=== PATIENT | female | born 1990 | race Caucasian/White ===

== ENCOUNTER 2016-11-21 04:17 | Inpatient (IN) | payer MEDICAID ==
[2016-11-21] MEDS ORDERED: LIDOCAINE 1% INJ-PF (10 MG/ML) 30 ML SDV ONE (04:31)
[2016-11-21] MEDS ORDERED: OXYTOCIN 10 UNIT/ML VIAL ONE (04:31)
[2016-11-21] MEDS ORDERED: OXYTOCIN/NORMAL SALINE 20 UNIT/1,000 ML RTUINJ ONE (04:31)
[2016-11-21] MEDS ORDERED: RINGERS SOLUTION,LACTATED 1,000 ML IV ONE (04:32)
[2016-11-21] MEDS ORDERED: RINGERS SOLUTION,LACTATED 1,000 ML IV PRN (04:32)
[2016-11-21] MEDS ORDERED: MEASLES,MUMPS&RUBELLA VACC/PF 0.5 ML VIAL SUBCUT PRN (04:43)
[2016-11-21] MEDS ORDERED: GLYCERIN/WITCH HAZEL LEAF 1 EACH MED..PAD TP PRN (04:43)
[2016-11-21] MEDS ORDERED: MAGNESIUM HYDROXIDE SUSP 30 ML UDCUP PO PRN (04:43)
[2016-11-21] MEDS ORDERED: NA PHOS,M-B/NA PHOS,DI-BA (ADULT) 133 ML ENEMA PR PRN (04:43)
[2016-11-21] MEDS ORDERED: ACETAMINOPHEN WITH CODEINE #3 TABLET PO PRN (04:43)
[2016-11-21] MEDS ORDERED: PROMETHAZINE HCL INJ 25 MG/1 ML VIAL IV PRN (04:43)
[2016-11-21] MEDS ORDERED: DIPH/PERTUSS(ACELL)/TETANUS VAC/PF 0.5 ML SYR (>=10YO) IM PRN (04:43)
[2016-11-21] MEDS ORDERED: ACETAMINOPHEN 650 MG SUPP.RECT PR PRN (04:43)
[2016-11-21] MEDS ORDERED: ZOLPIDEM TARTRATE 5 MG TABLET PO PRN (04:43)
[2016-11-21] MEDS ORDERED: DIPHENHYDRAMINE HCL 25 MG CAPSULE PO PRN (04:43)
[2016-11-21] MEDS ORDERED: DIBUCAINE 1% OINTMENT 28 GM TP PRN (04:43)
[2016-11-21] MEDS ORDERED: PSEUDOEPHEDRINE HCL 30 MG TABLET PO PRN (04:43)
[2016-11-21] MEDS ORDERED: OXYTOCIN/NORMAL SALINE 20 UNIT/1,000 ML RTUINJ IV PRN (04:43)
[2016-11-21] MEDS ORDERED: BENZOCAINE/MENTHOL AEROSOL SPRAY 56 ML TOP PRN (04:43)
[2016-11-21] MEDS ORDERED: PROMETHAZINE HCL 25 MG SUPP.RECT PR PRN (04:43)
[2016-11-21] MEDS ORDERED: PROMETHAZINE HCL 25 MG TABLET PO PRN (04:43)
[2016-11-21 04:56] LABS: APPEARANCE,URINE CLEAR; BILIRUBIN,URINE NEGATIVE (NEGATIVE); GLUCOSE, URINE 50 mg/dL (NEGATIVE); KETONES,URINE NEGATIVE (NEGATIVE); LEUKOCYTE ESTERASE,URINE NEGATIVE (NEGATIVE); NITRITE,URINE NEGATIVE (NEGATIVE); PROTEIN,URINE NEGATIVE (NEGATIVE); URINE SPECIFIC GRAVITY 1.009; UROBILINOGEN,URINE NEGATIVE mg/dL (<2.0)
[2016-11-21 05:10] LABS: URINE METHADONE SCREEN NEGATIVE; URINE OPIATES LOW NEGATIVE; URINE PHENCYCLIDINE SCREEN NEGATIVE
[2016-11-21] MEDS ORDERED: IBUPROFEN 800 MG TABLET ONE (05:16)
[2016-11-21 05:21] LABS: URINE BARBITURATES SCREEN UNCONFIRMED POSITIVE
[2016-11-21 05:59] LABS: ABSOLUTE BASOPHILS # (AUTO) 0.1 10^3/uL (0.0-0.2); ABSOLUTE EOSINOPHILS # (AUTO) 0.1 10^3/uL (0.0-0.6); ABSOLUTE LYMPHOCYTES (AUTO) 1.5 10^3/uL (0.5-4.7); ABSOLUTE MONOCYTES (AUTO) 0.9 10^3/uL (0.1-1.4); ABSOLUTE NEUT (AUTO) 8.1 10^3/uL (1.7-8.2); BASOPHILS % (AUTO) 0.7 % (0-2); EOSINOPHILS % (AUTO) 0.7 % (0-6); HEMATOCRIT 32.8 % (36.0-47.0); HEMOGLOBIN 10.9 g/dL (12.0-15.5); HGB HCT DIFFERENCE -0.1; LYMPHOCYTES % (AUTO) 14.2 % (13-45); MEAN CORPUSCULAR HEMOGLOBIN 24.8 pg (27.0-33.4); MEAN CORPUSCULAR HGB CONC 33.3 g/dL (32.0-36.0); MEAN CORPUSCULAR VOLUME 74 fl (80-97); MONOCYTES % (AUTO) 8.1 % (3-13); RED BLOOD COUNT 4.41 10^6/uL (3.72-5.28); RED CELL DISTRIBUTION WIDTH 14.9 % (11.5-14.0); SEGMENTED NEUTROPHILS % (AUTO) 76.3 % (42-78); WHITE BLOOD COUNT 10.6 10^3/uL (4.0-10.5)
--- NOTE | 2016-11-21 06:02 | Delivery Summary ---
Del Sum A-C Datetime Report Generated by CPN: 11/21/2016 06:02 DELIVERY PERSONNEL DELIVERY PERSONNEL: ,[phone] Delivery Doctor:: Divina Ferguson MD Labor and Delivery Nurse:: Rosy Valdovinos RN Nursery Nurse:: Danielle Campa RN Rod Bending Machine Operator/CREMATOR: Helen Rogela, CREMATOR MATERNAL INFORMATION Delivery Anesthesia: None Medications After Delivery: Pitocin Bolus-Please Comment Meds After Delivery Comment: Pitocin 20 units/1000 ml NS following placenta Estimated Blood Loss (ml): 250 Maternal Complications: Precipitous Labor (<3hrs) Provider Comments: Placenta delivered intact with 3vc LABOR SUMMARY EDC: 11/20/2016 00:00 Attempted: No Labor Anesthesia: None LABOR INFORMATION Reason for Induction: Not Applicable Onset of Labor: 11/21/2016 03:00 Complete Dilatation: 11/21/2016 04:42 Oxytocin: N/A Group B Beta Strep: negative Antibiotics # of Doses: 0 Antibiotics Time of Last Dose: n/a Steroids Given: None Reason Steroids Not Administered: Not Applicable MEMBRANES Membranes Rupture Method: Artificial Rupture of Membranes: 11/21/2016 04:45 Length of Rupture (hr): 0.18 Amniotic Fluid Color: Clear Amniotic Fluid Amount: Moderate Amniotic Fluid Odor: Normal STAGES OF LABOR Stage 1 hr: 1 Stage 1 min: 42 Stage 2 hr: 0 Stage 2 min: 14 Stage 3 hr: 0 Stage 3 min: 4 Total Time in Labor hr: 2 Total Time in Labor min: 0 VAGINAL DELIVERY Episiotomy: None Laceration Extension: First Degree Laceration Type: Perineal Laceration Repair: Yes Laceration Repair Note: one 3-0 chromic suture placed Sponge Count Correct: N/A Sharps Count Correct: N/A CSECTION DELIVERY Primary Indication: N/A Secondary Indication: N/A CSection Incidence: N/A Labor: N/A Elective: N/A CSection Incision: N/A BABY A INFORMATION Infant Delivery Date/Time: 11/21/2016 04:56 Method of Delivery: Vaginal Born in Route : No : N/A Forceps: N/A Vacuum Extraction: N/A Shoulder Dystocia : No PRESENTATION/POSITION BABY A Presentation: Cephalic Cephalic Presentation: Vertex Vertex Position: Left Occipital Anterior Breech Presentation: N/A PLACENTA INFORMATION BABY A Placenta Delivery Time : 11/21/2016 05:00 Placenta Method of Delivery: Spontaneous Placenta Status: Delivered SCORES BABY A Heart Rate 1 min: >100 bpm Resp Effort 1 min: Slow, Irregular Reflex Irritability 1 min: Cough or Sneeze or Pulls Away Muscle Tone 1 min: Active Motion Color 1 min: Body [place], Extremities Blue SCORE 1 MIN: 8 Heart Rate 5 min: >100 bpm Resp Effort 5 min: Good Cry Reflex Irritability 5 min: Cough or Sneeze or Pulls Away Muscle Tone 5 min: Active Motion Color 5 min: Body [place], Extremities Blue SCORE 5 MIN: 9 INFORMATION BABY A Gestational Age at Delivery: 40.1 Gestational Status: Full Term- 39- 40.6 Weeks Infant Outcome : Liveborn Condition : Stable Sex: Female IDENTIFICATION BABY A Verification Date/Time: 11/21/2016 05:49 ID Band Number: [id number] Mother's Name Verified: Yes Infant RN Verifying : A Valdovinos Rn Additional Verifying Personnel: Swapsee Rn WEIGHT/LENGTH BABY A Infant Birthweight (gm): 3490 Weight (lb): 7 Infant Weight (oz): 11 Infant Length (in): 20.00 Infant Length (cm): 50.80 CORD INFORMATION BABY A No. Cord Vessels: 3 Nuchal Cord : N/A Cord Blood Taken: Yes-For Eval (Mom's Blood Type - or O+) Infant Suction: Mouth; Nose ASSESSMENT BABY A Complications: None Physical Findings at Delivery: Within Normal Limits Infant Respirations: Appears Normal Skin to Skin: Yes Skin to Skin Time (min): 40 [place] Operator/ALS Called : No Care By: Ena Campa RN Transferred To: Remains with Mother SIGNATURES Signature: with User ID: [email or web address]
--- NOTE | 2016-11-21 07:38 | Admission Physical ---
Datetime Report Generated by CPN: 11/21/2016 07:37 CURRENT ADMISSION Chief Complaint: Uterine Contractions Indication for Induction: Not Applicable Admit Plan: Admit to Unit; Initiate Labor Protocol ALLERGIES Medication Allergies: No Medication Allergies: No Known Allergies (02/16/2013) Latex: No Latex Allergies Food Allergies: none Environmental Allergies: none OBSTETRICAL HISTORY EDC: 11/20/2016 00:00 : 5 Para: 2 Term: 2 SAB: 2 Livin Cesareans: 0 Gestational Diabetes: No Rh Sensitization: No Incompetent Cervix: No GAVIOTA: No Infertility: No ART Treatment: No Uterine Anomaly: No IUGR: No Hx Previous C/S: No Macrosomia: No Hx Loss/Stillborn: No PIH: No Hx : No Placenta Previa/Abruption: No Depression/PP Depression: No PTL/PROM: No Post Hemorrhage: No Current Procedures: Ultrasound; NST SEE RECORDS Alcohol: No Marijuana : No Cocaine: No Other Illicit Drugs: No Cigarettes: Never Smoker. [id number] MEDICAL HISTORY Diabetes: No Blood Transfusion: No Pulmonary Disease (Asthma, TB): No Breast Disease: No Hypertension: No Machine Cleaner Surgery: No Heart Disease: No Hosp/Surgery: No Autoimmune Disorder: No Anesthetic Complications: No Kidney Disease: No Abnormal Pap Smear: No Neuro/Epilepsy: No Psychiatric Disorders: No Other Medical Diseases: No Hepatitis/Liver Disease: No Significant Family History: No Varicosities/Phlebitis: No Trauma/Violence : No Thyroid Dysfunction: No Medical History Comments: benign lump left breast-2009 depresasion-no suicidal thoughts INFECTIOUS HISTORY Gonorrhea: No Genital Herpes: No Chlamydia: No Tuberculosis: No Syphilis: No Hepatitis: No HIV/AIDS Exposure: No Rash or Viral Illness: No HPV: No PHYSICAL EXAM General: Normal HEENT: Normal Neurologic: Normal Thyroid: Normal Heart: Normal Lungs: Normal Breast: Deferred Back: Normal Abdomen: Normal Genitourinary Exam: Normal Extremities: Normal DTRs: Normal Pelvic Type: Adequate Vital Signs: Reviewed VAGINAL EXAM Dilatation: 9 Effacement: 100 Station: 0 MEMBRANES Pooling: Negative Membranes: Intact FETUS A EGA: 40.1 Monitoring: External US FHR- Baseline: 140 Variability: Moderate 6-25bpm Accelerations: 15X15 Decelerations: None FHR Category: Category I Presentation: Vertex PLANS FOR LABOR AND DELIVERY Labor and Delivery: None Pain Management: Epidural Feeding Preference: Breast Benefit of Breast Feed Discussed: Yes Circumcision: N/A INFORMED CONSENT Signature: with User ID: DamSmith
--- NOTE | 2016-11-21 08:00 | L&D Flow Sheet ---
LD Flowsheet Datetime Report Generated by CPN: 11/21/2016 08:00 Datetime: 11/21/2016 06:02 NBP Sys/Yoon/Mean (mmHg): 122 (QS system process) : 83 (QS system process) : 98 (QS system process) Pulse: 61 (QS system process) Datetime: 11/21/2016 05:32 NBP Sys/Yoon/Mean (mmHg): 133 (QS system process) : 72 (QS system process) : 96 (QS system process) Pulse: 74 (QS system process) Datetime: 11/21/2016 05:14 NBP Sys/Yoon/Mean (mmHg): 129 (QS system process) : 58 (QS system process) : 84 (QS system process) Pulse: 82 (QS system process) Datetime: 11/21/2016 05:10 Pain Pain Scale: 2 (Rosy Valdovinso) Pain Presence: Constant (Rosy Valdovinos) Pain Type: Burning (Rosy Valdovinos) Pain Location: Perineum (Rosy Valdovinos) Pain Goal: 0 (Rosy Valdovinos) Pain Relief Measures: Pain Medication Given (Rosy Valdovinos) Datetime: 11/21/2016 05:00 Vital Signs Stage of : Recovery (Rosy Valdovinos) Datetime: 11/21/2016 04:56 Assessment A Comments: vaginal delivery of baby girl (Rosy Valdovinos) Datetime: 11/21/2016 04:51 Stage 2 Pushing: Coached on Pushing; Urge to Push (Rosy Valdovinos) Pushing Position: Pushing with Contractions (Rosy Valdovinos) Pushing Progress: Descent with Pushing (Rosy Valdovinos) Datetime: 11/21/2016 04:48 Stage 2 Pushing: Coached on Pushing; Urge to Push (Rosy Valdovinos) Pushing Position: Pushing with Contractions (Rosy Valdovinos) Pushing Progress: Descent with Pushing (Rosy Valdovinos) Stage 2 Comments: rn kendrick at the bedside for delivery (Rosy Valdovinos) Datetime: 11/21/2016 04:45 Membrane Status: Ruptured (Rosy Valdovinos) Membranes Rupture Method: Artificial (Rosy Valdovinos) Amniotic Fluid Color: Clear (Rosy Valdovinos) Amniotic Fluid Amount: Moderate (Rosy Valdovinos) Amniotic Fluid Odor: Normal (Rosy Valdovinos) Patient Position/Activity: patient legs in stirrups (Rosy Valdovinos) Patient Care Comments: Dr Ferguson at the bedside for delivery (Rosy Valdovinos) Datetime: 11/21/2016 04:42 Vaginal Exam Dilatation (cm): 10.0 (Rosy Valdovinos) Effacement (%): 100 (Rosy Valdovinos) Station: 2 (Rosy Valdovinos) Exam by: A Valdovinos Rn (Rosy Valdovinos) Datetime: 11/21/2016 04:41 Pain Pain Scale: 4 (Rosy Valdovinos) Pain Presence: Intermittent (Rosy Valdovinos) Pain Type: Cramping (Rosy Valdovinos) Pain Location: Abdomen (Rosy Valdovinos) Pain Goal: 0 (Rosy Valdovinos) Pain Coping: Talking Through Contractions; Breathing Through Contractions (Rosy Valdovinos) Vaginal Bleeding: None (Rosy Valdovinos) Maternal Assessment Level of Consciousness: Fully Conscious (Rosy Valdovinos) DTR's/Clonus: DTRs 2+; No Clonus (Rosy Valdovinos) Headache: Denies (Rosy Valdovinos) Breath Sounds, Left: Clear and Equal (Rosy Valdovinos) Breath Sounds, Right: Clear and Equal (Rosy Valdovinos) Nausea/Vomiting: Denies (Orsy Valdovinos) RUQ Epigastric Pain: Denies (Rosy Valdovinos) Patient Position/Activity: Right Tilt (Rosy Valdovinos) Teaching Instructional Method: Verbal (Rosy Valdovinos) Plan of Care: Plan of Care Discussed (Rosy Valdovinos) Unit Routine: [place] to Room; Call Martínez; Bed; Visiting Policy; Waiting Areas; Infant Security; Phone/Cell Phone Use; Photography; Unit Personnel; Consents Signed; Handwashing; Flu/Illness Precautions; Monitoring; IV Pumps; Safety/Fall Risk Prevention; Diet/Nutrition Services; Bathroom Privileges; Routine Time Outs; Medications (Rosy Valdovinos) LaborFlag: Antepartum (QS system process) Datetime: 11/21/2016 04:40 Procedures: Consents Signed (Cristina Azma, RN) Datetime: 11/21/2016 04:35 Patient Care IV/Blood Work: IV Started; IV Bolus Started (Annotations: 18g left forearm) (Rosy Valdovinos) Datetime: 11/21/2016 04:32 NBP Sys/Yoon/Mean (mmHg): 139 (QS system process) : 82 (QS system process) : 104 (QS system process) LaborFlag: Antepartum (QS system process) Datetime: 11/21/2016 04:30 Communication Communication Comments: Dr. Ferguson made aware of SVE and states he will be to the unit shortly (Cristina Azam, RN) Datetime: 11/21/2016 04:29 Vital Signs Stage of : Antepartum (Rosy Valdovinos) Datetime: 11/21/2016 04:28 Vaginal Exam Dilatation (cm): 9.5 (Cristina Nascimento RN) Effacement (%): 90 (Rosyabhilash Valdovinos) Station: 1 (Rosy Valdovinos) Exam by: Chilango Valdovinos RN (Cristina Nascimento RN) Vaginal Exam Comments: bbow (Cristina Nascimento RN) Datetime: 11/21/2016 04:23 Patient Care Comments: patient to the unit for labor check (Rosy Valdovinos) Datetime: 11/21/2016 04:15 Membranes Ruptured Date/Time: 11/21/2016 04:45 (Rosyabhilash Valdovinos) Membranes Rupture Method: Artificial (Viry Dickey RN) Amniotic Fluid Color: Clear (Viry Dickey RN) Amniotic Fluid Amount: Moderate (Viry Dickey RN)
[2016-11-21] MEDS: IBUPROFEN 800 MG TABLET PO SCH ×3 (08:18→21:09)
--- NOTE | 2016-11-21 09:37 | L&D Discharge Summary ---
OB Discharge Summary Datetime Report Generated by CPN: 11/21/2016 09:37 DISCHARGE DIAGNOSIS Gestation: 40.1 Parity: 2
[2016-11-21] MEDS: FAMOTIDINE 20 MG TABLET PO SCH ×2 (09:59→21:09)
[2016-11-21] MEDS: DOCUSATE SODIUM 100 MG CAPSULE PO SCH ×2 (09:59→17:25)
[2016-11-21] MEDS: PRENATAL VITAMIN W-O CA NO5/FE FUMARATE/FA CAPSULE PO SCH (09:59)
[2016-11-21] MEDS: SENNOSIDES/DOCUSATE 8.6-50 MG 1 EACH TABLET PO SCH (10:00)
[2016-11-21] MEDS: FERROUS SULFATE 325 MG TABLET PO SCH ×2 (10:00→17:25)
--- NOTE | 2016-11-21 11:00 | PDOC PROGRESS REPORT ---
Subjective-OB Subjective: Post Delivery Day: 26 year old. Denies any needs at this time. Pt doing well, no concerns. She reports light bleeding, regular diet and voiding well. Physical Exam (OB) Vital Signs: Temp Pulse Resp BP Pulse Ox 98.4 F 77 18 116/68 98 11/21/16 07:14 11/21/16 07:14 11/21/16 07:14 11/21/16 07:14 11/21/16 07:14 Intake & Output 11/20/16 11/21/16 11/22/16 06:59 06:59 06:59 Intake Total 1000 Balance 1000 Weight 97.85 kg - Lochia Lochia Amount: Small 10-25 ml Lochia Color: Rubra/Red - Abdomen Description: Tender, Soft, Round Hernia Present: No Fundal Description: Firm, Midline Fundal Height: u/u - u/2 Objective-Diagnostic Laboratory: 11/21/16 05:50 11/21/16 11/21/16 11/21/16 04:26 05:50 05:50 WBC 10.6 H RBC 4.41 Hgb 10.9 L Hct 32.8 L MCV 74 L MCH 24.8 L MCHC 33.3 RDW 14.9 H Plt Count 271 Seg Neutrophils % 76.3 Lymphocytes % 14.2 Monocytes % 8.1 Eosinophils % 0.7 Basophils % 0.7 Absolute Neutrophils 8.1 Absolute Lymphocytes 1.5 Absolute Monocytes 0.9 Absolute Eosinophils 0.1 Absolute Basophils 0.1 Urine Color YELLOW Urine Appearance CLEAR Urine pH 7.0 Ur Specific Paul 1.009 Urine Protein NEGATIVE Urine Glucose (UA) 50 H Urine Ketones NEGATIVE Urine Blood NEGATIVE Urine Nitrite NEGATIVE Ur Leukocyte Esterase NEGATIVE Blood Type O POSITIVE Antibody Screen NEGATIVE Assessment and Plan(PN) - Assessment and Plan (1) Vaginal delivery Is this a current diagnosis for this admission?: Yes - Time Spent with Patient Time with patient: Less than 15 minutes Medications reviewed and adjusted accordingly: Yes - Disposition Anticipated Discharge: Home Within: within 24 hours
[2016-11-21] MEDS: ACETAMINOPHEN WITH CODEINE #3 TABLET PO PRN ×2 (14:15→19:12)
--- NOTE | 2016-11-21 18:01 | L&D General Admission ---
General Admit Datetime Report Generated by CPN: 11/21/2016 18:00 INFORMATION Patient Age: 26 (10/08/2016 10:16:QS system process) EDC: 11/20/2016 00:00 (11/21/2016 04:15:Cristina Nascimento RN) EDC per Ultrasound: 11/20/2016 00:00 (11/21/2016 04:15:Cristina Nascimento RN) : 5 (11/21/2016 04:15:Cristina Nascimento RN) Para: 2 (11/21/2016 04:15:Cristina Nascimento RN) Term: 2 (11/21/2016 04:15:Cristina Nascimento RN) Spontaneous Abortions: 2 (11/21/2016 04:15:Cristina Nascimento RN) Livin (11/21/2016 04:15:Cristina Nascimento RN) Cesareans: 0 (11/21/2016 04:15:Cristina Nascimento RN) CARE Primary Film Booker: [facility] (11/21/2016 04:15:Rosy Valdovinos) Adequate Care: Yes (11/21/2016 04:15:Cristinaharvey Nascimento, RN) Height (in): 67 (11/21/2016 07:37:QS system process) ALLERGIES Medication Allergy: No (11/21/2016 04:15:Rosy Valdovinos) Medication Allergies: No Known Allergies (02/16/2013) (10/08/2016 10:16:QS system process) Latex Allergy: No Latex Allergies (11/21/2016 04:15:Rosy Valdovinos) Food Allergies: none (11/21/2016 04:15:Rosy Valdovinos) Environmental Allergies: none (11/21/2016 04:15:Rosy Valdovinos) COMMUNICATION Primary Language: Kittitian (11/21/2016 04:15:Rosy Valdovinos) Medical Tx Preferred Language: Kittitian (11/21/2016 04:15:Rosyabhilash Valdovinos) DEMOGRAPHICS Address: [address] [place] [id number] (10/08/2016 10:16:QS system process) Zipcode: [phone] (10/08/2016 10:16:QS system process) Home (10/08/2016 10:16:QS system process) SSN: [id number] (10/08/2016 10:16:QS system process) Next of Kin Name: JANETH MCMILLAN (10/08/2016 10:16:QS system process) Next of Kin (10/08/2016 10:16:QS system process) Next of Kin Relationship: SPO (10/08/2016 10:16:QS system process) Date of : 1990 (10/08/2016 10:16:QS system process) Marital Status: (10/08/2016 10:16:QS system process) Sex: Female (10/08/2016 10:16:QS system process) Race: (10/08/2016 10:16:QS system process) Ethnicity: Non- or (10/08/2016 10:16:QS system process) Hinduism: Oriental Orthodox (10/08/2016 10:16:QS system process) DRUG AND ALCOHOL USE Alcohol: No (11/21/2016 04:15:Rosy Valdovinos) Cigarettes: Never Smoker. [id number] (11/21/2016 04:15:Rosy Valdovinos) Marijuana: No (11/21/2016 04:15:Rosy Valdovinos) Cocaine: No (11/21/2016 04:15:Rosy Valdovinos) Other Illicit Drugs: No (11/21/2016 04:15:Rosy Valdovinos) VACCINE HISTORY Influenza Vaccine: Yes (11/21/2016 04:15:Rosy Valdovinos) Influenza Date: 2016 (11/21/2016 04:15:Rosy Valdovinos) Tdap Vaccine: Yes (11/21/2016 04:15:Rosy Valdovinos) Tdap Date: 2016 (11/21/2016 04:15:Rosy Valdovinos) Driving School Instructor: [facility] (11/21/2016 04:15:Rosy Valdovinos) Feeding Preference: Breast (11/21/2016 04:15:Rosy Valdovinos) Benefit of Breast Feed Discussed: Yes (11/21/2016 04:15:Viry Dickey RN) Circumcision: N/A (11/21/2016 04:15:Rosy Valdovinos) Classes Attended: No (11/21/2016 04:15:Rosy Valdovinos) Tubal Ligation: No (11/21/2016 04:15:Rosy Valdovinos) Tubal Authorization Signed: N/A (11/21/2016 04:15:Rosy Valdovinos) Consent: N/A (11/21/2016 04:15:Rosy Valdovinos) Consent Signed: N/A (11/21/2016 04:15:Rosy Valdovinos) Pain Management Plans: Epidural (11/21/2016 04:15:Rosy Valdovinos) Plans for Labor and Delivery: None (11/21/2016 04:15:Rosy Valdovinos) Support Person: Janeth (11/21/2016 04:15:Rosy Valdovinos) Support Person Relationship: (11/21/2016 04:15:Rosy Valdovinos) Cultural/Spritual Practice: N/A (11/21/2016 04:15:Rosy Valdovinos) Spir/Cult Dietary Needs: N/A (11/21/2016 04:15:Rosy Valdovinos) LIVING SITUATION/DISCHARGE PLAN Living Arrangements: House (11/21/2016 04:15:Rosy Valdovinos) Adequate Access to:: Electric; Heat; Refrigeration; Plumbing/Running water; Phone; Transportation (11/21/2016 04:15:Rosy Valdovinos) WIC Program: Yes (11/21/2016 04:15:Rosy Valdovinos) 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: janeth- (11/21/2016 04:15:Rosy Valdovinos) Person to Help after Discharge: janeth- (11/21/2016 04:15:Rosy Valdovinos) Currently Using Commun Resources: Yes (11/21/2016 04:15:Rosy Valdovinos) Specify Current Resource Used: medicaid (11/21/2016 04:15:Rosy Valdovinos) Outside Agency/Brewery Technician: No (11/21/2016 04:15:Rosy Valdovinos) Car Seat for Discharge: Yes (11/21/2016 04:15:Rosy Valdovinos) Adoption Requested: No (11/21/2016 04:15:Rosy Valdovinos) Pt Contact w/ Post : N/A (11/21/2016 04:15:Rosy Valdovinos) LABS Blood Type: O Positive (11/21/2016 04:15:Cristina Nascimento RN) Hemoglobin: 10.9 L (11/21/2016 05:50:QS system process) Hematocrit: 32.8 L (11/21/2016 05:50:QS system process) MCV: 74 L (11/21/2016 05:50:QS system process) Group Beta Strep: negative (11/21/2016 04:15:Viry Dickey RN) RPR/VDRL: Nonreactive (11/21/2016 04:15:Cristina Nascimento RN) HIV Exposure Test: Negative (11/21/2016 04:15:Cristina Nascimento RN) Hepatitis B: Negative (11/21/2016 04:15:Cristina Nascimento RN) Rubella: POSITIVE NEGATIVE IF LESS THAN OR EQUAL TO 9.99 IU/mL POSITIVE IF GREATER THAN OR EQUAL TO 10.0 IU/mL (11/21/2016 05:50:QS system process) Rubella Titer: 41.30 (11/21/2016 05:50:QS system process) Varicella: Non Susceptible (11/21/2016 04:15:Cristina Nascimento RN) OB/PREVIOUS HISTORY Previous Procedures: Ultrasound; NST (11/21/2016 04:15:Rosy Valdovinos) Current Procedures: Ultrasound; NST (11/21/2016 04:15:Rosy Valdovinos) History of Previous : No (11/21/2016 04:15:Rosy Valdovinos) History of Gestational Diabetes: No (11/21/2016 04:15:Rosy Valdovinos) History of PIH: No (11/21/2016 04:15:Rosy Valdovinos) History of Incompetent Cervix: No (11/21/2016 04:15:Rosy Valdovinos) History of Placenta Previa/Abrup: No (11/21/2016 04:15:Rosy Valdovinos) History of Macrosomia: No (11/21/2016 04:15:Rosy Valdovinos) History of IUGR: No (11/21/2016 04:15:Rosy Valdovinos) History of Hemorrhage: No (11/21/2016 04:15:Rosy Valdovinos) History of Loss/Stillborn: No (11/21/2016 04:15:Rosy Valdovinos) History of : No (11/21/2016 04:15:Rosy Valdovinos) History of D (Rh) Sensitization: No (11/21/2016 04:15:Rosy Valdovinos) History Recurrent Loss/Stillborn: No (11/21/2016 04:15:Rosy Valdovinos) History Depression/PP Depression: No (11/21/2016 04:15:Rosy Valdovinos) History of Uterine Anomaly/GAVIOTA: No (11/21/2016 04:15:Rosy Valdovinos) History of Infertility: No (11/21/2016 04:15:Rosy Valdovinos) History of ART Treatment: No (11/21/2016 04:15:Rosy Valdovinos) History of GAVIOTA: No (11/21/2016 04:15:Rosy Valdovinos) MEDICAL HISTORY Med Hx Diabetes: No (11/21/2016 04:15:Rosy Valdovinos) Med Hx Hypertension: No (11/21/2016 04:15:Rosy Valdovinos) Med Hx Heart Disease: No (11/21/2016 04:15:Rosy Valdovinos) Med Hx Autoimmune Disorder: No (11/21/2016 04:15:Rosy Valdovinos) Med Hx Kidney Disease/UTI: No (11/21/2016 04:15:Rosy Valdovinos) Med Hx Neurologic/Epilepsy: No (11/21/2016 04:15:Rosy Valdovinos) Med Hx Psychiatric Disorders: No (11/21/2016 04:15:Rosy Valdovinos) Med Hx Hepatitis/Liver Disease: No (11/21/2016 04:15:Rosy Valdovinos) Med Hx Varicosities/Phlebitis: No (11/21/2016 04:15:Rosy Valdovinos) Med Hx Thyroid Dysfunction: No (11/21/2016 04:15:Rosy Valdovinos) Med Hx Trauma/Violence: No (11/21/2016 04:15:Rosy Valdovinos) Med Hx Blood Transfusion: No (11/21/2016 04:15:Rosy Valdovinos) Med Hx Pulmonary (Asthma,TB): No (11/21/2016 04:15:Rosy Valdovinos) Med Hx Breast: No (11/21/2016 04:15:Rosy Valdovinos) Med Hx LABORATORY SAMPLE 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 Surgery: No (11/21/2016 04:15:Rosy Valdovinos) Med Hx Hospitalization/Surgery: No (11/21/2016 04:15:Rosy Valdovinos) Med Hx Anesthetic Complications: No (11/21/2016 04:15:Rosy Valdovinos) Med Hx Abnormal Pap Smear: No (11/21/2016 04:15:Rosy Valdovinos) Other Medical Diseases: No (11/21/2016 04:15:Rosy Valdovinos) Med Hx Significant Family Hx: No (11/21/2016 04:15:Rosy Valdovinos) Details of Med/Surg Hx: benign lump left breast-2009 depresasion-no suicidal thoughts (11/21/2016 04:15:Cristina Nascimento RN) INFECTIOUS HISTORY Inf Hx Gonorrhea: No (11/21/2016 04:15:Rosy Valdovinos) Inf Hx Chlamydia: No (11/21/2016 04:15:Rosy Valdovinos) Inf Hx Syphilis: No (11/21/2016 04:15:Rosy Valdovinos) Inf Hx HIV/AIDS: No (11/21/2016 04:15:Rosy Valdovinos) Inf Hx Human Papilloma Virus: No (11/21/2016 04:15:Rosy Valdovinos) Inf Hx Pt/Partner Genital Herpes: No (11/21/2016 04:15:Rosy Valdovinos) Inf Hx Tuberculosis/Exposure: No (11/21/2016 04:15:Rosy Valdovinos) Inf Hx Hepatitis B,C: No (11/21/2016 04:15:Rosy Valdovinos) Inf Hx Rash or Viral Illness: No (11/21/2016 04:15:Rosy Valdovinos) GENETIC HISTORY Gen Hx Age >=35 at TYRELL: No (11/21/2016 04:15:Rosy Valdovinos) Gen Hx Thalassemia: No (11/21/2016 04:15:Rosy Valdovinos) Gen Hx Congenital Heart Defect: No (11/21/2016 04:15:Rosy Valdovinos) Gen Hx Neural Tube Defect: No (11/21/2016 04:15:Rosy Valdovinos) Gen Hx Down's Syndrome: No (11/21/2016 04:15:Rosy Valdovinos) Gen Hx Jt-Sachs: No (11/21/2016 04:15:Rosy Valdovinos) Gen Hx Otto: No (11/21/2016 04:15:Rosy Valdovinos) Gen Hx Familial Dysautonomia: No (11/21/2016 04:15:Rosy Valdovinos) Gen Hx Sickle Cell Disease/Trait: No (11/21/2016 04:15:Rosy Valdovinos) Gen Hx Hemophilia/Blood Disorder: No (11/21/2016 04:15:Rosy Valdovinos) Gen Hx Muscular Dystrophy: No (11/21/2016 04:15:Rosy Valdovinos) Gen Hx Cystic Fibrosis: No (11/21/2016 04:15:Rosy Valdovinos) Gen Hx [place] Chorea: No (11/21/2016 04:15:Rosy Valdovinos) Gen Hx Mental Retardation/Autism: No (11/21/2016 04:15:Rosy Valdovinos) Gen Hx Tested for Fragile X: No (11/21/2016 04:15:Rosy Valdovinos) Gen Hx Other Inher/Chromosomal: No (11/21/2016 04:15:Rosy Valdovinos) Gen Hx Maternal Metabolic DO: No (11/21/2016 04:15:Rosy Valdovinos) Gen Hx Pt Father or FOB Defect: No (11/21/2016 04:15:Rosy Valdovinos) Gen Hx Other Genetic History: No (11/21/2016 04:15:Rosy Valdovinos) Gen Hx Drugs/Meds since LMP: No (11/21/2016 04:15:Rosy Valdovinos)
--- NOTE | 2016-11-21 20:20 | L&D Current Admission ---
Current Admit Datetime Report Generated by CPN: 11/21/2016 20:20 ADMISSION INFORMATION Current Admit Date/Time: 11/21/2016 04:41 (11/21/2016 04:41:Rosy Valdovinos) Reason for Admission: Onset of Labor (11/21/2016 04:41:Rosy Valdovinos) Chief Complaint: Contractions (11/21/2016 04:41:Rosy Valdovinos) Medications During : Vitamin; Rantidine (Zantac) (11/21/2016 04:41:Cristina Nascimento RN) Meds During -Oth: fiorcet (11/21/2016 04:41:Cristina Nascimento RN) EGA per Dates: 40.1 (11/21/2016 04:41:QS system process) EGA per US: 40.1 (11/21/2016 04:41:QS system process) Method of Arrival: Wheelchair (11/21/2016 04:41:Rosy Valdovinos) Admitted From: Home (11/21/2016 04:41:Cristina Nascimento RN) Reason for Induction: Not Applicable (11/21/2016 04:41:Cristina Nascimento RN) Records Available: Yes (11/21/2016 04:41:Cristina Nascimento RN) General Admission Information: Reviewed (11/21/2016 04:41:Rosy Valdovinos) General Admission Reviewed By: Edmar Valdovinos RN (11/21/2016 04:41:Rosy Valdovinos) BELONGINGS/ADVANCED DIRECTIVES Other Belongings: see consent sheet (11/21/2016 04:41:Rosy Valdovinos) Disposition of Belongings: Kept with Patient (11/21/2016 04:41:Cristina Nascimento RN) Advance Direct for Healthcare: No, and Wants No Information (11/21/2016 04:41:Rosy Valdovinos) Durable Power of Bridal Stylist Sales Consultant: No (11/21/2016 04:41:Rosy Valdovinos) Living Will: No (11/21/2016 04:41:Rosy Valdovinos) Organ Donor: No (11/21/2016 04:41:Rosy Valdovinos) Pt Rights Information Given: Yes (11/21/2016 04:41:Rosy Valdovinos) Pt Understands Pt Rights: Yes (11/21/2016 04:41:Rosy Valdovinos) Patient Rights Comments: patient access (11/21/2016 04:41:Rosy Valdovinos) LEARNING ASSESSMENT Knowledge Level: Understands L_D Process (11/21/2016 04:41:Rosy Valdovinos) Barriers to Learning: None (11/21/2016 04:41:Rosy Valdovinos) Learning Readiness: Motivated (11/21/2016 04:41:Rosy Valdovinos) Learns Best By: 1 to 1 Instruction (11/21/2016 04:41:Rosy Valdovinos) Learning Needs: Labor and Delivery Process; Pain Management; Symptoms to Report; Treatment Plan; Medication (11/21/2016 04:41:Rosy Valdovinos) DOMESTIC VIOLANCE SCREENING Dom Viol Threatened/Hurt: No (11/21/2016 04:41:Rosy Valdovinos) Hx of Abuse/Neglect past 2yrs: No (11/21/2016 04:41:Rosy Valdovinos) Feel Unsafe Going Home: No (11/21/2016 04:41:Rosy Valdovinos) Addt'l Observ Indicating Abuse: No (11/21/2016 04:41:Rosy Valdovinos) Reason Unable to Complete Screen: N/A, Screen Completed (11/21/2016 04:41:Rosy Valdovinos) Considered Personal Harm/Suicide: No (11/21/2016 04:41:Rosy Valdovinos) NUTRITIONAL/FUNCTIONAL SCREENING Problem with Appetite >5 Days: No (11/21/2016 04:41:Rosy Valdovinos) Chew/Swallow Difficulties: No (11/21/2016 04:41:Rosy Valdovinos) Inappropriate Wt Gain/Loss: No (11/21/2016 04:41:Rosy aVldovinos) Presence Skin Breakdown/Ulcer: No (11/21/2016 04:41:Rosy Valdovinos) Special Diet: No (11/21/2016 04:41:Rosy Valdovinos) Pt Requests Wood Router Visit: No (11/21/2016 04:41:Rosy Valdovinos) Hx of Any of the Following?: N/A (11/21/2016 04:41:Rosy Valdovinos) New Diagnosis of: N/A (11/21/2016 04:41:Rosy Valdovinos) Requires Assist w/Ambulation: No (11/21/2016 04:41:Rosy Valdovinos) Uses Assist Device to Ambulate: No (11/21/2016 04:41:Rosy Valdovinos) Pt Requires Help w/ADL's: No (11/21/2016 04:41:Rosy Valdovinos)
--- NOTE | 2016-11-21 20:20 | L&D General Admission ---
General Admit Datetime Report Generated by CPN: 11/21/2016 20:20 INFORMATION Patient Age: 26 (10/08/2016 10:16:QS system process) EDC: 11/20/2016 00:00 (11/21/2016 04:15:Cristina Nascimento RN) EDC per Ultrasound: 11/20/2016 00:00 (11/21/2016 04:15:Cristina Nascimento RN) : 5 (11/21/2016 04:15:Cristina Nascimento RN) Para: 2 (11/21/2016 04:15:Cristina Nascimento RN) Term: 2 (11/21/2016 04:15:Cristina Nascimento RN) Spontaneous Abortions: 2 (11/21/2016 04:15:Cristina Nascimento RN) Livin (11/21/2016 04:15:Cristina Nascimento RN) Cesareans: 0 (11/21/2016 04:15:Cristina Nascimento RN) CARE Primary Workforce Development Assistant: [facility] (11/21/2016 04:15:Rosy Valdovinos) Adequate Care: Yes (11/21/2016 04:15:Cristinaharvey Nascimento, RN) Height (in): 67 (11/21/2016 07:37:QS system process) ALLERGIES Medication Allergy: No (11/21/2016 04:15:Rosy Valdovinos) Medication Allergies: No Known Allergies (02/16/2013) (10/08/2016 10:16:QS system process) Latex Allergy: No Latex Allergies (11/21/2016 04:15:Rosy Valdovinos) Food Allergies: none (11/21/2016 04:15:Rosy Valdovinos) Environmental Allergies: none (11/21/2016 04:15:Rosy Valdovinos) COMMUNICATION Primary Language: [place]ese (11/21/2016 04:15:Rosy Valdovinos) Medical Tx Preferred Language: [place]ese (11/21/2016 04:15:Rosyabhilash Valdovinos) DEMOGRAPHICS Address: [address] [place] [id number] (10/08/2016 10:16:QS system process) Zipcode: [phone] (10/08/2016 10:16:QS system process) Home (10/08/2016 10:16:QS system process) SSN: [id number] (10/08/2016 10:16:QS system process) Next of Kin Name: JANETH MCMILLAN (10/08/2016 10:16:QS system process) Next of Kin (10/08/2016 10:16:QS system process) Next of Kin Relationship: SPO (10/08/2016 10:16:QS system process) Date of : 1990 (10/08/2016 10:16:QS system process) Marital Status: (10/08/2016 10:16:QS system process) Sex: Female (10/08/2016 10:16:QS system process) Race: (10/08/2016 10:16:QS system process) Ethnicity: Non- or (10/08/2016 10:16:QS system process) Restorationist: Taoist (10/08/2016 10:16:QS system process) DRUG AND ALCOHOL USE Alcohol: No (11/21/2016 04:15:Rosy Valdovinos) Cigarettes: Never Smoker. [id number] (11/21/2016 04:15:Rosy Valdovinos) Marijuana: No (11/21/2016 04:15:Rosy Valdovinos) Cocaine: No (11/21/2016 04:15:Rosy Valdovinos) Other Illicit Drugs: No (11/21/2016 04:15:Rosy Valdovinos) VACCINE HISTORY Influenza Vaccine: Yes (11/21/2016 04:15:Rosy Valdovinos) Influenza Date: 2016 (11/21/2016 04:15:Rosy Valdovinos) Tdap Vaccine: Yes (11/21/2016 04:15:Rosy Valdovinos) Tdap Date: 2016 (11/21/2016 04:15:Rosy Valdovinos) Candy Depositing Machine Operator: [facility] (11/21/2016 04:15:Rosy Valdovinos) Feeding Preference: Breast (11/21/2016 04:15:Rosy Valdovinos) Benefit of Breast Feed Discussed: Yes (11/21/2016 04:15:Viry Dickey RN) Circumcision: N/A (11/21/2016 04:15:Rosy Valdovinos) Classes Attended: No (11/21/2016 04:15:Rosy Valdovinos) Tubal Ligation: No (11/21/2016 04:15:Rosy Valdovinos) Tubal Authorization Signed: N/A (11/21/2016 04:15:Rosy Valdovinos) Consent: N/A (11/21/2016 04:15:Rosy Valdovinos) Consent Signed: N/A (11/21/2016 04:15:Rosy Valdovinos) Pain Management Plans: Epidural (11/21/2016 04:15:Rosy Valdovinos) Plans for Labor and Delivery: None (11/21/2016 04:15:Rosy Valdovinos) Support Person: Janeth (11/21/2016 04:15:Rosy Valdovinos) Support Person Relationship: (11/21/2016 04:15:Rosy Valdovinos) Cultural/Spritual Practice: N/A (11/21/2016 04:15:Rosy Valdovinos) Spir/Cult Dietary Needs: N/A (11/21/2016 04:15:Rosy Valdovinos) LIVING SITUATION/DISCHARGE PLAN Living Arrangements: House (11/21/2016 04:15:Rosy Valdovinos) Adequate Access to:: Electric; Heat; Refrigeration; Plumbing/Running water; Phone; Transportation (11/21/2016 04:15:Rosy Valdovinos) WIC Program: Yes (11/21/2016 04:15:Rosy Valdovinos) Discharge Vehicle Controls Engineer Person: janeth- (11/21/2016 04:15:Rosy Valdovinos) Person to Help after Discharge: janeth- (11/21/2016 04:15:Rosy Valdovinos) Currently Using Commun Resources: Yes (11/21/2016 04:15:Rosy Valdovinos) Specify Current Resource Used: medicaid (11/21/2016 04:15:Rosy Valdovinos) Outside Agency/Compensation Director: No (11/21/2016 04:15:Rosy Valdovinos) Car Seat for Discharge: Yes (11/21/2016 04:15:Rosy Valdovinos) Adoption Requested: No (11/21/2016 04:15:Rosy Valdovinos) Pt Contact w/ Post : N/A (11/21/2016 04:15:Rosy Valdovinos) LABS Blood Type: O Positive (11/21/2016 04:15:Cristina Nascimento RN) Hemoglobin: 10.9 L (11/21/2016 05:50:QS system process) Hematocrit: 32.8 L (11/21/2016 05:50:QS system process) MCV: 74 L (11/21/2016 05:50:QS system process) Group Beta Strep: negative (11/21/2016 04:15:Viry Dickey RN) RPR/VDRL: Nonreactive (11/21/2016 04:15:Cristina Nascimento RN) HIV Exposure Test: Negative (11/21/2016 04:15:Cristina Nascimento RN) Hepatitis B: Negative (11/21/2016 04:15:Cristina Nascimento RN) Rubella: POSITIVE NEGATIVE IF LESS THAN OR EQUAL TO 9.99 IU/mL POSITIVE IF GREATER THAN OR EQUAL TO 10.0 IU/mL (11/21/2016 05:50:QS system process) Rubella Titer: 41.30 (11/21/2016 05:50:QS system process) Varicella: Non Susceptible (11/21/2016 04:15:Cristina Nascimento RN) OB/PREVIOUS HISTORY Previous Procedures: Ultrasound; NST (11/21/2016 04:15:Rosy Valdovinos) Current Procedures: Ultrasound; NST (11/21/2016 04:15:Rosy Valdovinos) History of Previous : No (11/21/2016 04:15:Rosy Valdovinos) History of Gestational Diabetes: No (11/21/2016 04:15:Rosy Valdovinos) History of PIH: No (11/21/2016 04:15:Rosy Valdovinos) History of Incompetent Cervix: No (11/21/2016 04:15:Rosy Vadlovinos) History of Placenta Previa/Abrup: No (11/21/2016 04:15:Rosy Valdovinos) History of Macrosomia: No (11/21/2016 04:15:Rosy Valdovinos) History of IUGR: No (11/21/2016 04:15:Rosy Valdovinos) History of Hemorrhage: No (11/21/2016 04:15:Rosy Valdovinos) History of Loss/Stillborn: No (11/21/2016 04:15:Rosy Valdovinos) History of : No (11/21/2016 04:15:Rosy Valdovinos) History of D (Rh) Sensitization: No (11/21/2016 04:15:Rosy Valdovinos) History Recurrent Loss/Stillborn: No (11/21/2016 04:15:Rosy Valdovinos) History Depression/PP Depression: No (11/21/2016 04:15:Rosy Valdovinos) History of Uterine Anomaly/GAVIOTA: No (11/21/2016 04:15:Rosy Valdovinos) History of Infertility: No (11/21/2016 04:15:Rosy Valdovinos) History of ART Treatment: No (11/21/2016 04:15:Rosy Valdovinos) History of GAVIOTA: No (11/21/2016 04:15:Rosy Valdovinos) MEDICAL HISTORY Med Hx Diabetes: No (11/21/2016 04:15:Rosy Valdovinos) Med Hx Hypertension: No (11/21/2016 04:15:Rosy Valdovinos) Med Hx Heart Disease: No (11/21/2016 04:15:Rosy Valdovinos) Med Hx Autoimmune Disorder: No (11/21/2016 04:15:Rosy Valdovinos) Med Hx Kidney Disease/UTI: No (11/21/2016 04:15:Rosy Valdovinos) Med Hx Neurologic/Epilepsy: No (11/21/2016 04:15:Rosy Valdovinos) Med Hx Psychiatric Disorders: No (11/21/2016 04:15:Rosy Valdovinos) Med Hx Hepatitis/Liver Disease: No (11/21/2016 04:15:Rosy Valdovinos) Med Hx Varicosities/Phlebitis: No (11/21/2016 04:15:Rosy Valdovinos) Med Hx Thyroid Dysfunction: No (11/21/2016 04:15:Rosy Valdovinos) Med Hx Trauma/Violence: No (11/21/2016 04:15:Rosy Valdovinos) Med Hx Blood Transfusion: No (11/21/2016 04:15:Rosy Valdovinos) Med Hx Pulmonary (Asthma,TB): No (11/21/2016 04:15:Rosy Valdovinos) Med Hx Breast: No (11/21/2016 04:15:Rosy Valdovinos) Med Hx WIRELESS FIELD TECHNICIAN Surgery: No (11/21/2016 04:15:Rosy Valdovinos) Med Hx Hospitalization/Surgery: No (11/21/2016 04:15:Rosy Valdovinos) Med Hx Anesthetic Complications: No (11/21/2016 04:15:Rosy Valdovinos) Med Hx Abnormal Pap Smear: No (11/21/2016 04:15:Rosy Valdovinos) Other Medical Diseases: No (11/21/2016 04:15:Rosy Valdovinos) Med Hx Significant Family Hx: No (11/21/2016 04:15:Rosy Valdovinos) Details of Med/Surg Hx: benign lump left breast-2009 depresasion-no suicidal thoughts (11/21/2016 04:15:Cristina Nascimento RN) INFECTIOUS HISTORY Inf Hx Gonorrhea: No (11/21/2016 04:15:Rosy Valdovinos) Inf Hx Chlamydia: No (11/21/2016 04:15:Rosy Valdoivnos) Inf Hx Syphilis: No (11/21/2016 04:15:Rosy Valdovinos) Inf Hx HIV/AIDS: No (11/21/2016 04:15:Rosy Valdovinos) Inf Hx Human Papilloma Virus: No (11/21/2016 04:15:Rosy Valdovinos) Inf Hx Pt/Partner Genital Herpes: No (11/21/2016 04:15:Rosy Valdovinos) Inf Hx Tuberculosis/Exposure: No (11/21/2016 04:15:Rosy Valdovinos) Inf Hx Hepatitis B,C: No (11/21/2016 04:15:Rosy Valdovinos) Inf Hx Rash or Viral Illness: No (11/21/2016 04:15:Rosy Valdovinos) GENETIC HISTORY Gen Hx Age >=35 at TYRELL: No (11/21/2016 04:15:Rosy Valdovinos) Gen Hx Thalassemia: No (11/21/2016 04:15:Rosy Valdovinos) Gen Hx Congenital Heart Defect: No (11/21/2016 04:15:Rosy Valdovinos) Gen Hx Neural Tube Defect: No (11/21/2016 04:15:Rosy Valdovinos) Gen Hx Down's Syndrome: No (11/21/2016 04:15:Rosy Valdovinos) Gen Hx Jt-Sachs: No (11/21/2016 04:15:Rosy Valdovinos) Gen Hx Otto: No (11/21/2016 04:15:Rosy Valdovinos) Gen Hx Familial Dysautonomia: No (11/21/2016 04:15:Rosy Valdovinos) Gen Hx Sickle Cell Disease/Trait: No (11/21/2016 04:15:Rosy Valdovinos) Gen Hx Hemophilia/Blood Disorder: No (11/21/2016 04:15:Rosy Valdovinos) Gen Hx Muscular Dystrophy: No (11/21/2016 04:15:Rosy Valdovinos) Gen Hx Cystic Fibrosis: No (11/21/2016 04:15:Rosy Valdovinos) Gen Hx [place] Chorea: No (11/21/2016 04:15:Rosy Valdovinos) Gen Hx Mental Retardation/Autism: No (11/21/2016 04:15:Rosy Valdovinos) Gen Hx Tested for Fragile X: No (11/21/2016 04:15:Rosy Valdovinos) Gen Hx Other Inher/Chromosomal: No (11/21/2016 04:15:Rosy Valdovinos) Gen Hx Maternal Metabolic DO: No (11/21/2016 04:15:Rosy Valdovinos) Gen Hx Pt Father or FOB Defect: No (11/21/2016 04:15:Rosy Valdovinos) Gen Hx Other Genetic History: No (11/21/2016 04:15:Rosy Valdovinos) Gen Hx Drugs/Meds since LMP: No (11/21/2016 04:15:Rosy Valdovinos)
--- NOTE | 2016-11-21 20:21 | Delivery Summary ---
Del Sum A-C Datetime Report Generated by CPN: 11/21/2016 20:20 DELIVERY PERSONNEL DELIVERY PERSONNEL: [id number] Delivery Doctor:: Divina Ferguson MD Labor and Delivery Nurse:: Rosy Valdovinos RN Nursery Nurse:: TYLOR Mcadams Tech/TRAILER RENTAL CLERK: Helen Pope TRAILER RENTAL CLERK MATERNAL INFORMATION Delivery Anesthesia: None Medications After Delivery: Pitocin Bolus-Please Comment Meds After Delivery Comment: Pitocin 20 units/1000 ml NS following placenta Estimated Blood Loss (ml): 250 Maternal Complications: Precipitous Labor (<3hrs) Provider Comments: Placenta delivered intact with 3vc LABOR SUMMARY EDC: 11/20/2016 00:00 Attempted: No Labor Anesthesia: None LABOR INFORMATION Reason for Induction: Not Applicable Onset of Labor: 11/21/2016 03:00 Complete Dilatation: 11/21/2016 04:42 Oxytocin: N/A Group B Beta Strep: negative Antibiotics # of Doses: 0 Antibiotics Time of Last Dose: n/a Steroids Given: None Reason Steroids Not Administered: Not Applicable MEMBRANES Membranes Rupture Method: Artificial Rupture of Membranes: 11/21/2016 04:45 Length of Rupture (hr): 0.18 Amniotic Fluid Color: Clear Amniotic Fluid Amount: Moderate Amniotic Fluid Odor: Normal STAGES OF LABOR Stage 1 hr: 1 Stage 1 min: 42 Stage 2 hr: 0 Stage 2 min: 14 Stage 3 hr: 0 Stage 3 min: 4 Total Time in Labor hr: 2 Total Time in Labor min: 0 VAGINAL DELIVERY Episiotomy: None Laceration Extension: First Degree Laceration Type: Perineal Laceration Repair: Yes Laceration Repair Note: one 3-0 chromic suture placed Sponge Count Correct: N/A Sharps Count Correct: N/A CSECTION DELIVERY Primary Indication: N/A Secondary Indication: N/A CSection Incidence: N/A Labor: N/A Elective: N/A CSection Incision: N/A BABY A INFORMATION Delivery Date/Time: 11/21/2016 04:56 Method of Delivery: Vaginal Born in Route : No : N/A Forceps: N/A Vacuum Extraction: N/A Shoulder Dystocia : No PRESENTATION/POSITION BABY A Presentation: Cephalic Cephalic Presentation: Vertex Vertex Position: Left Occipital Anterior Breech Presentation: N/A PLACENTA INFORMATION BABY A Placenta Delivery Time : 11/21/2016 05:00 Placenta Method of Delivery: Spontaneous Placenta Status: Delivered SCORES BABY A Heart Rate 1 min: >100 bpm Resp Effort 1 min: Slow, Irregular Reflex Irritability 1 min: Cough or Sneeze or Pulls Away Muscle Tone 1 min: Active Motion Color 1 min: Body [place], Extremities Blue SCORE 1 MIN: 8 Heart Rate 5 min: >100 bpm Resp Effort 5 min: Good Cry Reflex Irritability 5 min: Cough or Sneeze or Pulls Away Muscle Tone 5 min: Active Motion Color 5 min: Body [place], Extremities Blue SCORE 5 MIN: 9 INFANT INFORMATION BABY A Gestational Age at Delivery: 40.1 Gestational Status: Full Term- 39- 40.6 Weeks Outcome : Liveborn Condition : Stable Infant Sex: Female IDENTIFICATION BABY A Verification Date/Time: 11/21/2016 05:49 ID Band Number: [id number] Mother's Name Verified: Yes Infant RN Verifying : A Valdovinos Rn Additional Verifying Personnel: Nacuii Rn WEIGHT/LENGTH BABY A Birthweight (gm): 3490 Weight (lb): 7 Weight (oz): 11 Infant Length (in): 20.00 Infant Length (cm): 50.80 CORD INFORMATION BABY A No. Cord Vessels: 3 Nuchal Cord : N/A Cord Blood Taken: Yes-For Eval (Mom's Blood Type - or O+) Suction: Mouth; Nose ASSESSMENT BABY A Complications: None Physical Findings at Delivery: Within Normal Limits Infant Respirations: Appears Normal Skin to Skin: Yes Skin to Skin Time (min): 40 Fleet Salesperson/ALS Called : No Care By: Ena Campa RN Transferred To: Remains with Mother SIGNATURES Signature: with User ID: [email or web address]
--- NOTE | 2016-11-21 20:23 | L&D General Admission ---
General Admit Datetime Report Generated by CPN: 11/21/2016 20:20 INFORMATION Patient Age: 26 (10/08/2016 10:16:QS system process) EDC: 11/20/2016 00:00 (11/21/2016 04:15:Cristina Nascimento RN) EDC per Ultrasound: 11/20/2016 00:00 (11/21/2016 04:15:Cristina Nascimento RN) : 5 (11/21/2016 04:15:Cristina Nascimento RN) Para: 2 (11/21/2016 04:15:Cristina Nascimento RN) Term: 2 (11/21/2016 04:15:Cristina Nascimento RN) Spontaneous Abortions: 2 (11/21/2016 04:15:Cristina Nascimento RN) Livin (11/21/2016 04:15:Cristina Nascimento RN) Cesareans: 0 (11/21/2016 04:15:Cristina Nascimento RN) CARE Primary Hospital Technician: [facility] (11/21/2016 04:15:Rosy Valdovinos) Adequate Care: Yes (11/21/2016 04:15:Cristinaharvey Nascimento, RN) Height (in): 67 (11/21/2016 07:37:QS system process) ALLERGIES Medication Allergy: No (11/21/2016 04:15:Rosy Valdovinos) Medication Allergies: No Known Allergies (02/16/2013) (10/08/2016 10:16:QS system process) Latex Allergy: No Latex Allergies (11/21/2016 04:15:Rosy Valdovinos) Food Allergies: none (11/21/2016 04:15:Rosy Valdovinos) Environmental Allergies: none (11/21/2016 04:15:Rosy Valdovinos) COMMUNICATION Primary Language: Somali (11/21/2016 04:15:Rosy Valdovinos) Medical Tx Preferred Language: Somali (11/21/2016 04:15:Rosyabhilash Valdovinos) DEMOGRAPHICS Address: [address] [place] [id number] (10/08/2016 10:16:QS system process) Zipcode: [phone] (10/08/2016 10:16:QS system process) Home (10/08/2016 10:16:QS system process) SSN: [id number] (10/08/2016 10:16:QS system process) Next of Kin Name: JANETH MCMILLAN (10/08/2016 10:16:QS system process) Next of Kin (10/08/2016 10:16:QS system process) Next of Kin Relationship: SPO (10/08/2016 10:16:QS system process) Date of : 1990 (10/08/2016 10:16:QS system process) Marital Status: (10/08/2016 10:16:QS system process) Sex: Female (10/08/2016 10:16:QS system process) Race: (10/08/2016 10:16:QS system process) Ethnicity: Non- or (10/08/2016 10:16:QS system process) Congregation: Rastafarian (10/08/2016 10:16:QS system process) DRUG AND ALCOHOL USE Alcohol: No (11/21/2016 04:15:Rosy Valdovinos) Cigarettes: Never Smoker. [id number] (11/21/2016 04:15:Rosy Valdovinos) Marijuana: No (11/21/2016 04:15:Rosy Valdovinos) Cocaine: No (11/21/2016 04:15:Rosy Valdovinos) Other Illicit Drugs: No (11/21/2016 04:15:Rosy Valdovinos) VACCINE HISTORY Influenza Vaccine: Yes (11/21/2016 04:15:Rosy Valdovinos) Influenza Date: 2016 (11/21/2016 04:15:Rosy Valdovinos) Tdap Vaccine: Yes (11/21/2016 04:15:Rosy Valdovinos) Tdap Date: 2016 (11/21/2016 04:15:Rosy Valdovinos) Buttonhole Facer: [facility] (11/21/2016 04:15:Rosy Valdovinos) Feeding Preference: Breast (11/21/2016 04:15:Rosy Valdovinos) Benefit of Breast Feed Discussed: Yes (11/21/2016 04:15:Viry Dickey RN) Circumcision: N/A (11/21/2016 04:15:Rosy Valdovinos) Classes Attended: No (11/21/2016 04:15:Rosy Valdovinos) Tubal Ligation: No (11/21/2016 04:15:Rosy Valdovinos) Tubal Authorization Signed: N/A (11/21/2016 04:15:Rosy Valdovinos) Consent: N/A (11/21/2016 04:15:Rosy Valdovinos) Consent Signed: N/A (11/21/2016 04:15:Rosy Valdovinos) Pain Management Plans: Epidural (11/21/2016 04:15:Rosy Valdovinos) Plans for Labor and Delivery: None (11/21/2016 04:15:Rosy Valdovinos) Support Person: Janeth (11/21/2016 04:15:Rosy Valdoivnos) Support Person Relationship: (11/21/2016 04:15:Rosy Valdovinos) Cultural/Spritual Practice: N/A (11/21/2016 04:15:Rosy Valdovinos) Spir/Cult Dietary Needs: N/A (11/21/2016 04:15:Rosy Valdovinos) LIVING SITUATION/DISCHARGE PLAN Living Arrangements: House (11/21/2016 04:15:Rosy Valdovinos) Adequate Access to:: Electric; Heat; Refrigeration; Plumbing/Running water; Phone; Transportation (11/21/2016 04:15:Rosy Valdovinos) WIC Program: Yes (11/21/2016 04:15:Rosy Valdovinos) Discharge Administrative Operations Coordinator Person: janeth- (11/21/2016 04:15:Rosy Valdovinos) Person to Help after Discharge: janeth- (11/21/2016 04:15:Rosy Valdovinos) Currently Using Commun Resources: Yes (11/21/2016 04:15:Rosy Valdovinos) Specify Current Resource Used: medicaid (11/21/2016 04:15:Rosy Valdovinos) Outside Agency/Pathology Laboratory Aide: No (11/21/2016 04:15:Rosy Valdovinos) Car Seat for Discharge: Yes (11/21/2016 04:15:Rosy Valdovinos) Adoption Requested: No (11/21/2016 04:15:Rosy Valdovinos) Pt Contact w/ Post : N/A (11/21/2016 04:15:Rosy Valdovinos) LABS Blood Type: O Positive (11/21/2016 04:15:Cristina Nascimento RN) Hemoglobin: 10.9 L (11/21/2016 05:50:QS system process) Hematocrit: 32.8 L (11/21/2016 05:50:QS system process) MCV: 74 L (11/21/2016 05:50:QS system process) Group Beta Strep: negative (11/21/2016 04:15:Viry Dickey RN) RPR/VDRL: Nonreactive (11/21/2016 04:15:Cristina Nascimento RN) HIV Exposure Test: Negative (11/21/2016 04:15:Cristina Nascimento RN) Hepatitis B: Negative (11/21/2016 04:15:Cristina Nascimento RN) Rubella: POSITIVE NEGATIVE IF LESS THAN OR EQUAL TO 9.99 IU/mL POSITIVE IF GREATER THAN OR EQUAL TO 10.0 IU/mL (11/21/2016 05:50:QS system process) Rubella Titer: 41.30 (11/21/2016 05:50:QS system process) Varicella: Non Susceptible (11/21/2016 04:15:Cristina Nascimento RN) OB/PREVIOUS HISTORY Previous Procedures: Ultrasound; NST (11/21/2016 04:15:Rosy Valdovinos) Current Procedures: Ultrasound; NST (11/21/2016 04:15:Rosy Valdovinos) History of Previous : No (11/21/2016 04:15:Rosy Valdovinos) History of Gestational Diabetes: No (11/21/2016 04:15:Rosy Valdovinos) History of PIH: No (11/21/2016 04:15:Rosy Valdovinos) History of Incompetent Cervix: No (11/21/2016 04:15:Rosy Valdovinos) History of Placenta Previa/Abrup: No (11/21/2016 04:15:Rosy Valdovinos) History of Macrosomia: No (11/21/2016 04:15:Rosy Valdovinos) History of IUGR: No (11/21/2016 04:15:Rosy Valdovinos) History of Hemorrhage: No (11/21/2016 04:15:Rosy Valdovinos) History of Loss/Stillborn: No (11/21/2016 04:15:Rosy Valdovinos) History of : No (11/21/2016 04:15:Rosy Valdovinos) History of D (Rh) Sensitization: No (11/21/2016 04:15:Rosy Valdovinos) History Recurrent Loss/Stillborn: No (11/21/2016 04:15:Rosy Valdovinos) History Depression/PP Depression: No (11/21/2016 04:15:Rosy Valdovinos) History of Uterine Anomaly/GAVIOTA: No (11/21/2016 04:15:Rosy Valdovinos) History of Infertility: No (11/21/2016 04:15:Rosy Valdovinos) History of ART Treatment: No (11/21/2016 04:15:Rosy Valdovinos) History of GAVIOTA: No (11/21/2016 04:15:Rosy Valdovinos) MEDICAL HISTORY Med Hx Diabetes: No (11/21/2016 04:15:Rosy Valdovinos) Med Hx Hypertension: No (11/21/2016 04:15:Rosy Valdovinos) Med Hx Heart Disease: No (11/21/2016 04:15:Rosy Valdovinos) Med Hx Autoimmune Disorder: No (11/21/2016 04:15:Rosy Valdovinos) Med Hx Kidney Disease/UTI: No (11/21/2016 04:15:Rosy Valdovinos) Med Hx Neurologic/Epilepsy: No (11/21/2016 04:15:Rosy Valdovinos) Med Hx Psychiatric Disorders: No (11/21/2016 04:15:Rosy Valdovinos) Med Hx Hepatitis/Liver Disease: No (11/21/2016 04:15:Rosy Valdovinos) Med Hx Varicosities/Phlebitis: No (11/21/2016 04:15:Rosy Valdovinos) Med Hx Thyroid Dysfunction: No (11/21/2016 04:15:Rosy Valdovinos) Med Hx Trauma/Violence: No (11/21/2016 04:15:Rosy Valdovinos) Med Hx Blood Transfusion: No (11/21/2016 04:15:Rosy Valdovinos) Med Hx Pulmonary (Asthma,TB): No (11/21/2016 04:15:Rosy Valdovinos) Med Hx Breast: No (11/21/2016 04:15:Rosy Valdovinos) Med Hx FUND MANAGER Surgery: No (11/21/2016 04:15:Rosy Valdovinos) Med Hx Hospitalization/Surgery: No (11/21/2016 04:15:Rosy Valdovinos) Med Hx Anesthetic Complications: No (11/21/2016 04:15:Rosy Valdovinos) Med Hx Abnormal Pap Smear: No (11/21/2016 04:15:Rosy Valdovinos) Other Medical Diseases: No (11/21/2016 04:15:Rosy Valdovinos) Med Hx Significant Family Hx: No (11/21/2016 04:15:Rosy Valdovinos) Details of Med/Surg Hx: benign lump left breast-2009 depresasion-no suicidal thoughts (11/21/2016 04:15:Cristina Nascimento RN) INFECTIOUS HISTORY Inf Hx Gonorrhea: No (11/21/2016 04:15:Rosy Valdovinos) Inf Hx Chlamydia: No (11/21/2016 04:15:Rosy Valdovinos) Inf Hx Syphilis: No (11/21/2016 04:15:Rosy Valdovinos) Inf Hx HIV/AIDS: No (11/21/2016 04:15:Rosy Valdovinos) Inf Hx Human Papilloma Virus: No (11/21/2016 04:15:Rosy Valdovinos) Inf Hx Pt/Partner Genital Herpes: No (11/21/2016 04:15:Rosy Valdovinos) Inf Hx Tuberculosis/Exposure: No (11/21/2016 04:15:Rosy Valdovinos) Inf Hx Hepatitis B,C: No (11/21/2016 04:15:Rosy Valdovinos) Inf Hx Rash or Viral Illness: No (11/21/2016 04:15:Rosy Valdovinos) GENETIC HISTORY Gen Hx Age >=35 at TYRELL: No (11/21/2016 04:15:Rosy Valdovinos) Gen Hx Thalassemia: No (11/21/2016 04:15:Rosy Valdovinos) Gen Hx Congenital Heart Defect: No (11/21/2016 04:15:Rosy Valdovinos) Gen Hx Neural Tube Defect: No (11/21/2016 04:15:Rosy Valdovinos) Gen Hx Down's Syndrome: No (11/21/2016 04:15:Rosy Valdovinos) Gen Hx Jt-Sachs: No (11/21/2016 04:15:Rosy Valdovinos) Gen Hx Otto: No (11/21/2016 04:15:Rosy Valdovinos) Gen Hx Familial Dysautonomia: No (11/21/2016 04:15:Rosy Valdovinos) Gen Hx Sickle Cell Disease/Trait: No (11/21/2016 04:15:Rosy Valdovinos) Gen Hx Hemophilia/Blood Disorder: No (11/21/2016 04:15:Rosy Valdovinos) Gen Hx Muscular Dystrophy: No (11/21/2016 04:15:Rosy Valdovinos) Gen Hx Cystic Fibrosis: No (11/21/2016 04:15:Rosy Valdovinos) Gen Hx [place] Chorea: No (11/21/2016 04:15:Rosy Valdovinos) Gen Hx Mental Retardation/Autism: No (11/21/2016 04:15:Rosy Valdovinos) Gen Hx Tested for Fragile X: No (11/21/2016 04:15:Rosy Valdovinos) Gen Hx Other Inher/Chromosomal: No (11/21/2016 04:15:Rosy Valdovinos) Gen Hx Maternal Metabolic DO: No (11/21/2016 04:15:Rosy Valdovinos) Gen Hx Pt Father or FOB Defect: No (11/21/2016 04:15:Rosy Valdovinos) Gen Hx Other Genetic History: No (11/21/2016 04:15:Rosy Valdovinos) Gen Hx Drugs/Meds since LMP: No (11/21/2016 04:15:Rosy Valdovinos)
--- NOTE | 2016-11-21 20:23 | L&D Current Admission ---
Current Admit Datetime Report Generated by CPN: 11/21/2016 20:20 ADMISSION INFORMATION Current Admit Date/Time: 11/21/2016 04:41 (11/21/2016 04:41:Rosy Valdovinos) Reason for Admission: Onset of Labor (11/21/2016 04:41:Rosy Valdovinos) Chief Complaint: Contractions (11/21/2016 04:41:Rosy Valdovinos) Medications During : Vitamin; Rantidine (Zantac) (11/21/2016 04:41:Cristina Nascimento RN) Meds During -Oth: fiorcet (11/21/2016 04:41:Cristina Nascimento RN) EGA per Dates: 40.1 (11/21/2016 04:41:QS system process) EGA per US: 40.1 (11/21/2016 04:41:QS system process) Method of Arrival: Wheelchair (11/21/2016 04:41:Rosy Valdovinos) Admitted From: Home (11/21/2016 04:41:Cristina Nascimento RN) Reason for Induction: Not Applicable (11/21/2016 04:41:Cristian Nascimento RN) Records Available: Yes (11/21/2016 04:41:Cristina Nascimento RN) General Admission Information: Reviewed (11/21/2016 04:41:Rosy Valdovinos) General Admission Reviewed By: Edmar Valdovinos RN (11/21/2016 04:41:Rosy Valdovinos) BELONGINGS/ADVANCED DIRECTIVES Other Belongings: see consent sheet (11/21/2016 04:41:Rosy Valdovinos) Disposition of Belongings: Kept with Patient (11/21/2016 04:41:Cristina Nascimento RN) Advance Direct for Healthcare: No, and Wants No Information (11/21/2016 04:41:Rosy Valdovinos) Durable Power of Telecommunications Analyst: No (11/21/2016 04:41:Rosy Valdovinos) Living Will: No (11/21/2016 04:41:Rosy Valdovinos) Organ Donor: No (11/21/2016 04:41:Rosy Valdovinos) Pt Rights Information Given: Yes (11/21/2016 04:41:Rosy Valdovinos) Pt Understands Pt Rights: Yes (11/21/2016 04:41:Rosy Valdovinos) Patient Rights Comments: patient access (11/21/2016 04:41:Rosy Valdovinos) LEARNING ASSESSMENT Knowledge Level: Understands L_D Process (11/21/2016 04:41:Rosy Valdovinos) Barriers to Learning: None (11/21/2016 04:41:Rosy Valdovinos) Learning Readiness: Motivated (11/21/2016 04:41:Rosy Valodvinos) Learns Best By: 1 to 1 Instruction (11/21/2016 04:41:Rosy Valdovinos) Learning Needs: Labor and Delivery Process; Pain Management; Symptoms to Report; Treatment Plan; Medication (11/21/2016 04:41:Rosy Valdovinos) DOMESTIC VIOLANCE SCREENING Dom Viol Threatened/Hurt: No (11/21/2016 04:41:Rosy Valdovinos) Hx of Abuse/Neglect past 2yrs: No (11/21/2016 04:41:Rosy Valdovinos) Feel Unsafe Going Home: No (11/21/2016 04:41:Rosy Valdovinos) Addt'l Observ Indicating Abuse: No (11/21/2016 04:41:Rosy Valdovinos) Reason Unable to Complete Screen: N/A, Screen Completed (11/21/2016 04:41:Rosy Valdovinos) Considered Personal Harm/Suicide: No (11/21/2016 04:41:Rosy Valdovinos) NUTRITIONAL/FUNCTIONAL SCREENING Problem with Appetite >5 Days: No (11/21/2016 04:41:Rosy Valdovinos) Chew/Swallow Difficulties: No (11/21/2016 04:41:Rosy Valdovinos) Inappropriate Wt Gain/Loss: No (11/21/2016 04:41:Rosy Valdovinos) Presence Skin Breakdown/Ulcer: No (11/21/2016 04:41:Rosy Valdovinos) Special Diet: No (11/21/2016 04:41:Rosy Valdovinos) Pt Requests Sheetmetal Worker Visit: No (11/21/2016 04:41:Rosy Valdovinos) Hx of Any of the Following?: N/A (11/21/2016 04:41:Rosy Valdovinos) New Diagnosis of: N/A (11/21/2016 04:41:Rosy Valdovinos) Requires Assist w/Ambulation: No (11/21/2016 04:41:Rosy Valdovinos) Uses Assist Device to Ambulate: No (11/21/2016 04:41:Rosy Valdovinos) Pt Requires Help w/ADL's: No (11/21/2016 04:41:Rosy Valdovinos)
--- NOTE | 2016-11-21 20:23 | Delivery Summary ---
Del Sum A-C Datetime Report Generated by CPN: 11/21/2016 20:20 DELIVERY PERSONNEL DELIVERY PERSONNEL: [id number];[id number] Delivery Doctor:: Divina Ferguson MD Labor and Delivery Nurse:: Rosy Valdovinos RN Nursery Nurse:: TYLOR Mcadams Tech/COOKER CLEANER: Helen Pope COOKER CLEANER MATERNAL INFORMATION Delivery Anesthesia: None Medications After Delivery: Pitocin Bolus-Please Comment Meds After Delivery Comment: Pitocin 20 units/1000 ml NS following placenta Estimated Blood Loss (ml): 250 Maternal Complications: Precipitous Labor (<3hrs) Provider Comments: Placenta delivered intact with 3vc LABOR SUMMARY EDC: 11/20/2016 00:00 Attempted: No Labor Anesthesia: None LABOR INFORMATION Reason for Induction: Not Applicable Onset of Labor: 11/21/2016 03:00 Complete Dilatation: 11/21/2016 04:42 Oxytocin: N/A Group B Beta Strep: negative Antibiotics # of Doses: 0 Antibiotics Time of Last Dose: n/a Steroids Given: None Reason Steroids Not Administered: Not Applicable MEMBRANES Membranes Rupture Method: Artificial Rupture of Membranes: 11/21/2016 04:45 Length of Rupture (hr): 0.18 Amniotic Fluid Color: Clear Amniotic Fluid Amount: Moderate Amniotic Fluid Odor: Normal STAGES OF LABOR Stage 1 hr: 1 Stage 1 min: 42 Stage 2 hr: 0 Stage 2 min: 14 Stage 3 hr: 0 Stage 3 min: 4 Total Time in Labor hr: 2 Total Time in Labor min: 0 VAGINAL DELIVERY Episiotomy: None Laceration Extension: First Degree Laceration Type: Perineal Laceration Repair: Yes Laceration Repair Note: one 3-0 chromic suture placed Sponge Count Correct: N/A Sharps Count Correct: N/A CSECTION DELIVERY Primary Indication: N/A Secondary Indication: N/A CSection Incidence: N/A Labor: N/A Elective: N/A CSection Incision: N/A BABY A INFORMATION Delivery Date/Time: 11/21/2016 04:56 Method of Delivery: Vaginal Born in Route : No : N/A Forceps: N/A Vacuum Extraction: N/A Shoulder Dystocia : No PRESENTATION/POSITION BABY A Presentation: Cephalic Cephalic Presentation: Vertex Vertex Position: Left Occipital Anterior Breech Presentation: N/A PLACENTA INFORMATION BABY A Placenta Delivery Time : 11/21/2016 05:00 Placenta Method of Delivery: Spontaneous Placenta Status: Delivered SCORES BABY A Heart Rate 1 min: >100 bpm Resp Effort 1 min: Slow, Irregular Reflex Irritability 1 min: Cough or Sneeze or Pulls Away Muscle Tone 1 min: Active Motion Color 1 min: Body [place], Extremities Blue SCORE 1 MIN: 8 Heart Rate 5 min: >100 bpm Resp Effort 5 min: Good Cry Reflex Irritability 5 min: Cough or Sneeze or Pulls Away Muscle Tone 5 min: Active Motion Color 5 min: Body [place], Extremities Blue SCORE 5 MIN: 9 INFANT INFORMATION BABY A Gestational Age at Delivery: 40.1 Gestational Status: Full Term- 39- 40.6 Weeks Outcome : Liveborn Condition : Stable Infant Sex: Female IDENTIFICATION BABY A Verification Date/Time: 11/21/2016 05:49 ID Band Number: [id number] Mother's Name Verified: Yes Infant RN Verifying : A Valdovinos Rn Additional Verifying Personnel: [id number] Rn WEIGHT/LENGTH BABY A Birthweight (gm): 3490 Weight (lb): 7 Weight (oz): 11 Infant Length (in): 20.00 Infant Length (cm): 50.80 CORD INFORMATION BABY A No. Cord Vessels: 3 Nuchal Cord : N/A Cord Blood Taken: Yes-For Eval (Mom's Blood Type - or O+) Suction: Mouth; Nose ASSESSMENT BABY A Complications: None Physical Findings at Delivery: Within Normal Limits Infant Respirations: Appears Normal Skin to Skin: Yes Skin to Skin Time (min): 40 Cylinder Die Machine Helper/ALS Called : No Care By: Ena Campa RN Transferred To: Remains with Mother SIGNATURES Signature: with User ID: [email or web address]
--- NOTE | 2016-11-21 20:23 | L&D Admission Assessment ---
LD ADM ASMT Datetime Report Generated by CPN: 11/21/2016 20:20 PATIENT ASSESSMENT Assessment Type: Admission Assessment (11/21/2016 04:41:Rosy Valdovinos) WEIGHT Weight (lb): 216 (11/21/2016 07:37:QS system process) Weight (lb): 216 (11/21/2016 05:22:QS system process) Weight (lb): 216 (11/21/2016 04:34:QS system process) Weight (lb): 216 (11/21/2016 04:27:QS system process) Weight (kg): 98.2 (11/21/2016 07:37:QS system process) Weight (kg): 98.2 (11/21/2016 05:22:QS system process) Weight (kg): 98.2 (11/21/2016 04:34:QS system process) Weight (kg): 98.2 (11/21/2016 04:27:QS system process) BMI: 33.8 (11/21/2016 07:37:QS system process) BMI: 33.8 (11/21/2016 05:22:QS system process) BMI: 33.8 (11/21/2016 04:34:QS system process) ONSET OF LABOR Onset of Labor: 11/21/2016 03:00 (11/21/2016 04:15:Rosyabhilash Valdovinos) PAIN Pain Scale: 2 (11/21/2016 05:10:Rosy Valdovinos) Pain Scale: 4 (11/21/2016 04:41:Rosy Valdovinos) Pain Presence: Constant (11/21/2016 05:10:Rosy Valdovinos) Pain Presence: Intermittent (11/21/2016 04:41:Rosy Valdovinos) Pain Type: Burning (11/21/2016 05:10:Rosy Valdovinos) Pain Type: Cramping (11/21/2016 04:41:Rosy Valdovinos) Pain Location: Perineum (11/21/2016 05:10:Rosy Valdovinos) Pain Location: Abdomen (11/21/2016 04:41:Rosy Valdovinos) Pain Goal: 0 (11/21/2016 05:10:Rosy Valdovinos) Pain Goal: 0 (11/21/2016 04:41:Rosy Valdovinos) Pain Related to Contraction: Yes (11/21/2016 04:41:Rosy Valdovinos) VAGINAL EXAM Dilatation (cm): 10.0 (11/21/2016 04:42:Rosy Valdovinos) Dilatation (cm): 9.5 (11/21/2016 04:28:Cristina Nascimento RN) Effacement (%): 100 (11/21/2016 04:42:Rosy Valdovinos) Effacement (%): 90 (11/21/2016 04:28:Rosy Valdovinos) Station: 2 (11/21/2016 04:42:Rosy Valdovinos) Station: 1 (11/21/2016 04:28:Rosy Valdovinos) Membranes Status: Ruptured (11/21/2016 04:45:Rosy Valdovinos) Membranes Rupture D/ (11/21/2016 04:15:Rosy Valdovinos) ROM Method: Artificial (11/21/2016 04:45:Rosy Valdovinos) ROM Method: Artificial (11/21/2016 04:15:Viry Dickey RN) Amniotic Fluid Color: Clear (11/21/2016 04:45:Rosy Valdovinos) Amniotic Fluid Color: Clear (11/21/2016 04:15:Viry Dickey, RN) Amniotic Fluid Amount: Moderate (11/21/2016 04:45:Rosy Valdovinos) Amniotic Fluid Amount: Moderate (11/21/2016 04:15:Viry Dickey, RN) Amniotic Fluid Odor: Normal (11/21/2016 04:45:Rosy Valdovinos) NEURO Level of Consciousness: Fully Conscious (11/21/2016 04:41:Rosy Valdovinos) DTR's/Clonus: DTRs 2+; No Clonus (11/21/2016 04:41:Rosy Valdovinos) Headache: Denies (11/21/2016 04:41:Rosy Valdovinos) Dizziness: No (11/21/2016 04:41:Rosy Valdovinos) Blurred Vision: No (11/21/2016 04:41:Rosy Valdovinos) Extremity Numbness/Tingling : None (11/21/2016 04:41:Rosy Valdovinos) Extremity Movement: Full Range of Motion (11/21/2016 04:41:Rosy Valdovinos) CARDIOVASCULAR Heart Rhythm: Regular (11/21/2016 04:41:Rosyabhilash Valdovinos) Nailbeds: [place] (11/21/2016 04:41:Rosyabhilash Valdovinos) Capillary Refill: Less than 3 Seconds (11/21/2016 04:41:Rosy Bonifacio) Lower Extremities Edema: Bilateral Lower Extremities (11/21/2016 04:41:Rosyabhilash Valdovinos) Lower Extremities Edema Degree: 1+ (11/21/2016 04:41:Rosyabhilash Valdovinos) Upper Extremities Edema: Bilateral Upper Extremities (11/21/2016 04:41:Rosy Bonifacio) Upper Extremities Edema Degree: 1+ (11/21/2016 04:41:Rosy Bonifacio) Facial Edema: None (11/21/2016 04:41:Rosyabhilash Valdovinos) DVT RISK ASSESSMENT DVT Risk Age: Age less than 41 years (11/21/2016 04:41:Rosy Valdovinos) DVT Risk BMI: BMI<31 (11/21/2016 04:41:Rosyabhilash Valdovinos) DVT Risk Surgery: None Applicable (11/21/2016 04:41:Rosy Valdovinos) DVT Risk Other: Women Only- or (<1 month) (11/21/2016 04:41:Rosyabhilash Valdovinos) DVT Risk Total: 1 (11/21/2016 04:41:QS system process) DVT Risk Text: Low Risk (<10%) No specific measures, early ambulation (11/21/2016 04:41:QS system process) RESPIRATORY Respiratory Effort: Unlabored (11/21/2016 04:41:Rosy Valdovinos) Breath Sounds, Left: Clear and Equal (11/21/2016 04:41:Rosy Valdovinos) Breath Sounds, Right: Clear and Equal (11/21/2016 04:41:Rosy Valdovinos) Cough Productivity: None (11/21/2016 04:41:Rosy Valdovinos) GASTROINTESTINAL Nausea/Vomiting: Denies (11/21/2016 04:41:Rosy Valdovinos) Bowel Sounds: Normoactive (11/21/2016 04:41:Rosy Valdovinos) RUQ Epigastric Pain: Denies (11/21/2016 04:41:Rosy Valdovinos) Bowel Patterns: Soft, Formed Stool (11/21/2016 04:41:Rosy Valdovinos) Hemorrhoids: None (11/21/2016 04:41:Rosy Valdovinos) Diet Type: Regular diet (11/21/2016 04:41:Rosy Valdovinos) Last Meal: 11/21/2016 02:30 (11/21/2016 04:41:Rosy Valdovinos) GENITOURINARY Bladder: Nondistended (11/21/2016 04:41:Rosy Valdovinos) Frequency of Urination: No (11/21/2016 04:41:Rosy Valdovinos) Urination Burning: No (11/21/2016 04:41:Rosy Valdovinos) CVA Tenderness: No (11/21/2016 04:41:Rosy Valdovinos) Vaginal Bleeding: None (11/21/2016 04:41:Rosy Valdovinos) Vaginal Discharge Amount: None (11/21/2016 04:41:Rosy Valdovinos) INTEGUMENTARY Skin Color: Normal for Race (11/21/2016 04:41:Rosy Valdovinos) Skin Temperature: Warm (11/21/2016 04:41:Rosy Valdovinos) Skin Moisture: Dry (11/21/2016 04:41:Rosy Valdovinos) CALLY SKIN ASSESSMENT Cally Scale Sensory Perception: No Impairment- Responds to verbal commands. Has no sensory deficit which would limit ability to feel or voice pain or discomfort (11/21/2016 04:41:Rosy Valdovinos) Cally Scale Moisture: Rarely Moist- Skin is usually dry. Linen only requires changing at routine intervals (11/21/2016 04:41:Rosy Valdovinos) Cally Scale Activity: Walks Frequently- Walks outside the room at least twice a day and inside room at least every 2 hours during the day. (11/21/2016 04:41:Rosy Valdovinos) Cally Scale Mobility: No Limitations- Makes major and frequent changes in position without assistance (11/21/2016 04:41:Rosy Valdovinos) Cally Scale Nutrition: Excellent- Eats most of every meal. Never refuses a meal. Usually eats a total of 4 or more servings of meat and dairy products. Occasionally eats between meals. Does not require supplementation (11/21/2016 04:41:Rosy Valdovinos) Cally Scale Friction and Shear: No Apparent Problem- Moves in bed and in chair independently and has sufficient muscle strength to lift up completely during move. Maintains good position in bed or chair at all times (11/21/2016 04:41:Rosy Valdovinos) Cally Scale Total: 23 (11/21/2016 04:41:QS system process) Cally Scale Risk: No Risk of Pressure Ulcer Noted at this Time (11/21/2016 04:41:QS system process) SUPPORT Family Support: Significant Other supportive, at bedside frequently (11/21/2016 04:41:Rosy Valdovinos) Emotional State: Calm/Relaxed (11/21/2016 04:41:Rosy Valdovinos) SAFETY Call [place] Within Reach: Yes (11/21/2016 04:41:Rosy Bonifacio) Side Rails Up: Yes (11/21/2016 04:41:Rosy Bonifacio) Bed Wheels Locked: Yes (11/21/2016 04:41:Rosy Bonifacio) Arm Bands Present: Yes (11/21/2016 04:41:Rosy Bonifacio) Isolation: [place] (11/21/2016 04:41:Rosy Valdovinos) FALL SCREEN Fall Risk History of Falling: (0) No (11/21/2016 04:41:Rosy Bonifacio) Fall Risk Secondary Diagnosis: (0) No (11/21/2016 04:41:Rosy Bonifacio) Fall Risk Ambulatory Aid: (0) None/Bedrest/Wheelchair/Nurse Assist (11/21/2016 04:41:Rosyabhilash Valdovinos) Fall Risk IV Therapy: (20) Yes (11/21/2016 04:41:Rosyabhilash Valdovinos) Fall Risk Gait: (0) Normal/Bedrest/Immobile (11/21/2016 04:41:Rosyabhilash Valdovinos) Fall Risk Mental Status: (0) Oriented to Own Ability (11/21/2016 04:41:Rosy Valdovinos) Fall Risk Score: 20 (11/21/2016 04:41:QS system process) Fall Risk Score Definition: No Risk: No action required (11/21/2016 04:41:QS system process) RECENT TRAVEL/INFECTIOUS DISEASE Recent Exp Communicable Disease: No (11/21/2016 04:41:Rosy Valdovinos) Cough or Fever: No (11/21/2016 04:41:Rosy Valdovinos) Foreign Travel Past 10 Days: No (11/21/2016 04:41:Rosy Valdovinos) Open Wounds or Sores: No (11/21/2016 04:41:Rosy Valdovinos) Prior Antibiotic Resistance Tx: No (11/21/2016 04:41:Rosy Valdovinos) ADDITIONAL COMMENTS Assessment Flag: Admission Assessment (11/21/2016 04:41:QS system process)
[2016-11-22] MEDS: ACETAMINOPHEN WITH CODEINE #3 TABLET PO PRN ×2 (00:53→08:19)
[2016-11-22] MEDS: IBUPROFEN 800 MG TABLET PO SCH ×2 (05:47→13:32)
--- NOTE | 2016-11-22 06:00 | L&D General Admission ---
General Admit Datetime Report Generated by CPN: 11/22/2016 06:00 INFORMATION Patient Age: 26 (10/08/2016 10:16:QS system process) EDC: 11/20/2016 00:00 (11/21/2016 04:15:Cristina Nascimento RN) EDC per Ultrasound: 11/20/2016 00:00 (11/21/2016 04:15:Cristina Nascimento RN) : 5 (11/21/2016 04:15:Cristina Nascimento RN) Para: 2 (11/21/2016 04:15:Cristina Nascimento RN) Term: 2 (11/21/2016 04:15:Cristina Nascimento RN) Spontaneous Abortions: 2 (11/21/2016 04:15:Cristina Nascimento RN) Livin (11/21/2016 04:15:Cristina Nascimento RN) Cesareans: 0 (11/21/2016 04:15:Cristina Nascimento RN) CARE Primary Rotor Coil Taper: [facility] (11/21/2016 04:15:Rosy Valdovinos) Adequate Care: Yes (11/21/2016 04:15:Cristinaharvey Nascimento, RN) Height (in): 67 (11/21/2016 07:37:QS system process) ALLERGIES Medication Allergy: No (11/21/2016 04:15:Rosy Valdovinos) Medication Allergies: No Known Allergies (02/16/2013) (10/08/2016 10:16:QS system process) Latex Allergy: No Latex Allergies (11/21/2016 04:15:Rosy Valdovinos) Food Allergies: none (11/21/2016 04:15:Rosy Valdovinos) Environmental Allergies: none (11/21/2016 04:15:Rosy Valdovinos) COMMUNICATION Primary Language: Mongolian (11/21/2016 04:15:Rosy Valdovinos) Medical Tx Preferred Language: Mongolian (11/21/2016 04:15:Rosyabhilash Valdovinos) DEMOGRAPHICS Address: [address] [place] [id number] (10/08/2016 10:16:QS system process) Zipcode: [phone] (10/08/2016 10:16:QS system process) Home (10/08/2016 10:16:QS system process) SSN: [id number] (10/08/2016 10:16:QS system process) Next of Kin Name: JANETH MCMILLAN (10/08/2016 10:16:QS system process) Next of Kin (10/08/2016 10:16:QS system process) Next of Kin Relationship: SPO (10/08/2016 10:16:QS system process) Date of : 1990 (10/08/2016 10:16:QS system process) Marital Status: (10/08/2016 10:16:QS system process) Sex: Female (10/08/2016 10:16:QS system process) Race: (10/08/2016 10:16:QS system process) Ethnicity: Non- or (10/08/2016 10:16:QS system process) Methodist: Zoroastrian (10/08/2016 10:16:QS system process) DRUG AND ALCOHOL USE Alcohol: No (11/21/2016 04:15:Rosy Valdovinos) Cigarettes: Never Smoker. [id number] (11/21/2016 04:15:Rosy Valdovinos) Marijuana: No (11/21/2016 04:15:Rosy Valdovinos) Cocaine: No (11/21/2016 04:15:Rosy Valdovinos) Other Illicit Drugs: No (11/21/2016 04:15:Rosy Valdovinos) VACCINE HISTORY Influenza Vaccine: Yes (11/21/2016 04:15:Rosy Valdovinos) Influenza Date: 2016 (11/21/2016 04:15:Rosy Valdovinos) Tdap Vaccine: Yes (11/21/2016 04:15:Rosy Valdovinos) Tdap Date: 2016 (11/21/2016 04:15:Rosy Valdovinos) Traffic Line Painter: [facility] (11/21/2016 04:15:Rosy Valdovinos) Feeding Preference: Breast (11/21/2016 04:15:Rosy Valdovinos) Benefit of Breast Feed Discussed: Yes (11/21/2016 04:15:Viry Dickey RN) Circumcision: N/A (11/21/2016 04:15:Rosy Valdovinos) Classes Attended: No (11/21/2016 04:15:Rosy Valdovinos) Tubal Ligation: No (11/21/2016 04:15:Rosy Valdovinos) Tubal Authorization Signed: N/A (11/21/2016 04:15:Rosy Valdovinos) Consent: N/A (11/21/2016 04:15:Rosy Valdovinos) Consent Signed: N/A (11/21/2016 04:15:Rosy Valdovinos) Pain Management Plans: Epidural (11/21/2016 04:15:Rosy Valdovinos) Plans for Labor and Delivery: None (11/21/2016 04:15:Rosy Valdovinos) Support Person: Janeth (11/21/2016 04:15:Rosy Valdovinos) Support Person Relationship: (11/21/2016 04:15:Rosy Valdovinos) Cultural/Spritual Practice: N/A (11/21/2016 04:15:Rosy Valdovinos) Spir/Cult Dietary Needs: N/A (11/21/2016 04:15:Rosy Valdovinos) LIVING SITUATION/DISCHARGE PLAN Living Arrangements: House (11/21/2016 04:15:Rosy Valdovinos) Adequate Access to:: Electric; Heat; Refrigeration; Plumbing/Running water; Phone; Transportation (11/21/2016 04:15:Rosy Valdovinos) WIC Program: Yes (11/21/2016 04:15:Rosy Valdovinos) Discharge Leather Sponger Person: janeth- (11/21/2016 04:15:Rosy Valdovinos) Person to Help after Discharge: janeth- (11/21/2016 04:15:Rosy Valdovinos) Currently Using Commun Resources: Yes (11/21/2016 04:15:Rosy Valdovinos) Specify Current Resource Used: medicaid (11/21/2016 04:15:Rosy Valdovinos) Outside Agency/Lead Sales Consultant: No (11/21/2016 04:15:Rosy Valdovinos) Car Seat for Discharge: Yes (11/21/2016 04:15:Rosy Vladovinos) Adoption Requested: No (11/21/2016 04:15:Rosy Valdovinos) Pt Contact w/ Post : N/A (11/21/2016 04:15:Rosy Valdovinos) LABS Blood Type: O Positive (11/21/2016 04:15:Cristina Nascimento RN) Hemoglobin: 10.9 L (11/21/2016 05:50:QS system process) Hematocrit: 32.8 L (11/21/2016 05:50:QS system process) MCV: 74 L (11/21/2016 05:50:QS system process) Group Beta Strep: negative (11/21/2016 04:15:Viry Dickey RN) RPR/VDRL: Nonreactive (11/21/2016 04:15:Cristina Nascimento RN) HIV Exposure Test: Negative (11/21/2016 04:15:Cristina Nascimento RN) Hepatitis B: Negative (11/21/2016 04:15:Cristina Nascimento RN) Rubella: POSITIVE NEGATIVE IF LESS THAN OR EQUAL TO 9.99 IU/mL POSITIVE IF GREATER THAN OR EQUAL TO 10.0 IU/mL (11/21/2016 05:50:QS system process) Rubella Titer: 41.30 (11/21/2016 05:50:QS system process) Varicella: Non Susceptible (11/21/2016 04:15:Cristina Nascimento RN) OB/PREVIOUS HISTORY Previous Procedures: Ultrasound; NST (11/21/2016 04:15:Rosy Valdovinos) Current Procedures: Ultrasound; NST (11/21/2016 04:15:Rosy Valdovinos) History of Previous : No (11/21/2016 04:15:Rosy Valdovinos) History of Gestational Diabetes: No (11/21/2016 04:15:Rosy Valdovinos) History of PIH: No (11/21/2016 04:15:Rosy Valdovinos) History of Incompetent Cervix: No (11/21/2016 04:15:Rosy Valdovinos) History of Placenta Previa/Abrup: No (11/21/2016 04:15:Rosy Valdovinos) History of Macrosomia: No (11/21/2016 04:15:Rosy Valdovinos) History of IUGR: No (11/21/2016 04:15:Rosy Valdovinos) History of Hemorrhage: No (11/21/2016 04:15:Rosy Valdovinos) History of Loss/Stillborn: No (11/21/2016 04:15:Rosy Valdovinos) History of : No (11/21/2016 04:15:Rosy Valdovinos) History of D (Rh) Sensitization: No (11/21/2016 04:15:Rosy Valdovinos) History Recurrent Loss/Stillborn: No (11/21/2016 04:15:Rosy Valdovinos) History Depression/PP Depression: No (11/21/2016 04:15:Rosy Valdovinos) History of Uterine Anomaly/GAVIOTA: No (11/21/2016 04:15:Rosy Valdovinos) History of Infertility: No (11/21/2016 04:15:Rosy Valdovinos) History of ART Treatment: No (11/21/2016 04:15:Rosy Valdovinos) History of GAVIOTA: No (11/21/2016 04:15:Rosy Valdovinos) MEDICAL HISTORY Med Hx Diabetes: No (11/21/2016 04:15:Rosy Valdovinos) Med Hx Hypertension: No (11/21/2016 04:15:Rosy Valdovinos) Med Hx Heart Disease: No (11/21/2016 04:15:Rosy Valdovinos) Med Hx Autoimmune Disorder: No (11/21/2016 04:15:Rosy Valdovinos) Med Hx Kidney Disease/UTI: No (11/21/2016 04:15:Rosy Valdovinos) Med Hx Neurologic/Epilepsy: No (11/21/2016 04:15:Rosy Valdovinos) Med Hx Psychiatric Disorders: No (11/21/2016 04:15:Rosy Valdovinos) Med Hx Hepatitis/Liver Disease: No (11/21/2016 04:15:Rosy Valdovinos) Med Hx Varicosities/Phlebitis: No (11/21/2016 04:15:Rosy Valdovinos) Med Hx Thyroid Dysfunction: No (11/21/2016 04:15:Rosy Valdovinos) Med Hx Trauma/Violence: No (11/21/2016 04:15:Rosy Valdovinos) Med Hx Blood Transfusion: No (11/21/2016 04:15:Rosy Valdovinos) Med Hx Pulmonary (Asthma,TB): No (11/21/2016 04:15:Rosy Valdovinos) Med Hx Breast: No (11/21/2016 04:15:Rsoy Valdovinos) Med Hx FRAME STYLIST Surgery: No (11/21/2016 04:15:Rosy Valdovinos) Med Hx Hospitalization/Surgery: No (11/21/2016 04:15:Rosy Valdovinos) Med Hx Anesthetic Complications: No (11/21/2016 04:15:Rosy Valdovinos) Med Hx Abnormal Pap Smear: No (11/21/2016 04:15:Rosy Valdovinos) Other Medical Diseases: No (11/21/2016 04:15:Rosy Valdovinos) Med Hx Significant Family Hx: No (11/21/2016 04:15:Rosy Valdovinos) Details of Med/Surg Hx: benign lump left breast-2009 depresasion-no suicidal thoughts (11/21/2016 04:15:Cristina Nascimento RN) INFECTIOUS HISTORY Inf Hx Gonorrhea: No (11/21/2016 04:15:Rosy Valdovinos) Inf Hx Chlamydia: No (11/21/2016 04:15:Rosy Valdovinos) Inf Hx Syphilis: No (11/21/2016 04:15:Rosy Valdovinos) Inf Hx HIV/AIDS: No (11/21/2016 04:15:Rosy Valdovinos) Inf Hx Human Papilloma Virus: No (11/21/2016 04:15:Rosy Valdovinos) Inf Hx Pt/Partner Genital Herpes: No (11/21/2016 04:15:Rosy Valdovinos) Inf Hx Tuberculosis/Exposure: No (11/21/2016 04:15:Rosy Valdovinos) Inf Hx Hepatitis B,C: No (11/21/2016 04:15:Rosy Valdovinos) Inf Hx Rash or Viral Illness: No (11/21/2016 04:15:Rosy Valdovinos) GENETIC HISTORY Gen Hx Age >=35 at TYRELL: No (11/21/2016 04:15:Rosy Valdovinos) Gen Hx Thalassemia: No (11/21/2016 04:15:Rosy Valdovinos) Gen Hx Congenital Heart Defect: No (11/21/2016 04:15:Rosy Valdovinos) Gen Hx Neural Tube Defect: No (11/21/2016 04:15:Rosy Valdovinos) Gen Hx Down's Syndrome: No (11/21/2016 04:15:Rosy Valdovinos) Gen Hx Jt-Sachs: No (11/21/2016 04:15:Rosy Valdovinos) Gen Hx Otto: No (11/21/2016 04:15:Rosy Valdovinos) Gen Hx Familial Dysautonomia: No (11/21/2016 04:15:Rosy Valdovinos) Gen Hx Sickle Cell Disease/Trait: No (11/21/2016 04:15:Rosy Valdovinos) Gen Hx Hemophilia/Blood Disorder: No (11/21/2016 04:15:Rosy Valdovinos) Gen Hx Muscular Dystrophy: No (11/21/2016 04:15:Rosy Valdovinos) Gen Hx Cystic Fibrosis: No (11/21/2016 04:15:Rosy Valdovinos) Gen Hx [place] Chorea: No (11/21/2016 04:15:Rosy Valdovinos) Gen Hx Mental Retardation/Autism: No (11/21/2016 04:15:Rosy Valdovinos) Gen Hx Tested for Fragile X: No (11/21/2016 04:15:Rosy Valdovinos) Gen Hx Other Inher/Chromosomal: No (11/21/2016 04:15:Rosy Valdovinos) Gen Hx Maternal Metabolic DO: No (11/21/2016 04:15:Rosy Valdovinos) Gen Hx Pt Father or FOB Defect: No (11/21/2016 04:15:Rosy Valdovinos) Gen Hx Other Genetic History: No (11/21/2016 04:15:Rosy Valdovinos) Gen Hx Drugs/Meds since LMP: No (11/21/2016 04:15:Rosy Valdovinos)
--- NOTE | 2016-11-22 06:00 | L&D Current Admission ---
Current Admit Datetime Report Generated by CPN: 11/22/2016 06:00 ADMISSION INFORMATION Current Admit Date/Time: 11/21/2016 04:41 (11/21/2016 04:41:Rosy Valdovinos) Reason for Admission: Onset of Labor (11/21/2016 04:41:Rosy Valdovinos) Chief Complaint: Contractions (11/21/2016 04:41:Rosy Valdovinos) Medications During : Vitamin; Rantidine (Zantac) (11/21/2016 04:41:Cristina Nascimento RN) Meds During -Oth: fiorcet (11/21/2016 04:41:Cristina Nascimento RN) EGA per Dates: 40.1 (11/21/2016 04:41:QS system process) EGA per US: 40.1 (11/21/2016 04:41:QS system process) Method of Arrival: Wheelchair (11/21/2016 04:41:Rosy Valdovinos) Admitted From: Home (11/21/2016 04:41:Cristina Nascimento RN) Reason for Induction: Not Applicable (11/21/2016 04:41:Cristina Nascimento RN) Records Available: Yes (11/21/2016 04:41:Cristina Nascimento RN) General Admission Information: Reviewed (11/21/2016 04:41:Rosy Valdovinos) General Admission Reviewed By: Edmar Valdovinos RN (11/21/2016 04:41:Rosy Valdovinos) BELONGINGS/ADVANCED DIRECTIVES Other Belongings: see consent sheet (11/21/2016 04:41:Rosy Valdovinos) Disposition of Belongings: Kept with Patient (11/21/2016 04:41:Cristina Nascimento RN) Advance Direct for Healthcare: No, and Wants No Information (11/21/2016 04:41:Rosy Valdovinos) Durable Power of Carpenters Helper: No (11/21/2016 04:41:Rosy Valdovinos) Living Will: No (11/21/2016 04:41:Rosy Valdovinos) Organ Donor: No (11/21/2016 04:41:Rosy Valdovinos) Pt Rights Information Given: Yes (11/21/2016 04:41:Rosy Valdovinos) Pt Understands Pt Rights: Yes (11/21/2016 04:41:Rosy Valdovinos) Patient Rights Comments: patient access (11/21/2016 04:41:Rosy Valdovinos) LEARNING ASSESSMENT Knowledge Level: Understands L_D Process (11/21/2016 04:41:Rosy Valdovinos) Barriers to Learning: None (11/21/2016 04:41:Rosy Valdovinos) Learning Readiness: Motivated (11/21/2016 04:41:Rosy Valdovinos) Learns Best By: 1 to 1 Instruction (11/21/2016 04:41:Rosy Valdovinos) Learning Needs: Labor and Delivery Process; Pain Management; Symptoms to Report; Treatment Plan; Medication (11/21/2016 04:41:Rosy Valdovinos) DOMESTIC VIOLANCE SCREENING Dom Viol Threatened/Hurt: No (11/21/2016 04:41:Rosy Valdovinos) Hx of Abuse/Neglect past 2yrs: No (11/21/2016 04:41:Rsoy Valdovinos) Feel Unsafe Going Home: No (11/21/2016 04:41:Rosy Valdovinos) Addt'l Observ Indicating Abuse: No (11/21/2016 04:41:Rosy Valdovinos) Reason Unable to Complete Screen: N/A, Screen Completed (11/21/2016 04:41:Rosy Valdovinos) Considered Personal Harm/Suicide: No (11/21/2016 04:41:Rosy Valdovinos) NUTRITIONAL/FUNCTIONAL SCREENING Problem with Appetite >5 Days: No (11/21/2016 04:41:Rosy Valdovinos) Chew/Swallow Difficulties: No (11/21/2016 04:41:Rosy Valdovinos) Inappropriate Wt Gain/Loss: No (11/21/2016 04:41:Rosy Valdovinos) Presence Skin Breakdown/Ulcer: No (11/21/2016 04:41:Rosy Valdovinos) Special Diet: No (11/21/2016 04:41:Rosy Valdovinos) Pt Requests Well Logging Mud Analysis Captain Visit: No (11/21/2016 04:41:Rosy Valdovinos) Hx of Any of the Following?: N/A (11/21/2016 04:41:Rosy Valdovinos) New Diagnosis of: N/A (11/21/2016 04:41:Rosy Valdovinos) Requires Assist w/Ambulation: No (11/21/2016 04:41:Rosy Valdovinos) Uses Assist Device to Ambulate: No (11/21/2016 04:41:Rosy Valdovinos) Pt Requires Help w/ADL's: No (11/21/2016 04:41:Rosy Valdovinos)
[2016-11-22 07:30] LABS: HEMOGLOBIN 11.1 g/dL (12.0-15.5); HGB HCT DIFFERENCE 0.3; MEAN CORPUSCULAR HEMOGLOBIN 25.4 pg (27.0-33.4); MEAN CORPUSCULAR HGB CONC 33.5 g/dL (32.0-36.0); MEAN CORPUSCULAR VOLUME 76 fl (80-97); RED BLOOD COUNT 4.36 10^6/uL (3.72-5.28); RED CELL DISTRIBUTION WIDTH 14.8 % (11.5-14.0); WHITE BLOOD COUNT 9.8 10^3/uL (4.0-10.5)
--- NOTE | 2016-11-22 08:42 | PDOC PROGRESS REPORT ---
Subjective-OB Subjective: Post Delivery Day: 2 26 year old. Denies any needs at this time, pt desires discharge home if baby is d/c. States lochia is stable, pain is well controlled, lochia is stable, has a headache, but is the same she has had during , takes fioracet. Physical Exam (OB) Vital Signs: Temp Pulse Resp BP Pulse Ox 98.0 F 89 18 123/72 98 11/21/16 20:29 11/21/16 20:29 11/21/16 20:29 11/21/16 20:29 11/21/16 20:29 Intake & Output 11/21/16 11/22/16 11/23/16 06:59 06:59 06:59 Intake Total 1999 Balance 1999 Weight 97.85 kg - Lochia Lochia Amount: Small 10-25 ml Lochia Color: Rubra/Red - Abdomen Description: Soft, Round Hernia Present: No Fundal Description: Firm, Midline Fundal Height: u/u - u/2 Objective-Diagnostic Laboratory: 11/22/16 07:14 11/22/16 07:14 WBC 9.8 RBC 4.36 Hgb 11.1 L Hct 33.0 L MCV 76 L MCH 25.4 L MCHC 33.5 RDW 14.8 H Plt Count 242 Assessment and Plan(PN) - Assessment and Plan (1) Vaginal delivery Is this a current diagnosis for this admission?: YesPlan: routine pp care d/c home today if baby is d/c - Time Spent with Patient Time with patient: Less than 15 minutes Critical Time spent with patient: Less than 15 minutes Medications reviewed and adjusted accordingly: Yes - Disposition Anticipated Discharge: Home Within: within 24 hours
--- NOTE | 2016-11-22 08:44 | PDOC DISCHARGE SUMMARY ---
Final Diagnosis Discharge Date: 11/22/16 - Final Diagnosis (1) Vaginal delivery Is this a current diagnosis for this admission?: Yes Discharge Data - Discharge Medication Home Medications: Pnv with Ca,No.72/Iron/FA [ Plus Tablet] 1 tab PO DAILY 12/24/13 Butalb/Acetaminophen/Caffeine [Fioricet (50-325-40 mg) Tablet] 1 tab PO DAILY Cetirizine HCl [Zyrtec 10 mg Tablet] 1 tab PO DAILY 11/21/16 Docusate Sodium [Colace 100 mg Capsule] 100 mg PO BID #60 capsule 11/22/16 Ibuprofen [Motrin 800 mg Tablet] 800 mg PO Q8 #60 tablet 11/22/16 Gestational Age: 40.1 Reason(s) for Admission: Onset of Labor Procedures: NST Intrapartum Procedure(s): Spontaneous Vaginal Delivery Complication(s): Laceration-Perineal Laceration-Degree: 1st - [place] Data Baby 1 Female at 1 minute: 8 at 5 minutes: 9 Weight: 3490 kg Home with Mother: Yes Complications: No - Diagnosis Test Laboratory: Temp Pulse Resp BP Pulse Ox 98.0 F 89 18 123/72 98 11/21/16 20:29 11/21/16 20:29 11/21/16 20:29 11/21/16 20:29 11/21/16 20:29 11/21/16 11/21/16 11/22/16 04:26 05:50 07:14 RBC 4.41 4.36 Hgb 10.9 L 11.1 L Hct 32.8 L 33.0 L Urine Opiates Screen NEGATIVE - Discharge information/Instructions Discharge Activity: Activity As Tolerated, Pelvic Rest Discharge Diet: Regular Disposition: HOME, SELF-CARE Follow up with: [facility] in: 4, Weeks
[2016-11-22 09:52] VITALS: BP 121/65
[2016-11-22] MEDS: FAMOTIDINE 20 MG TABLET PO SCH (10:21)
[2016-11-22] MEDS: DOCUSATE SODIUM 100 MG CAPSULE PO SCH (10:21)
[2016-11-22] MEDS: SENNOSIDES/DOCUSATE 8.6-50 MG 1 EACH TABLET PO SCH (10:21)
[2016-11-22] MEDS: FERROUS SULFATE 325 MG TABLET PO SCH (10:21)
[2016-11-22] MEDS: PRENATAL VITAMIN W-O CA NO5/FE FUMARATE/FA CAPSULE PO SCH (10:22)
--- NOTE | 2016-11-22 18:00 | L&D Current Admission ---
Current Admit Datetime Report Generated by CPN: 11/22/2016 18:00 ADMISSION INFORMATION Current Admit Date/Time: 11/21/2016 04:41 (11/21/2016 04:41:Rosy Valdovinos) Reason for Admission: Onset of Labor (11/21/2016 04:41:Rosy Valdovinos) Chief Complaint: Contractions (11/21/2016 04:41:Rosy Valdovinos) Medications During : Vitamin; Rantidine (Zantac) (11/21/2016 04:41:Cristina Nascimento RN) Meds During -Oth: fiorcet (11/21/2016 04:41:Cristina Nascimento RN) EGA per Dates: 40.1 (11/21/2016 04:41:QS system process) EGA per US: 40.1 (11/21/2016 04:41:QS system process) Method of Arrival: Wheelchair (11/21/2016 04:41:Rosy Valdovinos) Admitted From: Home (11/21/2016 04:41:Cristina Nascimento RN) Reason for Induction: Not Applicable (11/21/2016 04:41:Cristina Nascimento RN) Records Available: Yes (11/21/2016 04:41:Cristina Nascimento RN) General Admission Information: Reviewed (11/21/2016 04:41:Rosy Valdovinos) General Admission Reviewed By: Edmar Valdovinos RN (11/21/2016 04:41:Rosy Valdovinos) BELONGINGS/ADVANCED DIRECTIVES Other Belongings: see consent sheet (11/21/2016 04:41:Rosy Valdovinos) Disposition of Belongings: Kept with Patient (11/21/2016 04:41:Cristina Nascimento RN) Advance Direct for Healthcare: No, and Wants No Information (11/21/2016 04:41:Rosy Valdovinos) Durable Power of Box Spring Frame Builder: No (11/21/2016 04:41:Rosy Valdovinos) Living Will: No (11/21/2016 04:41:Rosy Valdovinos) Organ Donor: No (11/21/2016 04:41:Rosy Valdovinos) Pt Rights Information Given: Yes (11/21/2016 04:41:Rosy Valdovinos) Pt Understands Pt Rights: Yes (11/21/2016 04:41:Rosy Valdovinos) Patient Rights Comments: patient access (11/21/2016 04:41:Rosy Valdovinos) LEARNING ASSESSMENT Knowledge Level: Understands L_D Process (11/21/2016 04:41:Rosy Valdovinos) Barriers to Learning: None (11/21/2016 04:41:Rosy Valdovinos) Learning Readiness: Motivated (11/21/2016 04:41:Rosy Valdovinos) Learns Best By: 1 to 1 Instruction (11/21/2016 04:41:Rosy Valdovinos) Learning Needs: Labor and Delivery Process; Pain Management; Symptoms to Report; Treatment Plan; Medication (11/21/2016 04:41:Rosy Valdovinos) DOMESTIC VIOLANCE SCREENING Dom Viol Threatened/Hurt: No (11/21/2016 04:41:Rosy Valdovinos) Hx of Abuse/Neglect past 2yrs: No (11/21/2016 04:41:Rosy Valdovinos) Feel Unsafe Going Home: No (11/21/2016 04:41:Rosy Valdovinos) Addt'l Observ Indicating Abuse: No (11/21/2016 04:41:Rosy Valdovinos) Reason Unable to Complete Screen: N/A, Screen Completed (11/21/2016 04:41:Rosy Valdovinos) Considered Personal Harm/Suicide: No (11/21/2016 04:41:Rosy Valdovinos) NUTRITIONAL/FUNCTIONAL SCREENING Problem with Appetite >5 Days: No (11/21/2016 04:41:Roys Valdovinos) Chew/Swallow Difficulties: No (11/21/2016 04:41:Rosy Valdovinos) Inappropriate Wt Gain/Loss: No (11/21/2016 04:41:Rosy Valdovinos) Presence Skin Breakdown/Ulcer: No (11/21/2016 04:41:Rosy Valdovinos) Special Diet: No (11/21/2016 04:41:Rosy Valdovinos) Pt Requests Visual C Developer Visit: No (11/21/2016 04:41:Rosy Valdovinos) Hx of Any of the Following?: N/A (11/21/2016 04:41:Rosy Valdovinos) New Diagnosis of: N/A (11/21/2016 04:41:Rosy Valdovinos) Requires Assist w/Ambulation: No (11/21/2016 04:41:Rosy Valdovinos) Uses Assist Device to Ambulate: No (11/21/2016 04:41:Rosy Valdovinos) Pt Requires Help w/ADL's: No (11/21/2016 04:41:Rosy Valdovinos)
--- NOTE | 2016-11-22 18:00 | L&D General Admission ---
General Admit Datetime Report Generated by CPN: 11/22/2016 18:00 INFORMATION Patient Age: 26 (10/08/2016 10:16:QS system process) EDC: 11/20/2016 00:00 (11/21/2016 04:15:Cristina Nascimento RN) EDC per Ultrasound: 11/20/2016 00:00 (11/21/2016 04:15:Cristina Nascimento RN) : 5 (11/21/2016 04:15:Cristina Nascimento RN) Para: 2 (11/21/2016 04:15:Cristina Nascimento RN) Term: 2 (11/21/2016 04:15:Cristina Nascimento RN) Spontaneous Abortions: 2 (11/21/2016 04:15:Cristina Nascimento RN) Livin (11/21/2016 04:15:Cristina Nascimento RN) Cesareans: 0 (11/21/2016 04:15:Cristina Nascimento RN) CARE Primary Lapper: [facility] (11/21/2016 04:15:Rosy Valdovinos) Adequate Care: Yes (11/21/2016 04:15:Cristina Azam, RN) Height (in): 67 (11/22/2016 15:30:QS system process) ALLERGIES Medication Allergy: No (11/21/2016 04:15:Roys Valdovinos) Medication Allergies: No Known Allergies (02/16/2013) (10/08/2016 10:16:QS system process) Latex Allergy: No Latex Allergies (11/21/2016 04:15:Rosy Valdovinos) Food Allergies: none (11/21/2016 04:15:Rosy Valdovinos) Environmental Allergies: none (11/21/2016 04:15:Rosy Valdovinos) COMMUNICATION Primary Language: Danish (11/21/2016 04:15:Rosy Valdoivnos) Medical Tx Preferred Language: Danish (11/21/2016 04:15:Rosyabhilash Valdovinos) DEMOGRAPHICS Address: [address] [place] [id number] (10/08/2016 10:16:QS system process) Zipcode: [phone] (10/08/2016 10:16:QS system process) Home (10/08/2016 10:16:QS system process) SSN: [id number] (10/08/2016 10:16:QS system process) Next of Kin Name: JANETH MCMILLAN (10/08/2016 10:16:QS system process) Next of Kin (10/08/2016 10:16:QS system process) Next of Kin Relationship: SPO (10/08/2016 10:16:QS system process) Date of : 1990 (10/08/2016 10:16:QS system process) Marital Status: (10/08/2016 10:16:QS system process) Sex: Female (10/08/2016 10:16:QS system process) Race: (10/08/2016 10:16:QS system process) Ethnicity: Non- or (10/08/2016 10:16:QS system process) Church: Christianity (10/08/2016 10:16:QS system process) DRUG AND ALCOHOL USE Alcohol: No (11/21/2016 04:15:Orsy Valdovinos) Cigarettes: Never Smoker. [id number] (11/21/2016 04:15:Rosy Valdovinos) Marijuana: No (11/21/2016 04:15:Rosy Valdovinos) Cocaine: No (11/21/2016 04:15:Rosy Valdovinos) Other Illicit Drugs: No (11/21/2016 04:15:Rosy Valdovinos) VACCINE HISTORY Influenza Vaccine: Yes (11/21/2016 04:15:Rosy Valdovinos) Influenza Date: 2016 (11/21/2016 04:15:Rosy Valdovinos) Tdap Vaccine: Yes (11/21/2016 04:15:Rosy Valdovinos) Tdap Date: 2016 (11/21/2016 04:15:Rosy Valdovinos) Environmental Conservation Officer: [facility] (11/21/2016 04:15:Rosy Valdovinos) Feeding Preference: Breast (11/21/2016 04:15:Rosy Valdovinos) Benefit of Breast Feed Discussed: Yes (11/21/2016 04:15:Viry Dickey RN) Circumcision: N/A (11/21/2016 04:15:Rosy Valdovinos) Classes Attended: No (11/21/2016 04:15:Rosy Valdovinos) Tubal Ligation: No (11/21/2016 04:15:Rosy Valdovinos) Tubal Authorization Signed: N/A (11/21/2016 04:15:Rosy Valdovinos) Consent: N/A (11/21/2016 04:15:Rosy Valdovinos) Consent Signed: N/A (11/21/2016 04:15:Rosy Valdovinos) Pain Management Plans: Epidural (11/21/2016 04:15:Rosy Valdovinos) Plans for Labor and Delivery: None (11/21/2016 04:15:Rosy Valdovinos) Support Person: Janeth (11/21/2016 04:15:Rosy Valdovinos) Support Person Relationship: (11/21/2016 04:15:Rosy Valdovinos) Cultural/Spritual Practice: N/A (11/21/2016 04:15:Rosy Valdovinos) Spir/Cult Dietary Needs: N/A (11/21/2016 04:15:Rosy Valdovinos) LIVING SITUATION/DISCHARGE PLAN Living Arrangements: House (11/21/2016 04:15:Rosy Valdovinos) Adequate Access to:: Electric; Heat; Refrigeration; Plumbing/Running water; Phone; Transportation (11/21/2016 04:15:Rosy Valdovinos) WIC Program: Yes (11/21/2016 04:15:Rosy Valdovinos) Discharge Data Integrity Analyst Person: janeth- (11/21/2016 04:15:Rosy Valdovinos) Person to Help after Discharge: janeth- (11/21/2016 04:15:Rosy Valdovinos) Currently Using Commun Resources: Yes (11/21/2016 04:15:Rosy Valdovinos) Specify Current Resource Used: medicaid (11/21/2016 04:15:Rosy Valdovinos) Outside Agency/Plasticator: No (11/21/2016 04:15:Rosy Valdovinos) Car Seat for Discharge: Yes (11/21/2016 04:15:Rosy Valdovinos) Adoption Requested: No (11/21/2016 04:15:Rosy Valdovinos) Pt Contact w/ Post : N/A (11/21/2016 04:15:Rosy Valdovinos) LABS Blood Type: O Positive (11/21/2016 04:15:Cristina Nascimento RN) Hemoglobin: 11.1 L (11/22/2016 07:14:QS system process) Hematocrit: 33.0 L (11/22/2016 07:14:QS system process) MCV: 76 L (11/22/2016 07:14:QS system process) Group Beta Strep: negative (11/21/2016 04:15:Viry Dickey RN) RPR/VDRL: Nonreactive (11/21/2016 04:15:Cristina Nascimento RN) HIV Exposure Test: Negative (11/21/2016 04:15:Cristina Nascimento RN) Hepatitis B: Negative (11/21/2016 04:15:Cristina Nascimento RN) Rubella: POSITIVE NEGATIVE IF LESS THAN OR EQUAL TO 9.99 IU/mL POSITIVE IF GREATER THAN OR EQUAL TO 10.0 IU/mL (11/21/2016 05:50:QS system process) Rubella Titer: 41.30 (11/21/2016 05:50:QS system process) Varicella: Non Susceptible (11/21/2016 04:15:Cristina Nascimento RN) OB/PREVIOUS HISTORY Previous Procedures: Ultrasound; NST (11/21/2016 04:15:Rosy Valdovinos) Current Procedures: Ultrasound; NST (11/21/2016 04:15:Rosy Valdovinos) History of Previous : No (11/21/2016 04:15:Rosy Valdovinos) History of Gestational Diabetes: No (11/21/2016 04:15:Rosy Valdovinos) History of PIH: No (11/21/2016 04:15:Rosy Valdovinos) History of Incompetent Cervix: No (11/21/2016 04:15:Rosy Valdovinos) History of Placenta Previa/Abrup: No (11/21/2016 04:15:Rosy Valdovinos) History of Macrosomia: No (11/21/2016 04:15:Rosy Valdovinos) History of IUGR: No (11/21/2016 04:15:Rosy Valdovinos) History of Hemorrhage: No (11/21/2016 04:15:Rosy aVldovinos) History of Loss/Stillborn: No (11/21/2016 04:15:Rosy Valdovinos) History of : No (11/21/2016 04:15:Rosy Valdovinos) History of D (Rh) Sensitization: No (11/21/2016 04:15:Rosy Valdovinos) History Recurrent Loss/Stillborn: No (11/21/2016 04:15:Rosy Valdovinos) History Depression/PP Depression: No (11/21/2016 04:15:Rosy Valdovinos) History of Uterine Anomaly/GAVIOTA: No (11/21/2016 04:15:Rosy Valdovinos) History of Infertility: No (11/21/2016 04:15:Rosy Valdovinos) History of ART Treatment: No (11/21/2016 04:15:Rosy Valdovinos) History of GAVIOTA: No (11/21/2016 04:15:Rosy Valdovinos) MEDICAL HISTORY Med Hx Diabetes: No (11/21/2016 04:15:Rosy Valdovinos) Med Hx Hypertension: No (11/21/2016 04:15:Rosy Valdovinos) Med Hx Heart Disease: No (11/21/2016 04:15:Rosy Valdovinos) Med Hx Autoimmune Disorder: No (11/21/2016 04:15:Rosy Valdovinos) Med Hx Kidney Disease/UTI: No (11/21/2016 04:15:Rosy Valdovinos) Med Hx Neurologic/Epilepsy: No (11/21/2016 04:15:Rosy Valdovinos) Med Hx Psychiatric Disorders: No (11/21/2016 04:15:Rosy Valdovinos) Med Hx Hepatitis/Liver Disease: No (11/21/2016 04:15:Rosy Valdovinos) Med Hx Varicosities/Phlebitis: No (11/21/2016 04:15:Rosy Valdovinos) Med Hx Thyroid Dysfunction: No (11/21/2016 04:15:Rosy Valdovinos) Med Hx Trauma/Violence: No (11/21/2016 04:15:Rosy Valdovinos) Med Hx Blood Transfusion: No (11/21/2016 04:15:Rosy Valdovinos) Med Hx Pulmonary (Asthma,TB): No (11/21/2016 04:15:Rosy Valdovinos) Med Hx Breast: No (11/21/2016 04:15:Rosy Valdovinos) Med Hx SOCIAL MEDIA STRATEGIST Surgery: No (11/21/2016 04:15:Rosy Valdovinos) Med Hx Hospitalization/Surgery: No (11/21/2016 04:15:Rosy Valdovinos) Med Hx Anesthetic Complications: No (11/21/2016 04:15:Rosy Valdovinos) Med Hx Abnormal Pap Smear: No (11/21/2016 04:15:Rosy Valdovinos) Other Medical Diseases: No (11/21/2016 04:15:Rosy Valdovinos) Med Hx Significant Family Hx: No (11/21/2016 04:15:Rosy Valdovinos) Details of Med/Surg Hx: benign lump left breast-2009 depresasion-no suicidal thoughts (11/21/2016 04:15:Cristina Nascimento RN) INFECTIOUS HISTORY Inf Hx Gonorrhea: No (11/21/2016 04:15:Rosy Valdovinos) Inf Hx Chlamydia: No (11/21/2016 04:15:Rosy Valdovinos) Inf Hx Syphilis: No (11/21/2016 04:15:Rosy Valdovinos) Inf Hx HIV/AIDS: No (11/21/2016 04:15:Rosy Valdovinos) Inf Hx Human Papilloma Virus: No (11/21/2016 04:15:Rosy Valdovinos) Inf Hx Pt/Partner Genital Herpes: No (11/21/2016 04:15:Rosy Valdovinos) Inf Hx Tuberculosis/Exposure: No (11/21/2016 04:15:Rosy Valdovinos) Inf Hx Hepatitis B,C: No (11/21/2016 04:15:Rosy Valdovinos) Inf Hx Rash or Viral Illness: No (11/21/2016 04:15:Rosy Valdovinos) GENETIC HISTORY Gen Hx Age >=35 at TYRELL: No (11/21/2016 04:15:Rosy Valdovinos) Gen Hx Thalassemia: No (11/21/2016 04:15:Rosy Valdovinos) Gen Hx Congenital Heart Defect: No (11/21/2016 04:15:Rosy Valdovinos) Gen Hx Neural Tube Defect: No (11/21/2016 04:15:Rosy Valdovinos) Gen Hx Down's Syndrome: No (11/21/2016 04:15:Rosy Valdovinos) Gen Hx Jt-Sachs: No (11/21/2016 04:15:Rosy Valdovinos) Gen Hx Otto: No (11/21/2016 04:15:Rosy Valdovinos) Gen Hx Familial Dysautonomia: No (11/21/2016 04:15:Rosy Valdovinos) Gen Hx Sickle Cell Disease/Trait: No (11/21/2016 04:15:Rosy Valdovinos) Gen Hx Hemophilia/Blood Disorder: No (11/21/2016 04:15:Rosy Valdovinos) Gen Hx Muscular Dystrophy: No (11/21/2016 04:15:Rosy Valdovinos) Gen Hx Cystic Fibrosis: No (11/21/2016 04:15:Rosy Valdovinos) Gen Hx [place] Chorea: No (11/21/2016 04:15:Rosy Valdovinos) Gen Hx Mental Retardation/Autism: No (11/21/2016 04:15:Rosy Valdovinos) Gen Hx Tested for Fragile X: No (11/21/2016 04:15:Rosy Valdovinos) Gen Hx Other Inher/Chromosomal: No (11/21/2016 04:15:Rosy Valdovinos) Gen Hx Maternal Metabolic DO: No (11/21/2016 04:15:Rosy Valdovinos) Gen Hx Pt Father or FOB Defect: No (11/21/2016 04:15:Rosy Valdovinos) Gen Hx Other Genetic History: No (11/21/2016 04:15:Rosy Valdovinos) Gen Hx Drugs/Meds since LMP: No (11/21/2016 04:15:Rosy Valdovinos)
--- NOTE | 2016-11-22 18:01 | L&D General Admission ---
General Admit Datetime Report Generated by CPN: 11/22/2016 18:00 INFORMATION Patient Age: 26 (10/08/2016 10:16:QS system process) EDC: 11/20/2016 00:00 (11/21/2016 04:15:Cristina Nascimento RN) EDC per Ultrasound: 11/20/2016 00:00 (11/21/2016 04:15:Cristina Nascimento RN) : 5 (11/21/2016 04:15:Cristina Nascimento RN) Para: 2 (11/21/2016 04:15:Cristina Nascimento RN) Term: 2 (11/21/2016 04:15:Cristina Nascimento RN) Spontaneous Abortions: 2 (11/21/2016 04:15:Cristina Nascimento RN) Livin (11/21/2016 04:15:Cristina Nascimento RN) Cesareans: 0 (11/21/2016 04:15:Cristina Nascimento RN) CARE Primary Business Analyst Intern: [facility] (11/21/2016 04:15:Rosy Valdovinos) Adequate Care: Yes (11/21/2016 04:15:Cristina Azam, RN) Height (in): 67 (11/22/2016 15:30:QS system process) ALLERGIES Medication Allergy: No (11/21/2016 04:15:Rosy Valdovinos) Medication Allergies: No Known Allergies (02/16/2013) (10/08/2016 10:16:QS system process) Latex Allergy: No Latex Allergies (11/21/2016 04:15:Rosy Valdovinos) Food Allergies: none (11/21/2016 04:15:Rosy Valdovinos) Environmental Allergies: none (11/21/2016 04:15:Rosy Valdovinos) COMMUNICATION Primary Language: [place] Islander (11/21/2016 04:15:Rosy Valdovinos) Medical Tx Preferred Language: [place] (11/21/2016 04:15:Rosyabhilash Valdovinos) DEMOGRAPHICS Address: [address] [place] [id number] (10/08/2016 10:16:QS system process) Zipcode: [phone] (10/08/2016 10:16:QS system process) Home (10/08/2016 10:16:QS system process) SSN: [id number] (10/08/2016 10:16:QS system process) Next of Kin Name: JANETH MCMILLAN (10/08/2016 10:16:QS system process) Next of Kin (10/08/2016 10:16:QS system process) Next of Kin Relationship: SPO (10/08/2016 10:16:QS system process) Date of : 1990 (10/08/2016 10:16:QS system process) Marital Status: (10/08/2016 10:16:QS system process) Sex: Female (10/08/2016 10:16:QS system process) Race: (10/08/2016 10:16:QS system process) Ethnicity: Non- or (10/08/2016 10:16:QS system process) Congregation: Jainism (10/08/2016 10:16:QS system process) DRUG AND ALCOHOL USE Alcohol: No (11/21/2016 04:15:Rosy Valdovinos) Cigarettes: Never Smoker. [id number] (11/21/2016 04:15:Rosy Valdovinos) Marijuana: No (11/21/2016 04:15:Rosy Valdovinos) Cocaine: No (11/21/2016 04:15:Rosy Valdovinos) Other Illicit Drugs: No (11/21/2016 04:15:Rosy Valdovinos) VACCINE HISTORY Influenza Vaccine: Yes (11/21/2016 04:15:Rosy Valdovinos) Influenza Date: 2016 (11/21/2016 04:15:Rosy Valdovinos) Tdap Vaccine: Yes (11/21/2016 04:15:Rosy Valdovinos) Tdap Date: 2016 (11/21/2016 04:15:Rosy Valdovinos) Generator Technician: [facility] (11/21/2016 04:15:Rosy Valdovinos) Feeding Preference: Breast (11/21/2016 04:15:Rosy Valdovinos) Benefit of Breast Feed Discussed: Yes (11/21/2016 04:15:Viry Dickey RN) Circumcision: N/A (11/21/2016 04:15:Rosy Valdovinos) Classes Attended: No (11/21/2016 04:15:Rosy Valdovinos) Tubal Ligation: No (11/21/2016 04:15:Rosy Valdovinos) Tubal Authorization Signed: N/A (11/21/2016 04:15:Rosy Valdovinos) Consent: N/A (11/21/2016 04:15:Rosy Valdovinos) Consent Signed: N/A (11/21/2016 04:15:Rosy Valdovinos) Pain Management Plans: Epidural (11/21/2016 04:15:Rosy Valdovinos) Plans for Labor and Delivery: None (11/21/2016 04:15:Rosy Valdovinos) Support Person: Janeth (11/21/2016 04:15:Rosy Valdovinos) Support Person Relationship: (11/21/2016 04:15:Rosy Valdovinos) Cultural/Spritual Practice: N/A (11/21/2016 04:15:Rosy Valdovinos) Spir/Cult Dietary Needs: N/A (11/21/2016 04:15:Rosy Valdovinos) LIVING SITUATION/DISCHARGE PLAN Living Arrangements: House (11/21/2016 04:15:Rosy Valdovinos) Adequate Access to:: Electric; Heat; Refrigeration; Plumbing/Running water; Phone; Transportation (11/21/2016 04:15:Rosy Valdovinos) WIC Program: Yes (11/21/2016 04:15:Rosy Valdovinos) Discharge Parking Garage Manager Person: janeth- (11/21/2016 04:15:Rosy Valdovinos) Person to Help after Discharge: janeth- (11/21/2016 04:15:Rosy Valdovinos) Currently Using Commun Resources: Yes (11/21/2016 04:15:Rosy Valdovinos) Specify Current Resource Used: medicaid (11/21/2016 04:15:Rosy Valdovinos) Outside Agency/Driver Medic: No (11/21/2016 04:15:Rosy Valdovinos) Car Seat for Discharge: Yes (11/21/2016 04:15:Rosy Valdovinos) Adoption Requested: No (11/21/2016 04:15:Rosy Valdovinos) Pt Contact w/ Post : N/A (11/21/2016 04:15:Rosy Valdovinos) LABS Blood Type: O Positive (11/21/2016 04:15:Cristina Nascimento RN) Hemoglobin: 11.1 L (11/22/2016 07:14:QS system process) Hematocrit: 33.0 L (11/22/2016 07:14:QS system process) MCV: 76 L (11/22/2016 07:14:QS system process) Group Beta Strep: negative (11/21/2016 04:15:Viry Dickey RN) RPR/VDRL: Nonreactive (11/21/2016 04:15:Cristina Nascimento RN) HIV Exposure Test: Negative (11/21/2016 04:15:Cristina Nascimento RN) Hepatitis B: Negative (11/21/2016 04:15:Cristina Nascimento RN) Rubella: POSITIVE NEGATIVE IF LESS THAN OR EQUAL TO 9.99 IU/mL POSITIVE IF GREATER THAN OR EQUAL TO 10.0 IU/mL (11/21/2016 05:50:QS system process) Rubella Titer: 41.30 (11/21/2016 05:50:QS system process) Varicella: Non Susceptible (11/21/2016 04:15:Cristina Nascimento RN) OB/PREVIOUS HISTORY Previous Procedures: Ultrasound; NST (11/21/2016 04:15:Rosy Valdovinos) Current Procedures: Ultrasound; NST (11/21/2016 04:15:Rosy Valdovinos) History of Previous : No (11/21/2016 04:15:Rosy Valdovinos) History of Gestational Diabetes: No (11/21/2016 04:15:Rosy Valdovinos) History of PIH: No (11/21/2016 04:15:Rosy Valdovinos) History of Incompetent Cervix: No (11/21/2016 04:15:Rosy Valdovinos) History of Placenta Previa/Abrup: No (11/21/2016 04:15:Rosy Valdovinos) History of Macrosomia: No (11/21/2016 04:15:Rosy Valdovinos) History of IUGR: No (11/21/2016 04:15:Rosy Valdovinos) History of Hemorrhage: No (11/21/2016 04:15:Rosy Valdovinos) History of Loss/Stillborn: No (11/21/2016 04:15:Rosy Valdovinos) History of : No (11/21/2016 04:15:Rosy Valdovinos) History of D (Rh) Sensitization: No (11/21/2016 04:15:Rosy Valdovinos) History Recurrent Loss/Stillborn: No (11/21/2016 04:15:Rosy Valdovinos) History Depression/PP Depression: No (11/21/2016 04:15:Rosy Valdovinos) History of Uterine Anomaly/GAVIOTA: No (11/21/2016 04:15:Rosy Valdovinos) History of Infertility: No (11/21/2016 04:15:Rosy Valdovinos) History of ART Treatment: No (11/21/2016 04:15:Rosy Valdovinos) History of GAVIOTA: No (11/21/2016 04:15:Rosy Valdovinos) MEDICAL HISTORY Med Hx Diabetes: No (11/21/2016 04:15:Rosy Valdovinos) Med Hx Hypertension: No (11/21/2016 04:15:Rosy Valdovinos) Med Hx Heart Disease: No (11/21/2016 04:15:Rosy Valdovinos) Med Hx Autoimmune Disorder: No (11/21/2016 04:15:Rosy Valdovinos) Med Hx Kidney Disease/UTI: No (11/21/2016 04:15:Rosy Valdovinos) Med Hx Neurologic/Epilepsy: No (11/21/2016 04:15:Rosy Valdovinos) Med Hx Psychiatric Disorders: No (11/21/2016 04:15:Rosy Valdovinos) Med Hx Hepatitis/Liver Disease: No (11/21/2016 04:15:Rosy Valdovinos) Med Hx Varicosities/Phlebitis: No (11/21/2016 04:15:Rosy Valdovinos) Med Hx Thyroid Dysfunction: No (11/21/2016 04:15:Rosy Valdovinos) Med Hx Trauma/Violence: No (11/21/2016 04:15:Rosy Valdovinos) Med Hx Blood Transfusion: No (11/21/2016 04:15:Rosy Valdovinos) Med Hx Pulmonary (Asthma,TB): No (11/21/2016 04:15:Rosy Valdovinos) Med Hx Breast: No (11/21/2016 04:15:Rosy Valdovinos) Med Hx SPECIAL EFFECTS SPECIALIST Surgery: No (11/21/2016 04:15:Rosy Valdovinos) Med Hx Hospitalization/Surgery: No (11/21/2016 04:15:Rosy Valdovinos) Med Hx Anesthetic Complications: No (11/21/2016 04:15:Rosy Valdovinos) Med Hx Abnormal Pap Smear: No (11/21/2016 04:15:Rosy Valdovinos) Other Medical Diseases: No (11/21/2016 04:15:Rosy Valdovinos) Med Hx Significant Family Hx: No (11/21/2016 04:15:Rosy Valdovinos) Details of Med/Surg Hx: benign lump left breast-2009 depresasion-no suicidal thoughts (11/21/2016 04:15:Cristina Nascimento RN) INFECTIOUS HISTORY Inf Hx Gonorrhea: No (11/21/2016 04:15:Rosy Valdovinos) Inf Hx Chlamydia: No (11/21/2016 04:15:Rosy Valdovinos) Inf Hx Syphilis: No (11/21/2016 04:15:Rosy Valdovinos) Inf Hx HIV/AIDS: No (11/21/2016 04:15:Rosy Valdovinos) Inf Hx Human Papilloma Virus: No (11/21/2016 04:15:Rosy Valdovinos) Inf Hx Pt/Partner Genital Herpes: No (11/21/2016 04:15:Rosy Valdovinos) Inf Hx Tuberculosis/Exposure: No (11/21/2016 04:15:Rosy Valdovinos) Inf Hx Hepatitis B,C: No (11/21/2016 04:15:Rosy Valdovinos) Inf Hx Rash or Viral Illness: No (11/21/2016 04:15:Rosy Valdovinos) GENETIC HISTORY Gen Hx Age >=35 at TYRELL: No (11/21/2016 04:15:Rosy Valdovinos) Gen Hx Thalassemia: No (11/21/2016 04:15:Rosy Valdovinos) Gen Hx Congenital Heart Defect: No (11/21/2016 04:15:Rosy Valdovinos) Gen Hx Neural Tube Defect: No (11/21/2016 04:15:Rosy Valdovinos) Gen Hx Down's Syndrome: No (11/21/2016 04:15:Rosy Valdovinos) Gen Hx Jt-Sachs: No (11/21/2016 04:15:Rosy Valdovinos) Gen Hx Otto: No (11/21/2016 04:15:Rosy Valdovinos) Gen Hx Familial Dysautonomia: No (11/21/2016 04:15:Rosy Valdovinos) Gen Hx Sickle Cell Disease/Trait: No (11/21/2016 04:15:Rosy Valdovinos) Gen Hx Hemophilia/Blood Disorder: No (11/21/2016 04:15:Rosy Valdovinos) Gen Hx Muscular Dystrophy: No (11/21/2016 04:15:Rosy Valdovinos) Gen Hx Cystic Fibrosis: No (11/21/2016 04:15:Rosy Valdovinos) Gen Hx [place] Chorea: No (11/21/2016 04:15:Rosy Valdovinos) Gen Hx Mental Retardation/Autism: No (11/21/2016 04:15:Rosy Valdovinos) Gen Hx Tested for Fragile X: No (11/21/2016 04:15:Rosy Valdovinos) Gen Hx Other Inher/Chromosomal: No (11/21/2016 04:15:Rosy Valdovinos) Gen Hx Maternal Metabolic DO: No (11/21/2016 04:15:Rosy Valdovinos) Gen Hx Pt Father or FOB Defect: No (11/21/2016 04:15:Rosy Valdovinos) Gen Hx Other Genetic History: No (11/21/2016 04:15:Rosy Valdovinos) Gen Hx Drugs/Meds since LMP: No (11/21/2016 04:15:Rosy Valdovinos)
--- NOTE | 2016-11-22 18:15 | L&D Care Plan ---
LD CARE PLANS Datetime Report Generated by CPN: 11/22/2016 18:15 Datetime: 11/21/2016 04:56 Pain State: Actual (Viry Dickey RN) Related To: Labor and Delivery Process; Complication(s) of ; Post (Viry Dickey RN) Goal(s): Patients Pain will be Assessed and Managed; Patient will Verbalize Adequate Relief of Pain or the Ability to [place] with Current Pain (Viry Dickey RN) Interventions: Assess Pain Severity on Scale of 0 (None) to 5 (Severe); Assess Type, Location and Intensity of Pain Each Time Client Reports Discomfort and Notify Provider if Unusal Pain Develops; Encourage Proper Breathing and Relaxation Techniques; Offer Alternatives Such as Repositioning, Calm Environment, Massages, Diversional Activities, Ice Pack, Splinting, and Ambulation; Administer Analgesics as Ordered; Assist with Epidural Placement as Appropriate; Evaluate Therapeutic Effectiveness of Medication and Treatments (Viry Dickey RN) Outcome: Patient will Report Absence or Relief of Pain Consistent with Established Pain Goal (Viry Dickey RN) Outcome: Patient will have a Decrease in Signs and Symptoms of Discomfort (Viry Dickey RN) Outcome: Pain will be Controlled During Procedures (Viry Dickey RN) Anxiety State: Risk For (Viry Dickey RN) Related To: Labor and Delivery Process; Fear of Unknown; Situational Crisis; Medical Interventions; Significant Life Event (Viry Dickey RN) Goal(s): Patient will have Decreased Anxiety and be able to Function at Acceptable Levels (Viry Dickey RN) Interventions: Assess Verbal and Nonverbal Behavioral Indicators of Anxiety; Assist Patient to Identify and Verbalize Symptoms of Anxiety; Identify and Demonstrate Techniques to Control Anxiety; Assist Patient with Coping Mechanisms to Manage Anxiety; Provide Theraputic Touch for the Patient; Explain to Patient, Using a Calm Reassuring Approach and Nonmedical Terms, All Activities, Procedures, and Concerns; Instruct Patient and Family about Post Discharge Care, Limitations, Symptoms to Report and Resources Available (Viry Dickey RN) Outcome: Patient will Identify, Verbalize and Demonstrate Techniques to Control Anxiety (Viry Dickey RN) Outcome: Patient's Posture, Facial Expressions, Gestures and Activity Level will Reflect Decreased Anxiety (Viry Dickey RN) Outcome: Patient will Verbalize a Sense of Control and/or Acceptance of the Situation (Viry Dickey RN) Outcome: Patient will Identify and Utilize Support Person (Viry Dickey RN) Knowledge Deficit State: Risk For (Viry Dickey RN) Related To: Treatment and Procedures; Impending Alterations in Family Dynamics; Feeding and Infant Care; Community Resources and Available Support Mechanisms (Viry Dickey RN) Goal(s): Patient will Accurately Verbalize Understanding of Plan of Care and Treatment; Patient and Family will Accurately Verbalize Understanding of the Disease Process (Viry Dickey RN) Interventions: Assess Motivation and Willingness of Patient/Family to Learn; Assess Preferred Learning Mode: One to One Instruction, Reading, Videos, Group Discussion or Demonstration; Assess Barriers to Learning: Pain, Emotional State, Language Barrier, Cognitive Impairment, Visual or Hearing Deficits; Assess Patient and Family Knowledge of Disease Process, Medications and Treatment; Discuss Therapy and/or Treatment Options, Describe Rationale Behind Management, Therapy and Treatment Recommendations; Instruct Patient and Family on Signs and Symptoms to Report; Instruct Patient and Family on Medication Effects and Side Effects; Provide Appropriate and Timely Education Using Multiple Techniques; Provide Patient and Family with Support Group Information and Resources; Give Clear and Thorough Explanations and Demonstrations (Viry Dickey RN) Outcome: Patient and Family will Verbalize Understanding of Condition, Treatment and Signs and Symptoms to Report (Viry Dickey RN) Outcome: Patient will Identify Perceived Learning Needs and Express Motivation to Learn (Viry Dickey RN) Outcome: Patient will Verbalize Understanding of Desired Content, and/or Performs Desired Skill Prior to Discharge (Viry Dickey RN) Infection State: Risk For (Viry Dickey RN) Related To: Invasive Procedures; Altered Tissue Integrity (Viry Dickey RN) Goal(s): The Patient will be Free of Infection, Vital Signs Stable and Lab Work within Normal Parameters (Viry Dickey RN) Interventions: Instruct and Reinforce Proper Handwashing, Hygiene, and Care Techniques to Patient and Family; Monitor Vital Signs; Monitor Patient for the Following Signs of Infection: Fever, Abdominal Tenderness, Unusual Discharge; Monitor Aminiotic Fluid, Urine and Lochia for Color and Odor; Observe Wounds, Incisions and Invasive Line Sites for Redness, Drainage and Edema; Assess IV Sites per Hospital Policy; Monitor Lab and Test Results and Notify Provider of Abnormal Findings; Assess Nutritional Status and Promote Good Nutrition (Viry Dickey RN) Outcome: Patient will Remain Free of Infection (Viry Dickey RN) Outcome: Infection will be Recognized Early to Allow for Prompt Treatment (Viry Dickey RN) Outcome: Patient will have Vital Signs Within Expected Range (Viry Dickey RN) Impaired Skin Integrity State: Risk For (Viry Dickey RN) Related To: Vaginal Delivery; Altered Tissue Integrity; Invasive Procedures (Viyr Dickey RN) Goal(s): Patient will Maintain Optimal Skin Integrity, Free of Breakdown, Injury or Infection (Viry Dickey RN) Interventions: Complete Screening for Pressure Ulcer Risk and Initiate Protocol per Hospital Policy; Monitor Site of Skin Impairment for Color Changes, Redness, Swelling, Warmth, Pain or Other Signs of Infection; Encourage and Assist with Position Changes; Monitor Patient's Mobility Status; Provide Adequate Nutrition and Fluids; Teach Patient Appropriate Hygienic Care; Teach Patient/Family Skin Care Management (Viry Dickey RN) Outcome: Patient will not have Evidence of Injury Such as Skin Breakdown, Scrapes, Cuts, or Bruising (Viry Dickey RN) Outcome: Patient will Report Any Altered Sensation or Pain at Site of Skin Impairment (Viry Dickey RN) Outcome: Patients Incisions and Wounds will be without Signs or Symptoms of Infection (Viry Dickey RN) Outcome: Patient will Demonstrate Understanding of Plan to Heal Skin and Prevent Reinjury and Verbalize Risk Factors (Viry Dickey RN)
--- NOTE | 2016-11-22 20:20 | L&D General Admission ---
General Admit Datetime Report Generated by CPN: 11/22/2016 20:20 INFORMATION Patient Age: 26 (10/08/2016 10:16:QS system process) EDC: 11/20/2016 00:00 (11/21/2016 04:15:Cristina Nascimento RN) EDC per Ultrasound: 11/20/2016 00:00 (11/21/2016 04:15:Cristina Nascimento RN) : 5 (11/21/2016 04:15:Cristina Nascimento RN) Para: 2 (11/21/2016 04:15:Cristina Nascimento RN) Term: 2 (11/21/2016 04:15:Cristina Nascimento RN) Spontaneous Abortions: 2 (11/21/2016 04:15:Cristina Nascimento RN) Livin (11/21/2016 04:15:Cristina Nascimento RN) Cesareans: 0 (11/21/2016 04:15:Cristina Nascimento RN) CARE Primary Salvage Repairer: [facility] (11/21/2016 04:15:Rosy Valdovinos) Adequate Care: Yes (11/21/2016 04:15:Cristina Azam, RN) Height (in): 67 (11/22/2016 15:30:QS system process) ALLERGIES Medication Allergy: No (11/21/2016 04:15:Rosy Valdovinos) Medication Allergies: No Known Allergies (02/16/2013) (10/08/2016 10:16:QS system process) Latex Allergy: No Latex Allergies (11/21/2016 04:15:Rosy Valdovinos) Food Allergies: none (11/21/2016 04:15:Rosy Valdovinos) Environmental Allergies: none (11/21/2016 04:15:Rosy Valdovinos) COMMUNICATION Primary Language: Cameroonian (11/21/2016 04:15:Rosy Valdovinos) Medical Tx Preferred Language: Cameroonian (11/21/2016 04:15:Rosyabhilash Valdovinos) DEMOGRAPHICS Address: [address] [place] [id number] (10/08/2016 10:16:QS system process) Zipcode: [phone] (10/08/2016 10:16:QS system process) Home (10/08/2016 10:16:QS system process) SSN: [id number] (10/08/2016 10:16:QS system process) Next of Kin Name: JANETH MCMILLAN (10/08/2016 10:16:QS system process) Next of Kin (10/08/2016 10:16:QS system process) Next of Kin Relationship: SPO (10/08/2016 10:16:QS system process) Date of : 1990 (10/08/2016 10:16:QS system process) Marital Status: (10/08/2016 10:16:QS system process) Sex: Female (10/08/2016 10:16:QS system process) Race: (10/08/2016 10:16:QS system process) Ethnicity: Non- or (10/08/2016 10:16:QS system process) Adventist: Sabianism (10/08/2016 10:16:QS system process) DRUG AND ALCOHOL USE Alcohol: No (11/21/2016 04:15:Rosy Valdovinos) Cigarettes: Never Smoker. [id number] (11/21/2016 04:15:Rosy Valdovinos) Marijuana: No (11/21/2016 04:15:Rosy Valdovinos) Cocaine: No (11/21/2016 04:15:Rosy Valdovinos) Other Illicit Drugs: No (11/21/2016 04:15:Rosy Valdovinos) VACCINE HISTORY Influenza Vaccine: Yes (11/21/2016 04:15:Rosy Valdovinos) Influenza Date: 2016 (11/21/2016 04:15:Rosy Valdovinos) Tdap Vaccine: Yes (11/21/2016 04:15:Rosy Valdovinos) Tdap Date: 2016 (11/21/2016 04:15:Rosy Valdovinos) Temperature Regulator: [facility] (11/21/2016 04:15:Rosy Valdovinos) Feeding Preference: Breast (11/21/2016 04:15:Rosy Valdovinos) Benefit of Breast Feed Discussed: Yes (11/21/2016 04:15:Viry Dickey RN) Circumcision: N/A (11/21/2016 04:15:Rosy Valdovinos) Classes Attended: No (11/21/2016 04:15:Rosy Valdovinos) Tubal Ligation: No (11/21/2016 04:15:Rosy Valdovinos) Tubal Authorization Signed: N/A (11/21/2016 04:15:Rosy Valdovinos) Consent: N/A (11/21/2016 04:15:Rosy Valdovinos) Consent Signed: N/A (11/21/2016 04:15:Rosy Valdovinos) Pain Management Plans: Epidural (11/21/2016 04:15:Rosy Valdovinos) Plans for Labor and Delivery: None (11/21/2016 04:15:Rosy Valdovinos) Support Person: Janeth (11/21/2016 04:15:Rosy Valdovinos) Support Person Relationship: (11/21/2016 04:15:Rosy Valdovinos) Cultural/Spritual Practice: N/A (11/21/2016 04:15:Rosy Valdovinos) Spir/Cult Dietary Needs: N/A (11/21/2016 04:15:Rosy Valdovinos) LIVING SITUATION/DISCHARGE PLAN Living Arrangements: House (11/21/2016 04:15:Rosy Valdovinos) Adequate Access to:: Electric; Heat; Refrigeration; Plumbing/Running water; Phone; Transportation (11/21/2016 04:15:Rosy Valdovinos) WIC Program: Yes (11/21/2016 04:15:Rosy Valdovinos) Discharge I&C Tech Person: janeth- (11/21/2016 04:15:Rosy Valdovinos) Person to Help after Discharge: janeth- (11/21/2016 04:15:Rosy Valdovinos) Currently Using Commun Resources: Yes (11/21/2016 04:15:Rosy Valdovinos) Specify Current Resource Used: medicaid (11/21/2016 04:15:Rosy Valdovinos) Outside Agency/Coil Maker: No (11/21/2016 04:15:Rosy Valdovinos) Car Seat for Discharge: Yes (11/21/2016 04:15:Rosy Valdovinos) Adoption Requested: No (11/21/2016 04:15:Rosy Valdovinos) Pt Contact w/ Post : N/A (11/21/2016 04:15:Rosy Valdovinos) LABS Blood Type: O Positive (11/21/2016 04:15:Cristina Nascimento RN) Hemoglobin: 11.1 L (11/22/2016 07:14:QS system process) Hematocrit: 33.0 L (11/22/2016 07:14:QS system process) MCV: 76 L (11/22/2016 07:14:QS system process) Group Beta Strep: negative (11/21/2016 04:15:Viry Dickey RN) RPR/VDRL: Nonreactive (11/21/2016 04:15:Cristina Nascimento RN) HIV Exposure Test: Negative (11/21/2016 04:15:Cristina Nascimento RN) Hepatitis B: Negative (11/21/2016 04:15:Cristina Nascimento RN) Rubella: POSITIVE NEGATIVE IF LESS THAN OR EQUAL TO 9.99 IU/mL POSITIVE IF GREATER THAN OR EQUAL TO 10.0 IU/mL (11/21/2016 05:50:QS system process) Rubella Titer: 41.30 (11/21/2016 05:50:QS system process) Varicella: Non Susceptible (11/21/2016 04:15:Cristina Nascimento RN) OB/PREVIOUS HISTORY Previous Procedures: Ultrasound; NST (11/21/2016 04:15:Rosy Valdovinos) Current Procedures: Ultrasound; NST (11/21/2016 04:15:Rosy Valdovinos) History of Previous : No (11/21/2016 04:15:Rosy Valdovinos) History of Gestational Diabetes: No (11/21/2016 04:15:Rosy Valdovinos) History of PIH: No (11/21/2016 04:15:Rosy Valdovinos) History of Incompetent Cervix: No (11/21/2016 04:15:Rosy Valdovinos) History of Placenta Previa/Abrup: No (11/21/2016 04:15:Rosy Valdovinos) History of Macrosomia: No (11/21/2016 04:15:Rosy Valdovinos) History of IUGR: No (11/21/2016 04:15:Rosy Valdovinos) History of Hemorrhage: No (11/21/2016 04:15:Rosy Valdovinos) History of Loss/Stillborn: No (11/21/2016 04:15:Rosy Valdovinos) History of : No (11/21/2016 04:15:Rosy Valdovinos) History of D (Rh) Sensitization: No (11/21/2016 04:15:Rosy Valdovinos) History Recurrent Loss/Stillborn: No (11/21/2016 04:15:Rosy Valdovinos) History Depression/PP Depression: No (11/21/2016 04:15:Rosy Valdovinos) History of Uterine Anomaly/GAVIOTA: No (11/21/2016 04:15:Rosy Valdovinos) History of Infertility: No (11/21/2016 04:15:Rosy Valdovinos) History of ART Treatment: No (11/21/2016 04:15:Rosy Valdovinos) History of GAVIOTA: No (11/21/2016 04:15:Rosy Valdovinos) MEDICAL HISTORY Med Hx Diabetes: No (11/21/2016 04:15:Rosy Valdovinos) Med Hx Hypertension: No (11/21/2016 04:15:Rosy Valdovinos) Med Hx Heart Disease: No (11/21/2016 04:15:Rosy Valdovinos) Med Hx Autoimmune Disorder: No (11/21/2016 04:15:Rsoy Valdovinos) Med Hx Kidney Disease/UTI: No (11/21/2016 04:15:Rosy Valdovinos) Med Hx Neurologic/Epilepsy: No (11/21/2016 04:15:Rosy Valdovinos) Med Hx Psychiatric Disorders: No (11/21/2016 04:15:Rosy Valdovinos) Med Hx Hepatitis/Liver Disease: No (11/21/2016 04:15:Rosy Valdovinos) Med Hx Varicosities/Phlebitis: No (11/21/2016 04:15:Rosy Valdovinos) Med Hx Thyroid Dysfunction: No (11/21/2016 04:15:Rosy Valdovinos) Med Hx Trauma/Violence: No (11/21/2016 04:15:Rosy Valdovinos) Med Hx Blood Transfusion: No (11/21/2016 04:15:Rosy Valdovinos) Med Hx Pulmonary (Asthma,TB): No (11/21/2016 04:15:Rosy Valdovinos) Med Hx Breast: No (11/21/2016 04:15:Rosy Valdovinos) Med Hx RANCH HAND SUPERVISOR Surgery: No (11/21/2016 04:15:Rosy Valdovinos) Med Hx Hospitalization/Surgery: No (11/21/2016 04:15:Rosy Valdovinos) Med Hx Anesthetic Complications: No (11/21/2016 04:15:Rosy Valdovinos) Med Hx Abnormal Pap Smear: No (11/21/2016 04:15:Rosy Valdovinos) Other Medical Diseases: No (11/21/2016 04:15:Rosy Valdovinos) Med Hx Significant Family Hx: No (11/21/2016 04:15:Rosy Valdovinos) Details of Med/Surg Hx: benign lump left breast-2009 depresasion-no suicidal thoughts (11/21/2016 04:15:Cristina Nascimento RN) INFECTIOUS HISTORY Inf Hx Gonorrhea: No (11/21/2016 04:15:Rosy Valdovinos) Inf Hx Chlamydia: No (11/21/2016 04:15:Rosy Valdovinos) Inf Hx Syphilis: No (11/21/2016 04:15:Rosy Valdovinos) Inf Hx HIV/AIDS: No (11/21/2016 04:15:Rosy Valdovinos) Inf Hx Human Papilloma Virus: No (11/21/2016 04:15:Rosy Valdovinos) Inf Hx Pt/Partner Genital Herpes: No (11/21/2016 04:15:Rosy Valdovinos) Inf Hx Tuberculosis/Exposure: No (11/21/2016 04:15:Rosy Valdovinos) Inf Hx Hepatitis B,C: No (11/21/2016 04:15:Rosy Valdovinos) Inf Hx Rash or Viral Illness: No (11/21/2016 04:15:Rosy Valdovinos) GENETIC HISTORY Gen Hx Age >=35 at TYRELL: No (11/21/2016 04:15:Rosy Valdovinos) Gen Hx Thalassemia: No (11/21/2016 04:15:Rosy Valdovinos) Gen Hx Congenital Heart Defect: No (11/21/2016 04:15:Rosy Valdovinos) Gen Hx Neural Tube Defect: No (11/21/2016 04:15:Rosy Valdovinos) Gen Hx Down's Syndrome: No (11/21/2016 04:15:Rosy Valdovinos) Gen Hx Jt-Sachs: No (11/21/2016 04:15:Rosy Valdovinos) Gen Hx Otto: No (11/21/2016 04:15:Rosy Valdovinos) Gen Hx Familial Dysautonomia: No (11/21/2016 04:15:Rosy Valdovinos) Gen Hx Sickle Cell Disease/Trait: No (11/21/2016 04:15:Rosy Valdovinos) Gen Hx Hemophilia/Blood Disorder: No (11/21/2016 04:15:Rosy Valdovinos) Gen Hx Muscular Dystrophy: No (11/21/2016 04:15:Rosy Valdovinos) Gen Hx Cystic Fibrosis: No (11/21/2016 04:15:Rosy Valdovinos) Gen Hx [place] Chorea: No (11/21/2016 04:15:Rosy Valdovinos) Gen Hx Mental Retardation/Autism: No (11/21/2016 04:15:Rosy Valdovinos) Gen Hx Tested for Fragile X: No (11/21/2016 04:15:Rosy Valdovinos) Gen Hx Other Inher/Chromosomal: No (11/21/2016 04:15:Rosy Valdovinos) Gen Hx Maternal Metabolic DO: No (11/21/2016 04:15:Rosy Valdovinos) Gen Hx Pt Father or FOB Defect: No (11/21/2016 04:15:Rosy Valdovinos) Gen Hx Other Genetic History: No (11/21/2016 04:15:Rosy Valdovinos) Gen Hx Drugs/Meds since LMP: No (11/21/2016 04:15:Rosy Valdovinos)
--- NOTE | 2016-11-22 20:21 | L&D Admission Assessment ---
LD ADM ASMT Datetime Report Generated by N: 11/22/2016 20:20 Weight (lb): 7678 (11/22/2016 08:44:QS system process) Weight (kg): 3490.0 (11/22/2016 08:44:QS system process) BMI: 1202.4 (11/22/2016 08:44:QS system process)
--- NOTE | 2016-11-22 20:21 | Delivery Summary ---
Del Sum A-C Datetime Report Generated by CPN: 11/22/2016 20:20 DELIVERY PERSONNEL DELIVERY PERSONNEL: [id number] Delivery Doctor:: Divina Ferguson MD Labor and Delivery Nurse:: Rosy Valdovinos RN Nursery Nurse:: TYLOR Mcadams Tech/SENIOR STORAGE ENGINEER: Helen Pope SENIOR STORAGE ENGINEER MATERNAL INFORMATION Delivery Anesthesia: None Medications After Delivery: Pitocin Bolus-Please Comment Meds After Delivery Comment: Pitocin 20 units/1000 ml NS following placenta Estimated Blood Loss (ml): 250 Maternal Complications: Precipitous Labor (<3hrs) Provider Comments: Placenta delivered intact with 3vc LABOR SUMMARY EDC: 11/20/2016 00:00 Attempted: No Labor Anesthesia: None LABOR INFORMATION Reason for Induction: Not Applicable Onset of Labor: 11/21/2016 03:00 Complete Dilatation: 11/21/2016 04:42 Oxytocin: N/A Group B Beta Strep: negative Antibiotics # of Doses: 0 Antibiotics Time of Last Dose: n/a Steroids Given: None Reason Steroids Not Administered: Not Applicable MEMBRANES Membranes Rupture Method: Artificial Rupture of Membranes: 11/21/2016 04:45 Length of Rupture (hr): 0.18 Amniotic Fluid Color: Clear Amniotic Fluid Amount: Moderate Amniotic Fluid Odor: Normal STAGES OF LABOR Stage 1 hr: 1 Stage 1 min: 42 Stage 2 hr: 0 Stage 2 min: 14 Stage 3 hr: 0 Stage 3 min: 4 Total Time in Labor hr: 2 Total Time in Labor min: 0 VAGINAL DELIVERY Episiotomy: None Laceration Extension: First Degree Laceration Type: Perineal Laceration Repair: Yes Laceration Repair Note: one 3-0 chromic suture placed Sponge Count Correct: N/A Sharps Count Correct: N/A CSECTION DELIVERY Primary Indication: N/A Secondary Indication: N/A CSection Incidence: N/A Labor: N/A Elective: N/A CSection Incision: N/A BABY A INFORMATION Delivery Date/Time: 11/21/2016 04:56 Method of Delivery: Vaginal Born in Route : No : N/A Forceps: N/A Vacuum Extraction: N/A Shoulder Dystocia : No PRESENTATION/POSITION BABY A Presentation: Cephalic Cephalic Presentation: Vertex Vertex Position: Left Occipital Anterior Breech Presentation: N/A PLACENTA INFORMATION BABY A Placenta Delivery Time : 11/21/2016 05:00 Placenta Method of Delivery: Spontaneous Placenta Status: Delivered SCORES BABY A Heart Rate 1 min: >100 bpm Resp Effort 1 min: Slow, Irregular Reflex Irritability 1 min: Cough or Sneeze or Pulls Away Muscle Tone 1 min: Active Motion Color 1 min: Body [place], Extremities Blue SCORE 1 MIN: 8 Heart Rate 5 min: >100 bpm Resp Effort 5 min: Good Cry Reflex Irritability 5 min: Cough or Sneeze or Pulls Away Muscle Tone 5 min: Active Motion Color 5 min: Body [place], Extremities Blue SCORE 5 MIN: 9 INFANT INFORMATION BABY A Gestational Age at Delivery: 40.1 Gestational Status: Full Term- 39- 40.6 Weeks Outcome : Liveborn Condition : Stable Infant Sex: Female IDENTIFICATION BABY A Verification Date/Time: 11/21/2016 05:49 ID Band Number: [id number] Mother's Name Verified: Yes Infant RN Verifying : A Valdovinos Rn Additional Verifying Personnel: Entefy Rn WEIGHT/LENGTH BABY A Birthweight (gm): 3490 Weight (lb): 7 Weight (oz): 11 Infant Length (in): 20.00 Infant Length (cm): 50.80 CORD INFORMATION BABY A No. Cord Vessels: 3 Nuchal Cord : N/A Cord Blood Taken: Yes-For Eval (Mom's Blood Type - or O+) Suction: Mouth; Nose ASSESSMENT BABY A Complications: None Physical Findings at Delivery: Within Normal Limits Infant Respirations: Appears Normal Skin to Skin: Yes Skin to Skin Time (min): 40 Medical Research Scientist/ALS Called : No Care By: Ena Campa RN Transferred To: Remains with Mother SIGNATURES Signature: with User ID: [email or web address]
--- NOTE | 2016-11-22 20:24 | Delivery Summary ---
Del Sum A-C Datetime Report Generated by CPN: 11/22/2016 20:20 DELIVERY PERSONNEL DELIVERY PERSONNEL: [phone];[id number] Delivery Doctor:: Divina Ferguson MD Labor and Delivery Nurse:: Rosy Valdovinos RN Nursery Nurse:: TYLOR Mcadams Tech/PULVERIZER OPERATOR: Helen Pope PULVERIZER OPERATOR MATERNAL INFORMATION Delivery Anesthesia: None Medications After Delivery: Pitocin Bolus-Please Comment Meds After Delivery Comment: Pitocin 20 units/1000 ml NS following placenta Estimated Blood Loss (ml): 250 Maternal Complications: Precipitous Labor (<3hrs) Provider Comments: Placenta delivered intact with 3vc LABOR SUMMARY EDC: 11/20/2016 00:00 Attempted: No Labor Anesthesia: None LABOR INFORMATION Reason for Induction: Not Applicable Onset of Labor: 11/21/2016 03:00 Complete Dilatation: 11/21/2016 04:42 Oxytocin: N/A Group B Beta Strep: negative Antibiotics # of Doses: 0 Antibiotics Time of Last Dose: n/a Steroids Given: None Reason Steroids Not Administered: Not Applicable MEMBRANES Membranes Rupture Method: Artificial Rupture of Membranes: 11/21/2016 04:45 Length of Rupture (hr): 0.18 Amniotic Fluid Color: Clear Amniotic Fluid Amount: Moderate Amniotic Fluid Odor: Normal STAGES OF LABOR Stage 1 hr: 1 Stage 1 min: 42 Stage 2 hr: 0 Stage 2 min: 14 Stage 3 hr: 0 Stage 3 min: 4 Total Time in Labor hr: 2 Total Time in Labor min: 0 VAGINAL DELIVERY Episiotomy: None Laceration Extension: First Degree Laceration Type: Perineal Laceration Repair: Yes Laceration Repair Note: one 3-0 chromic suture placed Sponge Count Correct: N/A Sharps Count Correct: N/A CSECTION DELIVERY Primary Indication: N/A Secondary Indication: N/A CSection Incidence: N/A Labor: N/A Elective: N/A CSection Incision: N/A BABY A INFORMATION Delivery Date/Time: 11/21/2016 04:56 Method of Delivery: Vaginal Born in Route : No : N/A Forceps: N/A Vacuum Extraction: N/A Shoulder Dystocia : No PRESENTATION/POSITION BABY A Presentation: Cephalic Cephalic Presentation: Vertex Vertex Position: Left Occipital Anterior Breech Presentation: N/A PLACENTA INFORMATION BABY A Placenta Delivery Time : 11/21/2016 05:00 Placenta Method of Delivery: Spontaneous Placenta Status: Delivered SCORES BABY A Heart Rate 1 min: >100 bpm Resp Effort 1 min: Slow, Irregular Reflex Irritability 1 min: Cough or Sneeze or Pulls Away Muscle Tone 1 min: Active Motion Color 1 min: Body [place], Extremities Blue SCORE 1 MIN: 8 Heart Rate 5 min: >100 bpm Resp Effort 5 min: Good Cry Reflex Irritability 5 min: Cough or Sneeze or Pulls Away Muscle Tone 5 min: Active Motion Color 5 min: Body [place], Extremities Blue SCORE 5 MIN: 9 INFANT INFORMATION BABY A Gestational Age at Delivery: 40.1 Gestational Status: Full Term- 39- 40.6 Weeks Outcome : Liveborn Condition : Stable Infant Sex: Female IDENTIFICATION BABY A Verification Date/Time: 11/21/2016 05:49 ID Band Number: [id number] Mother's Name Verified: Yes Infant RN Verifying : A Valdovinos Rn Additional Verifying Personnel: Bringg Rn WEIGHT/LENGTH BABY A Birthweight (gm): 3490 Weight (lb): 7 Weight (oz): 11 Infant Length (in): 20.00 Infant Length (cm): 50.80 CORD INFORMATION BABY A No. Cord Vessels: 3 Nuchal Cord : N/A Cord Blood Taken: Yes-For Eval (Mom's Blood Type - or O+) Suction: Mouth; Nose ASSESSMENT BABY A Complications: None Physical Findings at Delivery: Within Normal Limits Infant Respirations: Appears Normal Skin to Skin: Yes Skin to Skin Time (min): 40 Supervisor Tank Cleaning/ALS Called : No Care By: Ena Campa RN Transferred To: Remains with Mother SIGNATURES Signature: with User ID: [email or web address]
--- NOTE | 2016-11-22 20:24 | L&D General Admission ---
General Admit Datetime Report Generated by CPN: 11/22/2016 20:20 INFORMATION Patient Age: 26 (10/08/2016 10:16:QS system process) EDC: 11/20/2016 00:00 (11/21/2016 04:15:Cristina Nascimento RN) EDC per Ultrasound: 11/20/2016 00:00 (11/21/2016 04:15:Cristina Nascimento RN) : 5 (11/21/2016 04:15:Cristina Nascimento RN) Para: 2 (11/21/2016 04:15:Cristina Nascimento RN) Term: 2 (11/21/2016 04:15:Cristina Nascimento RN) Spontaneous Abortions: 2 (11/21/2016 04:15:Cristina Nascimento RN) Livin (11/21/2016 04:15:Cristina Nascimento RN) Cesareans: 0 (11/21/2016 04:15:Cristina Nascimento RN) CARE Primary Taper And Floater: [email or web address] (11/21/2016 04:15:Rosy Valdovinos) Adequate Care: Yes (11/21/2016 04:15:Cristina Azam, RN) Height (in): 67 (11/22/2016 15:30:QS system process) ALLERGIES Medication Allergy: No (11/21/2016 04:15:Rosy Valdovinos) Medication Allergies: No Known Allergies (02/16/2013) (10/08/2016 10:16:QS system process) Latex Allergy: No Latex Allergies (11/21/2016 04:15:Rosy Valdovinos) Food Allergies: none (11/21/2016 04:15:Rosy Valdovinos) Environmental Allergies: none (11/21/2016 04:15:Rosy Valdovinos) COMMUNICATION Primary Language: Puerto Rican (11/21/2016 04:15:Rosy Valdovinos) Medical Tx Preferred Language: [place] Rican (11/21/2016 04:15:Rosyabhilash Valdovinos) DEMOGRAPHICS Address: [address] [place] [phone] (10/08/2016 10:16:QS system process) Zipcode: [phone] (10/08/2016 10:16:QS system process) Home (10/08/2016 10:16:QS system process) SSN: [id number] (10/08/2016 10:16:QS system process) Next of Kin Name: JANETH MCMILLAN (10/08/2016 10:16:QS system process) Next of Kin (10/08/2016 10:16:QS system process) Next of Kin Relationship: SPO (10/08/2016 10:16:QS system process) Date of : 1990 (10/08/2016 10:16:QS system process) Marital Status: (10/08/2016 10:16:QS system process) Sex: Female (10/08/2016 10:16:QS system process) Race: (10/08/2016 10:16:QS system process) Ethnicity: Non- or (10/08/2016 10:16:QS system process) Anabaptist: Moravian (10/08/2016 10:16:QS system process) DRUG AND ALCOHOL USE Alcohol: No (11/21/2016 04:15:Rosy Valdovinos) Cigarettes: Never Smoker. [id number] (11/21/2016 04:15:Rosy Valdoivnos) Marijuana: No (11/21/2016 04:15:Rosy Valdovinos) Cocaine: No (11/21/2016 04:15:Rosy Valdovinos) Other Illicit Drugs: No (11/21/2016 04:15:Rosy Valdovinos) VACCINE HISTORY Influenza Vaccine: Yes (11/21/2016 04:15:Rosy Valdovinos) Influenza Date: 2016 (11/21/2016 04:15:Rosy Valdovinos) Tdap Vaccine: Yes (11/21/2016 04:15:Rosy Valdovinos) Tdap Date: 2016 (11/21/2016 04:15:Rosy Valdovinos) Network Strategist: [facility] (11/21/2016 04:15:Rosy Valdovinos) Feeding Preference: Breast (11/21/2016 04:15:Rosy Valdovinos) Benefit of Breast Feed Discussed: Yes (11/21/2016 04:15:Viry Dickey RN) Circumcision: N/A (11/21/2016 04:15:Rosy Valdovinos) Classes Attended: No (11/21/2016 04:15:Rosy Valdovinos) Tubal Ligation: No (11/21/2016 04:15:Rosy Valdovinos) Tubal Authorization Signed: N/A (11/21/2016 04:15:Rosy Valdovinos) Consent: N/A (11/21/2016 04:15:Rosy Valdovinos) Consent Signed: N/A (11/21/2016 04:15:Rosy Valdovinos) Pain Management Plans: Epidural (11/21/2016 04:15:Rosy Valdovinos) Plans for Labor and Delivery: None (11/21/2016 04:15:Rosy Valdovinos) Support Person: Janeth (11/21/2016 04:15:Rosy Valdovinos) Support Person Relationship: (11/21/2016 04:15:Rosy Valdovinos) Cultural/Spritual Practice: N/A (11/21/2016 04:15:Rosy Valdovinos) Spir/Cult Dietary Needs: N/A (11/21/2016 04:15:Rosy Valdovinos) LIVING SITUATION/DISCHARGE PLAN Living Arrangements: House (11/21/2016 04:15:Rosy Valdovinos) Adequate Access to:: Electric; Heat; Refrigeration; Plumbing/Running water; Phone; Transportation (11/21/2016 04:15:Rosy Valdovinos) WIC Program: Yes (11/21/2016 04:15:Rosy Valdovinos) Discharge Marketing Operations Specialist Person: janeth- (11/21/2016 04:15:Rosy Valdovinos) Person to Help after Discharge: janeth- (11/21/2016 04:15:Rosy Valdovinos) Currently Using Commun Resources: Yes (11/21/2016 04:15:Rosy Valdovinos) Specify Current Resource Used: medicaid (11/21/2016 04:15:Rosy Valdovinos) Outside Agency/Mailing Machine Operator: No (11/21/2016 04:15:Rosy Valdovinos) Car Seat for Discharge: Yes (11/21/2016 04:15:Rosy Valdovinos) Adoption Requested: No (11/21/2016 04:15:Rosy Valdovinos) Pt Contact w/ Post : N/A (11/21/2016 04:15:Rosy Valdovinos) LABS Blood Type: O Positive (11/21/2016 04:15:Cristina Nascimento RN) Hemoglobin: 11.1 L (11/22/2016 07:14:QS system process) Hematocrit: 33.0 L (11/22/2016 07:14:QS system process) MCV: 76 L (11/22/2016 07:14:QS system process) Group Beta Strep: negative (11/21/2016 04:15:Viry Dickey RN) RPR/VDRL: Nonreactive (11/21/2016 04:15:Cristina Nascimento RN) HIV Exposure Test: Negative (11/21/2016 04:15:Cristina Nascimento RN) Hepatitis B: Negative (11/21/2016 04:15:Cristina Nascimento RN) Rubella: POSITIVE NEGATIVE IF LESS THAN OR EQUAL TO 9.99 IU/mL POSITIVE IF GREATER THAN OR EQUAL TO 10.0 IU/mL (11/21/2016 05:50:QS system process) Rubella Titer: 41.30 (11/21/2016 05:50:QS system process) Varicella: Non Susceptible (11/21/2016 04:15:Cristina Nascimento RN) OB/PREVIOUS HISTORY Previous Procedures: Ultrasound; NST (11/21/2016 04:15:Rosy Valdovinos) Current Procedures: Ultrasound; NST (11/21/2016 04:15:Rosy Valdovinos) History of Previous : No (11/21/2016 04:15:Rosy Valdovinos) History of Gestational Diabetes: No (11/21/2016 04:15:Rosy Valdovinos) History of PIH: No (11/21/2016 04:15:Rosy Valdovinos) History of Incompetent Cervix: No (11/21/2016 04:15:Rosy Valdovinos) History of Placenta Previa/Abrup: No (11/21/2016 04:15:Rosy Valdovinos) History of Macrosomia: No (11/21/2016 04:15:Rosy Valdovinos) History of IUGR: No (11/21/2016 04:15:Rosy Valdovinos) History of Hemorrhage: No (11/21/2016 04:15:Rosy Valdovinos) History of Loss/Stillborn: No (11/21/2016 04:15:Rosy Valdovinos) History of : No (11/21/2016 04:15:Rosy Valdovinos) History of D (Rh) Sensitization: No (11/21/2016 04:15:Rosy Valdovinos) History Recurrent Loss/Stillborn: No (11/21/2016 04:15:Rosy Valdovinos) History Depression/PP Depression: No (11/21/2016 04:15:Rosy Valdovinos) History of Uterine Anomaly/GAVIOTA: No (11/21/2016 04:15:Rosy Valdovinos) History of Infertility: No (11/21/2016 04:15:Rosy Valdovinos) History of ART Treatment: No (11/21/2016 04:15:Rosy Valdovinos) History of GAVIOTA: No (11/21/2016 04:15:Rosy Valdovinos) MEDICAL HISTORY Med Hx Diabetes: No (11/21/2016 04:15:Rosy Valdovinos) Med Hx Hypertension: No (11/21/2016 04:15:Rosy Valdovinos) Med Hx Heart Disease: No (11/21/2016 04:15:Rosy Valdovinos) Med Hx Autoimmune Disorder: No (11/21/2016 04:15:Rosy Valdovinos) Med Hx Kidney Disease/UTI: No (11/21/2016 04:15:Rosy Valdovinos) Med Hx Neurologic/Epilepsy: No (11/21/2016 04:15:Rosy Valdovinos) Med Hx Psychiatric Disorders: No (11/21/2016 04:15:Rosy Valdovinos) Med Hx Hepatitis/Liver Disease: No (11/21/2016 04:15:Rosy Valdovinos) Med Hx Varicosities/Phlebitis: No (11/21/2016 04:15:Rosy Valdovinos) Med Hx Thyroid Dysfunction: No (11/21/2016 04:15:Rosy Valdovinos) Med Hx Trauma/Violence: No (11/21/2016 04:15:Rosy Valdovinos) Med Hx Blood Transfusion: No (11/21/2016 04:15:Rosy Valdovinos) Med Hx Pulmonary (Asthma,TB): No (11/21/2016 04:15:Rosy Valdovinos) Med Hx Breast: No (11/21/2016 04:15:Rosy Valdovinos) Med Hx SQL DATA ANALYST Surgery: No (11/21/2016 04:15:Rosy Valdovinos) Med Hx Hospitalization/Surgery: No (11/21/2016 04:15:Rosy Valdovinos) Med Hx Anesthetic Complications: No (11/21/2016 04:15:Rosy Valdovinos) Med Hx Abnormal Pap Smear: No (11/21/2016 04:15:Rosy Valdovinos) Other Medical Diseases: No (11/21/2016 04:15:Rosy Valdovinos) Med Hx Significant Family Hx: No (11/21/2016 04:15:Rosy Valdovinos) Details of Med/Surg Hx: benign lump left breast-2009 depresasion-no suicidal thoughts (11/21/2016 04:15:Cristina Nascimento RN) INFECTIOUS HISTORY Inf Hx Gonorrhea: No (11/21/2016 04:15:Rosy Valdovinos) Inf Hx Chlamydia: No (11/21/2016 04:15:Rosy Valdovinos) Inf Hx Syphilis: No (11/21/2016 04:15:Rosy Valdovinos) Inf Hx HIV/AIDS: No (11/21/2016 04:15:Rosy Valdovinos) Inf Hx Human Papilloma Virus: No (11/21/2016 04:15:Rosy Valdovinos) Inf Hx Pt/Partner Genital Herpes: No (11/21/2016 04:15:Rosy Valdovinos) Inf Hx Tuberculosis/Exposure: No (11/21/2016 04:15:Rosy Valdovinos) Inf Hx Hepatitis B,C: No (11/21/2016 04:15:Rosy Valdovinos) Inf Hx Rash or Viral Illness: No (11/21/2016 04:15:Rosy Valdovinos) GENETIC HISTORY Gen Hx Age >=35 at TYRELL: No (11/21/2016 04:15:Rosy Valdovinos) Gen Hx Thalassemia: No (11/21/2016 04:15:Rosy Valdovinos) Gen Hx Congenital Heart Defect: No (11/21/2016 04:15:Rosy Valdovinos) Gen Hx Neural Tube Defect: No (11/21/2016 04:15:Rosy Valdovinos) Gen Hx Down's Syndrome: No (11/21/2016 04:15:Rosy Valdovinos) Gen Hx Jt-Sachs: No (11/21/2016 04:15:Rosy Valdovinos) Gen Hx Otto: No (11/21/2016 04:15:Rosy Valdovinos) Gen Hx Familial Dysautonomia: No (11/21/2016 04:15:Rosy Valdovinos) Gen Hx Sickle Cell Disease/Trait: No (11/21/2016 04:15:Rosy Valdovinos) Gen Hx Hemophilia/Blood Disorder: No (11/21/2016 04:15:Rosy Valdovinos) Gen Hx Muscular Dystrophy: No (11/21/2016 04:15:Rosy Valdovinos) Gen Hx Cystic Fibrosis: No (11/21/2016 04:15:Rosy Valdovinos) Gen Hx [place] Chorea: No (11/21/2016 04:15:Rosy Valdovinos) Gen Hx Mental Retardation/Autism: No (11/21/2016 04:15:Rosy Valdovinos) Gen Hx Tested for Fragile X: No (11/21/2016 04:15:Rosy Valdovinos) Gen Hx Other Inher/Chromosomal: No (11/21/2016 04:15:Rosy Valdovinos) Gen Hx Maternal Metabolic DO: No (11/21/2016 04:15:Rosy Valdovinos) Gen Hx Pt Father or FOB Defect: No (11/21/2016 04:15:Rosy Valdovinos) Gen Hx Other Genetic History: No (11/21/2016 04:15:Rosy Valdovinos) Gen Hx Drugs/Meds since LMP: No (11/21/2016 04:15:Rosy Valdovinos)
--- NOTE | 2016-11-22 20:24 | L&D Current Admission ---
Current Admit Datetime Report Generated by CPN: 11/22/2016 20:20 ADMISSION INFORMATION Current Admit Date/Time: 11/21/2016 04:41 (11/21/2016 04:41:Rosy Valdovinos) Reason for Admission: Onset of Labor (11/21/2016 04:41:Rosy Valdovinos) Chief Complaint: Contractions (11/21/2016 04:41:Rosy Valdovinos) Medications During : Vitamin; Rantidine (Zantac) (11/21/2016 04:41:Cristina Nascimento RN) Meds During -Oth: fiorcet (11/21/2016 04:41:Cristina Nascimento RN) EGA per Dates: 40.1 (11/21/2016 04:41:QS system process) EGA per US: 40.1 (11/21/2016 04:41:QS system process) Method of Arrival: Wheelchair (11/21/2016 04:41:Rosy Valdovinos) Admitted From: Home (11/21/2016 04:41:Cristina Nascimento RN) Reason for Induction: Not Applicable (11/21/2016 04:41:Cristina Nascimento RN) Records Available: Yes (11/21/2016 04:41:Cristina Nascimento RN) General Admission Information: Reviewed (11/21/2016 04:41:Rosy Valdovinos) General Admission Reviewed By: Edmar Valdovinos RN (11/21/2016 04:41:Rosy Valdovinos) BELONGINGS/ADVANCED DIRECTIVES Other Belongings: see consent sheet (11/21/2016 04:41:Rosy Valdovinos) Disposition of Belongings: Kept with Patient (11/21/2016 04:41:Cristina Nascimento RN) Advance Direct for Healthcare: No, and Wants No Information (11/21/2016 04:41:Rosy Valdovinos) Durable Power of Decorating Machine Tender: No (11/21/2016 04:41:Rosy Valdovinos) Living Will: No (11/21/2016 04:41:Rosy Valdovinos) Organ Donor: No (11/21/2016 04:41:Rosy Valdovinos) Pt Rights Information Given: Yes (11/21/2016 04:41:Rosy Valdovinos) Pt Understands Pt Rights: Yes (11/21/2016 04:41:Rosy Valdovinos) Patient Rights Comments: patient access (11/21/2016 04:41:Rosy Valdovinos) LEARNING ASSESSMENT Knowledge Level: Understands L_D Process (11/21/2016 04:41:Rosy Valdovinos) Barriers to Learning: None (11/21/2016 04:41:Rosy Valdovinos) Learning Readiness: Motivated (11/21/2016 04:41:Rosy Valdovinos) Learns Best By: 1 to 1 Instruction (11/21/2016 04:41:Rosy Valdovinos) Learning Needs: Labor and Delivery Process; Pain Management; Symptoms to Report; Treatment Plan; Medication (11/21/2016 04:41:Rosy Valdovinos) DOMESTIC VIOLANCE SCREENING Dom Viol Threatened/Hurt: No (11/21/2016 04:41:Rosy Valdovinos) Hx of Abuse/Neglect past 2yrs: No (11/21/2016 04:41:Rosy Valdovinos) Feel Unsafe Going Home: No (11/21/2016 04:41:Rosy Valdovions) Addt'l Observ Indicating Abuse: No (11/21/2016 04:41:Rosy Valdovinos) Reason Unable to Complete Screen: N/A, Screen Completed (11/21/2016 04:41:Rosy Valdovinos) Considered Personal Harm/Suicide: No (11/21/2016 04:41:Rosy Valdovinos) NUTRITIONAL/FUNCTIONAL SCREENING Problem with Appetite >5 Days: No (11/21/2016 04:41:Rosy Valdovinos) Chew/Swallow Difficulties: No (11/21/2016 04:41:Rosy Valdovinos) Inappropriate Wt Gain/Loss: No (11/21/2016 04:41:Rosy Valdovinos) Presence Skin Breakdown/Ulcer: No (11/21/2016 04:41:Rosy Valdovinos) Special Diet: No (11/21/2016 04:41:Rosy Valdovinos) Pt Requests Heavy Equipment Rental Associate Visit: No (11/21/2016 04:41:Rosy Valdovinos) Hx of Any of the Following?: N/A (11/21/2016 04:41:Rosy Valdovinos) New Diagnosis of: N/A (11/21/2016 04:41:Rosy Valdovinos) Requires Assist w/Ambulation: No (11/21/2016 04:41:Rosy Valdovinos) Uses Assist Device to Ambulate: No (11/21/2016 04:41:Rosy Valdovinos) Pt Requires Help w/ADL's: No (11/21/2016 04:41:Rosy Valdovinos)
--- NOTE | 2016-11-23 06:01 | L&D General Admission ---
General Admit Datetime Report Generated by CPN: 11/23/2016 06:00 INFORMATION Patient Age: 26 (10/08/2016 10:16:QS system process) EDC: 11/20/2016 00:00 (11/21/2016 04:15:Cristina Nascimento RN) EDC per Ultrasound: 11/20/2016 00:00 (11/21/2016 04:15:Cristina Nascimento RN) : 5 (11/21/2016 04:15:Cristina Nascimento RN) Para: 2 (11/21/2016 04:15:Cristina Nascimento RN) Term: 2 (11/21/2016 04:15:Cristina Nascimento RN) Spontaneous Abortions: 2 (11/21/2016 04:15:Cristina Nascimento RN) Livin (11/21/2016 04:15:Cristina Nascimento RN) Cesareans: 0 (11/21/2016 04:15:Cristina Nascimento RN) CARE Primary Gemologist: [facility] (11/21/2016 04:15:Rosy Valdovinos) Adequate Care: Yes (11/21/2016 04:15:Cristina Azam, RN) Height (in): 67 (11/22/2016 15:30:QS system process) ALLERGIES Medication Allergy: No (11/21/2016 04:15:Rosy Valdovinos) Medication Allergies: No Known Allergies (02/16/2013) (10/08/2016 10:16:QS system process) Latex Allergy: No Latex Allergies (11/21/2016 04:15:Rosy Valdovinos) Food Allergies: none (11/21/2016 04:15:Rosy Valdovinos) Environmental Allergies: none (11/21/2016 04:15:Rosy Valdovinos) COMMUNICATION Primary Language: Barbadian (11/21/2016 04:15:Rosy Valdovinos) Medical Tx Preferred Language: Barbadian (11/21/2016 04:15:Rosyabhilash Valdovinos) DEMOGRAPHICS Address: [address] [place] [phone] (10/08/2016 10:16:QS system process) Zipcode: [phone] (10/08/2016 10:16:QS system process) Home (10/08/2016 10:16:QS system process) SSN: [id number] (10/08/2016 10:16:QS system process) Next of Kin Name: JANETH MCMILLAN (10/08/2016 10:16:QS system process) Next of Kin (10/08/2016 10:16:QS system process) Next of Kin Relationship: SPO (10/08/2016 10:16:QS system process) Date of : 1990 (10/08/2016 10:16:QS system process) Marital Status: (10/08/2016 10:16:QS system process) Sex: Female (10/08/2016 10:16:QS system process) Race: (10/08/2016 10:16:QS system process) Ethnicity: Non- or (10/08/2016 10:16:QS system process) Christianity: Pentecostal (10/08/2016 10:16:QS system process) DRUG AND ALCOHOL USE Alcohol: No (11/21/2016 04:15:Rosy Valdovinos) Cigarettes: Never Smoker. [id number] (11/21/2016 04:15:Rosy Valdovinos) Marijuana: No (11/21/2016 04:15:Rosy Valdovinos) Cocaine: No (11/21/2016 04:15:Rosy Valdovinos) Other Illicit Drugs: No (11/21/2016 04:15:Rosy Valdovinos) VACCINE HISTORY Influenza Vaccine: Yes (11/21/2016 04:15:Rosy Valdovinos) Influenza Date: 2016 (11/21/2016 04:15:Rosy Valdovinos) Tdap Vaccine: Yes (11/21/2016 04:15:Rosy Valdovinos) Tdap Date: 2016 (11/21/2016 04:15:Rosy Valdovinos) Sales Property Manager: [facility] (11/21/2016 04:15:Rosy Valdovinos) Feeding Preference: Breast (11/21/2016 04:15:Rosy Valdovinos) Benefit of Breast Feed Discussed: Yes (11/21/2016 04:15:Viry Dickey RN) Circumcision: N/A (11/21/2016 04:15:Rosy Valdovinos) Classes Attended: No (11/21/2016 04:15:Rosy Valdovinos) Tubal Ligation: No (11/21/2016 04:15:Rosy Valdovinos) Tubal Authorization Signed: N/A (11/21/2016 04:15:Rosy Valdovinos) Consent: N/A (11/21/2016 04:15:Rosy Valdovinos) Consent Signed: N/A (11/21/2016 04:15:Rosy Valdovinos) Pain Management Plans: Epidural (11/21/2016 04:15:Rosy Valdovinos) Plans for Labor and Delivery: None (11/21/2016 04:15:Rosy Valdovinos) Support Person: Janeth (11/21/2016 04:15:Rosy Valdovinos) Support Person Relationship: (11/21/2016 04:15:Rosy Valdovinos) Cultural/Spritual Practice: N/A (11/21/2016 04:15:Rsoy Valdovinos) Spir/Cult Dietary Needs: N/A (11/21/2016 04:15:Rosy Valdovinos) LIVING SITUATION/DISCHARGE PLAN Living Arrangements: House (11/21/2016 04:15:Rosy Valdovinos) Adequate Access to:: Electric; Heat; Refrigeration; Plumbing/Running water; Phone; Transportation (11/21/2016 04:15:Rosy Valdovinos) WIC Program: Yes (11/21/2016 04:15:Rosy Valdovinos) Discharge Chef Concierge Person: janeth- (11/21/2016 04:15:Rosy Valdovinos) Person to Help after Discharge: janeth- (11/21/2016 04:15:Rosy Valdovinos) Currently Using Commun Resources: Yes (11/21/2016 04:15:Rosy Valdovinos) Specify Current Resource Used: medicaid (11/21/2016 04:15:Rosy Valdovinos) Outside Agency/Yard Rigger: No (11/21/2016 04:15:Rosy Valdovinos) Car Seat for Discharge: Yes (11/21/2016 04:15:Rosy Valdovinos) Adoption Requested: No (11/21/2016 04:15:Rosy Valdovinos) Pt Contact w/ Post : N/A (11/21/2016 04:15:Rosy Valdovinos) LABS Blood Type: O Positive (11/21/2016 04:15:Cristina Nascimento RN) Hemoglobin: 11.1 L (11/22/2016 07:14:QS system process) Hematocrit: 33.0 L (11/22/2016 07:14:QS system process) MCV: 76 L (11/22/2016 07:14:QS system process) Group Beta Strep: negative (11/21/2016 04:15:Viry Dickey RN) RPR/VDRL: Nonreactive (11/21/2016 04:15:Cristina Nascimento RN) HIV Exposure Test: Negative (11/21/2016 04:15:Cristina Nascimento RN) Hepatitis B: Negative (11/21/2016 04:15:Cristina Nascimento RN) Rubella: POSITIVE NEGATIVE IF LESS THAN OR EQUAL TO 9.99 IU/mL POSITIVE IF GREATER THAN OR EQUAL TO 10.0 IU/mL (11/21/2016 05:50:QS system process) Rubella Titer: 41.30 (11/21/2016 05:50:QS system process) Varicella: Non Susceptible (11/21/2016 04:15:Cristina Nascimento RN) OB/PREVIOUS HISTORY Previous Procedures: Ultrasound; NST (11/21/2016 04:15:Rosy Valdovinos) Current Procedures: Ultrasound; NST (11/21/2016 04:15:Rosy Valdovinos) History of Previous : No (11/21/2016 04:15:Rosy Valdovinos) History of Gestational Diabetes: No (11/21/2016 04:15:Rosy Valdovinos) History of PIH: No (11/21/2016 04:15:Rosy Valdovinos) History of Incompetent Cervix: No (11/21/2016 04:15:Rosy Valdovinos) History of Placenta Previa/Abrup: No (11/21/2016 04:15:Rosy Valdovinos) History of Macrosomia: No (11/21/2016 04:15:Rosy Valdovinos) History of IUGR: No (11/21/2016 04:15:Rosy Valdovinos) History of Hemorrhage: No (11/21/2016 04:15:Rosy Valdovinos) History of Loss/Stillborn: No (11/21/2016 04:15:Rosy Valdovinos) History of : No (11/21/2016 04:15:Rosy Valdovinos) History of D (Rh) Sensitization: No (11/21/2016 04:15:Rosy Valdovinos) History Recurrent Loss/Stillborn: No (11/21/2016 04:15:Rosy Valdovinos) History Depression/PP Depression: No (11/21/2016 04:15:Rosy Valdovinos) History of Uterine Anomaly/GAVIOTA: No (11/21/2016 04:15:Rosy Valdovinos) History of Infertility: No (11/21/2016 04:15:Rosy Valdovinos) History of ART Treatment: No (11/21/2016 04:15:Rosy Valdovinos) History of GAVIOTA: No (11/21/2016 04:15:Rosy Valdovinos) MEDICAL HISTORY Med Hx Diabetes: No (11/21/2016 04:15:Rosy Valdovinos) Med Hx Hypertension: No (11/21/2016 04:15:Rosy Valdovinos) Med Hx Heart Disease: No (11/21/2016 04:15:Rosy Valdovinos) Med Hx Autoimmune Disorder: No (11/21/2016 04:15:Rosy Valdovinos) Med Hx Kidney Disease/UTI: No (11/21/2016 04:15:Rosy Valdovinos) Med Hx Neurologic/Epilepsy: No (11/21/2016 04:15:Rosy Valdovinos) Med Hx Psychiatric Disorders: No (11/21/2016 04:15:Rosy Valdovinos) Med Hx Hepatitis/Liver Disease: No (11/21/2016 04:15:Rosy Valdovinos) Med Hx Varicosities/Phlebitis: No (11/21/2016 04:15:Rosy Valdovinos) Med Hx Thyroid Dysfunction: No (11/21/2016 04:15:Rosy Valdovinos) Med Hx Trauma/Violence: No (11/21/2016 04:15:Rosy Valdovinos) Med Hx Blood Transfusion: No (11/21/2016 04:15:Rosy Valdovinos) Med Hx Pulmonary (Asthma,TB): No (11/21/2016 04:15:Rosy Valdovinos) Med Hx Breast: No (11/21/2016 04:15:Rosy Valdovinos) Med Hx CAR SHAGGER Surgery: No (11/21/2016 04:15:Rosy Valdovinos) Med Hx Hospitalization/Surgery: No (11/21/2016 04:15:Rosy Valdovinos) Med Hx Anesthetic Complications: No (11/21/2016 04:15:Rosy Valdovinos) Med Hx Abnormal Pap Smear: No (11/21/2016 04:15:Rosy Valdovinos) Other Medical Diseases: No (11/21/2016 04:15:Rosy Valdovinos) Med Hx Significant Family Hx: No (11/21/2016 04:15:Rosy Valdovinos) Details of Med/Surg Hx: benign lump left breast-2009 depresasion-no suicidal thoughts (11/21/2016 04:15:Cristina Nascimento RN) INFECTIOUS HISTORY Inf Hx Gonorrhea: No (11/21/2016 04:15:Rosy Valdovinos) Inf Hx Chlamydia: No (11/21/2016 04:15:Rosy Valdovinos) Inf Hx Syphilis: No (11/21/2016 04:15:Rosy Valdovinos) Inf Hx HIV/AIDS: No (11/21/2016 04:15:Rosy Valdovinos) Inf Hx Human Papilloma Virus: No (11/21/2016 04:15:Rosy Valdovinos) Inf Hx Pt/Partner Genital Herpes: No (11/21/2016 04:15:Rosy Valdovinos) Inf Hx Tuberculosis/Exposure: No (11/21/2016 04:15:Rosy Valdovinos) Inf Hx Hepatitis B,C: No (11/21/2016 04:15:Rosy Valdovinos) Inf Hx Rash or Viral Illness: No (11/21/2016 04:15:Rosy Valdovinos) GENETIC HISTORY Gen Hx Age >=35 at TYRELL: No (11/21/2016 04:15:Rosy Valdovinos) Gen Hx Thalassemia: No (11/21/2016 04:15:Rosy Valdovinos) Gen Hx Congenital Heart Defect: No (11/21/2016 04:15:Rosy Valdovinos) Gen Hx Neural Tube Defect: No (11/21/2016 04:15:Rosy Valdovinos) Gen Hx Down's Syndrome: No (11/21/2016 04:15:Rosy Valdovinos) Gen Hx Jt-Sachs: No (11/21/2016 04:15:Rosy Valdovinos) Gen Hx Otto: No (11/21/2016 04:15:Rosy Valdovinos) Gen Hx Familial Dysautonomia: No (11/21/2016 04:15:Rosy Valdovinos) Gen Hx Sickle Cell Disease/Trait: No (11/21/2016 04:15:Rosy Valdovinos) Gen Hx Hemophilia/Blood Disorder: No (11/21/2016 04:15:Rosy Valdovinos) Gen Hx Muscular Dystrophy: No (11/21/2016 04:15:Rosy Valdovinos) Gen Hx Cystic Fibrosis: No (11/21/2016 04:15:Rosy Valdovinos) Gen Hx [place] Chorea: No (11/21/2016 04:15:Rosy Valdovinos) Gen Hx Mental Retardation/Autism: No (11/21/2016 04:15:Rosy Valdovions) Gen Hx Tested for Fragile X: No (11/21/2016 04:15:Rosy Valdovinos) Gen Hx Other Inher/Chromosomal: No (11/21/2016 04:15:Rosy Valdovinos) Gen Hx Maternal Metabolic DO: No (11/21/2016 04:15:Rosy Valdovinos) Gen Hx Pt Father or FOB Defect: No (11/21/2016 04:15:Rosy Valdovinos) Gen Hx Other Genetic History: No (11/21/2016 04:15:Rosy Valdovinos) Gen Hx Drugs/Meds since LMP: No (11/21/2016 04:15:Rosy Valdovinos)
--- NOTE | 2016-11-23 18:00 | L&D General Admission ---
General Admit Datetime Report Generated by CPN: 11/23/2016 18:00 INFORMATION Patient Age: 26 (10/08/2016 10:16:QS system process) EDC: 11/20/2016 00:00 (11/21/2016 04:15:Cristina Nascimento RN) EDC per Ultrasound: 11/20/2016 00:00 (11/21/2016 04:15:Cristina Nascimento RN) : 5 (11/21/2016 04:15:Cristina Nascimento RN) Para: 2 (11/21/2016 04:15:Cristina Nascimento RN) Term: 2 (11/21/2016 04:15:Cristina Nascimento RN) Spontaneous Abortions: 2 (11/21/2016 04:15:Cristina Nascimento RN) Livin (11/21/2016 04:15:Cristina Nascimento RN) Cesareans: 0 (11/21/2016 04:15:Cristina Nascimento RN) CARE Primary Pocket Builder: [facility] (11/21/2016 04:15:Rosy Valdovinos) Adequate Care: Yes (11/21/2016 04:15:Cristina Azam, RN) Height (in): 67 (11/22/2016 15:30:QS system process) ALLERGIES Medication Allergy: No (11/21/2016 04:15:Rosy Valdovinos) Medication Allergies: No Known Allergies (02/16/2013) (10/08/2016 10:16:QS system process) Latex Allergy: No Latex Allergies (11/21/2016 04:15:Rosy Valdovinos) Food Allergies: none (11/21/2016 04:15:Rosy Valdovinos) Environmental Allergies: none (11/21/2016 04:15:Rosy Valdovinos) COMMUNICATION Primary Language: Afghan (11/21/2016 04:15:Rosy Valdovinos) Medical Tx Preferred Language: Afghan (11/21/2016 04:15:Rosyabhilash Valdovinos) DEMOGRAPHICS Address: [address] [place] [id number] (10/08/2016 10:16:QS system process) Zipcode: [phone] (10/08/2016 10:16:QS system process) Home (10/08/2016 10:16:QS system process) SSN: [id number] (10/08/2016 10:16:QS system process) Next of Kin Name: JANETH MCMILLAN (10/08/2016 10:16:QS system process) Next of Kin (10/08/2016 10:16:QS system process) Next of Kin Relationship: SPO (10/08/2016 10:16:QS system process) Date of : 1990 (10/08/2016 10:16:QS system process) Marital Status: (10/08/2016 10:16:QS system process) Sex: Female (10/08/2016 10:16:QS system process) Race: (10/08/2016 10:16:QS system process) Ethnicity: Non- or (10/08/2016 10:16:QS system process) 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: [facility] (11/21/2016 04:15:Rosy Valdovinos) Feeding Preference: Breast (11/21/2016 04:15:Rosy Valdovinos) Benefit of Breast Feed Discussed: Yes (11/21/2016 04:15:Viry Dickey RN) Circumcision: N/A (11/21/2016 04:15:Rosy Valdovinos) Classes Attended: No (11/21/2016 04:15:Rosy Valdovinos) Tubal Ligation: No (11/21/2016 04:15:Rosy Valdovinos) Tubal Authorization Signed: N/A (11/21/2016 04:15:Rosy Valdovinos) Consent: N/A (11/21/2016 04:15:Rosy Valdovinos) Consent Signed: N/A (11/21/2016 04:15:Rosy Valdovinos) Pain Management Plans: Epidural (11/21/2016 04:15:Rosy Valdovinos) Plans for Labor and Delivery: None (11/21/2016 04:15:Rosy Valdovinos) Support Person: Janeth (11/21/2016 04:15:Rosy Valdovinos) Support Person Relationship: (11/21/2016 04:15:Rosy Valdovinos) Cultural/Spritual Practice: N/A (11/21/2016 04:15:Rosy Valdovinos) Spir/Cult Dietary Needs: N/A (11/21/2016 04:15:Rosy Valdovinos) LIVING SITUATION/DISCHARGE PLAN Living Arrangements: House (11/21/2016 04:15:Rosy Valdovinos) Adequate Access to:: Electric; Heat; Refrigeration; Plumbing/Running water; Phone; Transportation (11/21/2016 04:15:Rosy Valdovinos) WIC Program: Yes (11/21/2016 04:15:Rosy Valdovinos) Discharge Chief Nurse Executive Person: janeth- (11/21/2016 04:15:Rosy Valdovinos) Person to Help after Discharge: janeth- (11/21/2016 04:15:Rosy Valdovinos) Currently Using Commun Resources: Yes (11/21/2016 04:15:Rosy Valdovinos) Specify Current Resource Used: medicaid (11/21/2016 04:15:Rosy Valdovinos) Outside Agency/Licensed Occupational Therapy Assistant: No (11/21/2016 04:15:Rosy Valdovinos) Car Seat for Discharge: Yes (11/21/2016 04:15:Rosy Valdovinos) Adoption Requested: No (11/21/2016 04:15:Rosy Valdovinos) Pt Contact w/ Post : N/A (11/21/2016 04:15:Rosy Valdovinos) LABS Blood Type: O Positive (11/21/2016 04:15:Cristina Nascimento RN) Hemoglobin: 11.1 L (11/22/2016 07:14:QS system process) Hematocrit: 33.0 L (11/22/2016 07:14:QS system process) MCV: 76 L (11/22/2016 07:14:QS system process) Group Beta Strep: negative (11/21/2016 04:15:Viry Dickey RN) RPR/VDRL: Nonreactive (11/21/2016 04:15:Cristina Nascimento RN) HIV Exposure Test: Negative (11/21/2016 04:15:Cristina Nascimento RN) Hepatitis B: Negative (11/21/2016 04:15:Cristina Nascimento RN) Rubella: POSITIVE NEGATIVE IF LESS THAN OR EQUAL TO 9.99 IU/mL POSITIVE IF GREATER THAN OR EQUAL TO 10.0 IU/mL (11/21/2016 05:50:QS system process) Rubella Titer: 41.30 (11/21/2016 05:50:QS system process) Varicella: Non Susceptible (11/21/2016 04:15:Cristina Nascimento RN) OB/PREVIOUS HISTORY Previous Procedures: Ultrasound; NST (11/21/2016 04:15:Rosy Valdovinos) Current Procedures: Ultrasound; NST (11/21/2016 04:15:Rosy Valdovinos) History of Previous : No (11/21/2016 04:15:Rosy Valdovinos) History of Gestational Diabetes: No (11/21/2016 04:15:Rosy Valdovinos) History of PIH: No (11/21/2016 04:15:Rosy Valdovinos) History of Incompetent Cervix: No (11/21/2016 04:15:Rosy Valdovinos) History of Placenta Previa/Abrup: No (11/21/2016 04:15:Rosy Valdovinos) History of Macrosomia: No (11/21/2016 04:15:Rosy Valdovinos) History of IUGR: No (11/21/2016 04:15:Rosy Valdovinos) History of Hemorrhage: No (11/21/2016 04:15:Rosy Valdovinos) History of Loss/Stillborn: No (11/21/2016 04:15:Rosy Valdovinos) History of : No (11/21/2016 04:15:Rosy Valdovinos) History of D (Rh) Sensitization: No (11/21/2016 04:15:Rosy Valdovinos) History Recurrent Loss/Stillborn: No (11/21/2016 04:15:Rosy Valdovinos) History Depression/PP Depression: No (11/21/2016 04:15:Rosy Valdovinos) History of Uterine Anomaly/GAVIOTA: No (11/21/2016 04:15:Rosy Valdovinos) History of Infertility: No (11/21/2016 04:15:Rosy Valdovinos) History of ART Treatment: No (11/21/2016 04:15:Rosy Valdovinos) History of GAVIOTA: No (11/21/2016 04:15:Rosy Valdovinos) MEDICAL HISTORY Med Hx Diabetes: No (11/21/2016 04:15:Rosy Valdovinos) Med Hx Hypertension: No (11/21/2016 04:15:Rosy Valdovinos) Med Hx Heart Disease: No (11/21/2016 04:15:Rosy Valdovinos) Med Hx Autoimmune Disorder: No (11/21/2016 04:15:Rosy Valdovinos) Med Hx Kidney Disease/UTI: No (11/21/2016 04:15:Rosy Valdovinos) Med Hx Neurologic/Epilepsy: No (11/21/2016 04:15:Rosy Valdovinos) Med Hx Psychiatric Disorders: No (11/21/2016 04:15:Rosy Valdovinos) Med Hx Hepatitis/Liver Disease: No (11/21/2016 04:15:Rosy Valdovinos) Med Hx Varicosities/Phlebitis: No (11/21/2016 04:15:Rosy Valdovinos) Med Hx Thyroid Dysfunction: No (11/21/2016 04:15:Rosy Valdovinos) Med Hx Trauma/Violence: No (11/21/2016 04:15:Rosy Valdovinos) Med Hx Blood Transfusion: No (11/21/2016 04:15:Rosy Valdovinos) Med Hx Pulmonary (Asthma,TB): No (11/21/2016 04:15:Rosy Valdovinos) Med Hx Breast: No (11/21/2016 04:15:Rosy Valdovinos) Med Hx INDEPENDENT DISTRIBUTOR Surgery: No (11/21/2016 04:15:Rosy Valdovinos) Med Hx Hospitalization/Surgery: No (11/21/2016 04:15:Rosy Valdovinos) Med Hx Anesthetic Complications: No (11/21/2016 04:15:Rosy Valdovinos) Med Hx Abnormal Pap Smear: No (11/21/2016 04:15:Rosy Valdovinos) Other Medical Diseases: No (11/21/2016 04:15:Rosy Valdovinos) Med Hx Significant Family Hx: No (11/21/2016 04:15:Rosy Valdovinos) Details of Med/Surg Hx: benign lump left breast-2009 depresasion-no suicidal thoughts (11/21/2016 04:15:Cristina Nascimento RN) INFECTIOUS HISTORY Inf Hx Gonorrhea: No (11/21/2016 04:15:Rosy Valdovinos) Inf Hx Chlamydia: No (11/21/2016 04:15:Rosy Valdovinos) Inf Hx Syphilis: No (11/21/2016 04:15:Rosy Valdovinos) Inf Hx HIV/AIDS: No (11/21/2016 04:15:Rosy Valdovinos) Inf Hx Human Papilloma Virus: No (11/21/2016 04:15:Rosy Valdovinos) Inf Hx Pt/Partner Genital Herpes: No (11/21/2016 04:15:Rosy Valdovinos) Inf Hx Tuberculosis/Exposure: No (11/21/2016 04:15:Rosy Valdovinos) Inf Hx Hepatitis B,C: No (11/21/2016 04:15:Rosy Valdovinos) Inf Hx Rash or Viral Illness: No (11/21/2016 04:15:Rosy Valdovinos) GENETIC HISTORY Gen Hx Age >=35 at TYRELL: No (11/21/2016 04:15:Rosy Valdovinos) Gen Hx Thalassemia: No (11/21/2016 04:15:Rosy Valdovinos) Gen Hx Congenital Heart Defect: No (11/21/2016 04:15:Rosy Valdovinos) Gen Hx Neural Tube Defect: No (11/21/2016 04:15:Rosy Valdovinos) Gen Hx Down's Syndrome: No (11/21/2016 04:15:Rosy Valdovinos) Gen Hx Jt-Sachs: No (11/21/2016 04:15:Rosy Valdovinos) Gen Hx Otto: No (11/21/2016 04:15:Rosy Valdovinos) Gen Hx Familial Dysautonomia: No (11/21/2016 04:15:Rosy Valdovinos) Gen Hx Sickle Cell Disease/Trait: No (11/21/2016 04:15:Rosy Valdovinos) Gen Hx Hemophilia/Blood Disorder: No (11/21/2016 04:15:Rosy Valdovinos) Gen Hx Muscular Dystrophy: No (11/21/2016 04:15:Rosy Valdovinos) Gen Hx Cystic Fibrosis: No (11/21/2016 04:15:Rosy Valdovinos) Gen Hx [place] Chorea: No (11/21/2016 04:15:Rosy Valdovinos) Gen Hx Mental Retardation/Autism: No (11/21/2016 04:15:Rosy Valdovinos) Gen Hx Tested for Fragile X: No (11/21/2016 04:15:Rosy Valdovinos) Gen Hx Other Inher/Chromosomal: No (11/21/2016 04:15:Rosy Valdovinos) Gen Hx Maternal Metabolic DO: No (11/21/2016 04:15:Rosy Valdovinos) Gen Hx Pt Father or FOB Defect: No (11/21/2016 04:15:Rosy Valdovinos) Gen Hx Other Genetic History: No (11/21/2016 04:15:Rosy Valdovinos) Gen Hx Drugs/Meds since LMP: No (11/21/2016 04:15:Rosy Valdovinos)
--- NOTE | 2016-11-23 18:02 | L&D Current Admission ---
Current Admit Datetime Report Generated by CPN: 11/23/2016 18:00 ADMISSION INFORMATION Current Admit Date/Time: 11/21/2016 04:41 (11/21/2016 04:41:Rosy Valdovinos) Reason for Admission: Onset of Labor (11/21/2016 04:41:Rosy Valdovinos) Chief Complaint: Contractions (11/21/2016 04:41:Rosy Valdovinos) Medications During : Vitamin; Rantidine (Zantac) (11/21/2016 04:41:Cristina Nascimento RN) Meds During -Oth: fiorcet (11/21/2016 04:41:Cristina Nascimento RN) EGA per Dates: 40.1 (11/21/2016 04:41:QS system process) EGA per US: 40.1 (11/21/2016 04:41:QS system process) Method of Arrival: Wheelchair (11/21/2016 04:41:oRsy Valdovinos) Admitted From: Home (11/21/2016 04:41:Cristina Nascimento RN) Reason for Induction: Not Applicable (11/21/2016 04:41:Cristina Nascimento RN) Records Available: Yes (11/21/2016 04:41:Cristina Nascimento RN) General Admission Information: Reviewed (11/21/2016 04:41:Rosy Valdovinos) General Admission Reviewed By: Edmar Valdovinos RN (11/21/2016 04:41:Rosy Valdovinos) BELONGINGS/ADVANCED DIRECTIVES Other Belongings: see consent sheet (11/21/2016 04:41:Rosy Valdovinos) Disposition of Belongings: Kept with Patient (11/21/2016 04:41:Cristina Nascimento RN) Advance Direct for Healthcare: No, and Wants No Information (11/21/2016 04:41:Rosy Valdovinos) Durable Power of Ap Processor: No (11/21/2016 04:41:Rosy Valdovinos) Living Will: No (11/21/2016 04:41:Rosy Valdovinos) Organ Donor: No (11/21/2016 04:41:Rosy Valdovinos) Pt Rights Information Given: Yes (11/21/2016 04:41:Rosy Valdovinos) Pt Understands Pt Rights: Yes (11/21/2016 04:41:Rosy Valdovinos) Patient Rights Comments: patient access (11/21/2016 04:41:Rosy Valdovinos) LEARNING ASSESSMENT Knowledge Level: Understands L_D Process (11/21/2016 04:41:Rosy Valdovinos) Barriers to Learning: None (11/21/2016 04:41:Rosy Valdovinos) Learning Readiness: Motivated (11/21/2016 04:41:Rosy Valdovinos) Learns Best By: 1 to 1 Instruction (11/21/2016 04:41:Rosy Valdovinos) Learning Needs: Labor and Delivery Process; Pain Management; Symptoms to Report; Treatment Plan; Medication (11/21/2016 04:41:Rosy Valdovinos) DOMESTIC VIOLANCE SCREENING Dom Viol Threatened/Hurt: No (11/21/2016 04:41:Rosy Valdovinos) Hx of Abuse/Neglect past 2yrs: No (11/21/2016 04:41:Rosy Valdovinos) Feel Unsafe Going Home: No (11/21/2016 04:41:Rosy Valdovinos) Addt'l Observ Indicating Abuse: No (11/21/2016 04:41:Rosy Valdovinos) Reason Unable to Complete Screen: N/A, Screen Completed (11/21/2016 04:41:Rosy Valdovinos) Considered Personal Harm/Suicide: No (11/21/2016 04:41:Rosy Valdovinos) NUTRITIONAL/FUNCTIONAL SCREENING Problem with Appetite >5 Days: No (11/21/2016 04:41:Rosy Valdovinos) Chew/Swallow Difficulties: No (11/21/2016 04:41:Rosy Valdovinos) Inappropriate Wt Gain/Loss: No (11/21/2016 04:41:Rosy Valdovinos) Presence Skin Breakdown/Ulcer: No (11/21/2016 04:41:Rosy Valdovinos) Special Diet: No (11/21/2016 04:41:Rosy Valdovinos) Pt Requests Dentist Private Practice Visit: No (11/21/2016 04:41:Rosy Valdovinos) Hx of Any of the Following?: N/A (11/21/2016 04:41:Rosy Valdovinos) New Diagnosis of: N/A (11/21/2016 04:41:Rosy Valdovinos) Requires Assist w/Ambulation: No (11/21/2016 04:41:Rosy Valdovinos) Uses Assist Device to Ambulate: No (11/21/2016 04:41:Rosy Valdovinos) Pt Requires Help w/ADL's: No (11/21/2016 04:41:Rosy Valdovinos)
--- NOTE | 2016-11-23 18:03 | L&D General Admission ---
General Admit Datetime Report Generated by CPN: 11/23/2016 18:00 INFORMATION Patient Age: 26 (10/08/2016 10:16:QS system process) EDC: 11/20/2016 00:00 (11/21/2016 04:15:Cristina Nascimento RN) EDC per Ultrasound: 11/20/2016 00:00 (11/21/2016 04:15:Cristina Nascimento RN) : 5 (11/21/2016 04:15:Cristina Nsacimento RN) Para: 2 (11/21/2016 04:15:Cristina Nascimento RN) Term: 2 (11/21/2016 04:15:Cristina Nascimento RN) Spontaneous Abortions: 2 (11/21/2016 04:15:Cristina Nascimento RN) Livin (11/21/2016 04:15:Cristina Nascimento RN) Cesareans: 0 (11/21/2016 04:15:Cristina Nascimento RN) CARE Primary Service Car Operator: [facility] (11/21/2016 04:15:Rosy Valdovinos) Adequate Care: Yes (11/21/2016 04:15:Cristina Azam, RN) Height (in): 67 (11/22/2016 15:30:QS system process) ALLERGIES Medication Allergy: No (11/21/2016 04:15:Rosy Valdovinos) Medication Allergies: No Known Allergies (02/16/2013) (10/08/2016 10:16:QS system process) Latex Allergy: No Latex Allergies (11/21/2016 04:15:Rosy Valdovinos) Food Allergies: none (11/21/2016 04:15:Rosy Valdovinos) Environmental Allergies: none (11/21/2016 04:15:Rosy Valdovinos) COMMUNICATION Primary Language: Tanzanian (11/21/2016 04:15:Rosy Valdovinos) Medical Tx Preferred Language: Tanzanian (11/21/2016 04:15:Rosyabhilash Valdovinos) DEMOGRAPHICS Address: [address] [place] [phone] (10/08/2016 10:16:QS system process) Zipcode: [address] (10/08/2016 10:16:QS system process) Home (10/08/2016 10:16:QS system process) SSN: [id number] (10/08/2016 10:16:QS system process) Next of Kin Name: JANETH MCMILLAN (10/08/2016 10:16:QS system process) Next of Kin (10/08/2016 10:16:QS system process) Next of Kin Relationship: SPO (10/08/2016 10:16:QS system process) Date of : 1990 (10/08/2016 10:16:QS system process) Marital Status: (10/08/2016 10:16:QS system process) Sex: Female (10/08/2016 10:16:QS system process) Race: (10/08/2016 10:16:QS system process) Ethnicity: Non- or (10/08/2016 10:16:QS system process) Judaism: Bahai (10/08/2016 10:16:QS system process) DRUG AND ALCOHOL USE Alcohol: No (11/21/2016 04:15:Rosy Valdovinos) Cigarettes: Never Smoker. 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: [facility] (11/21/2016 04:15:Rosy Valdovinos) Feeding Preference: Breast (11/21/2016 04:15:Rosy Valdovinos) Benefit of Breast Feed Discussed: Yes (11/21/2016 04:15:Viry Dickey RN) Circumcision: N/A (11/21/2016 04:15:Rosy Valdovinos) Classes Attended: No (11/21/2016 04:15:Rosy Valdovinos) Tubal Ligation: No (11/21/2016 04:15:Rosy Valdovinos) Tubal Authorization Signed: N/A (11/21/2016 04:15:Rosy Valdovinos) Consent: N/A (11/21/2016 04:15:Rosy Valdovinos) Consent Signed: N/A (11/21/2016 04:15:Rosy Valdovinos) Pain Management Plans: Epidural (11/21/2016 04:15:Rosy Valdovinos) Plans for Labor and Delivery: None (11/21/2016 04:15:Rosy Valdovinos) Support Person: Janeth (11/21/2016 04:15:Rosy Valdovinos) Support Person Relationship: (11/21/2016 04:15:Rosy Valdovinos) Cultural/Spritual Practice: N/A (11/21/2016 04:15:Rosy Valdovinos) Spir/Cult Dietary Needs: N/A (11/21/2016 04:15:Rosy Valdovinos) LIVING SITUATION/DISCHARGE PLAN Living Arrangements: House (11/21/2016 04:15:Rosy Valdovinos) Adequate Access to:: Electric; Heat; Refrigeration; Plumbing/Running water; Phone; Transportation (11/21/2016 04:15:Rosy Valdovinos) WIC Program: Yes (11/21/2016 04:15:Rosy Valdovinos) Discharge Certified Coding Specialist Person: janeth- (11/21/2016 04:15:Rosy Valdovinos) Person to Help after Discharge: janeth- (11/21/2016 04:15:Rosy Valdovinos) Currently Using Commun Resources: Yes (11/21/2016 04:15:Rosy Valdovinos) Specify Current Resource Used: medicaid (11/21/2016 04:15:Rosy Valdovinos) Outside Agency/Logistics Coordinator: No (11/21/2016 04:15:Rosy Valdovinos) Car Seat for Discharge: Yes (11/21/2016 04:15:Rosy Valdovinos) Adoption Requested: No (11/21/2016 04:15:Rosy Valdovinos) Pt Contact w/ Post : N/A (11/21/2016 04:15:Rosy Valdovinos) LABS Blood Type: O Positive (11/21/2016 04:15:Cristina Nascimento RN) Hemoglobin: 11.1 L (11/22/2016 07:14:QS system process) Hematocrit: 33.0 L (11/22/2016 07:14:QS system process) MCV: 76 L (11/22/2016 07:14:QS system process) Group Beta Strep: negative (11/21/2016 04:15:Viry Dickey RN) RPR/VDRL: Nonreactive (11/21/2016 04:15:Cristina Nascimento RN) HIV Exposure Test: Negative (11/21/2016 04:15:Cristina Nascimento RN) Hepatitis B: Negative (11/21/2016 04:15:Cristina Nascimento RN) Rubella: POSITIVE NEGATIVE IF LESS THAN OR EQUAL TO 9.99 IU/mL POSITIVE IF GREATER THAN OR EQUAL TO 10.0 IU/mL (11/21/2016 05:50:QS system process) Rubella Titer: 41.30 (11/21/2016 05:50:QS system process) Varicella: Non Susceptible (11/21/2016 04:15:Cristina Nascimento RN) OB/PREVIOUS HISTORY Previous Procedures: Ultrasound; NST (11/21/2016 04:15:Rosy Valdovinos) Current Procedures: Ultrasound; NST (11/21/2016 04:15:Rosy Valdovinos) History of Previous : No (11/21/2016 04:15:Rosy Valdovinos) History of Gestational Diabetes: No (11/21/2016 04:15:Rosy Valdovinos) History of PIH: No (11/21/2016 04:15:Rosy Valdovinos) History of Incompetent Cervix: No (11/21/2016 04:15:Rosy Valdovinos) History of Placenta Previa/Abrup: No (11/21/2016 04:15:Rosy Valdovinos) History of Macrosomia: No (11/21/2016 04:15:Rosy Valdovinos) History of IUGR: No (11/21/2016 04:15:Rosy Valdovinos) History of Hemorrhage: No (11/21/2016 04:15:Rosy Valdovinos) History of Loss/Stillborn: No (11/21/2016 04:15:Rosy Valdovinos) History of : No (11/21/2016 04:15:Rosy Valdovinos) History of D (Rh) Sensitization: No (11/21/2016 04:15:Rosy Valdovinos) History Recurrent Loss/Stillborn: No (11/21/2016 04:15:Rosy Valdovinos) History Depression/PP Depression: No (11/21/2016 04:15:Rosy Valdovinos) History of Uterine Anomaly/GAVIOTA: No (11/21/2016 04:15:Rosy Valdovinos) History of Infertility: No (11/21/2016 04:15:Rosy Valdovinos) History of ART Treatment: No (11/21/2016 04:15:Roys Valdovinos) History of GAVIOTA: No (11/21/2016 04:15:Rosy Valdovinos) MEDICAL HISTORY Med Hx Diabetes: No (11/21/2016 04:15:Rosy Valdovinos) Med Hx Hypertension: No (11/21/2016 04:15:Rosy Valdovinos) Med Hx Heart Disease: No (11/21/2016 04:15:Rosy Valdovinos) Med Hx Autoimmune Disorder: No (11/21/2016 04:15:Rosy Valdovinos) Med Hx Kidney Disease/UTI: No (11/21/2016 04:15:Rosy Valdovinos) Med Hx Neurologic/Epilepsy: No (11/21/2016 04:15:Rosy Valdovinos) Med Hx Psychiatric Disorders: No (11/21/2016 04:15:Rosy Valdovinos) Med Hx Hepatitis/Liver Disease: No (11/21/2016 04:15:Rosy Valdovinos) Med Hx Varicosities/Phlebitis: No (11/21/2016 04:15:Rosy Valdovinos) Med Hx Thyroid Dysfunction: No (11/21/2016 04:15:Rosy Valdovinos) Med Hx Trauma/Violence: No (11/21/2016 04:15:Rosy Valdovinos) Med Hx Blood Transfusion: No (11/21/2016 04:15:Rosy Valdovinos) Med Hx Pulmonary (Asthma,TB): No (11/21/2016 04:15:Rosy Valdovinos) Med Hx Breast: No (11/21/2016 04:15:Rosy Valdovinos) Med Hx SCALDER Surgery: No (11/21/2016 04:15:Rosy Valdovinos) Med Hx Hospitalization/Surgery: No (11/21/2016 04:15:Rosy Valdovinos) Med Hx Anesthetic Complications: No (11/21/2016 04:15:Rosy Valdovinos) Med Hx Abnormal Pap Smear: No (11/21/2016 04:15:Rosy Valdovinos) Other Medical Diseases: No (11/21/2016 04:15:Rosy Valdovinos) Med Hx Significant Family Hx: No (11/21/2016 04:15:Rosy Valdovinos) Details of Med/Surg Hx: benign lump left breast-2009 depresasion-no suicidal thoughts (11/21/2016 04:15:Cristina Nascimento RN) INFECTIOUS HISTORY Inf Hx Gonorrhea: No (11/21/2016 04:15:Rosy Valdovinos) Inf Hx Chlamydia: No (11/21/2016 04:15:Rosy Valdovinos) Inf Hx Syphilis: No (11/21/2016 04:15:Rosy Valdovinos) Inf Hx HIV/AIDS: No (11/21/2016 04:15:Rosy Valdovinos) Inf Hx Human Papilloma Virus: No (11/21/2016 04:15:Rosy Valdovinos) Inf Hx Pt/Partner Genital Herpes: No (11/21/2016 04:15:Rosy Valdovinos) Inf Hx Tuberculosis/Exposure: No (11/21/2016 04:15:Rosy Valdovinos) Inf Hx Hepatitis B,C: No (11/21/2016 04:15:Rosy Valdovinos) Inf Hx Rash or Viral Illness: No (11/21/2016 04:15:Rosy Valdovinos) GENETIC HISTORY Gen Hx Age >=35 at TYRELL: No (11/21/2016 04:15:Rosy Valdovinos) Gen Hx Thalassemia: No (11/21/2016 04:15:Rosy Valdovinos) Gen Hx Congenital Heart Defect: No (11/21/2016 04:15:Rosy Valdovinos) Gen Hx Neural Tube Defect: No (11/21/2016 04:15:Rosy Valdovinos) Gen Hx Down's Syndrome: No (11/21/2016 04:15:Rosy Valdovinos) Gen Hx Jt-Sachs: No (11/21/2016 04:15:Rosy Valdovinos) Gen Hx Otto: No (11/21/2016 04:15:Rosy Valdovinos) Gen Hx Familial Dysautonomia: No (11/21/2016 04:15:Rosy Valdovinos) Gen Hx Sickle Cell Disease/Trait: No (11/21/2016 04:15:Rosy Valdovinos) Gen Hx Hemophilia/Blood Disorder: No (11/21/2016 04:15:Rosy Valdovinos) Gen Hx Muscular Dystrophy: No (11/21/2016 04:15:Rosy Valdovinos) Gen Hx Cystic Fibrosis: No (11/21/2016 04:15:Rosy Valdovinos) Gen Hx [place] Chorea: No (11/21/2016 04:15:Rosy Valdovinos) Gen Hx Mental Retardation/Autism: No (11/21/2016 04:15:Rosy Valdovinos) Gen Hx Tested for Fragile X: No (11/21/2016 04:15:Rosy Valdovinos) Gen Hx Other Inher/Chromosomal: No (11/21/2016 04:15:Rosy Valdovinos) Gen Hx Maternal Metabolic DO: No (11/21/2016 04:15:Rosy Valdovinos) Gen Hx Pt Father or FOB Defect: No (11/21/2016 04:15:Rosy Valdovinos) Gen Hx Other Genetic History: No (11/21/2016 04:15:Rosy Valdovinos) Gen Hx Drugs/Meds since LMP: No (11/21/2016 04:15:Rosy aVldovinos)
--- NOTE | 2016-11-23 20:21 | L&D Admission Assessment ---
LD ADM ASMT Datetime Report Generated by CPN: 11/23/2016 20:20 WEIGHT Weight (lb): 7678 (11/22/2016 08:44:QS system process) Weight (lb): 216 (11/21/2016 07:37:QS system process) Weight (lb): 216 (11/21/2016 05:22:QS system process) Weight (lb): 216 (11/21/2016 04:34:QS system process) Weight (lb): 216 (11/21/2016 04:27:QS system process) Weight (kg): 3490.0 (11/22/2016 08:44:QS system process) Weight (kg): 98.2 (11/21/2016 07:37:QS system process) Weight (kg): 98.2 (11/21/2016 05:22:QS system process) Weight (kg): 98.2 (11/21/2016 04:34:QS system process) Weight (kg): 98.2 (11/21/2016 04:27:QS system process) BMI: 1202.4 (11/22/2016 08:44:QS system process) BMI: 33.8 (11/21/2016 07:37:QS system process) BMI: 33.8 (11/21/2016 05:22:QS system process) BMI: 33.8 (11/21/2016 04:34:QS system process) DVT RISK ASSESSMENT DVT Risk Total: 1 (11/21/2016 04:41:QS system process) DVT Risk Text: Low Risk (<10%) No specific measures, early ambulation (11/21/2016 04:41:QS system process) JOSE SKIN ASSESSMENT Jose Scale Total: 23 (11/21/2016 04:41:QS system process) Jose Scale Risk: No Risk of Pressure Ulcer Noted at this Time (11/21/2016 04:41:QS system process) FALL SCREEN Fall Risk Score: 20 (11/21/2016 04:41:QS system process) Fall Risk Score Definition: No Risk: No action required (11/21/2016 04:41:QS system process) ADDITIONAL COMMENTS Assessment Flag: Admission Assessment (11/21/2016 04:41:QS system process)
--- NOTE | 2016-11-23 20:21 | L&D General Admission ---
General Admit Datetime Report Generated by CPN: 11/23/2016 20:20 INFORMATION Patient Age: 26 (10/08/2016 10:16:QS system process) EDC: 11/20/2016 00:00 (11/21/2016 04:15:Cristina Nascimento RN) EDC per Ultrasound: 11/20/2016 00:00 (11/21/2016 04:15:Cristina Nascimento RN) : 5 (11/21/2016 04:15:Cristina Nascimento RN) Para: 2 (11/21/2016 04:15:Cristina Nascimento RN) Term: 2 (11/21/2016 04:15:Cristina Nascimento RN) Spontaneous Abortions: 2 (11/21/2016 04:15:Cristina Nascimento RN) Livin (11/21/2016 04:15:Cristina Nascimento RN) Cesareans: 0 (11/21/2016 04:15:Cristina Nascimento RN) CARE Primary Social Work Nurse: [facility] (11/21/2016 04:15:Rosy Valdovinos) Adequate Care: Yes (11/21/2016 04:15:Cristina Azam, RN) Height (in): 67 (11/22/2016 15:30:QS system process) ALLERGIES Medication Allergy: No (11/21/2016 04:15:Rosy Valdovinos) Medication Allergies: No Known Allergies (02/16/2013) (10/08/2016 10:16:QS system process) Latex Allergy: No Latex Allergies (11/21/2016 04:15:Rosy Valdovinos) Food Allergies: none (11/21/2016 04:15:Rosy Valdovinos) Environmental Allergies: none (11/21/2016 04:15:Rosy Valdovinos) COMMUNICATION Primary Language: Latvian (11/21/2016 04:15:Rosy Valdovinos) Medical Tx Preferred Language: Latvian (11/21/2016 04:15:Rosyabhilash Valdovinos) DEMOGRAPHICS Address: [address] [place] [id number] (10/08/2016 10:16:QS system process) Zipcode: [phone] (10/08/2016 10:16:QS system process) Home (10/08/2016 10:16:QS system process) SSN: [id number] (10/08/2016 10:16:QS system process) Next of Kin Name: JANETH MCMILLAN (10/08/2016 10:16:QS system process) Next of Kin (10/08/2016 10:16:QS system process) Next of Kin Relationship: SPO (10/08/2016 10:16:QS system process) Date of : 1990 (10/08/2016 10:16:QS system process) Marital Status: (10/08/2016 10:16:QS system process) Sex: Female (10/08/2016 10:16:QS system process) Race: (10/08/2016 10:16:QS system process) Ethnicity: Non- or (10/08/2016 10:16:QS system process) Pentecostalism: Gnosticist (10/08/2016 10:16:QS system process) DRUG AND ALCOHOL USE Alcohol: No (11/21/2016 04:15:Rosy Valdovinos) Cigarettes: Never Smoker. [id number] (11/21/2016 04:15:Rosy Valdovinos) Marijuana: No (11/21/2016 04:15:Rosy Valdovinos) Cocaine: No (11/21/2016 04:15:Rosy Valdovinos) Other Illicit Drugs: No (11/21/2016 04:15:Rosy Valdovinos) VACCINE HISTORY Influenza Vaccine: Yes (11/21/2016 04:15:Rosy Valdovinos) Influenza Date: 2016 (11/21/2016 04:15:Rosy Valdovinos) Tdap Vaccine: Yes (11/21/2016 04:15:Rosy Valdovinos) Tdap Date: 2016 (11/21/2016 04:15:Rosy Valdovinos) Design Tech: [facility] (11/21/2016 04:15:Rosy Valdovinos) Feeding Preference: Breast (11/21/2016 04:15:Rosy Valdovinos) Benefit of Breast Feed Discussed: Yes (11/21/2016 04:15:Viry Dickey RN) Circumcision: N/A (11/21/2016 04:15:Rosy Valdovinos) Classes Attended: No (11/21/2016 04:15:Rosy Valdovinos) Tubal Ligation: No (11/21/2016 04:15:Rosy Valdovinos) Tubal Authorization Signed: N/A (11/21/2016 04:15:Rosy Valdovinos) Consent: N/A (11/21/2016 04:15:Rosy Valdovinos) Consent Signed: N/A (11/21/2016 04:15:Rosy Valdovinos) Pain Management Plans: Epidural (11/21/2016 04:15:Rosy Valdovinos) Plans for Labor and Delivery: None (11/21/2016 04:15:Rosy Valdovinos) Support Person: Janeth (11/21/2016 04:15:Rosy Valdovinos) Support Person Relationship: (11/21/2016 04:15:Rosy Valdovinos) Cultural/Spritual Practice: N/A (11/21/2016 04:15:Rosy Valdovinos) Spir/Cult Dietary Needs: N/A (11/21/2016 04:15:Rosy Valdovinos) LIVING SITUATION/DISCHARGE PLAN Living Arrangements: House (11/21/2016 04:15:Rosy Valdovinos) Adequate Access to:: Electric; Heat; Refrigeration; Plumbing/Running water; Phone; Transportation (11/21/2016 04:15:Rosy Valdovinos) WIC Program: Yes (11/21/2016 04:15:Rosy Valdovinos) 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[place] 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: janeth- (11/21/2016 04:15:Rosy Valdovinos) Person to Help after Discharge: janeth- (11/21/2016 04:15:Rosy Valdovinos) Currently Using Commun Resources: Yes (11/21/2016 04:15:Rosy Valdovinos) Specify Current Resource Used: medicaid (11/21/2016 04:15:Rosy Valdovinos) Outside Agency/Brake Shoe Rebuilder: No (11/21/2016 04:15:Rosy Valdovinos) Car Seat for Discharge: Yes (11/21/2016 04:15:Rosy Valdovinos) Adoption Requested: No (11/21/2016 04:15:Rosy Valdovinos) Pt Contact w/ Post : N/A (11/21/2016 04:15:Rosy Valdovinos) LABS Blood Type: O Positive (11/21/2016 04:15:Cristina Nascimento RN) Hemoglobin: 11.1 L (11/22/2016 07:14:QS system process) Hematocrit: 33.0 L (11/22/2016 07:14:QS system process) MCV: 76 L (11/22/2016 07:14:QS system process) Group Beta Strep: negative (11/21/2016 04:15:Viry Dickey RN) RPR/VDRL: Nonreactive (11/21/2016 04:15:Cristina Nascimento RN) HIV Exposure Test: Negative (11/21/2016 04:15:Cristina Nascimento RN) Hepatitis B: Negative (11/21/2016 04:15:Cristina Nascimento RN) Rubella: POSITIVE NEGATIVE IF LESS THAN OR EQUAL TO 9.99 IU/mL POSITIVE IF GREATER THAN OR EQUAL TO 10.0 IU/mL (11/21/2016 05:50:QS system process) Rubella Titer: 41.30 (11/21/2016 05:50:QS system process) Varicella: Non Susceptible (11/21/2016 04:15:Cristina Nascimento RN) OB/PREVIOUS HISTORY Previous Procedures: Ultrasound; NST (11/21/2016 04:15:Rosy Valdovinos) Current Procedures: Ultrasound; NST (11/21/2016 04:15:Rosy Valdovinos) History of Previous : No (11/21/2016 04:15:Rosy Valdovinos) History of Gestational Diabetes: No (11/21/2016 04:15:Rosy Valdovinos) History of PIH: No (11/21/2016 04:15:Rosy Valdovinos) History of Incompetent Cervix: No (11/21/2016 04:15:Rosy Valdovinos) History of Placenta Previa/Abrup: No (11/21/2016 04:15:Rosy Valdovinos) History of Macrosomia: No (11/21/2016 04:15:Rosy Valdovinos) History of IUGR: No (11/21/2016 04:15:Rosy Valdovinos) History of Hemorrhage: No (11/21/2016 04:15:Rosy Valdovinos) History of Loss/Stillborn: No (11/21/2016 04:15:Rosy Valdovinos) History of : No (11/21/2016 04:15:Rosy Valdovinos) History of D (Rh) Sensitization: No (11/21/2016 04:15:Rosy Valdovinos) History Recurrent Loss/Stillborn: No (11/21/2016 04:15:Rosy Valdovinos) History Depression/PP Depression: No (11/21/2016 04:15:Rosy Valdovinos) History of Uterine Anomaly/GAVIOTA: No (11/21/2016 04:15:Rosy Valdovinos) History of Infertility: No (11/21/2016 04:15:Rosy Valdovinos) History of ART Treatment: No (11/21/2016 04:15:Rosy Valdovinos) History of GAVIOTA: No (11/21/2016 04:15:Rosy Valdovinos) MEDICAL HISTORY Med Hx Diabetes: No (11/21/2016 04:15:Rosy Valdovinos) Med Hx Hypertension: No (11/21/2016 04:15:Rosy Valdovinos) Med Hx Heart Disease: No (11/21/2016 04:15:Rosy Valdovinos) Med Hx Autoimmune Disorder: No (11/21/2016 04:15:Rosy Valdovinos) Med Hx Kidney Disease/UTI: No (11/21/2016 04:15:Rosy Valdovinos) Med Hx Neurologic/Epilepsy: No (11/21/2016 04:15:Rosy Valdovinos) Med Hx Psychiatric Disorders: No (11/21/2016 04:15:Rosy Valdovinos) Med Hx Hepatitis/Liver Disease: No (11/21/2016 04:15:Rosy Valdovinos) Med Hx Varicosities/Phlebitis: No (11/21/2016 04:15:Rosy Valdovinos) Med Hx Thyroid Dysfunction: No (11/21/2016 04:15:Rosy Valdovinos) Med Hx Trauma/Violence: No (11/21/2016 04:15:Rosy Valdovinos) Med Hx Blood Transfusion: No (11/21/2016 04:15:Rosy Valdovinos) Med Hx Pulmonary (Asthma,TB): No (11/21/2016 04:15:Rosy Valdovinos) Med Hx Breast: No (11/21/2016 04:15:Rosy Valdovinos) Med Hx INSPECTOR SCREEN PRINTING Surgery: No (11/21/2016 04:15:Rosy Valdovinos) Med Hx Hospitalization/Surgery: No (11/21/2016 04:15:Rosy Valdovinos) Med Hx Anesthetic Complications: No (11/21/2016 04:15:Rosy Valdovinos) Med Hx Abnormal Pap Smear: No (11/21/2016 04:15:Rosy Valdovinos) Other Medical Diseases: No (11/21/2016 04:15:Rosy Valdovinos) Med Hx Significant Family Hx: No (11/21/2016 04:15:Rosy Valdovinos) Details of Med/Surg Hx: benign lump left breast-2009 depresasion-no suicidal thoughts (11/21/2016 04:15:Cristina Nascimento RN) INFECTIOUS HISTORY Inf Hx Gonorrhea: No (11/21/2016 04:15:Rosy Valdovinos) Inf Hx Chlamydia: No (11/21/2016 04:15:Rosy Valdovinos) Inf Hx Syphilis: No (11/21/2016 04:15:Rosy Valdovinos) Inf Hx HIV/AIDS: No (11/21/2016 04:15:Rosy Valdovinos) Inf Hx Human Papilloma Virus: No (11/21/2016 04:15:Rosy Valdovinos) Inf Hx Pt/Partner Genital Herpes: No (11/21/2016 04:15:Rosy Valdovinos) Inf Hx Tuberculosis/Exposure: No (11/21/2016 04:15:Rosy Valdovinos) Inf Hx Hepatitis B,C: No (11/21/2016 04:15:Rosy Valdovinos) Inf Hx Rash or Viral Illness: No (11/21/2016 04:15:Rosy Valdovinos) GENETIC HISTORY Gen Hx Age >=35 at TYRELL: No (11/21/2016 04:15:Rosy Valdovinos) Gen Hx Thalassemia: No (11/21/2016 04:15:Rosy Valdovinos) Gen Hx Congenital Heart Defect: No (11/21/2016 04:15:Rosy Valdovinos) Gen Hx Neural Tube Defect: No (11/21/2016 04:15:Rosy Valdovinos) Gen Hx Down's Syndrome: No (11/21/2016 04:15:Rosy Valdovinos) Gen Hx Jt-Sachs: No (11/21/2016 04:15:Rosy Valdovinos) Gen Hx Otto: No (11/21/2016 04:15:Rosy Valdovinos) Gen Hx Familial Dysautonomia: No (11/21/2016 04:15:Rosy Valdovinos) Gen Hx Sickle Cell Disease/Trait: No (11/21/2016 04:15:Rosy Valdovinos) Gen Hx Hemophilia/Blood Disorder: No (11/21/2016 04:15:Rosy Valdovinos) Gen Hx Muscular Dystrophy: No (11/21/2016 04:15:Rosy Valdovinos) Gen Hx Cystic Fibrosis: No (11/21/2016 04:15:Rosy Valdovinos) Gen Hx [place] Chorea: No (11/21/2016 04:15:Rosy Valdovinos) Gen Hx Mental Retardation/Autism: No (11/21/2016 04:15:Rosy Valdovinos) Gen Hx Tested for Fragile X: No (11/21/2016 04:15:Rosy Valdovinos) Gen Hx Other Inher/Chromosomal: No (11/21/2016 04:15:Rosy Valdovinos) Gen Hx Maternal Metabolic DO: No (11/21/2016 04:15:Rosy Valdovinos) Gen Hx Pt Father or FOB Defect: No (11/21/2016 04:15:Rosy Valdovinos) Gen Hx Other Genetic History: No (11/21/2016 04:15:Rosy Valdovinos) Gen Hx Drugs/Meds since LMP: No (11/21/2016 04:15:Rosy Valdovinos)
--- NOTE | 2016-11-23 20:21 | Delivery Summary ---
Del Sum A-C Datetime Report Generated by CPN: 11/23/2016 20:20 DELIVERY PERSONNEL DELIVERY PERSONNEL: [phone];[id number] Delivery Doctor:: Divina Ferguson MD Labor and Delivery Nurse:: Rosy Valdovinos RN Nursery Nurse:: TYLOR Mcadams Tech/WELDER FITTER APPRENTICE: Helen Pope WELDER FITTER APPRENTICE MATERNAL INFORMATION Delivery Anesthesia: None Medications After Delivery: Pitocin Bolus-Please Comment Meds After Delivery Comment: Pitocin 20 units/1000 ml NS following placenta Estimated Blood Loss (ml): 250 Maternal Complications: Precipitous Labor (<3hrs) Provider Comments: Placenta delivered intact with 3vc LABOR SUMMARY EDC: 11/20/2016 00:00 Attempted: No Labor Anesthesia: None LABOR INFORMATION Reason for Induction: Not Applicable Onset of Labor: 11/21/2016 03:00 Complete Dilatation: 11/21/2016 04:42 Oxytocin: N/A Group B Beta Strep: negative Antibiotics # of Doses: 0 Antibiotics Time of Last Dose: n/a Steroids Given: None Reason Steroids Not Administered: Not Applicable MEMBRANES Membranes Rupture Method: Artificial Rupture of Membranes: 11/21/2016 04:45 Length of Rupture (hr): 0.18 Amniotic Fluid Color: Clear Amniotic Fluid Amount: Moderate Amniotic Fluid Odor: Normal STAGES OF LABOR Stage 1 hr: 1 Stage 1 min: 42 Stage 2 hr: 0 Stage 2 min: 14 Stage 3 hr: 0 Stage 3 min: 4 Total Time in Labor hr: 2 Total Time in Labor min: 0 VAGINAL DELIVERY Episiotomy: None Laceration Extension: First Degree Laceration Type: Perineal Laceration Repair: Yes Laceration Repair Note: one 3-0 chromic suture placed Sponge Count Correct: N/A Sharps Count Correct: N/A CSECTION DELIVERY Primary Indication: N/A Secondary Indication: N/A CSection Incidence: N/A Labor: N/A Elective: N/A CSection Incision: N/A BABY A INFORMATION Delivery Date/Time: 11/21/2016 04:56 Method of Delivery: Vaginal Born in Route : No : N/A Forceps: N/A Vacuum Extraction: N/A Shoulder Dystocia : No PRESENTATION/POSITION BABY A Presentation: Cephalic Cephalic Presentation: Vertex Vertex Position: Left Occipital Anterior Breech Presentation: N/A PLACENTA INFORMATION BABY A Placenta Delivery Time : 11/21/2016 05:00 Placenta Method of Delivery: Spontaneous Placenta Status: Delivered SCORES BABY A Heart Rate 1 min: >100 bpm Resp Effort 1 min: Slow, Irregular Reflex Irritability 1 min: Cough or Sneeze or Pulls Away Muscle Tone 1 min: Active Motion Color 1 min: Body [place], Extremities Blue SCORE 1 MIN: 8 Heart Rate 5 min: >100 bpm Resp Effort 5 min: Good Cry Reflex Irritability 5 min: Cough or Sneeze or Pulls Away Muscle Tone 5 min: Active Motion Color 5 min: Body [place], Extremities Blue SCORE 5 MIN: 9 INFANT INFORMATION BABY A Gestational Age at Delivery: 40.1 Gestational Status: Full Term- 39- 40.6 Weeks Outcome : Liveborn Condition : Stable Infant Sex: Female IDENTIFICATION BABY A Verification Date/Time: 11/21/2016 05:49 ID Band Number: [id number] Mother's Name Verified: Yes Infant RN Verifying : A Valdovinos Rn Additional Verifying Personnel: [facility] Rn WEIGHT/LENGTH BABY A Birthweight (gm): 3490 Weight (lb): 7 Weight (oz): 11 Infant Length (in): 20.00 Infant Length (cm): 50.80 CORD INFORMATION BABY A No. Cord Vessels: 3 Nuchal Cord : N/A Cord Blood Taken: Yes-For Eval (Mom's Blood Type - or O+) Suction: Mouth; Nose ASSESSMENT BABY A Complications: None Physical Findings at Delivery: Within Normal Limits Infant Respirations: Appears Normal Skin to Skin: Yes Skin to Skin Time (min): 40 Electronic Commerce Specialist/ALS Called : No Care By: Ena Campa RN Transferred To: Remains with Mother SIGNATURES Signature: with User ID: [email or web address]
--- NOTE | 2016-11-23 20:25 | L&D General Admission ---
General Admit Datetime Report Generated by CPN: 11/23/2016 20:20 INFORMATION Patient Age: 26 (10/08/2016 10:16:QS system process) EDC: 11/20/2016 00:00 (11/21/2016 04:15:Cristina Nascimento RN) EDC per Ultrasound: 11/20/2016 00:00 (11/21/2016 04:15:Cristina Nascimento RN) : 5 (11/21/2016 04:15:Cristina Nascimento RN) Para: 2 (11/21/2016 04:15:Cristina Nascimento RN) Term: 2 (11/21/2016 04:15:Cristina Nascimento RN) Spontaneous Abortions: 2 (11/21/2016 04:15:Cristina Nascimento RN) Livin (11/21/2016 04:15:Cristina Nascimento RN) Cesareans: 0 (11/21/2016 04:15:Cristina Nascimento RN) CARE Primary Community Coordinator: [facility] (11/21/2016 04:15:Rosy Valdovinos) Adequate Care: Yes (11/21/2016 04:15:Cristina Azam, RN) Height (in): 67 (11/22/2016 15:30:QS system process) ALLERGIES Medication Allergy: No (11/21/2016 04:15:Rosy Valdovinos) Medication Allergies: No Known Allergies (02/16/2013) (10/08/2016 10:16:QS system process) Latex Allergy: No Latex Allergies (11/21/2016 04:15:Rosy Valdovinos) Food Allergies: none (11/21/2016 04:15:Rosy Valdovinos) Environmental Allergies: none (11/21/2016 04:15:Rosy Valdovinos) COMMUNICATION Primary Language: Singaporean (11/21/2016 04:15:Rosy Valdovinos) Medical Tx Preferred Language: Singaporean (11/21/2016 04:15:Rosyabhilash Valdovinos) DEMOGRAPHICS Address: [address] [place] [id number] (10/08/2016 10:16:QS system process) Zipcode: [phone] (10/08/2016 10:16:QS system process) Home (10/08/2016 10:16:QS system process) SSN: [id number] (10/08/2016 10:16:QS system process) Next of Kin Name: JANETH MCMILLAN (10/08/2016 10:16:QS system process) Next of Kin (10/08/2016 10:16:QS system process) Next of Kin Relationship: SPO (10/08/2016 10:16:QS system process) Date of : 1990 (10/08/2016 10:16:QS system process) Marital Status: (10/08/2016 10:16:QS system process) Sex: Female (10/08/2016 10:16:QS system process) Race: (10/08/2016 10:16:QS system process) Ethnicity: Non- or (10/08/2016 10:16:QS system process) Rastafari: Orthodoxy (10/08/2016 10:16:QS system process) DRUG AND ALCOHOL USE Alcohol: No (11/21/2016 04:15:Rosy Valdovinos) Cigarettes: Never Smoker. [id number] (11/21/2016 04:15:Rosy Valdovinos) Marijuana: No (11/21/2016 04:15:Rosy Valdovinos) Cocaine: No (11/21/2016 04:15:Rosy Valdovinos) Other Illicit Drugs: No (11/21/2016 04:15:Rosy Valdovinos) VACCINE HISTORY Influenza Vaccine: Yes (11/21/2016 04:15:Rosy Valdovinos) Influenza Date: 2016 (11/21/2016 04:15:Rosy Valdovinos) Tdap Vaccine: Yes (11/21/2016 04:15:Rosy Valdovinos) Tdap Date: 2016 (11/21/2016 04:15:Rosy Valdovinos) Painter Aircraft: [facility] (11/21/2016 04:15:Rosy Valdovinos) Feeding Preference: Breast (11/21/2016 04:15:Rosy Valdovinos) Benefit of Breast Feed Discussed: Yes (11/21/2016 04:15:Viry Dickey RN) Circumcision: N/A (11/21/2016 04:15:Rosy Valdovinos) Classes Attended: No (11/21/2016 04:15:Rosy Valdovinos) Tubal Ligation: No (11/21/2016 04:15:Rosy Valdovinos) Tubal Authorization Signed: N/A (11/21/2016 04:15:Rosy Valdovinos) Consent: N/A (11/21/2016 04:15:Rosy Valdovinos) Consent Signed: N/A (11/21/2016 04:15:Rosy Valdovinos) Pain Management Plans: Epidural (11/21/2016 04:15:Rosy Valdovinos) Plans for Labor and Delivery: None (11/21/2016 04:15:Rosy Valdovinos) Support Person: Janeth (11/21/2016 04:15:Rosy Valdovinos) Support Person Relationship: (11/21/2016 04:15:Rosy Valdovinos) Cultural/Spritual Practice: N/A (11/21/2016 04:15:Rosy Valdovinos) Spir/Cult Dietary Needs: N/A (11/21/2016 04:15:Rosy Valdovinos) LIVING SITUATION/DISCHARGE PLAN Living Arrangements: House (11/21/2016 04:15:Rosy Valdovinos) Adequate Access to:: Electric; Heat; Refrigeration; Plumbing/Running water; Phone; Transportation (11/21/2016 04:15:Rosy Valdovinos) WIC Program: Yes (11/21/2016 04:15:Rosy Valdovinos) Discharge School Operations Manager Person: janeth- (11/21/2016 04:15:Rosy Valdovinos) Person to Help after Discharge: janeth- (11/21/2016 04:15:Rosy Valdovinos) Currently Using Commun Resources: Yes (11/21/2016 04:15:Rosy Valdovinos) Specify Current Resource Used: medicaid (11/21/2016 04:15:Rosy Valdovinos) Outside Agency/Folding Machine Setter: No (11/21/2016 04:15:Rosy Valdovinos) Car Seat for Discharge: Yes (11/21/2016 04:15:Roys Valdovinos) Adoption Requested: No (11/21/2016 04:15:Rosy Valdovinos) Pt Contact w/ Post : N/A (11/21/2016 04:15:Rosy Valdovinos) LABS Blood Type: O Positive (11/21/2016 04:15:Cristina Nascimento RN) Hemoglobin: 11.1 L (11/22/2016 07:14:QS system process) Hematocrit: 33.0 L (11/22/2016 07:14:QS system process) MCV: 76 L (11/22/2016 07:14:QS system process) Group Beta Strep: negative (11/21/2016 04:15:Viry Dickey RN) RPR/VDRL: Nonreactive (11/21/2016 04:15:Cristina Nascimento RN) HIV Exposure Test: Negative (11/21/2016 04:15:Cristina Nascimento RN) Hepatitis B: Negative (11/21/2016 04:15:Cristina Nascimento RN) Rubella: POSITIVE NEGATIVE IF LESS THAN OR EQUAL TO 9.99 IU/mL POSITIVE IF GREATER THAN OR EQUAL TO 10.0 IU/mL (11/21/2016 05:50:QS system process) Rubella Titer: 41.30 (11/21/2016 05:50:QS system process) Varicella: Non Susceptible (11/21/2016 04:15:Cristina Nascimento RN) OB/PREVIOUS HISTORY Previous Procedures: Ultrasound; NST (11/21/2016 04:15:Rosy Valdovinos) Current Procedures: Ultrasound; NST (11/21/2016 04:15:Rosy Valdovinos) History of Previous : No (11/21/2016 04:15:Rosy Valdovinos) History of Gestational Diabetes: No (11/21/2016 04:15:Rosy Valdovinos) History of PIH: No (11/21/2016 04:15:Rosy Valdovinos) History of Incompetent Cervix: No (11/21/2016 04:15:Rosy Valdovinos) History of Placenta Previa/Abrup: No (11/21/2016 04:15:Rosy Valdovinos) History of Macrosomia: No (11/21/2016 04:15:Rosy Valdovinos) History of IUGR: No (11/21/2016 04:15:Rosy Valdovinos) History of Hemorrhage: No (11/21/2016 04:15:Rosy Valdovinos) History of Loss/Stillborn: No (11/21/2016 04:15:Rosy Valdovinos) History of : No (11/21/2016 04:15:Rosy Valdovinos) History of D (Rh) Sensitization: No (11/21/2016 04:15:Rosy Valdovinos) History Recurrent Loss/Stillborn: No (11/21/2016 04:15:Rosy Valdovinos) History Depression/PP Depression: No (11/21/2016 04:15:Rosy Valdovinos) History of Uterine Anomaly/GAVIOTA: No (11/21/2016 04:15:Rosy Valdovinos) History of Infertility: No (11/21/2016 04:15:Rosy Valdovinos) History of ART Treatment: No (11/21/2016 04:15:Rosy Valdovinos) History of GAVIOTA: No (11/21/2016 04:15:Rosy Valdovinos) MEDICAL HISTORY Med Hx Diabetes: No (11/21/2016 04:15:Rosy Valdovinos) Med Hx Hypertension: No (11/21/2016 04:15:Rosy Valdovinos) Med Hx Heart Disease: No (11/21/2016 04:15:Rosy Valdovinos) Med Hx Autoimmune Disorder: No (11/21/2016 04:15:Rosy Valdovinos) Med Hx Kidney Disease/UTI: No (11/21/2016 04:15:Rosy Valdovinos) Med Hx Neurologic/Epilepsy: No (11/21/2016 04:15:Rosy Valdovinos) Med Hx Psychiatric Disorders: No (11/21/2016 04:15:Rosy Valdovinos) Med Hx Hepatitis/Liver Disease: No (11/21/2016 04:15:Rosy Valdovinos) Med Hx Varicosities/Phlebitis: No (11/21/2016 04:15:Rosy Valdovinos) Med Hx Thyroid Dysfunction: No (11/21/2016 04:15:Rosy Valdovinos) Med Hx Trauma/Violence: No (11/21/2016 04:15:Rosy Valdovinos) Med Hx Blood Transfusion: No (11/21/2016 04:15:Rosy Valdovinos) Med Hx Pulmonary (Asthma,TB): No (11/21/2016 04:15:Rosy Valdovinos) Med Hx Breast: No (11/21/2016 04:15:Rosy Valdovinos) Med Hx MOBILE DEVICE DEVELOPER Surgery: No (11/21/2016 04:15:Rosy Valdovinos) Med Hx Hospitalization/Surgery: No (11/21/2016 04:15:Rosy Valdovinos) Med Hx Anesthetic Complications: No (11/21/2016 04:15:Rosy Valdovinos) Med Hx Abnormal Pap Smear: No (11/21/2016 04:15:Rosy Valdovinos) Other Medical Diseases: No (11/21/2016 04:15:Rosy Valdovinos) Med Hx Significant Family Hx: No (11/21/2016 04:15:Rosy Valdovinos) Details of Med/Surg Hx: benign lump left breast-2009 depresasion-no suicidal thoughts (11/21/2016 04:15:Cristina Nascimento RN) INFECTIOUS HISTORY Inf Hx Gonorrhea: No (11/21/2016 04:15:Rosy Valdovinos) Inf Hx Chlamydia: No (11/21/2016 04:15:Rosy Valdovinos) Inf Hx Syphilis: No (11/21/2016 04:15:Rosy Valdovinos) Inf Hx HIV/AIDS: No (11/21/2016 04:15:Rosy Valdovinos) Inf Hx Human Papilloma Virus: No (11/21/2016 04:15:Rosy Valdovinos) Inf Hx Pt/Partner Genital Herpes: No (11/21/2016 04:15:Rosy Valdovinos) Inf Hx Tuberculosis/Exposure: No (11/21/2016 04:15:Rosy Valdovinos) Inf Hx Hepatitis B,C: No (11/21/2016 04:15:Rosy Valdovinos) Inf Hx Rash or Viral Illness: No (11/21/2016 04:15:Rosy Valdovinos) GENETIC HISTORY Gen Hx Age >=35 at TYRELL: No (11/21/2016 04:15:Rosy Valdovinos) Gen Hx Thalassemia: No (11/21/2016 04:15:Rosy Valdovinos) Gen Hx Congenital Heart Defect: No (11/21/2016 04:15:Rosy Valdovinos) Gen Hx Neural Tube Defect: No (11/21/2016 04:15:Rosy Valdovinos) Gen Hx Down's Syndrome: No (11/21/2016 04:15:Rosy Valdovinos) Gen Hx Jt-Sachs: No (11/21/2016 04:15:Rosy Valdovinos) Gen Hx Otto: No (11/21/2016 04:15:Rosy Valdovinos) Gen Hx Familial Dysautonomia: No (11/21/2016 04:15:Rosy Valdovinos) Gen Hx Sickle Cell Disease/Trait: No (11/21/2016 04:15:Rosy Valdovinos) Gen Hx Hemophilia/Blood Disorder: No (11/21/2016 04:15:Rosy Valdovnios) Gen Hx Muscular Dystrophy: No (11/21/2016 04:15:Rosy Valdovinos) Gen Hx Cystic Fibrosis: No (11/21/2016 04:15:Rosy Valdovinos) Gen Hx [place] Chorea: No (11/21/2016 04:15:Rosy Valdovinos) Gen Hx Mental Retardation/Autism: No (11/21/2016 04:15:Rosy Valdovinos) Gen Hx Tested for Fragile X: No (11/21/2016 04:15:Rosy Valdovinos) Gen Hx Other Inher/Chromosomal: No (11/21/2016 04:15:Rosy Valdovinos) Gen Hx Maternal Metabolic DO: No (11/21/2016 04:15:Rosy Valdovinos) Gen Hx Pt Father or FOB Defect: No (11/21/2016 04:15:Rosy Valdovinos) Gen Hx Other Genetic History: No (11/21/2016 04:15:Rosy Valdovinos) Gen Hx Drugs/Meds since LMP: No (11/21/2016 04:15:Rosy Valdovinos)
--- NOTE | 2016-11-23 20:25 | Delivery Summary ---
Del Sum A-C Datetime Report Generated by CPN: 11/23/2016 20:20 DELIVERY PERSONNEL DELIVERY PERSONNEL: [id number] Delivery Doctor:: Divina Ferguson MD Labor and Delivery Nurse:: Rosy Valdovinos RN Nursery Nurse:: TYLOR Mcadams Tech/DIRECTOR OF MEDICAL SERVICES: Helen Pope DIRECTOR OF MEDICAL SERVICES MATERNAL INFORMATION Delivery Anesthesia: None Medications After Delivery: Pitocin Bolus-Please Comment Meds After Delivery Comment: Pitocin 20 units/1000 ml NS following placenta Estimated Blood Loss (ml): 250 Maternal Complications: Precipitous Labor (<3hrs) Provider Comments: Placenta delivered intact with 3vc LABOR SUMMARY EDC: 11/20/2016 00:00 Attempted: No Labor Anesthesia: None LABOR INFORMATION Reason for Induction: Not Applicable Onset of Labor: 11/21/2016 03:00 Complete Dilatation: 11/21/2016 04:42 Oxytocin: N/A Group B Beta Strep: negative Antibiotics # of Doses: 0 Antibiotics Time of Last Dose: n/a Steroids Given: None Reason Steroids Not Administered: Not Applicable MEMBRANES Membranes Rupture Method: Artificial Rupture of Membranes: 11/21/2016 04:45 Length of Rupture (hr): 0.18 Amniotic Fluid Color: Clear Amniotic Fluid Amount: Moderate Amniotic Fluid Odor: Normal STAGES OF LABOR Stage 1 hr: 1 Stage 1 min: 42 Stage 2 hr: 0 Stage 2 min: 14 Stage 3 hr: 0 Stage 3 min: 4 Total Time in Labor hr: 2 Total Time in Labor min: 0 VAGINAL DELIVERY Episiotomy: None Laceration Extension: First Degree Laceration Type: Perineal Laceration Repair: Yes Laceration Repair Note: one 3-0 chromic suture placed Sponge Count Correct: N/A Sharps Count Correct: N/A CSECTION DELIVERY Primary Indication: N/A Secondary Indication: N/A CSection Incidence: N/A Labor: N/A Elective: N/A CSection Incision: N/A BABY A INFORMATION Delivery Date/Time: 11/21/2016 04:56 Method of Delivery: Vaginal Born in Route : No : N/A Forceps: N/A Vacuum Extraction: N/A Shoulder Dystocia : No PRESENTATION/POSITION BABY A Presentation: Cephalic Cephalic Presentation: Vertex Vertex Position: Left Occipital Anterior Breech Presentation: N/A PLACENTA INFORMATION BABY A Placenta Delivery Time : 11/21/2016 05:00 Placenta Method of Delivery: Spontaneous Placenta Status: Delivered SCORES BABY A Heart Rate 1 min: >100 bpm Resp Effort 1 min: Slow, Irregular Reflex Irritability 1 min: Cough or Sneeze or Pulls Away Muscle Tone 1 min: Active Motion Color 1 min: Body [place], Extremities Blue SCORE 1 MIN: 8 Heart Rate 5 min: >100 bpm Resp Effort 5 min: Good Cry Reflex Irritability 5 min: Cough or Sneeze or Pulls Away Muscle Tone 5 min: Active Motion Color 5 min: Body [place], Extremities Blue SCORE 5 MIN: 9 INFANT INFORMATION BABY A Gestational Age at Delivery: 40.1 Gestational Status: Full Term- 39- 40.6 Weeks Outcome : Liveborn Condition : Stable Infant Sex: Female IDENTIFICATION BABY A Verification Date/Time: 11/21/2016 05:49 ID Band Number: [id number] Mother's Name Verified: Yes Infant RN Verifying : A Valdovinos Rn Additional Verifying Personnel: [employer] Rn WEIGHT/LENGTH BABY A Birthweight (gm): 3490 Weight (lb): 7 Weight (oz): 11 Infant Length (in): 20.00 Infant Length (cm): 50.80 CORD INFORMATION BABY A No. Cord Vessels: 3 Nuchal Cord : N/A Cord Blood Taken: Yes-For Eval (Mom's Blood Type - or O+) Suction: Mouth; Nose ASSESSMENT BABY A Complications: None Physical Findings at Delivery: Within Normal Limits Infant Respirations: Appears Normal Skin to Skin: Yes Skin to Skin Time (min): 40 Data Center Architect/ALS Called : No Care By: Ena Campa RN Transferred To: Remains with Mother SIGNATURES Signature: with User ID: [email or web address]
--- NOTE | 2016-11-24 06:01 | L&D General Admission ---
General Admit Datetime Report Generated by CPN: 11/24/2016 06:00 INFORMATION Patient Age: 26 (10/08/2016 10:16:QS system process) EDC: 11/20/2016 00:00 (11/21/2016 04:15:Cristina Nascimento RN) EDC per Ultrasound: 11/20/2016 00:00 (11/21/2016 04:15:Cristina Nascimento RN) : 5 (11/21/2016 04:15:Cristina Nascimento RN) Para: 2 (11/21/2016 04:15:Cristina Nascimento RN) Term: 2 (11/21/2016 04:15:Cristina Nascimento RN) Spontaneous Abortions: 2 (11/21/2016 04:15:Cristina Nascimento RN) Livin (11/21/2016 04:15:Cristina Nascimento RN) Cesareans: 0 (11/21/2016 04:15:Cristina Nascimento RN) CARE Primary Cdl Flatbed Truck Driver: Matone [facility] (11/21/2016 04:15:Rosy Valdovinos) Adequate Care: Yes (11/21/2016 04:15:Cristina Azam, RN) Height (in): 67 (11/22/2016 15:30:QS system process) ALLERGIES Medication Allergy: No (11/21/2016 04:15:Rosy Valdovinos) Medication Allergies: No Known Allergies (02/16/2013) (10/08/2016 10:16:QS system process) Latex Allergy: No Latex Allergies (11/21/2016 04:15:Rosy Valdovinos) Food Allergies: none (11/21/2016 04:15:Rosy Valdovinos) Environmental Allergies: none (11/21/2016 04:15:Rosy Valdovinos) COMMUNICATION Primary Language: Honduran (11/21/2016 04:15:Rosy Valdovinos) Medical Tx Preferred Language: Honduran (11/21/2016 04:15:Rosyabhilash Valdovinos) DEMOGRAPHICS Address: [address] [place] [phone] (10/08/2016 10:16:QS system process) Zipcode: [address] (10/08/2016 10:16:QS system process) Home (10/08/2016 10:16:QS system process) SSN: [id number] (10/08/2016 10:16:QS system process) Next of Kin Name: JANETH MCMILLAN (10/08/2016 10:16:QS system process) Next of Kin (10/08/2016 10:16:QS system process) Next of Kin Relationship: SPO (10/08/2016 10:16:QS system process) Date of : 1990 (10/08/2016 10:16:QS system process) Marital Status: (10/08/2016 10:16:QS system process) Sex: Female (10/08/2016 10:16:QS system process) Race: (10/08/2016 10:16:QS system process) Ethnicity: Non- or (10/08/2016 10:16:QS system process) Scientologist: Scientologist (10/08/2016 10:16:QS system process) DRUG AND ALCOHOL USE Alcohol: No (11/21/2016 04:15:Rosy Valdovinos) Cigarettes: Never Smoker. [id number] (11/21/2016 04:15:Rosy Valdovinos) Marijuana: No (11/21/2016 04:15:Rosy Valdovinos) Cocaine: No (11/21/2016 04:15:Rosy Valdovinos) Other Illicit Drugs: No (11/21/2016 04:15:Rosy Valdovinos) VACCINE HISTORY Influenza Vaccine: Yes (11/21/2016 04:15:Rosy Valdovinos) Influenza Date: 2016 (11/21/2016 04:15:Rosy Valdovinos) Tdap Vaccine: Yes (11/21/2016 04:15:Rosy Valdovinos) Tdap Date: 2016 (11/21/2016 04:15:Rosy Valdovinos) Engraver: [facility] (11/21/2016 04:15:Rosy Valdovinos) Feeding Preference: Breast (11/21/2016 04:15:Rosy Valdovinos) Benefit of Breast Feed Discussed: Yes (11/21/2016 04:15:Viry Dickey RN) Circumcision: N/A (11/21/2016 04:15:Rosy Valdovinos) Classes Attended: No (11/21/2016 04:15:Rosy Valdovinos) Tubal Ligation: No (11/21/2016 04:15:Rosy Valdovinos) Tubal Authorization Signed: N/A (11/21/2016 04:15:Rosy Valdovinos) Consent: N/A (11/21/2016 04:15:Rosy Valdovinos) Consent Signed: N/A (11/21/2016 04:15:Rosy Valdovinos) Pain Management Plans: Epidural (11/21/2016 04:15:Rosy Valdovinos) Plans for Labor and Delivery: None (11/21/2016 04:15:Rosy Valdovinos) Support Person: Janeth (11/21/2016 04:15:Rosy Valdovinos) Support Person Relationship: (11/21/2016 04:15:Rosy Valdovinos) Cultural/Spritual Practice: N/A (11/21/2016 04:15:Rosy Valdovinos) Spir/Cult Dietary Needs: N/A (11/21/2016 04:15:Rosy Valdovinos) LIVING SITUATION/DISCHARGE PLAN Living Arrangements: House (11/21/2016 04:15:Rosy Valdovinos) Adequate Access to:: Electric; Heat; Refrigeration; Plumbing/Running water; Phone; Transportation (11/21/2016 04:15:Rosy Valdovinos) WIC Program: Yes (11/21/2016 04:15:Rosy Valdovinos) Discharge Bag Worker Person: janeth- (11/21/2016 04:15:Rosy Valdovinos) Person to Help after Discharge: janeth- (11/21/2016 04:15:Rosy Valdovinos) Currently Using Commun Resources: Yes (11/21/2016 04:15:Rosy Valdovinos) Specify Current Resource Used: medicaid (11/21/2016 04:15:Rosy Valdovinos) Outside Agency/Digester Operator: No (11/21/2016 04:15:Rosy Valdovinos) Car Seat for Discharge: Yes (11/21/2016 04:15:Rosy Valdovinos) Adoption Requested: No (11/21/2016 04:15:Rosy Valdovinos) Pt Contact w/ Post : N/A (11/21/2016 04:15:Rosy Valdovinos) LABS Blood Type: O Positive (11/21/2016 04:15:Cristina Nascimento RN) Hemoglobin: 11.1 L (11/22/2016 07:14:QS system process) Hematocrit: 33.0 L (11/22/2016 07:14:QS system process) MCV: 76 L (11/22/2016 07:14:QS system process) Group Beta Strep: negative (11/21/2016 04:15:Viry Dickey RN) RPR/VDRL: Nonreactive (11/21/2016 04:15:Cristina Nascimento RN) HIV Exposure Test: Negative (11/21/2016 04:15:Cristina Nascimento RN) Hepatitis B: Negative (11/21/2016 04:15:Cristina Nascimento RN) Rubella: POSITIVE NEGATIVE IF LESS THAN OR EQUAL TO 9.99 IU/mL POSITIVE IF GREATER THAN OR EQUAL TO 10.0 IU/mL (11/21/2016 05:50:QS system process) Rubella Titer: 41.30 (11/21/2016 05:50:QS system process) Varicella: Non Susceptible (11/21/2016 04:15:Cristina Nascimento RN) OB/PREVIOUS HISTORY Previous Procedures: Ultrasound; NST (11/21/2016 04:15:Rosy Valdovinos) Current Procedures: Ultrasound; NST (11/21/2016 04:15:Rosy Valdovinos) History of Previous : No (11/21/2016 04:15:Rosy Valdovinos) History of Gestational Diabetes: No (11/21/2016 04:15:Rosy Valdovinos) History of PIH: No (11/21/2016 04:15:Rosy Valdovinos) History of Incompetent Cervix: No (11/21/2016 04:15:Rosy Valdovinos) History of Placenta Previa/Abrup: No (11/21/2016 04:15:Rosy Valdovinos) History of Macrosomia: No (11/21/2016 04:15:Rosy Valdovinos) History of IUGR: No (11/21/2016 04:15:Rosy Valdovinos) History of Hemorrhage: No (11/21/2016 04:15:Rosy Valdovinos) History of Loss/Stillborn: No (11/21/2016 04:15:Rosy Valdovinos) History of : No (11/21/2016 04:15:Rosy Valdovinos) History of D (Rh) Sensitization: No (11/21/2016 04:15:Rosy Valdovinos) History Recurrent Loss/Stillborn: No (11/21/2016 04:15:Rosy Valdovinos) History Depression/PP Depression: No (11/21/2016 04:15:Rosy Valdovinos) History of Uterine Anomaly/GAVIOTA: No (11/21/2016 04:15:Rosy Valdovinos) History of Infertility: No (11/21/2016 04:15:Rosy Valdovinos) History of ART Treatment: No (11/21/2016 04:15:Rosy Valdovinos) History of GAVIOTA: No (11/21/2016 04:15:Rosy Valdovinos) MEDICAL HISTORY Med Hx Diabetes: No (11/21/2016 04:15:Rosy Valdovinos) Med Hx Hypertension: No (11/21/2016 04:15:Rosy Valdovinos) Med Hx Heart Disease: No (11/21/2016 04:15:Rosy Valdovinos) Med Hx Autoimmune Disorder: No (11/21/2016 04:15:Rosy Valdovinos) Med Hx Kidney Disease/UTI: No (11/21/2016 04:15:Rosy Valdovinos) Med Hx Neurologic/Epilepsy: No (11/21/2016 04:15:Rosy Valdovinos) Med Hx Psychiatric Disorders: No (11/21/2016 04:15:Rosy Valdovinos) Med Hx Hepatitis/Liver Disease: No (11/21/2016 04:15:Rosy Valdovinos) Med Hx Varicosities/Phlebitis: No (11/21/2016 04:15:Rosy Valdovinos) Med Hx Thyroid Dysfunction: No (11/21/2016 04:15:Rosy Valdovinos) Med Hx Trauma/Violence: No (11/21/2016 04:15:Rosy Valdovinos) Med Hx Blood Transfusion: No (11/21/2016 04:15:Rosy Valdovinos) Med Hx Pulmonary (Asthma,TB): No (11/21/2016 04:15:Rosy Valdovinos) Med Hx Breast: No (11/21/2016 04:15:Rosy Valdovinos) Med Hx LUMBER PLANER Surgery: No (11/21/2016 04:15:Rosy Valdovinos) Med Hx Hospitalization/Surgery: No (11/21/2016 04:15:Rosy Valdovinos) Med Hx Anesthetic Complications: No (11/21/2016 04:15:Rosy Valdovinos) Med Hx Abnormal Pap Smear: No (11/21/2016 04:15:Rosy Valdovinos) Other Medical Diseases: No (11/21/2016 04:15:Rosy Valdovinos) Med Hx Significant Family Hx: No (11/21/2016 04:15:Rosy Valdovinos) Details of Med/Surg Hx: benign lump left breast-2009 depresasion-no suicidal thoughts (11/21/2016 04:15:Cristina Nascimento RN) INFECTIOUS HISTORY Inf Hx Gonorrhea: No (11/21/2016 04:15:Rosy Valdovinos) Inf Hx Chlamydia: No (11/21/2016 04:15:Rosy Valdovinos) Inf Hx Syphilis: No (11/21/2016 04:15:Rosy Valdovinos) Inf Hx HIV/AIDS: No (11/21/2016 04:15:Rosy Valdovinos) Inf Hx Human Papilloma Virus: No (11/21/2016 04:15:Rosy Valdovinos) Inf Hx Pt/Partner Genital Herpes: No (11/21/2016 04:15:Rosy Valdovinos) Inf Hx Tuberculosis/Exposure: No (11/21/2016 04:15:Rosy Valdovinos) Inf Hx Hepatitis B,C: No (11/21/2016 04:15:Rosy Valdovinos) Inf Hx Rash or Viral Illness: No (11/21/2016 04:15:Rosy Valdovinos) GENETIC HISTORY Gen Hx Age >=35 at TYRELL: No (11/21/2016 04:15:Rosy Valdovinos) Gen Hx Thalassemia: No (11/21/2016 04:15:Rosy Valdovinos) Gen Hx Congenital Heart Defect: No (11/21/2016 04:15:Rosy Valdovinos) Gen Hx Neural Tube Defect: No (11/21/2016 04:15:Rosy Valdovinos) Gen Hx Down's Syndrome: No (11/21/2016 04:15:Rosy Valdovinos) Gen Hx Jt-Sachs: No (11/21/2016 04:15:Rosy Valdovinos) Gen Hx Otto: No (11/21/2016 04:15:Rosy Valdovinos) Gen Hx Familial Dysautonomia: No (11/21/2016 04:15:Rosy Valdovinos) Gen Hx Sickle Cell Disease/Trait: No (11/21/2016 04:15:Rosy Valdovinos) Gen Hx Hemophilia/Blood Disorder: No (11/21/2016 04:15:Rosy Valdovinos) Gen Hx Muscular Dystrophy: No (11/21/2016 04:15:Rosy Valdovinos) Gen Hx Cystic Fibrosis: No (11/21/2016 04:15:Rosy Valdovinos) Gen Hx [place] Chorea: No (11/21/2016 04:15:Rosy Valdovinos) Gen Hx Mental Retardation/Autism: No (11/21/2016 04:15:Rosy Valdovinos) Gen Hx Tested for Fragile X: No (11/21/2016 04:15:Rosy Valdovinos) Gen Hx Other Inher/Chromosomal: No (11/21/2016 04:15:Rosy Valdovinos) Gen Hx Maternal Metabolic DO: No (11/21/2016 04:15:Rosy Valdovinos) Gen Hx Pt Father or FOB Defect: No (11/21/2016 04:15:Rosy Valdovinos) Gen Hx Other Genetic History: No (11/21/2016 04:15:Rosy Valdovinos) Gen Hx Drugs/Meds since LMP: No (11/21/2016 04:15:Rosy Valdovinos)
--- NOTE | 2016-11-24 18:00 | L&D General Admission ---
General Admit Datetime Report Generated by CPN: 11/24/2016 18:00 INFORMATION Patient Age: 26 (10/08/2016 10:16:QS system process) EDC: 11/20/2016 00:00 (11/21/2016 04:15:Cristina Nascimento RN) EDC per Ultrasound: 11/20/2016 00:00 (11/21/2016 04:15:Cristina Nascimento RN) : 5 (11/21/2016 04:15:Cristina Nascimento RN) Para: 2 (11/21/2016 04:15:Cristina Nascimento RN) Term: 2 (11/21/2016 04:15:Cristina Nascimento RN) Spontaneous Abortions: 2 (11/21/2016 04:15:Cristina Nascimento RN) Livin (11/21/2016 04:15:Cristina Nascimento RN) Cesareans: 0 (11/21/2016 04:15:Cristina Nascimento RN) CARE Primary Compounding Pharmacy Technician: [facility] (11/21/2016 04:15:Rosy Valdovinos) Adequate Care: Yes (11/21/2016 04:15:Cristina Azam, RN) Height (in): 67 (11/22/2016 15:30:QS system process) ALLERGIES Medication Allergy: No (11/21/2016 04:15:Rosy Valdovinos) Medication Allergies: No Known Allergies (02/16/2013) (10/08/2016 10:16:QS system process) Latex Allergy: No Latex Allergies (11/21/2016 04:15:Rosy Valdovinos) Food Allergies: none (11/21/2016 04:15:Rosy Valdovinos) Environmental Allergies: none (11/21/2016 04:15:Rosy Valdovinos) COMMUNICATION Primary Language: Trinidadian (11/21/2016 04:15:Rosy Valdovinos) Medical Tx Preferred Language: Trinidadian (11/21/2016 04:15:Rosyabhilash Valdovinos) DEMOGRAPHICS Address: [address] [place] [id number] (10/08/2016 10:16:QS system process) Zipcode: [phone] (10/08/2016 10:16:QS system process) Home (10/08/2016 10:16:QS system process) SSN: [id number] (10/08/2016 10:16:QS system process) Next of Kin Name: JANETH MCMILLAN (10/08/2016 10:16:QS system process) Next of Kin (10/08/2016 10:16:QS system process) Next of Kin Relationship: SPO (10/08/2016 10:16:QS system process) Date of : 1990 (10/08/2016 10:16:QS system process) Marital Status: (10/08/2016 10:16:QS system process) Sex: Female (10/08/2016 10:16:QS system process) Race: (10/08/2016 10:16:QS system process) Ethnicity: Non- or (10/08/2016 10:16:QS system process) Druze: Judaism (10/08/2016 10:16:QS system process) DRUG AND ALCOHOL USE Alcohol: No (11/21/2016 04:15:Rosy Valdovinos) Cigarettes: Never Smoker. [id number] (11/21/2016 04:15:Rosy Valdovinos) Marijuana: No (11/21/2016 04:15:Rosy Valdovinos) Cocaine: No (11/21/2016 04:15:Rosy Valdovinos) Other Illicit Drugs: No (11/21/2016 04:15:Rosy Valdovinos) VACCINE HISTORY Influenza Vaccine: Yes (11/21/2016 04:15:Rosy Valdovinos) Influenza Date: 2016 (11/21/2016 04:15:Rosy Valdovinos) Tdap Vaccine: Yes (11/21/2016 04:15:Rosy Valdovinos) Tdap Date: 2016 (11/21/2016 04:15:Rosy Valdovinos) Flat Sheet Maker: [facility] (11/21/2016 04:15:Rosy Valdovinos) Feeding Preference: Breast (11/21/2016 04:15:Rosy Valdovinos) Benefit of Breast Feed Discussed: Yes (11/21/2016 04:15:Viry Dickey RN) Circumcision: N/A (11/21/2016 04:15:Rosy Valdovinos) Classes Attended: No (11/21/2016 04:15:Rosy Valdovinos) Tubal Ligation: No (11/21/2016 04:15:Rosy Valdovinos) Tubal Authorization Signed: N/A (11/21/2016 04:15:Rosy Valdovinos) Consent: N/A (11/21/2016 04:15:Rosy Valdovinos) Consent Signed: N/A (11/21/2016 04:15:Rosy Valdovinos) Pain Management Plans: Epidural (11/21/2016 04:15:Rosy Valdovinos) Plans for Labor and Delivery: None (11/21/2016 04:15:Rosy Valdovinos) Support Person: Janeth (11/21/2016 04:15:Rosy Valdovinos) Support Person Relationship: (11/21/2016 04:15:Rosy Valdovinos) Cultural/Spritual Practice: N/A (11/21/2016 04:15:Rosy Valdovinos) Spir/Cult Dietary Needs: N/A (11/21/2016 04:15:Rosy Valdovinos) LIVING SITUATION/DISCHARGE PLAN Living Arrangements: House (11/21/2016 04:15:Rosy Valdovinos) Adequate Access to:: Electric; Heat; Refrigeration; Plumbing/Running water; Phone; Transportation (11/21/2016 04:15:Rosy Valdovinos) WIC Program: Yes (11/21/2016 04:15:Rosy Valdovinos) Discharge Valve Mechanic Person: janeth- (11/21/2016 04:15:Rosy Valdovinos) Person to Help after Discharge: janeth- (11/21/2016 04:15:Rosy Valdovinos) Currently Using Commun Resources: Yes (11/21/2016 04:15:Rosy Valdovinos) Specify Current Resource Used: medicaid (11/21/2016 04:15:Rosy Valdovinos) Outside Agency/Tool And Die Technician: No (11/21/2016 04:15:Rosy Valdovinos) Car Seat for Discharge: Yes (11/21/2016 04:15:Rosy Valdovinos) Adoption Requested: No (11/21/2016 04:15:Rosy Valdovinos) Pt Contact w/ Post : N/A (11/21/2016 04:15:Rosy Valdovinos) LABS Blood Type: O Positive (11/21/2016 04:15:Cristina Nascimento RN) Hemoglobin: 11.1 L (11/22/2016 07:14:QS system process) Hematocrit: 33.0 L (11/22/2016 07:14:QS system process) MCV: 76 L (11/22/2016 07:14:QS system process) Group Beta Strep: negative (11/21/2016 04:15:Viry Dickey RN) RPR/VDRL: Nonreactive (11/21/2016 04:15:Cristina Nascimento RN) HIV Exposure Test: Negative (11/21/2016 04:15:Cristina Nascimento RN) Hepatitis B: Negative (11/21/2016 04:15:Cristina Nascimento RN) Rubella: POSITIVE NEGATIVE IF LESS THAN OR EQUAL TO 9.99 IU/mL POSITIVE IF GREATER THAN OR EQUAL TO 10.0 IU/mL (11/21/2016 05:50:QS system process) Rubella Titer: 41.30 (11/21/2016 05:50:QS system process) Varicella: Non Susceptible (11/21/2016 04:15:Cristina Nascimento RN) OB/PREVIOUS HISTORY Previous Procedures: Ultrasound; NST (11/21/2016 04:15:Rosy Valdovinos) Current Procedures: Ultrasound; NST (11/21/2016 04:15:Rosy Valdovinos) History of Previous : No (11/21/2016 04:15:Rosy Valdovinos) History of Gestational Diabetes: No (11/21/2016 04:15:Rosy Valdovinos) History of PIH: No (11/21/2016 04:15:Rosy Valdovinos) History of Incompetent Cervix: No (11/21/2016 04:15:Rosy Valdovinos) History of Placenta Previa/Abrup: No (11/21/2016 04:15:Rosy Valdovinos) History of Macrosomia: No (11/21/2016 04:15:Rosy Valdovinos) History of IUGR: No (11/21/2016 04:15:Rosy Valdovinos) History of Hemorrhage: No (11/21/2016 04:15:Rosy Valdovinos) History of Loss/Stillborn: No (11/21/2016 04:15:Rosy Valdovinos) History of : No (11/21/2016 04:15:Rosy Valdovinos) History of D (Rh) Sensitization: No (11/21/2016 04:15:Rosy Valdovinos) History Recurrent Loss/Stillborn: No (11/21/2016 04:15:Rosy Valdovinos) History Depression/PP Depression: No (11/21/2016 04:15:Rosy Valdovinos) History of Uterine Anomaly/GAVIOTA: No (11/21/2016 04:15:Rosy Valdovinos) History of Infertility: No (11/21/2016 04:15:Rosy Valdovinos) History of ART Treatment: No (11/21/2016 04:15:Rosy Valdovinos) History of GAVIOTA: No (11/21/2016 04:15:Rosy Valdovinos) MEDICAL HISTORY Med Hx Diabetes: No (11/21/2016 04:15:Rosy Valdovinos) Med Hx Hypertension: No (11/21/2016 04:15:Rosy Valdovinos) Med Hx Heart Disease: No (11/21/2016 04:15:Rosy Valdovinos) Med Hx Autoimmune Disorder: No (11/21/2016 04:15:Rosy Valdovinos) Med Hx Kidney Disease/UTI: No (11/21/2016 04:15:Rosy Valdovinos) Med Hx Neurologic/Epilepsy: No (11/21/2016 04:15:Rosy Valdovinos) Med Hx Psychiatric Disorders: No (11/21/2016 04:15:Rosy Valdovinos) Med Hx Hepatitis/Liver Disease: No (11/21/2016 04:15:Rosy Valdovinos) Med Hx Varicosities/Phlebitis: No (11/21/2016 04:15:Rosy Valdovinos) Med Hx Thyroid Dysfunction: No (11/21/2016 04:15:Rosy Valdovinos) Med Hx Trauma/Violence: No (11/21/2016 04:15:Rosy Valdovinos) Med Hx Blood Transfusion: No (11/21/2016 04:15:Rosy Valdovinos) Med Hx Pulmonary (Asthma,TB): No (11/21/2016 04:15:Rosy Valdovinos) Med Hx Breast: No (11/21/2016 04:15:Rosy Valdovinos) Med Hx MAGAZINE SUPERVISOR Surgery: No (11/21/2016 04:15:Rosy Valdovinos) Med Hx Hospitalization/Surgery: No (11/21/2016 04:15:Rosy Valdovinos) Med Hx Anesthetic Complications: No (11/21/2016 04:15:Rosy Valdovinos) Med Hx Abnormal Pap Smear: No (11/21/2016 04:15:Rosy Valdovinos) Other Medical Diseases: No (11/21/2016 04:15:Rosy Valdovinos) Med Hx Significant Family Hx: No (11/21/2016 04:15:Rosy Valdovinos) Details of Med/Surg Hx: benign lump left breast-2009 depresasion-no suicidal thoughts (11/21/2016 04:15:Cristina Nascimento RN) INFECTIOUS HISTORY Inf Hx Gonorrhea: No (11/21/2016 04:15:Rosy Valdovinos) Inf Hx Chlamydia: No (11/21/2016 04:15:Rsoy Valdovinos) Inf Hx Syphilis: No (11/21/2016 04:15:Rosy Valdovinos) Inf Hx HIV/AIDS: No (11/21/2016 04:15:Rosy Valdovinos) Inf Hx Human Papilloma Virus: No (11/21/2016 04:15:Rosy Valdovinos) Inf Hx Pt/Partner Genital Herpes: No (11/21/2016 04:15:Rosy Valdovinos) Inf Hx Tuberculosis/Exposure: No (11/21/2016 04:15:Rosy Valdovinos) Inf Hx Hepatitis B,C: No (11/21/2016 04:15:Rosy Valdovinos) Inf Hx Rash or Viral Illness: No (11/21/2016 04:15:Rosy Valdovinos) GENETIC HISTORY Gen Hx Age >=35 at TYRELL: No (11/21/2016 04:15:Rosy Valdovinos) Gen Hx Thalassemia: No (11/21/2016 04:15:Rosy Valdovinos) Gen Hx Congenital Heart Defect: No (11/21/2016 04:15:Rosy Valdovinos) Gen Hx Neural Tube Defect: No (11/21/2016 04:15:Rosy Valdovinos) Gen Hx Down's Syndrome: No (11/21/2016 04:15:Rosy Valdovinos) Gen Hx Jt-Sachs: No (11/21/2016 04:15:Rosy Valdovinos) Gen Hx Otto: No (11/21/2016 04:15:Rosy Valdovinos) Gen Hx Familial Dysautonomia: No (11/21/2016 04:15:Rosy Valdovinos) Gen Hx Sickle Cell Disease/Trait: No (11/21/2016 04:15:Rosy Valdovinos) Gen Hx Hemophilia/Blood Disorder: No (11/21/2016 04:15:Rosy Valdovinos) Gen Hx Muscular Dystrophy: No (11/21/2016 04:15:Rosy Valdovinos) Gen Hx Cystic Fibrosis: No (11/21/2016 04:15:Rosy Valdovinos) Gen Hx [place] Chorea: No (11/21/2016 04:15:Rosy Valdovinos) Gen Hx Mental Retardation/Autism: No (11/21/2016 04:15:Rosy Valdovinos) Gen Hx Tested for Fragile X: No (11/21/2016 04:15:Rosy Valdovinos) Gen Hx Other Inher/Chromosomal: No (11/21/2016 04:15:Rosy Valdovinos) Gen Hx Maternal Metabolic DO: No (11/21/2016 04:15:Rosy Valdovinos) Gen Hx Pt Father or FOB Defect: No (11/21/2016 04:15:Rosy Valdovinos) Gen Hx Other Genetic History: No (11/21/2016 04:15:Rosy Valdovinos) Gen Hx Drugs/Meds since LMP: No (11/21/2016 04:15:Rosy Valdovinos)
--- NOTE | 2016-11-24 18:02 | L&D General Admission ---
General Admit Datetime Report Generated by CPN: 11/24/2016 18:00 INFORMATION Patient Age: 26 (10/08/2016 10:16:QS system process) EDC: 11/20/2016 00:00 (11/21/2016 04:15:Cristina Nascimento RN) EDC per Ultrasound: 11/20/2016 00:00 (11/21/2016 04:15:Cristina Nascimento RN) : 5 (11/21/2016 04:15:Cristina Nascimento RN) Para: 2 (11/21/2016 04:15:Cristina Nascimento RN) Term: 2 (11/21/2016 04:15:Cristina Nascimento RN) Spontaneous Abortions: 2 (11/21/2016 04:15:Cristina Nascimento RN) Livin (11/21/2016 04:15:Cristina Nascimento RN) Cesareans: 0 (11/21/2016 04:15:Cristina Nascimento RN) CARE Primary Front End Assistant: [facility] (11/21/2016 04:15:Rosy Valdovinos) Adequate Care: Yes (11/21/2016 04:15:Cristina Azam, RN) Height (in): 67 (11/22/2016 15:30:QS system process) ALLERGIES Medication Allergy: No (11/21/2016 04:15:Rosy Valdovinos) Medication Allergies: No Known Allergies (02/16/2013) (10/08/2016 10:16:QS system process) Latex Allergy: No Latex Allergies (11/21/2016 04:15:Rosy Valdovinos) Food Allergies: none (11/21/2016 04:15:Rosy Valdovinos) Environmental Allergies: none (11/21/2016 04:15:Rosy Valdovinos) COMMUNICATION Primary Language: Monegasque (11/21/2016 04:15:Rosy Valdovinos) Medical Tx Preferred Language: Monegasque (11/21/2016 04:15:Rosyabhilash Valdovinos) DEMOGRAPHICS Address: [address] [place] [phone] (10/08/2016 10:16:QS system process) Zipcode: [phone] (10/08/2016 10:16:QS system process) Home (10/08/2016 10:16:QS system process) SSN: [id number] (10/08/2016 10:16:QS system process) Next of Kin Name: JANETH MCMILLAN (10/08/2016 10:16:QS system process) Next of Kin (10/08/2016 10:16:QS system process) Next of Kin Relationship: SPO (10/08/2016 10:16:QS system process) Date of : 1990 (10/08/2016 10:16:QS system process) Marital Status: (10/08/2016 10:16:QS system process) Sex: Female (10/08/2016 10:16:QS system process) Race: (10/08/2016 10:16:QS system process) Ethnicity: Non- or (10/08/2016 10:16:QS system process) Judaism: Pentecostal (10/08/2016 10:16:QS system process) DRUG AND ALCOHOL USE Alcohol: No (11/21/2016 04:15:Rosy Valdovinos) Cigarettes: Never Smoker. [id number] (11/21/2016 04:15:Rosy Valdovinos) Marijuana: No (11/21/2016 04:15:Rosy Valdovinos) Cocaine: No (11/21/2016 04:15:Rosy Valdovinos) Other Illicit Drugs: No (11/21/2016 04:15:Rosy Valdovinos) VACCINE HISTORY Influenza Vaccine: Yes (11/21/2016 04:15:Rosy Valdovinos) Influenza Date: 2016 (11/21/2016 04:15:Rosy Valdovinos) Tdap Vaccine: Yes (11/21/2016 04:15:Rosy Valdovinos) Tdap Date: 2016 (11/21/2016 04:15:Rosy Valdovinos) Certified Solid Waste Facility Operator: [facility] (11/21/2016 04:15:Rosy Valdovinos) Feeding Preference: Breast (11/21/2016 04:15:Rosy Valdovinos) Benefit of Breast Feed Discussed: Yes (11/21/2016 04:15:Viry Dickey RN) Circumcision: N/A (11/21/2016 04:15:Rosy Valdovinos) Classes Attended: No (11/21/2016 04:15:Rosy Valdovinos) Tubal Ligation: No (11/21/2016 04:15:Rosy Valdovinos) Tubal Authorization Signed: N/A (11/21/2016 04:15:Rosy Valdovinos) Consent: N/A (11/21/2016 04:15:Rosy Valdovinos) Consent Signed: N/A (11/21/2016 04:15:Rosy Valdovinos) Pain Management Plans: Epidural (11/21/2016 04:15:Rosy Valdovinos) Plans for Labor and Delivery: None (11/21/2016 04:15:Rosy Valdovinos) Support Person: Janeth (11/21/2016 04:15:Rosy Valdovinos) Support Person Relationship: (11/21/2016 04:15:Rosy Valdovinos) Cultural/Spritual Practice: N/A (11/21/2016 04:15:Rosy Valdovinos) Spir/Cult Dietary Needs: N/A (11/21/2016 04:15:Rosy Valdovinos) LIVING SITUATION/DISCHARGE PLAN Living Arrangements: House (11/21/2016 04:15:Rosy Valdovinos) Adequate Access to:: Electric; Heat; Refrigeration; Plumbing/Running water; Phone; Transportation (11/21/2016 04:15:Rosy Valdovinos) WIC Program: Yes (11/21/2016 04:15:Rosy Valdovinos) Discharge Plant Operator Person: janeth- (11/21/2016 04:15:Rosy Vadlovinos) Person to Help after Discharge: janeth- (11/21/2016 04:15:Rosy Valdovinos) Currently Using Commun Resources: Yes (11/21/2016 04:15:Rosy Valdovinos) Specify Current Resource Used: medicaid (11/21/2016 04:15:Rosy Valdovinos) Outside Agency/Harp Action Assembler: No (11/21/2016 04:15:Rosy Valdovinos) Car Seat for Discharge: Yes (11/21/2016 04:15:Rosy Valdovinos) Adoption Requested: No (11/21/2016 04:15:Rosy Valdovinos) Pt Contact w/ Post : N/A (11/21/2016 04:15:Rosy Valdovinos) LABS Blood Type: O Positive (11/21/2016 04:15:Cristina Nascimento RN) Hemoglobin: 11.1 L (11/22/2016 07:14:QS system process) Hematocrit: 33.0 L (11/22/2016 07:14:QS system process) MCV: 76 L (11/22/2016 07:14:QS system process) Group Beta Strep: negative (11/21/2016 04:15:Viry Dickey RN) RPR/VDRL: Nonreactive (11/21/2016 04:15:Cristina Nascimento RN) HIV Exposure Test: Negative (11/21/2016 04:15:Cristina Nascimento RN) Hepatitis B: Negative (11/21/2016 04:15:Cristina Nascimento RN) Rubella: POSITIVE NEGATIVE IF LESS THAN OR EQUAL TO 9.99 IU/mL POSITIVE IF GREATER THAN OR EQUAL TO 10.0 IU/mL (11/21/2016 05:50:QS system process) Rubella Titer: 41.30 (11/21/2016 05:50:QS system process) Varicella: Non Susceptible (11/21/2016 04:15:Cristina Nascimento RN) OB/PREVIOUS HISTORY Previous Procedures: Ultrasound; NST (11/21/2016 04:15:Rosy Valdovinos) Current Procedures: Ultrasound; NST (11/21/2016 04:15:Rosy Valdovinos) History of Previous : No (11/21/2016 04:15:Rosy Valdovinos) History of Gestational Diabetes: No (11/21/2016 04:15:Rosy Valdovinos) History of PIH: No (11/21/2016 04:15:Rosy Valdovinos) History of Incompetent Cervix: No (11/21/2016 04:15:Rosy Valdovinos) History of Placenta Previa/Abrup: No (11/21/2016 04:15:Rosy Valdovinos) History of Macrosomia: No (11/21/2016 04:15:Rosy Valdovinos) History of IUGR: No (11/21/2016 04:15:Rosy Valdovinos) History of Hemorrhage: No (11/21/2016 04:15:Rosy Valdovinos) History of Loss/Stillborn: No (11/21/2016 04:15:Rosy Valdovinos) History of : No (11/21/2016 04:15:Rosy Valdovinos) History of D (Rh) Sensitization: No (11/21/2016 04:15:Rosy Valdovinos) History Recurrent Loss/Stillborn: No (11/21/2016 04:15:Rosy Valdovinos) History Depression/PP Depression: No (11/21/2016 04:15:Rosy Valdovinos) History of Uterine Anomaly/GAVIOTA: No (11/21/2016 04:15:Rosy Valdovinos) History of Infertility: No (11/21/2016 04:15:Rosy Valdovinos) History of ART Treatment: No (11/21/2016 04:15:Rosy Valdovinos) History of GAVIOTA: No (11/21/2016 04:15:Rosy Valdovinos) MEDICAL HISTORY Med Hx Diabetes: No (11/21/2016 04:15:Rosy Valdovinos) Med Hx Hypertension: No (11/21/2016 04:15:Rosy Valdovinos) Med Hx Heart Disease: No (11/21/2016 04:15:Rosy Valdovinos) Med Hx Autoimmune Disorder: No (11/21/2016 04:15:Rosy Valdovinos) Med Hx Kidney Disease/UTI: No (11/21/2016 04:15:Rosy Valdovinos) Med Hx Neurologic/Epilepsy: No (11/21/2016 04:15:Rosy Valdovinos) Med Hx Psychiatric Disorders: No (11/21/2016 04:15:Rosy Valdovinos) Med Hx Hepatitis/Liver Disease: No (11/21/2016 04:15:Rosy Valdovinos) Med Hx Varicosities/Phlebitis: No (11/21/2016 04:15:Rosy Valdovinos) Med Hx Thyroid Dysfunction: No (11/21/2016 04:15:Rosy Valdovinos) Med Hx Trauma/Violence: No (11/21/2016 04:15:Rosy Valdovinos) Med Hx Blood Transfusion: No (11/21/2016 04:15:Rosy Valdovinos) Med Hx Pulmonary (Asthma,TB): No (11/21/2016 04:15:Rosy Valdovinos) Med Hx Breast: No (11/21/2016 04:15:Rosy Valdovinos) Med Hx SOFTWARE LICENSING SPECIALIST Surgery: No (11/21/2016 04:15:Rosy Valdovinos) Med Hx Hospitalization/Surgery: No (11/21/2016 04:15:Rosy Valdovinos) Med Hx Anesthetic Complications: No (11/21/2016 04:15:Rosy Valdovinos) Med Hx Abnormal Pap Smear: No (11/21/2016 04:15:Rosy Valdovinos) Other Medical Diseases: No (11/21/2016 04:15:Rosy Valdovinos) Med Hx Significant Family Hx: No (11/21/2016 04:15:Rosy Valdovinos) Details of Med/Surg Hx: benign lump left breast-2009 depresasion-no suicidal thoughts (11/21/2016 04:15:Cristina Nascimento RN) INFECTIOUS HISTORY Inf Hx Gonorrhea: No (11/21/2016 04:15:Rosy Valdovinos) Inf Hx Chlamydia: No (11/21/2016 04:15:Rosy Valdovinos) Inf Hx Syphilis: No (11/21/2016 04:15:Rosy Valdovinos) Inf Hx HIV/AIDS: No (11/21/2016 04:15:Rosy Valdovinos) Inf Hx Human Papilloma Virus: No (11/21/2016 04:15:Rosy Valdovinos) Inf Hx Pt/Partner Genital Herpes: No (11/21/2016 04:15:Rosy Valdovinos) Inf Hx Tuberculosis/Exposure: No (11/21/2016 04:15:Rosy Valdovinos) Inf Hx Hepatitis B,C: No (11/21/2016 04:15:Rosy Valdovinos) Inf Hx Rash or Viral Illness: No (11/21/2016 04:15:Rosy Valdovinos) GENETIC HISTORY Gen Hx Age >=35 at TYRELL: No (11/21/2016 04:15:Rosy Valdovinos) Gen Hx Thalassemia: No (11/21/2016 04:15:Rosy Valdovinos) Gen Hx Congenital Heart Defect: No (11/21/2016 04:15:Rosy Valdovinos) Gen Hx Neural Tube Defect: No (11/21/2016 04:15:Rosy Valdovinos) Gen Hx Down's Syndrome: No (11/21/2016 04:15:Rosy Valdovinos) Gen Hx Jt-Sachs: No (11/21/2016 04:15:Rosy Valdovinos) Gen Hx Otto: No (11/21/2016 04:15:Rosy Valdovinos) Gen Hx Familial Dysautonomia: No (11/21/2016 04:15:Rosy Valdovinos) Gen Hx Sickle Cell Disease/Trait: No (11/21/2016 04:15:Rosy Valdovinos) Gen Hx Hemophilia/Blood Disorder: No (11/21/2016 04:15:Rosy Valdovinos) Gen Hx Muscular Dystrophy: No (11/21/2016 04:15:Rosy Valdovinos) Gen Hx Cystic Fibrosis: No (11/21/2016 04:15:Rosy Valdovinos) Gen Hx [place] Chorea: No (11/21/2016 04:15:Rosy Valdovinos) Gen Hx Mental Retardation/Autism: No (11/21/2016 04:15:Rosy Valdovinos) Gen Hx Tested for Fragile X: No (11/21/2016 04:15:Rosy Valdovinos) Gen Hx Other Inher/Chromosomal: No (11/21/2016 04:15:Rosy Valdovinos) Gen Hx Maternal Metabolic DO: No (11/21/2016 04:15:Rosy Valdovinos) Gen Hx Pt Father or FOB Defect: No (11/21/2016 04:15:Rosy Valdovinos) Gen Hx Other Genetic History: No (11/21/2016 04:15:Rosy Valdovinos) Gen Hx Drugs/Meds since LMP: No (11/21/2016 04:15:Rosy Valdovinos)
--- NOTE | 2016-11-24 20:20 | L&D General Admission ---
General Admit Datetime Report Generated by CPN: 11/24/2016 20:20 INFORMATION Patient Age: 26 (10/08/2016 10:16:QS system process) EDC: 11/20/2016 00:00 (11/21/2016 04:15:Cristina Nascimento RN) EDC per Ultrasound: 11/20/2016 00:00 (11/21/2016 04:15:Cristina Nascimento RN) : 5 (11/21/2016 04:15:Cristina Nascimento RN) Para: 2 (11/21/2016 04:15:Cristina Nascimento RN) Term: 2 (11/21/2016 04:15:Cristina Nascimento RN) Spontaneous Abortions: 2 (11/21/2016 04:15:Cristina Nascimento RN) Livin (11/21/2016 04:15:Cristina Nascimento RN) Cesareans: 0 (11/21/2016 04:15:Cristina Nascimento RN) CARE Primary Ship'S Carpenter: [facility] (11/21/2016 04:15:Rosy Valdovinos) Adequate Care: Yes (11/21/2016 04:15:Cristina Azam, RN) Height (in): 67 (11/22/2016 15:30:QS system process) ALLERGIES Medication Allergy: No (11/21/2016 04:15:Rosy Valdovinos) Medication Allergies: No Known Allergies (02/16/2013) (10/08/2016 10:16:QS system process) Latex Allergy: No Latex Allergies (11/21/2016 04:15:Rosy Valdovinos) Food Allergies: none (11/21/2016 04:15:Rosy Valdovinos) Environmental Allergies: none (11/21/2016 04:15:Rosy Valdovinos) COMMUNICATION Primary Language: Tongan (11/21/2016 04:15:Rosy Valdovinos) Medical Tx Preferred Language: Tongan (11/21/2016 04:15:Rosyabhilash Valdovinos) DEMOGRAPHICS Address: [address] [place] [id number] (10/08/2016 10:16:QS system process) Zipcode: [phone] (10/08/2016 10:16:QS system process) Home (10/08/2016 10:16:QS system process) SSN: [id number] (10/08/2016 10:16:QS system process) Next of Kin Name: JANETH MCMILLAN (10/08/2016 10:16:QS system process) Next of Kin (10/08/2016 10:16:QS system process) Next of Kin Relationship: SPO (10/08/2016 10:16:QS system process) Date of : 1990 (10/08/2016 10:16:QS system process) Marital Status: (10/08/2016 10:16:QS system process) Sex: Female (10/08/2016 10:16:QS system process) Race: (10/08/2016 10:16:QS system process) Ethnicity: Non- or (10/08/2016 10:16:QS system process) Advent: Tenriism (10/08/2016 10:16:QS system process) DRUG AND ALCOHOL USE Alcohol: No (11/21/2016 04:15:Rosy Valdovinos) Cigarettes: Never Smoker. [id number] (11/21/2016 04:15:Rosy Valdovinos) Marijuana: No (11/21/2016 04:15:Rosy Valdovinos) Cocaine: No (11/21/2016 04:15:Rosy Valdovinos) Other Illicit Drugs: No (11/21/2016 04:15:Rosy Valdovinos) VACCINE HISTORY Influenza Vaccine: Yes (11/21/2016 04:15:Rosy Valdovinos) Influenza Date: 2016 (11/21/2016 04:15:Rosy Valdovinos) Tdap Vaccine: Yes (11/21/2016 04:15:Rosy Valdovinos) Tdap Date: 2016 (11/21/2016 04:15:Rosy Valdovinos) Water Technician: [facility] (11/21/2016 04:15:Rosy Valdovinos) Feeding Preference: Breast (11/21/2016 04:15:Rosy Valdovinos) Benefit of Breast Feed Discussed: Yes (11/21/2016 04:15:Viry Dickey RN) Circumcision: N/A (11/21/2016 04:15:Rosy Valdovinos) Classes Attended: No (11/21/2016 04:15:Rosy Valdovinos) Tubal Ligation: No (11/21/2016 04:15:Rosy Valdovinos) Tubal Authorization Signed: N/A (11/21/2016 04:15:Rosy Valdovinos) Consent: N/A (11/21/2016 04:15:Rosy Valdovinos) Consent Signed: N/A (11/21/2016 04:15:Rosy Valdovinos) Pain Management Plans: Epidural (11/21/2016 04:15:Rosy Valdovinos) Plans for Labor and Delivery: None (11/21/2016 04:15:Rosy Valdovinos) Support Person: Janeth (11/21/2016 04:15:Rosy Valdovinos) Support Person Relationship: (11/21/2016 04:15:Rosy Valdovinos) Cultural/Spritual Practice: N/A (11/21/2016 04:15:Rosy Valdovinos) Spir/Cult Dietary Needs: N/A (11/21/2016 04:15:Rosy Valdovinos) LIVING SITUATION/DISCHARGE PLAN Living Arrangements: House (11/21/2016 04:15:Rosy Valdovinos) Adequate Access to:: Electric; Heat; Refrigeration; Plumbing/Running water; Phone; Transportation (11/21/2016 04:15:Rosy Valdovinos) WIC Program: Yes (11/21/2016 04:15:Rosy Valdovinos) Discharge Band Cutting 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: janeth- (11/21/2016 04:15:Rosy Valdovinos) Person to Help after Discharge: janeth- (11/21/2016 04:15:Rosy Valdovinos) Currently Using Commun Resources: Yes (11/21/2016 04:15:Rosy Valdovinos) Specify Current Resource Used: medicaid (11/21/2016 04:15:Rosy Valdovinos) Outside Agency/Cut In Worker: No (11/21/2016 04:15:Rosy Valdovinos) Car Seat for Discharge: Yes (11/21/2016 04:15:Rosy Valdovinos) Adoption Requested: No (11/21/2016 04:15:Rosy Valdovinos) Pt Contact w/ Post : N/A (11/21/2016 04:15:Rosy Valdovinos) LABS Blood Type: O Positive (11/21/2016 04:15:Cristina Nascimento RN) Hemoglobin: 11.1 L (11/22/2016 07:14:QS system process) Hematocrit: 33.0 L (11/22/2016 07:14:QS system process) MCV: 76 L (11/22/2016 07:14:QS system process) Group Beta Strep: negative (11/21/2016 04:15:Viry Dickey RN) RPR/VDRL: Nonreactive (11/21/2016 04:15:Cristina Nascimento RN) HIV Exposure Test: Negative (11/21/2016 04:15:Cristina Nascimento RN) Hepatitis B: Negative (11/21/2016 04:15:Cristina Nascimento RN) Rubella: POSITIVE NEGATIVE IF LESS THAN OR EQUAL TO 9.99 IU/mL POSITIVE IF GREATER THAN OR EQUAL TO 10.0 IU/mL (11/21/2016 05:50:QS system process) Rubella Titer: 41.30 (11/21/2016 05:50:QS system process) Varicella: Non Susceptible (11/21/2016 04:15:Cristina Nascimento RN) OB/PREVIOUS HISTORY Previous Procedures: Ultrasound; NST (11/21/2016 04:15:Rosy Valdovinos) Current Procedures: Ultrasound; NST (11/21/2016 04:15:Rosy Valdovinos) History of Previous : No (11/21/2016 04:15:Rosy Valdovinos) History of Gestational Diabetes: No (11/21/2016 04:15:Rosy Valdovinos) History of PIH: No (11/21/2016 04:15:Rosy Valdovinos) History of Incompetent Cervix: No (11/21/2016 04:15:Rosy Valdovinos) History of Placenta Previa/Abrup: No (11/21/2016 04:15:Rosy Valdovinos) History of Macrosomia: No (11/21/2016 04:15:Rosy Valdovinos) History of IUGR: No (11/21/2016 04:15:Rosy Valdovinos) History of Hemorrhage: No (11/21/2016 04:15:Rosy Valdovinos) History of Loss/Stillborn: No (11/21/2016 04:15:Rosy Valdovinos) History of : No (11/21/2016 04:15:Rosy Valdovinos) History of D (Rh) Sensitization: No (11/21/2016 04:15:Rosy Valdovinos) History Recurrent Loss/Stillborn: No (11/21/2016 04:15:Rosy Valdovinos) History Depression/PP Depression: No (11/21/2016 04:15:Rosy Valdovinos) History of Uterine Anomaly/GAVIOTA: No (11/21/2016 04:15:Rosy Valdovinos) History of Infertility: No (11/21/2016 04:15:Rsoy Valdovinos) History of ART Treatment: No (11/21/2016 04:15:Rosy Valdovinos) History of GAVIOTA: No (11/21/2016 04:15:Rosy Valdovinos) MEDICAL HISTORY Med Hx Diabetes: No (11/21/2016 04:15:Rosy Valdovinos) Med Hx Hypertension: No (11/21/2016 04:15:Rosy Valdovinos) Med Hx Heart Disease: No (11/21/2016 04:15:Rosy Valdovinos) Med Hx Autoimmune Disorder: No (11/21/2016 04:15:Rosy Valdovinos) Med Hx Kidney Disease/UTI: No (11/21/2016 04:15:Rosy Valdovinos) Med Hx Neurologic/Epilepsy: No (11/21/2016 04:15:Rosy Valdovinos) Med Hx Psychiatric Disorders: No (11/21/2016 04:15:Rosy Valdovinos) Med Hx Hepatitis/Liver Disease: No (11/21/2016 04:15:Rosy Valdovinos) Med Hx Varicosities/Phlebitis: No (11/21/2016 04:15:Rosy Valdovions) Med Hx Thyroid Dysfunction: No (11/21/2016 04:15:Rosy Valdovinos) Med Hx Trauma/Violence: No (11/21/2016 04:15:Rosy Valdovinos) Med Hx Blood Transfusion: No (11/21/2016 04:15:Rosy Valdovinos) Med Hx Pulmonary (Asthma,TB): No (11/21/2016 04:15:Rosy Valdovinos) Med Hx Breast: No (11/21/2016 04:15:Rosy Valdovinos) Med Hx REPACK ROOM WORKER Surgery: No (11/21/2016 04:15:Rosy Valdovinos) Med Hx Hospitalization/Surgery: No (11/21/2016 04:15:Rosy Valdovinos) Med Hx Anesthetic Complications: No (11/21/2016 04:15:Rosy Valdovinos) Med Hx Abnormal Pap Smear: No (11/21/2016 04:15:Rosy Valdovinos) Other Medical Diseases: No (11/21/2016 04:15:Rosy Valdovinos) Med Hx Significant Family Hx: No (11/21/2016 04:15:Rosy Valdovinos) Details of Med/Surg Hx: benign lump left breast-2009 depresasion-no suicidal thoughts (11/21/2016 04:15:Cristina Nascimento RN) INFECTIOUS HISTORY Inf Hx Gonorrhea: No (11/21/2016 04:15:Rosy Valdovinos) Inf Hx Chlamydia: No (11/21/2016 04:15:Rosy Valdovinos) Inf Hx Syphilis: No (11/21/2016 04:15:Rosy Valdovinos) Inf Hx HIV/AIDS: No (11/21/2016 04:15:Rosy Valdovinos) Inf Hx Human Papilloma Virus: No (11/21/2016 04:15:Rosy Valdovinos) Inf Hx Pt/Partner Genital Herpes: No (11/21/2016 04:15:Rosy Valdovinos) Inf Hx Tuberculosis/Exposure: No (11/21/2016 04:15:Rosy Valdovinos) Inf Hx Hepatitis B,C: No (11/21/2016 04:15:Rosy Valdovinos) Inf Hx Rash or Viral Illness: No (11/21/2016 04:15:Rosy Valdovinos) GENETIC HISTORY Gen Hx Age >=35 at TYRELL: No (11/21/2016 04:15:Rosy Valdovinos) Gen Hx Thalassemia: No (11/21/2016 04:15:Rosy Valdovinos) Gen Hx Congenital Heart Defect: No (11/21/2016 04:15:Rosy Valdovinos) Gen Hx Neural Tube Defect: No (11/21/2016 04:15:Rosy Valdovinos) Gen Hx Down's Syndrome: No (11/21/2016 04:15:Rosy Valdovinos) Gen Hx Jt-Sachs: No (11/21/2016 04:15:Rosy Valdovinos) Gen Hx Otto: No (11/21/2016 04:15:Rosy Valdovinos) Gen Hx Familial Dysautonomia: No (11/21/2016 04:15:Rosy Valdovinos) Gen Hx Sickle Cell Disease/Trait: No (11/21/2016 04:15:Rosy Valdovinos) Gen Hx Hemophilia/Blood Disorder: No (11/21/2016 04:15:Rosy Valdovinos) Gen Hx Muscular Dystrophy: No (11/21/2016 04:15:Rosy Valdovinos) Gen Hx Cystic Fibrosis: No (11/21/2016 04:15:Rosy Valdovinos) Gen Hx [place] Chorea: No (11/21/2016 04:15:Rsoy Valdovinos) Gen Hx Mental Retardation/Autism: No (11/21/2016 04:15:Rosy Valdovinos) Gen Hx Tested for Fragile X: No (11/21/2016 04:15:Rosy Valdovinos) Gen Hx Other Inher/Chromosomal: No (11/21/2016 04:15:Rosy Valdovinos) Gen Hx Maternal Metabolic DO: No (11/21/2016 04:15:Rosy Valdovinos) Gen Hx Pt Father or FOB Defect: No (11/21/2016 04:15:Rosy Valdovinos) Gen Hx Other Genetic History: No (11/21/2016 04:15:Rosy Valdovinos) Gen Hx Drugs/Meds since LMP: No (11/21/2016 04:15:Rosy Valdovinos)
--- NOTE | 2016-11-24 20:20 | Delivery Summary ---
Del Sum A-C Datetime Report Generated by CPN: 11/24/2016 20:20 DELIVERY PERSONNEL DELIVERY PERSONNEL: [id number] Delivery Doctor:: Divina Ferguson MD Labor and Delivery Nurse:: Rosy Valdovinos RN Nursery Nurse:: TYLOR Mcadams Tech/VOICE WRITING REPORTER: Helen Pope VOICE WRITING REPORTER MATERNAL INFORMATION Delivery Anesthesia: None Medications After Delivery: Pitocin Bolus-Please Comment Meds After Delivery Comment: Pitocin 20 units/1000 ml NS following placenta Estimated Blood Loss (ml): 250 Maternal Complications: Precipitous Labor (<3hrs) Provider Comments: Placenta delivered intact with 3vc LABOR SUMMARY EDC: 11/20/2016 00:00 Attempted: No Labor Anesthesia: None LABOR INFORMATION Reason for Induction: Not Applicable Onset of Labor: 11/21/2016 03:00 Complete Dilatation: 11/21/2016 04:42 Oxytocin: N/A Group B Beta Strep: negative Antibiotics # of Doses: 0 Antibiotics Time of Last Dose: n/a Steroids Given: None Reason Steroids Not Administered: Not Applicable MEMBRANES Membranes Rupture Method: Artificial Rupture of Membranes: 11/21/2016 04:45 Length of Rupture (hr): 0.18 Amniotic Fluid Color: Clear Amniotic Fluid Amount: Moderate Amniotic Fluid Odor: Normal STAGES OF LABOR Stage 1 hr: 1 Stage 1 min: 42 Stage 2 hr: 0 Stage 2 min: 14 Stage 3 hr: 0 Stage 3 min: 4 Total Time in Labor hr: 2 Total Time in Labor min: 0 VAGINAL DELIVERY Episiotomy: None Laceration Extension: First Degree Laceration Type: Perineal Laceration Repair: Yes Laceration Repair Note: one 3-0 chromic suture placed Sponge Count Correct: N/A Sharps Count Correct: N/A CSECTION DELIVERY Primary Indication: N/A Secondary Indication: N/A CSection Incidence: N/A Labor: N/A Elective: N/A CSection Incision: N/A BABY A INFORMATION Delivery Date/Time: 11/21/2016 04:56 Method of Delivery: Vaginal Born in Route : No : N/A Forceps: N/A Vacuum Extraction: N/A Shoulder Dystocia : No PRESENTATION/POSITION BABY A Presentation: Cephalic Cephalic Presentation: Vertex Vertex Position: Left Occipital Anterior Breech Presentation: N/A PLACENTA INFORMATION BABY A Placenta Delivery Time : 11/21/2016 05:00 Placenta Method of Delivery: Spontaneous Placenta Status: Delivered SCORES BABY A Heart Rate 1 min: >100 bpm Resp Effort 1 min: Slow, Irregular Reflex Irritability 1 min: Cough or Sneeze or Pulls Away Muscle Tone 1 min: Active Motion Color 1 min: Body [place], Extremities Blue SCORE 1 MIN: 8 Heart Rate 5 min: >100 bpm Resp Effort 5 min: Good Cry Reflex Irritability 5 min: Cough or Sneeze or Pulls Away Muscle Tone 5 min: Active Motion Color 5 min: Body [place], Extremities Blue SCORE 5 MIN: 9 INFANT INFORMATION BABY A Gestational Age at Delivery: 40.1 Gestational Status: Full Term- 39- 40.6 Weeks Outcome : Liveborn Condition : Stable Infant Sex: Female IDENTIFICATION BABY A Verification Date/Time: 11/21/2016 05:49 ID Band Number: [id number] Mother's Name Verified: Yes Infant RN Verifying : A Valdovinos Rn Additional Verifying Personnel: Simply Measured Rn WEIGHT/LENGTH BABY A Birthweight (gm): 3490 Weight (lb): 7 Weight (oz): 11 Infant Length (in): 20.00 Infant Length (cm): 50.80 CORD INFORMATION BABY A No. Cord Vessels: 3 [place]uchal Cord : N/A Cord Blood Taken: Yes-For Eval (Mom's Blood Type - or O+) Suction: Mouth; Nose ASSESSMENT BABY A Complications: None Physical Findings at Delivery: Within Normal Limits Infant Respirations: Appears Normal Skin to Skin: Yes Skin to Skin Time (min): 40 Skin Drier/ALS Called : No Care By: Ena Campa RN Transferred To: Remains with Mother SIGNATURES Signature: with User ID: [email or web address]
--- NOTE | 2016-11-24 20:23 | L&D General Admission ---
General Admit Datetime Report Generated by CPN: 11/24/2016 20:20 INFORMATION Patient Age: 26 (10/08/2016 10:16:QS system process) EDC: 11/20/2016 00:00 (11/21/2016 04:15:Cristina Nascimento RN) EDC per Ultrasound: 11/20/2016 00:00 (11/21/2016 04:15:Cristina Nascimento RN) : 5 (11/21/2016 04:15:Cristina Nascimento RN) Para: 2 (11/21/2016 04:15:Cristina Nascimento RN) Term: 2 (11/21/2016 04:15:Cristina Nascimento RN) Spontaneous Abortions: 2 (11/21/2016 04:15:Cristina Nascimento RN) Livin (11/21/2016 04:15:Cristina Nascimento RN) Cesareans: 0 (11/21/2016 04:15:Cristina Nascimento RN) CARE Primary Sewing Machine Operator Paper Bags: [facility] (11/21/2016 04:15:Rosy Valdovinos) Adequate Care: Yes (11/21/2016 04:15:Cristina Azam, RN) Height (in): 67 (11/22/2016 15:30:QS system process) ALLERGIES Medication Allergy: No (11/21/2016 04:15:Rosy Valdovinos) Medication Allergies: No Known Allergies (02/16/2013) (10/08/2016 10:16:QS system process) Latex Allergy: No Latex Allergies (11/21/2016 04:15:Rosy Valdovinos) Food Allergies: none (11/21/2016 04:15:Rosy Valdovinos) Environmental Allergies: none (11/21/2016 04:15:Rosy Valdovinos) COMMUNICATION Primary Language: Norwegian (11/21/2016 04:15:Rosy Valdovinos) Medical Tx Preferred Language: Norwegian (11/21/2016 04:15:Rosyabhilash Valdovinos) DEMOGRAPHICS Address: [address] [place] [phone] (10/08/2016 10:16:QS system process) Zipcode: [address] (10/08/2016 10:16:QS system process) Home (10/08/2016 10:16:QS system process) SSN: [id number] (10/08/2016 10:16:QS system process) Next of Kin Name: JANETH MCMILLAN (10/08/2016 10:16:QS system process) Next of Kin (10/08/2016 10:16:QS system process) Next of Kin Relationship: SPO (10/08/2016 10:16:QS system process) Date of : 1990 (10/08/2016 10:16:QS system process) Marital Status: (10/08/2016 10:16:QS system process) Sex: Female (10/08/2016 10:16:QS system process) Race: (10/08/2016 10:16:QS system process) Ethnicity: Non- or (10/08/2016 10:16:QS system process) Jainism: Amish (10/08/2016 10:16:QS system process) DRUG AND ALCOHOL USE Alcohol: No (11/21/2016 04:15:Rosy Valdovinos) Cigarettes: Never Smoker. [id number] (11/21/2016 04:15:Rosy Valdovinos) Marijuana: No (11/21/2016 04:15:Rosy Valdovinos) Cocaine: No (11/21/2016 04:15:Rosy Valdovinos) Other Illicit Drugs: No (11/21/2016 04:15:Rosy Valdovinos) VACCINE HISTORY Influenza Vaccine: Yes (11/21/2016 04:15:Rosy Valdovinos) Influenza Date: 2016 (11/21/2016 04:15:Rosy Valdovinos) Tdap Vaccine: Yes (11/21/2016 04:15:Rosy Valdovinos) Tdap Date: 2016 (11/21/2016 04:15:Rosy Valdovinos) Grounds Maintenance Manager: [facility] (11/21/2016 04:15:Rosy Valdovinos) Feeding Preference: Breast (11/21/2016 04:15:Rosy Valdovinos) Benefit of Breast Feed Discussed: Yes (11/21/2016 04:15:Viry Dickey RN) Circumcision: N/A (11/21/2016 04:15:Rosy Valdovinos) Classes Attended: No (11/21/2016 04:15:Rosy Valdovinos) Tubal Ligation: No (11/21/2016 04:15:Rosy Valdovinos) Tubal Authorization Signed: N/A (11/21/2016 04:15:Rosy Valdovinos) Consent: N/A (11/21/2016 04:15:Rosy Valdovinos) Consent Signed: N/A (11/21/2016 04:15:Rosy Valdovinos) Pain Management Plans: Epidural (11/21/2016 04:15:Rosy Valdovinos) Plans for Labor and Delivery: None (11/21/2016 04:15:Rosy Valdovinos) Support Person: Janeth (11/21/2016 04:15:Rosy Valdovinos) Support Person Relationship: (11/21/2016 04:15:Rosy Valdovinos) Cultural/Spritual Practice: N/A (11/21/2016 04:15:Rosy Valdovinos) Spir/Cult Dietary Needs: N/A (11/21/2016 04:15:Rosy Valdovinos) LIVING SITUATION/DISCHARGE PLAN Living Arrangements: House (11/21/2016 04:15:Rosy Valdovinos) Adequate Access to:: Electric; Heat; Refrigeration; Plumbing/Running water; Phone; Transportation (11/21/2016 04:15:Rosy Valdovinos) WIC Program: Yes (11/21/2016 04:15:Rosy Valdovinos) Discharge Quiller Hand Person: janeth- (11/21/2016 04:15:Rosy Valdovinos) Person to Help after Discharge: janeth- (11/21/2016 04:15:Rosy Valdovinos) Currently Using Commun Resources: Yes (11/21/2016 04:15:Rosy Valdovinos) Specify Current Resource Used: medicaid (11/21/2016 04:15:Rosy Valdovinos) Outside Agency/Physician'S Aide: No (11/21/2016 04:15:Rosy Valdovinos) Car Seat for Discharge: Yes (11/21/2016 04:15:Rosy Valdovinos) Adoption Requested: No (11/21/2016 04:15:Rosy Valdovinos) Pt Contact w/ Post : N/A (11/21/2016 04:15:Rosy Valdovinos) LABS Blood Type: O Positive (11/21/2016 04:15:Cristina Nascimento RN) Hemoglobin: 11.1 L (11/22/2016 07:14:QS system process) Hematocrit: 33.0 L (11/22/2016 07:14:QS system process) MCV: 76 L (11/22/2016 07:14:QS system process) Group Beta Strep: negative (11/21/2016 04:15:Viry Dickey RN) RPR/VDRL: Nonreactive (11/21/2016 04:15:Cristina Nascimento RN) HIV Exposure Test: Negative (11/21/2016 04:15:Cristina Nascimento RN) Hepatitis B: Negative (11/21/2016 04:15:Cristina Nascimento RN) Rubella: POSITIVE NEGATIVE IF LESS THAN OR EQUAL TO 9.99 IU/mL POSITIVE IF GREATER THAN OR EQUAL TO 10.0 IU/mL (11/21/2016 05:50:QS system process) Rubella Titer: 41.30 (11/21/2016 05:50:QS system process) Varicella: Non Susceptible (11/21/2016 04:15:Cristina Nascimento RN) OB/PREVIOUS HISTORY Previous Procedures: Ultrasound; NST (11/21/2016 04:15:Rosy Valdovinos) Current Procedures: Ultrasound; NST (11/21/2016 04:15:Rsoy Valdovinos) History of Previous : No (11/21/2016 04:15:Rosy Valdovinos) History of Gestational Diabetes: No (11/21/2016 04:15:Rosy Valdovinos) History of PIH: No (11/21/2016 04:15:Rosy Valdovinos) History of Incompetent Cervix: No (11/21/2016 04:15:Rosy Valdovinos) History of Placenta Previa/Abrup: No (11/21/2016 04:15:Rosy Valdovinos) History of Macrosomia: No (11/21/2016 04:15:Rosy Valdovinos) History of IUGR: No (11/21/2016 04:15:Rosy Valdovinos) History of Hemorrhage: No (11/21/2016 04:15:Rosy Valdovinos) History of Loss/Stillborn: No (11/21/2016 04:15:Rosy Valdovinos) History of : No (11/21/2016 04:15:Rosy Valdovinos) History of D (Rh) Sensitization: No (11/21/2016 04:15:Rosy Valdovinos) History Recurrent Loss/Stillborn: No (11/21/2016 04:15:Rosy Valdovinos) History Depression/PP Depression: No (11/21/2016 04:15:Rosy Valdovinos) History of Uterine Anomaly/GAVIOTA: No (11/21/2016 04:15:Rosy Valdovinos) History of Infertility: No (11/21/2016 04:15:Rosy Valdovinos) History of ART Treatment: No (11/21/2016 04:15:Rosy Valdovinos) History of GAVIOTA: No (11/21/2016 04:15:Rosy Valdovinos) MEDICAL HISTORY Med Hx Diabetes: No (11/21/2016 04:15:Rosy Valdovinos) Med Hx Hypertension: No (11/21/2016 04:15:Rosy Valdovinos) Med Hx Heart Disease: No (11/21/2016 04:15:Rosy Valdovinos) Med Hx Autoimmune Disorder: No (11/21/2016 04:15:Rosy Valdovinos) Med Hx Kidney Disease/UTI: No (11/21/2016 04:15:Rosy Valdovinos) Med Hx Neurologic/Epilepsy: No (11/21/2016 04:15:Rosy Valdovinos) Med Hx Psychiatric Disorders: No (11/21/2016 04:15:Rosy Valdovinos) Med Hx Hepatitis/Liver Disease: No (11/21/2016 04:15:Rosy Valdovinos) Med Hx Varicosities/Phlebitis: No (11/21/2016 04:15:Rosy Valdovinos) Med Hx Thyroid Dysfunction: No (11/21/2016 04:15:Rosy Valdovinos) Med Hx Trauma/Violence: No (11/21/2016 04:15:Rosy Valdovinos) Med Hx Blood Transfusion: No (11/21/2016 04:15:Rosy Valdovinos) Med Hx Pulmonary (Asthma,TB): No (11/21/2016 04:15:Rosy Valdovinos) Med Hx Breast: No (11/21/2016 04:15:Rosy Valdovinos) Med Hx DESK OPERATOR Surgery: No (11/21/2016 04:15:Rosy Valdovinos) Med Hx Hospitalization/Surgery: No (11/21/2016 04:15:Rosy Valdovinos) Med Hx Anesthetic Complications: No (11/21/2016 04:15:Rosy Valdovinos) Med Hx Abnormal Pap Smear: No (11/21/2016 04:15:Rosy Valdovinos) Other Medical Diseases: No (11/21/2016 04:15:Rosy Valdovinos) Med Hx Significant Family Hx: No (11/21/2016 04:15:Rosy Valdovinos) Details of Med/Surg Hx: benign lump left breast-2009 depresasion-no suicidal thoughts (11/21/2016 04:15:Cristina Nascimento RN) INFECTIOUS HISTORY Inf Hx Gonorrhea: No (11/21/2016 04:15:Rosy Valdovinos) Inf Hx Chlamydia: No (11/21/2016 04:15:Rosy Valdovinos) Inf Hx Syphilis: No (11/21/2016 04:15:Rosy Valdovinos) Inf Hx HIV/AIDS: No (11/21/2016 04:15:Rosy Valdovinos) Inf Hx Human Papilloma Virus: No (11/21/2016 04:15:Rosy Valdovinos) Inf Hx Pt/Partner Genital Herpes: No (11/21/2016 04:15:Rosy Valdovinos) Inf Hx Tuberculosis/Exposure: No (11/21/2016 04:15:Rosy Valdovinos) Inf Hx Hepatitis B,C: No (11/21/2016 04:15:Rosy Valdovinos) Inf Hx Rash or Viral Illness: No (11/21/2016 04:15:Rosy Valdovinos) GENETIC HISTORY Gen Hx Age >=35 at TYRELL: No (11/21/2016 04:15:Rosy Valdovinos) Gen Hx Thalassemia: No (11/21/2016 04:15:Rosy Valdovinos) Gen Hx Congenital Heart Defect: No (11/21/2016 04:15:Rosy Valdovinos) Gen Hx Neural Tube Defect: No (11/21/2016 04:15:Rosy Valdovinos) Gen Hx Down's Syndrome: No (11/21/2016 04:15:Rosy Valdovinos) Gen Hx Jt-Sachs: No (11/21/2016 04:15:Rosy Valdovinos) Gen Hx Otto: No (11/21/2016 04:15:Rosy Valdovinos) Gen Hx Familial Dysautonomia: No (11/21/2016 04:15:Rosy Valdovinos) Gen Hx Sickle Cell Disease/Trait: No (11/21/2016 04:15:Rosy Valdovinos) Gen Hx Hemophilia/Blood Disorder: No (11/21/2016 04:15:Rosy Valdovinos) Gen Hx Muscular Dystrophy: No (11/21/2016 04:15:Rosy Valdovinos) Gen Hx Cystic Fibrosis: No (11/21/2016 04:15:Rosy Valdovinos) Gen Hx [place] Chorea: No (11/21/2016 04:15:Rosy Valdovinos) Gen Hx Mental Retardation/Autism: No (11/21/2016 04:15:Rosy Valdovinos) Gen Hx Tested for Fragile X: No (11/21/2016 04:15:Rosy Valdovinos) Gen Hx Other Inher/Chromosomal: No (11/21/2016 04:15:Rosy Valdovinos) Gen Hx Maternal Metabolic DO: No (11/21/2016 04:15:Rosy Valdovinos) Gen Hx Pt Father or FOB Defect: No (11/21/2016 04:15:Rosy Valdovinos) Gen Hx Other Genetic History: No (11/21/2016 04:15:Rosy Valdovinos) Gen Hx Drugs/Meds since LMP: No (11/21/2016 04:15:Rosy Valdovinos)
--- NOTE | 2016-11-24 20:23 | Delivery Summary ---
Del Sum A-C Datetime Report Generated by CPN: 11/24/2016 20:20 DELIVERY PERSONNEL DELIVERY PERSONNEL: [phone];[id number] Delivery Doctor:: Divina Ferguson MD Labor and Delivery Nurse:: Rosy Valdovinos RN Nursery Nurse:: TYLOR Mcadams Tech/OIL BAY TECHNICIAN: Helen Pope OIL BAY TECHNICIAN MATERNAL INFORMATION Delivery Anesthesia: None Medications After Delivery: Pitocin Bolus-Please Comment Meds After Delivery Comment: Pitocin 20 units/1000 ml NS following placenta Estimated Blood Loss (ml): 250 Maternal Complications: Precipitous Labor (<3hrs) Provider Comments: Placenta delivered intact with 3vc LABOR SUMMARY EDC: 11/20/2016 00:00 Attempted: No Labor Anesthesia: None LABOR INFORMATION Reason for Induction: Not Applicable Onset of Labor: 11/21/2016 03:00 Complete Dilatation: 11/21/2016 04:42 Oxytocin: N/A Group B Beta Strep: negative Antibiotics # of Doses: 0 Antibiotics Time of Last Dose: n/a Steroids Given: None Reason Steroids Not Administered: Not Applicable MEMBRANES Membranes Rupture Method: Artificial Rupture of Membranes: 11/21/2016 04:45 Length of Rupture (hr): 0.18 Amniotic Fluid Color: Clear Amniotic Fluid Amount: Moderate Amniotic Fluid Odor: Normal STAGES OF LABOR Stage 1 hr: 1 Stage 1 min: 42 Stage 2 hr: 0 Stage 2 min: 14 Stage 3 hr: 0 Stage 3 min: 4 Total Time in Labor hr: 2 Total Time in Labor min: 0 VAGINAL DELIVERY Episiotomy: None Laceration Extension: First Degree Laceration Type: Perineal Laceration Repair: Yes Laceration Repair Note: one 3-0 chromic suture placed Sponge Count Correct: N/A Sharps Count Correct: N/A CSECTION DELIVERY Primary Indication: N/A Secondary Indication: N/A CSection Incidence: N/A Labor: N/A Elective: N/A CSection Incision: N/A BABY A INFORMATION Delivery Date/Time: 11/21/2016 04:56 Method of Delivery: Vaginal Born in Route : No : N/A Forceps: N/A Vacuum Extraction: N/A Shoulder Dystocia : No PRESENTATION/POSITION BABY A Presentation: Cephalic Cephalic Presentation: Vertex Vertex Position: Left Occipital Anterior Breech Presentation: N/A PLACENTA INFORMATION BABY A Placenta Delivery Time : 11/21/2016 05:00 Placenta Method of Delivery: Spontaneous Placenta Status: Delivered SCORES BABY A Heart Rate 1 min: >100 bpm Resp Effort 1 min: Slow, Irregular Reflex Irritability 1 min: Cough or Sneeze or Pulls Away Muscle Tone 1 min: Active Motion Color 1 min: Body [place], Extremities Blue SCORE 1 MIN: 8 Heart Rate 5 min: >100 bpm Resp Effort 5 min: Good Cry Reflex Irritability 5 min: Cough or Sneeze or Pulls Away Muscle Tone 5 min: Active Motion Color 5 min: Body [place], Extremities Blue SCORE 5 MIN: 9 INFANT INFORMATION BABY A Gestational Age at Delivery: 40.1 Gestational Status: Full Term- 39- 40.6 Weeks Outcome : Liveborn Condition : Stable Infant Sex: Female IDENTIFICATION BABY A Verification Date/Time: 11/21/2016 05:49 ID Band Number: [id number] Mother's Name Verified: Yes Infant RN Verifying : A Valdovinos Rn Additional Verifying Personnel: emoquo Rn WEIGHT/LENGTH BABY A Birthweight (gm): 3490 Weight (lb): 7 Weight (oz): 11 Infant Length (in): 20.00 Infant Length (cm): 50.80 CORD INFORMATION BABY A No. Cord Vessels: 3 Nuchal Cord : N/A Cord Blood Taken: Yes-For Eval (Mom's Blood Type - or O+) Suction: Mouth; Nose ASSESSMENT BABY A Complications: None Physical Findings at Delivery: Within Normal Limits Infant Respirations: Appears Normal Skin to Skin: Yes Skin to Skin Time (min): 40 Palm And Back Forger/ALS Called : No Care By: Ena Campa RN Transferred To: Remains with Mother SIGNATURES Signature: with User ID: [email or web address]
--- NOTE | 2016-11-25 06:00 | L&D General Admission ---
General Admit Datetime Report Generated by CPN: 11/25/2016 06:00 INFORMATION Patient Age: 26 (10/08/2016 10:16:QS system process) EDC: 11/20/2016 00:00 (11/21/2016 04:15:Cristina Nascimento RN) EDC per Ultrasound: 11/20/2016 00:00 (11/21/2016 04:15:Cristina Nascimento RN) : 5 (11/21/2016 04:15:Cristina Nascimento RN) Para: 2 (11/21/2016 04:15:Cristina Nascimento RN) Term: 2 (11/21/2016 04:15:Cristina Nascimento RN) Spontaneous Abortions: 2 (11/21/2016 04:15:Cristina Nascimento RN) Livin (11/21/2016 04:15:Cristina Nascimento RN) Cesareans: 0 (11/21/2016 04:15:Cristina Nascimento RN) CARE Primary Media Clerk: [facility] (11/21/2016 04:15:Rosy Valdovinos) Adequate Care: Yes (11/21/2016 04:15:Cristina Azam, RN) Height (in): 67 (11/22/2016 15:30:QS system process) ALLERGIES Medication Allergy: No (11/21/2016 04:15:Rosy Valdovinos) Medication Allergies: No Known Allergies (02/16/2013) (10/08/2016 10:16:QS system process) Latex Allergy: No Latex Allergies (11/21/2016 04:15:Rosy Valdovinos) Food Allergies: none (11/21/2016 04:15:Rosy Valdovinos) Environmental Allergies: none (11/21/2016 04:15:Rosy Valdovinos) COMMUNICATION Primary Language: Somali (11/21/2016 04:15:Rosy Valdovinos) Medical Tx Preferred Language: Somali (11/21/2016 04:15:Rosyabhilash Valdovinos) DEMOGRAPHICS Address: [address] [place] [phone] (10/08/2016 10:16:QS system process) Zipcode: [phone] (10/08/2016 10:16:QS system process) Home (10/08/2016 10:16:QS system process) SSN: [id number] (10/08/2016 10:16:QS system process) Next of Kin Name: JANETH MCMILLAN (10/08/2016 10:16:QS system process) Next of Kin (10/08/2016 10:16:QS system process) Next of Kin Relationship: SPO (10/08/2016 10:16:QS system process) Date of : 1990 (10/08/2016 10:16:QS system process) Marital Status: (10/08/2016 10:16:QS system process) Sex: Female (10/08/2016 10:16:QS system process) Race: (10/08/2016 10:16:QS system process) Ethnicity: Non- or (10/08/2016 10:16:QS system process) Anglican: Nondenominational (10/08/2016 10:16:QS system process) DRUG AND ALCOHOL USE Alcohol: No (11/21/2016 04:15:Rosy Valdovinos) Cigarettes: Never Smoker. [id number] (11/21/2016 04:15:Rosy Valdovinos) Marijuana: No (11/21/2016 04:15:Rosy Valdovinos) Cocaine: No (11/21/2016 04:15:Rosy Valdovinos) Other Illicit Drugs: No (11/21/2016 04:15:Rosy Valdovinos) VACCINE HISTORY Influenza Vaccine: Yes (11/21/2016 04:15:Rosy Valdovinos) Influenza Date: 2016 (11/21/2016 04:15:Rosy Valdovinos) Tdap Vaccine: Yes (11/21/2016 04:15:Rosy Valdovinos) Tdap Date: 2016 (11/21/2016 04:15:Rosy Valdovinos) [facility]: [facility] (11/21/2016 04:15:Rosy Valdovinos) Feeding Preference: Breast (11/21/2016 04:15:Rosy Valdovinos) Benefit of Breast Feed Discussed: Yes (11/21/2016 04:15:Viry Dickey RN) Circumcision: N/A (11/21/2016 04:15:Rosy Valdovinos) Classes Attended: No (11/21/2016 04:15:Rosy Valdovinos) Tubal Ligation: No (11/21/2016 04:15:Rosy Valdovinos) Tubal Authorization Signed: N/A (11/21/2016 04:15:Rosy Valdovinos) Consent: N/A (11/21/2016 04:15:Rosy Valdovinos) Consent Signed: N/A (11/21/2016 04:15:Rosy Valdovinos) Pain Management Plans: Epidural (11/21/2016 04:15:Rosy Valdovinos) Plans for Labor and Delivery: None (11/21/2016 04:15:Rosy Valdovinos) Support Person: Janeth (11/21/2016 04:15:Rosy Valdovinos) Support Person Relationship: (11/21/2016 04:15:Rosy Valdovinos) Cultural/Spritual Practice: N/A (11/21/2016 04:15:Rosy Valdovinos) Spir/Cult Dietary Needs: N/A (11/21/2016 04:15:Rosy Valdovinos) LIVING SITUATION/DISCHARGE PLAN Living Arrangements: House (11/21/2016 04:15:Rosy Valdovinos) Adequate Access to:: Electric; Heat; Refrigeration; Plumbing/Running water; Phone; Transportation (11/21/2016 04:15:Rosy Valdovinos) WIC Program: Yes (11/21/2016 04:15:Rosy Valdovinos) Discharge Coal Feeder Operator Person: janeth- (11/21/2016 04:15:Rosy Valdovinos) Person to Help after Discharge: janeth- (11/21/2016 04:15:Rosy Valdovinos) Currently Using Commun Resources: Yes (11/21/2016 04:15:Rosy Valdovinos) Specify Current Resource Used: medicaid (11/21/2016 04:15:Rosy Valdovinos) Outside Agency/Driller And Reamer: No (11/21/2016 04:15:Rosy Valdovinos) Car Seat for Discharge: Yes (11/21/2016 04:15:Rosy Valdovinos) Adoption Requested: No (11/21/2016 04:15:Rosy Valdovinos) Pt Contact w/ Post : N/A (11/21/2016 04:15:Rosy Valdovinos) LABS Blood Type: O Positive (11/21/2016 04:15:Cristina Nascimento RN) Hemoglobin: 11.1 L (11/22/2016 07:14:QS system process) Hematocrit: 33.0 L (11/22/2016 07:14:QS system process) MCV: 76 L (11/22/2016 07:14:QS system process) Group Beta Strep: negative (11/21/2016 04:15:Viry Dickey RN) RPR/VDRL: Nonreactive (11/21/2016 04:15:Cristina Nascimento RN) HIV Exposure Test: Negative (11/21/2016 04:15:Cristina Nascimento RN) Hepatitis B: Negative (11/21/2016 04:15:Cristina Nascimento RN) Rubella: POSITIVE NEGATIVE IF LESS THAN OR EQUAL TO 9.99 IU/mL POSITIVE IF GREATER THAN OR EQUAL TO 10.0 IU/mL (11/21/2016 05:50:QS system process) Rubella Titer: 41.30 (11/21/2016 05:50:QS system process) Varicella: Non Susceptible (11/21/2016 04:15:Cristina Nasicmento RN) OB/PREVIOUS HISTORY Previous Procedures: Ultrasound; NST (11/21/2016 04:15:Rosy Valdovinos) Current Procedures: Ultrasound; NST (11/21/2016 04:15:Rosy Valdovinos) History of Previous : No (11/21/2016 04:15:Rosy Valdovinos) History of Gestational Diabetes: No (11/21/2016 04:15:Rosy Valdovinos) History of PIH: No (11/21/2016 04:15:Rosy Valdovinos) History of Incompetent Cervix: No (11/21/2016 04:15:Rosy Valdovinos) History of Placenta Previa/Abrup: No (11/21/2016 04:15:Rosy Valdovinos) History of Macrosomia: No (11/21/2016 04:15:Rosy Valdovinos) History of IUGR: No (11/21/2016 04:15:Rosy Valdovinos) History of Hemorrhage: No (11/21/2016 04:15:Rosy Valdovinos) History of Loss/Stillborn: No (11/21/2016 04:15:Rosy Valdovinos) History of : No (11/21/2016 04:15:Rosy Valdovinos) History of D (Rh) Sensitization: No (11/21/2016 04:15:Rosy Valdovinos) History Recurrent Loss/Stillborn: No (11/21/2016 04:15:Rosy Valdovinos) History Depression/PP Depression: No (11/21/2016 04:15:Rosy Valdovinos) History of Uterine Anomaly/GAVIOTA: No (11/21/2016 04:15:Rosy Valdovinos) History of Infertility: No (11/21/2016 04:15:Rosy Valdovinos) History of ART Treatment: No (11/21/2016 04:15:Rosy Valdovinos) History of GAVIOTA: No (11/21/2016 04:15:Rosy Valdovinos) MEDICAL HISTORY Med Hx Diabetes: No (11/21/2016 04:15:Rosy Valdovinos) Med Hx Hypertension: No (11/21/2016 04:15:Rosy Valdovinos) Med Hx Heart Disease: No (11/21/2016 04:15:Rosy Valdovinos) Med Hx Autoimmune Disorder: No (11/21/2016 04:15:Rosy Valdovinos) Med Hx Kidney Disease/UTI: No (11/21/2016 04:15:Rosy Valdovinos) Med Hx Neurologic/Epilepsy: No (11/21/2016 04:15:Rosy Valdovinos) Med Hx Psychiatric Disorders: No (11/21/2016 04:15:Rosy Valdovinos) Med Hx Hepatitis/Liver Disease: No (11/21/2016 04:15:Rosy Valdovinos) Med Hx Varicosities/Phlebitis: No (11/21/2016 04:15:Rosy Valdovinos) Med Hx Thyroid Dysfunction: No (11/21/2016 04:15:Rosy Valdovinos) Med Hx Trauma/Violence: No (11/21/2016 04:15:Rosy Valdovinos) Med Hx Blood Transfusion: No (11/21/2016 04:15:Rosy Valdovinos) Med Hx Pulmonary (Asthma,TB): No (11/21/2016 04:15:Rosy Valdovinos) Med Hx Breast: No (11/21/2016 04:15:Rosy Valdovinos) Med Hx ASSISTANT CHIEF NURSING OFFICER Surgery: No (11/21/2016 04:15:Roys Valdovinos) Med Hx Hospitalization/Surgery: No (11/21/2016 04:15:Rosy Valdovinos) Med Hx Anesthetic Complications: No (11/21/2016 04:15:Rosy Valdovinos) Med Hx Abnormal Pap Smear: No (11/21/2016 04:15:Rosy Valdovinos) Other Medical Diseases: No (11/21/2016 04:15:Rosy Valdovinos) Med Hx Significant Family Hx: No (11/21/2016 04:15:Rosy Valdovinos) Details of Med/Surg Hx: benign lump left breast-2009 depresasion-no suicidal thoughts (11/21/2016 04:15:Cristina Nascimento RN) INFECTIOUS HISTORY Inf Hx Gonorrhea: No (11/21/2016 04:15:Rosy Valdovinos) Inf Hx Chlamydia: No (11/21/2016 04:15:Rosy Valdovinos) Inf Hx Syphilis: No (11/21/2016 04:15:Rosy Valdovinos) Inf Hx HIV/AIDS: No (11/21/2016 04:15:Rosy Valdovinos) Inf Hx Human Papilloma Virus: No (11/21/2016 04:15:Rosy Valdovinos) Inf Hx Pt/Partner Genital Herpes: No (11/21/2016 04:15:Rosy Valdovinos) Inf Hx Tuberculosis/Exposure: No (11/21/2016 04:15:Rosy Valdovinos) Inf Hx Hepatitis B,C: No (11/21/2016 04:15:Rosy Valdovinos) Inf Hx Rash or Viral Illness: No (11/21/2016 04:15:Rosy Valdovinos) GENETIC HISTORY Gen Hx Age >=35 at TYRELL: No (11/21/2016 04:15:Rosy Valdovinos) Gen Hx Thalassemia: No (11/21/2016 04:15:Rosy Valdovinos) Gen Hx Congenital Heart Defect: No (11/21/2016 04:15:Rosy Valdovinos) Gen Hx Neural Tube Defect: No (11/21/2016 04:15:Rosy Valdovinos) Gen Hx Down's Syndrome: No (11/21/2016 04:15:Rosy Valdovinos) Gen Hx Jt-Sachs: No (11/21/2016 04:15:Rosy Valdovinos) Gen Hx Otto: No (11/21/2016 04:15:Rosy Valdovinos) Gen Hx Familial Dysautonomia: No (11/21/2016 04:15:Rosy Valdovinos) Gen Hx Sickle Cell Disease/Trait: No (11/21/2016 04:15:Rosy Valdovinos) Gen Hx Hemophilia/Blood Disorder: No (11/21/2016 04:15:Rosy Valdovinos) Gen Hx Muscular Dystrophy: No (11/21/2016 04:15:Rosy Valdovinos) Gen Hx Cystic Fibrosis: No (11/21/2016 04:15:Rosy Valdovinos) Gen Hx [place] Chorea: No (11/21/2016 04:15:Rosy Valdovinos) Gen Hx Mental Retardation/Autism: No (11/21/2016 04:15:Rosy Valdovinos) Gen Hx Tested for Fragile X: No (11/21/2016 04:15:Rosy Valdovinos) Gen Hx Other Inher/Chromosomal: No (11/21/2016 04:15:Rosy Valdovinos) Gen Hx Maternal Metabolic DO: No (11/21/2016 04:15:Rosy Valdovinos) Gen Hx Pt Father or FOB Defect: No (11/21/2016 04:15:Rosy Valdovinos) Gen Hx Other Genetic History: No (11/21/2016 04:15:Rosy Valdovinos) Gen Hx Drugs/Meds since LMP: No (11/21/2016 04:15:Rosy Valdovinos)
--- NOTE | 2016-11-25 18:00 | L&D General Admission ---
General Admit Datetime Report Generated by CPN: 11/25/2016 18:00 INFORMATION Patient Age: 26 (10/08/2016 10:16:QS system process) EDC: 11/20/2016 00:00 (11/21/2016 04:15:Cristina Nascimento RN) EDC per Ultrasound: 11/20/2016 00:00 (11/21/2016 04:15:Cristina Nascimento RN) : 5 (11/21/2016 04:15:Cristina Nascimento RN) Para: 2 (11/21/2016 04:15:Cristina Nascimento RN) Term: 2 (11/21/2016 04:15:Cristina Nascimento RN) Spontaneous Abortions: 2 (11/21/2016 04:15:Cristina Nascimento RN) Livin (11/21/2016 04:15:Cristina Nascimento RN) Cesareans: 0 (11/21/2016 04:15:Cristina Nascimento RN) CARE Primary Supervisor Cigar Making Hand: [facility] (11/21/2016 04:15:Rosy Valdovinos) Adequate Care: Yes (11/21/2016 04:15:Cristina Azam, RN) Height (in): 67 (11/22/2016 15:30:QS system process) ALLERGIES Medication Allergy: No (11/21/2016 04:15:Rosy Valdovinos) Medication Allergies: No Known Allergies (02/16/2013) (10/08/2016 10:16:QS system process) Latex Allergy: No Latex Allergies (11/21/2016 04:15:Rosy Valdovinos) Food Allergies: none (11/21/2016 04:15:Rosy Valdovinos) Environmental Allergies: none (11/21/2016 04:15:Rosy Valdovinos) COMMUNICATION Primary Language: Stateless (11/21/2016 04:15:Rosy Valdovinos) Medical Tx Preferred Language: Stateless (11/21/2016 04:15:Rosyabhilash Valdovinos) DEMOGRAPHICS Address: [address] [place] [phone] (10/08/2016 10:16:QS system process) Zipcode: [phone] (10/08/2016 10:16:QS system process) Home (10/08/2016 10:16:QS system process) SSN: [id number] (10/08/2016 10:16:QS system process) Next of Kin Name: JANETH MCMILLAN (10/08/2016 10:16:QS system process) Next of Kin (10/08/2016 10:16:QS system process) Next of Kin Relationship: SPO (10/08/2016 10:16:QS system process) Date of : 1990 (10/08/2016 10:16:QS system process) Marital Status: (10/08/2016 10:16:QS system process) Sex: Female (10/08/2016 10:16:QS system process) Race: (10/08/2016 10:16:QS system process) Ethnicity: Non- or (10/08/2016 10:16:QS system process) Congregation: Rastafarian (10/08/2016 10:16:QS system process) DRUG AND ALCOHOL USE Alcohol: No (11/21/2016 04:15:Rosy Valdovinos) Cigarettes: Never Smoker. [id number] (11/21/2016 04:15:Rosy Valdovinos) Marijuana: No (11/21/2016 04:15:Rosy Valdovinos) Cocaine: No (11/21/2016 04:15:Rosy Valdovinos) Other Illicit Drugs: No (11/21/2016 04:15:Rosy Valdovinos) VACCINE HISTORY Influenza Vaccine: Yes (11/21/2016 04:15:Rosy Valdovinos) Influenza Date: 2016 (11/21/2016 04:15:Rosy Valdovinos) Tdap Vaccine: Yes (11/21/2016 04:15:Rosy Valdovinos) Tdap Date: 2016 (11/21/2016 04:15:Rosy Valdovinos) Proof Coins Inspector: [facility] (11/21/2016 04:15:Rosy Valdovinos) Feeding Preference: Breast (11/21/2016 04:15:Rosy Valdovinos) Benefit of Breast Feed Discussed: Yes (11/21/2016 04:15:Viry Dickey RN) Circumcision: N/A (11/21/2016 04:15:Rosy Valdovinos) Classes Attended: No (11/21/2016 04:15:Rosy Valdovinos) Tubal Ligation: No (11/21/2016 04:15:Rosy Valdovinos) Tubal Authorization Signed: N/A (11/21/2016 04:15:Rosy Valdovinos) Consent: N/A (11/21/2016 04:15:Rosy Valdovinos) Consent Signed: N/A (11/21/2016 04:15:Rosy Valdovinos) Pain Management Plans: Epidural (11/21/2016 04:15:Rosy Valdovinos) Plans for Labor and Delivery: None (11/21/2016 04:15:Rosy Valdovinos) Support Person: Janeth (11/21/2016 04:15:Rosy Valdovinos) Support Person Relationship: (11/21/2016 04:15:Rosy Valdovinos) Cultural/Spritual Practice: N/A (11/21/2016 04:15:Rosy Valdovinos) Spir/Cult Dietary Needs: N/A (11/21/2016 04:15:Rosy Valdovinos) LIVING SITUATION/DISCHARGE PLAN Living Arrangements: House (11/21/2016 04:15:Rosy Valdovinos) Adequate Access to:: Electric; Heat; Refrigeration; Plumbing/Running water; Phone; Transportation (11/21/2016 04:15:Rosy Valdovinos) WIC Program: Yes (11/21/2016 04:15:Rosy Valdovinos) Discharge Nursing Home Director Person: janeth- (11/21/2016 04:15:Rosy Valdovinos) Person to Help after Discharge: janeth- (11/21/2016 04:15:Rosy Valdovinos) Currently Using Commun Resources: Yes (11/21/2016 04:15:Rosy Valdovinos) Specify Current Resource Used: medicaid (11/21/2016 04:15:Rosy Valdovinos) Outside Agency/Physical Anthropologist: No (11/21/2016 04:15:Rosy Valdovinos) Car Seat for Discharge: Yes (11/21/2016 04:15:Rosy Valdovinos) Adoption Requested: No (11/21/2016 04:15:Rosy Valdovinos) Pt Contact w/ Post : N/A (11/21/2016 04:15:Rosy Valdovinos) LABS Blood Type: O Positive (11/21/2016 04:15:Cristina Nascimento RN) Hemoglobin: 11.1 L (11/22/2016 07:14:QS system process) Hematocrit: 33.0 L (11/22/2016 07:14:QS system process) MCV: 76 L (11/22/2016 07:14:QS system process) Group Beta Strep: negative (11/21/2016 04:15:Viry Dickey RN) RPR/VDRL: Nonreactive (11/21/2016 04:15:Cristina Nascimento RN) HIV Exposure Test: Negative (11/21/2016 04:15:Cristina Nascimento RN) Hepatitis B: Negative (11/21/2016 04:15:Cristina Nascimento RN) Rubella: POSITIVE NEGATIVE IF LESS THAN OR EQUAL TO 9.99 IU/mL POSITIVE IF GREATER THAN OR EQUAL TO 10.0 IU/mL (11/21/2016 05:50:QS system process) Rubella Titer: 41.30 (11/21/2016 05:50:QS system process) Varicella: Non Susceptible (11/21/2016 04:15:Cristina Nascimento RN) OB/PREVIOUS HISTORY Previous Procedures: Ultrasound; NST (11/21/2016 04:15:Rosy Valdovinos) Current Procedures: Ultrasound; NST (11/21/2016 04:15:Rosy Valdovinos) History of Previous : No (11/21/2016 04:15:Rosy Valdovinos) History of Gestational Diabetes: No (11/21/2016 04:15:Rosy Valdovinos) History of PIH: No (11/21/2016 04:15:Rosy Valdovinos) History of Incompetent Cervix: No (11/21/2016 04:15:Rosy Valdovinos) History of Placenta Previa/Abrup: No (11/21/2016 04:15:Rosy Valdovinos) History of Macrosomia: No (11/21/2016 04:15:Rosy Valdovinos) History of IUGR: No (11/21/2016 04:15:Rosy Valdovinos) History of Hemorrhage: No (11/21/2016 04:15:Rosy Valdovinos) History of Loss/Stillborn: No (11/21/2016 04:15:Rosy Valdovinos) History of : No (11/21/2016 04:15:Rosy Valdovinos) History of D (Rh) Sensitization: No (11/21/2016 04:15:Rosy Valdovinos) History Recurrent Loss/Stillborn: No (11/21/2016 04:15:Rosy Valdovinos) History Depression/PP Depression: No (11/21/2016 04:15:Rosy Valdovinos) History of Uterine Anomaly/GAVIOTA: No (11/21/2016 04:15:Rosy Valdovinos) History of Infertility: No (11/21/2016 04:15:Rosy Valdovinos) History of ART Treatment: No (11/21/2016 04:15:Rosy Valdovinos) History of GAVIOTA: No (11/21/2016 04:15:Rosy Valdovinos) MEDICAL HISTORY Med Hx Diabetes: No (11/21/2016 04:15:Rosy Valdovinos) Med Hx Hypertension: No (11/21/2016 04:15:Rosy Valdovinos) Med Hx Heart Disease: No (11/21/2016 04:15:Rosy Valdovinos) Med Hx Autoimmune Disorder: No (11/21/2016 04:15:Rosy Valdovinos) Med Hx Kidney Disease/UTI: No (11/21/2016 04:15:Rosy Valdovinos) Med Hx Neurologic/Epilepsy: No (11/21/2016 04:15:Rosy Valdovinos) Med Hx Psychiatric Disorders: No (11/21/2016 04:15:Rosy Valdovinos) Med Hx Hepatitis/Liver Disease: No (11/21/2016 04:15:Rosy Valdovinos) Med Hx Varicosities/Phlebitis: No (11/21/2016 04:15:Rosy Valdovinos) Med Hx Thyroid Dysfunction: No (11/21/2016 04:15:Rosy Valdovinos) Med Hx Trauma/Violence: No (11/21/2016 04:15:Rosy Valdovinos) Med Hx Blood Transfusion: No (11/21/2016 04:15:Rosy Valdovinos) Med Hx Pulmonary (Asthma,TB): No (11/21/2016 04:15:Rosy Valdovinos) Med Hx Breast: No (11/21/2016 04:15:Rosy Valdovinos) Med Hx BELLSTAFF Surgery: No (11/21/2016 04:15:Rosy Valdovinos) Med Hx Hospitalization/Surgery: No (11/21/2016 04:15:Rosy Valdovinos) Med Hx Anesthetic Complications: No (11/21/2016 04:15:Rosy Valdovinos) Med Hx Abnormal Pap Smear: No (11/21/2016 04:15:Rosy Valdovinos) Other Medical Diseases: No (11/21/2016 04:15:Rosy Valdovinos) Med Hx Significant Family Hx: No (11/21/2016 04:15:Rosy Valdovinos) Details of Med/Surg Hx: benign lump left breast-2009 depresasion-no suicidal thoughts (11/21/2016 04:15:Cristina Nascimento RN) INFECTIOUS HISTORY Inf Hx Gonorrhea: No (11/21/2016 04:15:Rosy Valdovinos) Inf Hx Chlamydia: No (11/21/2016 04:15:Rosy Valdovinos) Inf Hx Syphilis: No (11/21/2016 04:15:Rosy Valdovinos) Inf Hx HIV/AIDS: No (11/21/2016 04:15:Rosy Valdovinos) Inf Hx Human Papilloma Virus: No (11/21/2016 04:15:Rosy Valdovinos) Inf Hx Pt/Partner Genital Herpes: No (11/21/2016 04:15:Rosy Valdovinos) Inf Hx Tuberculosis/Exposure: No (11/21/2016 04:15:Rosy Valdovinos) Inf Hx Hepatitis B,C: No (11/21/2016 04:15:Rosy Valdovinos) Inf Hx Rash or Viral Illness: No (11/21/2016 04:15:Rosy Valdovinos) GENETIC HISTORY Gen Hx Age >=35 at TYRELL: No (11/21/2016 04:15:Rosy Valdovinos) Gen Hx Thalassemia: No (11/21/2016 04:15:Rosy Valdovinos) Gen Hx Congenital Heart Defect: No (11/21/2016 04:15:Rosy Valdovinos) Gen Hx Neural Tube Defect: No (11/21/2016 04:15:Rosy Valdovinos) Gen Hx Down's Syndrome: No (11/21/2016 04:15:Rosy Valdovinos) Gen Hx Jt-Sachs: No (11/21/2016 04:15:Rosy Valdovinos) Gen Hx Otto: No (11/21/2016 04:15:Rosy Valdovinos) Gen Hx Familial Dysautonomia: No (11/21/2016 04:15:Rosy Valdovinos) Gen Hx Sickle Cell Disease/Trait: No (11/21/2016 04:15:Rosy Valdovinos) Gen Hx Hemophilia/Blood Disorder: No (11/21/2016 04:15:Rosy Valdovinos) Gen Hx Muscular Dystrophy: No (11/21/2016 04:15:Rosy Valdovinos) Gen Hx Cystic Fibrosis: No (11/21/2016 04:15:Rosy Valdovinos) Gen Hx [place] Chorea: No (11/21/2016 04:15:Rosy Valdovinos) Gen Hx Mental Retardation/Autism: No (11/21/2016 04:15:Rosy Valdovinos) Gen Hx Tested for Fragile X: No (11/21/2016 04:15:Rosy Valdovinos) Gen Hx Other Inher/Chromosomal: No (11/21/2016 04:15:Rosy Valdovinos) Gen Hx Maternal Metabolic DO: No (11/21/2016 04:15:Rosy Valdovinos) Gen Hx Pt Father or FOB Defect: No (11/21/2016 04:15:Rosy Valdovinos) Gen Hx Other Genetic History: No (11/21/2016 04:15:Rosy Valdovinos) Gen Hx Drugs/Meds since LMP: No (11/21/2016 04:15:Rosy Valdovinos)
--- NOTE | 2016-11-25 18:02 | L&D Current Admission ---
Current Admit Datetime Report Generated by CPN: 11/25/2016 18:00 ADMISSION INFORMATION Current Admit Date/Time: 11/21/2016 04:41 (11/21/2016 04:41:Rosy Valdovinos) Reason for Admission: Onset of Labor (11/21/2016 04:41:Rosy Valdovinos) Chief Complaint: Contractions (11/21/2016 04:41:Rosy Valdovinos) Medications During : Vitamin; Rantidine (Zantac) (11/21/2016 04:41:Cristina Nascimento RN) Meds During -Oth: fiorcet (11/21/2016 04:41:Cristina Nascimento RN) EGA per Dates: 40.1 (11/21/2016 04:41:QS system process) EGA per US: 40.1 (11/21/2016 04:41:QS system process) Method of Arrival: Wheelchair (11/21/2016 04:41:Rosy Valdovinos) Admitted From: Home (11/21/2016 04:41:Cristina Nascimento RN) Reason for Induction: Not Applicable (11/21/2016 04:41:Cristina Nascimento RN) Records Available: Yes (11/21/2016 04:41:Cristina Nascimento RN) General Admission Information: Reviewed (11/21/2016 04:41:Rosy Valdovinos) General Admission Reviewed By: Edmar Valdovinos RN (11/21/2016 04:41:Rosy Valdovinos) BELONGINGS/ADVANCED DIRECTIVES Other Belongings: see consent sheet (11/21/2016 04:41:Rosy Valdovinos) Disposition of Belongings: Kept with Patient (11/21/2016 04:41:Cristina Nascimento RN) Advance Direct for Healthcare: No, and Wants No Information (11/21/2016 04:41:Rosy Valdovinos) Durable Power of Behaviorist: No (11/21/2016 04:41:Rosy Valdovinos) Living Will: No (11/21/2016 04:41:Rosy Valdovinos) Organ Donor: No (11/21/2016 04:41:Rosy Valdovinos) Pt Rights Information Given: Yes (11/21/2016 04:41:Rosy Valdovinos) Pt Understands Pt Rights: Yes (11/21/2016 04:41:Rosy Valdovinos) Patient Rights Comments: patient access (11/21/2016 04:41:Rosy Valdovinos) LEARNING ASSESSMENT Knowledge Level: Understands L_D Process (11/21/2016 04:41:Rosy Valdovinos) Barriers to Learning: None (11/21/2016 04:41:Rosy Valdovinos) Learning Readiness: Motivated (11/21/2016 04:41:Rosy Valdovinos) Learns Best By: 1 to 1 Instruction (11/21/2016 04:41:Rosy Valdovinos) Learning Needs: Labor and Delivery Process; Pain Management; Symptoms to Report; Treatment Plan; Medication (11/21/2016 04:41:Rosy Valdovinos) DOMESTIC VIOLANCE SCREENING Dom Viol Threatened/Hurt: No (11/21/2016 04:41:Rosy Valdovinos) Hx of Abuse/Neglect past 2yrs: No (11/21/2016 04:41:Rosy Valdovinos) Feel Unsafe Going Home: No (11/21/2016 04:41:Rosy Valdovinos) Addt'l Observ Indicating Abuse: No (11/21/2016 04:41:Rosy Valdovinos) Reason Unable to Complete Screen: N/A, Screen Completed (11/21/2016 04:41:Rosy Valdovinos) Considered Personal Harm/Suicide: No (11/21/2016 04:41:Rosy Valdovinos) NUTRITIONAL/FUNCTIONAL SCREENING Problem with Appetite >5 Days: No (11/21/2016 04:41:Rosy Valdovinos) Chew/Swallow Difficulties: No (11/21/2016 04:41:Rosy Valdovinos) Inappropriate Wt Gain/Loss: No (11/21/2016 04:41:Rosy Valdovinos) Presence Skin Breakdown/Ulcer: No (11/21/2016 04:41:Rosy Valdovinos) Special Diet: No (11/21/2016 04:41:Rosy Valdovinos) Pt Requests Senior Statistician Visit: No (11/21/2016 04:41:Rosy Valdovinos) Hx of Any of the Following?: N/A (11/21/2016 04:41:Rosy Valdovinos) New Diagnosis of: N/A (11/21/2016 04:41:Rosy Valdovinos) Requires Assist w/Ambulation: No (11/21/2016 04:41:Rosy Valdovinos) Uses Assist Device to Ambulate: No (11/21/2016 04:41:Rosy Valdovinos) Pt Requires Help w/ADL's: No (11/21/2016 04:41:Rosy Valdovinos)
--- NOTE | 2016-11-25 18:02 | L&D General Admission ---
General Admit Datetime Report Generated by CPN: 11/25/2016 18:00 INFORMATION Patient Age: 26 (10/08/2016 10:16:QS system process) EDC: 11/20/2016 00:00 (11/21/2016 04:15:Cristina Nascimento RN) EDC per Ultrasound: 11/20/2016 00:00 (11/21/2016 04:15:Cristina Nascimento RN) : 5 (11/21/2016 04:15:Cristina Nascimento RN) Para: 2 (11/21/2016 04:15:Cristina Nascimento RN) Term: 2 (11/21/2016 04:15:Cristina Nascimento RN) Spontaneous Abortions: 2 (11/21/2016 04:15:Cristina Nascimento RN) Livin (11/21/2016 04:15:Cristina Nascimento RN) Cesareans: 0 (11/21/2016 04:15:Cristina Nascimento RN) CARE Primary 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 Unit: [facility] (11/21/2016 04:15:Rosy Valdovinos) Adequate Care: Yes (11/21/2016 04:15:Cristina Azam, RN) Height (in): 67 (11/22/2016 15:30:QS system process) ALLERGIES Medication Allergy: No (11/21/2016 04:15:Rosy Valdovinos) Medication Allergies: No Known Allergies (02/16/2013) (10/08/2016 10:16:QS system process) Latex Allergy: No Latex Allergies (11/21/2016 04:15:Rosy Valdovinos) Food Allergies: none (11/21/2016 04:15:Rosy Valdovinos) Environmental Allergies: none (11/21/2016 04:15:Rosy Valdovinos) COMMUNICATION Primary Language: Mozambican (11/21/2016 04:15:Rosy Valdovinos) Medical Tx Preferred Language: Mozambican (11/21/2016 04:15:Rosyabhilash Valdovinos) DEMOGRAPHICS Address: [address] [place] [id number] (10/08/2016 10:16:QS system process) Zipcode: [phone] (10/08/2016 10:16:QS system process) Home (10/08/2016 10:16:QS system process) SSN: [id number] (10/08/2016 10:16:QS system process) Next of Kin Name: JANETH MCMILLAN (10/08/2016 10:16:QS system process) Next of Kin (10/08/2016 10:16:QS system process) Next of Kin Relationship: SPO (10/08/2016 10:16:QS system process) Date of : 1990 (10/08/2016 10:16:QS system process) Marital Status: (10/08/2016 10:16:QS system process) Sex: Female (10/08/2016 10:16:QS system process) Race: (10/08/2016 10:16:QS system process) Ethnicity: Non- or (10/08/2016 10:16:QS system process) Scientology: Mandaen (10/08/2016 10:16:QS system process) DRUG AND ALCOHOL USE Alcohol: No (11/21/2016 04:15:Rosy Valdovinos) Cigarettes: Never Smoker. 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: [facility] (11/21/2016 04:15:Rosy Valdovinos) Feeding Preference: Breast (11/21/2016 04:15:Rosy Valdovinos) Benefit of Breast Feed Discussed: Yes (11/21/2016 04:15:Viry Dickey RN) Circumcision: N/A (11/21/2016 04:15:Rosy Valdovinos) Classes Attended: No (11/21/2016 04:15:Rosy Valdovinos) Tubal Ligation: No (11/21/2016 04:15:Rosy Valdovinos) Tubal Authorization Signed: N/A (11/21/2016 04:15:Rosy Valdovinos) Consent: N/A (11/21/2016 04:15:Rosy Valdovinos) Consent Signed: N/A (11/21/2016 04:15:Rosy Valdovinos) Pain Management Plans: Epidural (11/21/2016 04:15:Rosy Valdovinos) Plans for Labor and Delivery: None (11/21/2016 04:15:Rosy Valdovinos) Support Person: Janeth (11/21/2016 04:15:Rosy Valdovinos) Support Person Relationship: (11/21/2016 04:15:Rosy Valdovinos) Cultural/Spritual Practice: N/A (11/21/2016 04:15:Rosy Valdovinos) Spir/Cult Dietary Needs: N/A (11/21/2016 04:15:Rosy Valdovinos) LIVING SITUATION/DISCHARGE PLAN Living Arrangements: House (11/21/2016 04:15:Rosy Valdovinos) Adequate Access to:: Electric; Heat; Refrigeration; Plumbing/Running water; Phone; Transportation (11/21/2016 04:15:Rosy Valdovinos) WIC Program: Yes (11/21/2016 04:15:Rosy Valdovinos) Discharge Land Checker Person: janeth- (11/21/2016 04:15:Rosy Valdovinos) Person to Help after Discharge: janeth- (11/21/2016 04:15:Rosy Valdovinos) Currently Using Commun Resources: Yes (11/21/2016 04:15:Rosy Valdovinos) Specify Current Resource Used: medicaid (11/21/2016 04:15:Rosy Valdovinos) Outside Agency/Card Puncher: No (11/21/2016 04:15:Rosy Valdovinos) Car Seat for Discharge: Yes (11/21/2016 04:15:Rosy Valdovinos) Adoption Requested: No (11/21/2016 04:15:Rosy Valdovinos) Pt Contact w/ Post : N/A (11/21/2016 04:15:Rosy Valdovinos) LABS Blood Type: O Positive (11/21/2016 04:15:Cristina Nascimento RN) Hemoglobin: 11.1 L (11/22/2016 07:14:QS system process) Hematocrit: 33.0 L (11/22/2016 07:14:QS system process) MCV: 76 L (11/22/2016 07:14:QS system process) Group Beta Strep: negative (11/21/2016 04:15:Viry Dickey RN) RPR/VDRL: Nonreactive (11/21/2016 04:15:Cristina Nascimento RN) HIV Exposure Test: Negative (11/21/2016 04:15:Cristina Nascimento RN) Hepatitis B: Negative (11/21/2016 04:15:Cristina Nascimento RN) Rubella: POSITIVE NEGATIVE IF LESS THAN OR EQUAL TO 9.99 IU/mL POSITIVE IF GREATER THAN OR EQUAL TO 10.0 IU/mL (11/21/2016 05:50:QS system process) Rubella Titer: 41.30 (11/21/2016 05:50:QS system process) Varicella: Non Susceptible (11/21/2016 04:15:Cristina Nascimento RN) OB/PREVIOUS HISTORY Previous Procedures: Ultrasound; NST (11/21/2016 04:15:Rosy Valdovinos) Current Procedures: Ultrasound; NST (11/21/2016 04:15:Rosy Valdovinos) History of Previous : No (11/21/2016 04:15:Rosy Valdovinos) History of Gestational Diabetes: No (11/21/2016 04:15:Rosy Valdovinos) History of PIH: No (11/21/2016 04:15:Rosy Valdovinos) History of Incompetent Cervix: No (11/21/2016 04:15:Rosy Valdovinos) History of Placenta Previa/Abrup: No (11/21/2016 04:15:Rosy Valdovinos) History of Macrosomia: No (11/21/2016 04:15:Rosy Valdovinos) History of IUGR: No (11/21/2016 04:15:Rosy Valdovinos) History of Hemorrhage: No (11/21/2016 04:15:Rosy Valdovinos) History of Loss/Stillborn: No (11/21/2016 04:15:Rosy Valdovinos) History of : No (11/21/2016 04:15:Rosy Valdovinos) History of D (Rh) Sensitization: No (11/21/2016 04:15:Rosy Valdovinos) History Recurrent Loss/Stillborn: No (11/21/2016 04:15:Rosy Valdovinos) History Depression/PP Depression: No (11/21/2016 04:15:Rosy Valdovinos) History of Uterine Anomaly/GAVIOTA: No (11/21/2016 04:15:Rosy Valdovinos) History of Infertility: No (11/21/2016 04:15:Rosy Valdovinos) History of ART Treatment: No (11/21/2016 04:15:Rosy Valdovinos) History of GAVIOTA: No (11/21/2016 04:15:Rosy Valdovinos) MEDICAL HISTORY Med Hx Diabetes: No (11/21/2016 04:15:Rosy Valdovinos) Med Hx Hypertension: No (11/21/2016 04:15:Rosy Valdovinos) Med Hx Heart Disease: No (11/21/2016 04:15:Rosy Valdovinos) Med Hx Autoimmune Disorder: No (11/21/2016 04:15:Rosy Valdovinos) Med Hx Kidney Disease/UTI: No (11/21/2016 04:15:Rosy Valdovinos) Med Hx Neurologic/Epilepsy: No (11/21/2016 04:15:Rosy Valdovinos) Med Hx Psychiatric Disorders: No (11/21/2016 04:15:Rosy Valdovinos) Med Hx Hepatitis/Liver Disease: No (11/21/2016 04:15:Rosy Valdovinos) Med Hx Varicosities/Phlebitis: No (11/21/2016 04:15:Rosy Valdovinos) Med Hx Thyroid Dysfunction: No (11/21/2016 04:15:Rosy Valdovinos) Med Hx Trauma/Violence: No (11/21/2016 04:15:Rosy Valdovinos) Med Hx Blood Transfusion: No (11/21/2016 04:15:Rosy Valdovinos) Med Hx Pulmonary (Asthma,TB): No (11/21/2016 04:15:Rosy Valdovinos) Med Hx Breast: No (11/21/2016 04:15:Rosy Valdovinos) Med Hx TRAINING FACILITATOR Surgery: No (11/21/2016 04:15:Rosy Valdovinos) Med Hx Hospitalization/Surgery: No (11/21/2016 04:15:Rosy Valdovinos) Med Hx Anesthetic Complications: No (11/21/2016 04:15:Rosy Valdovinos) Med Hx Abnormal Pap Smear: No (11/21/2016 04:15:Rosy Valdovinos) Other Medical Diseases: No (11/21/2016 04:15:Rosy Valdovinos) Med Hx Significant Family Hx: No (11/21/2016 04:15:Rosy Valdovinos) Details of Med/Surg Hx: benign lump left breast-2009 depresasion-no suicidal thoughts (11/21/2016 04:15:Cristina Nascimento RN) INFECTIOUS HISTORY Inf Hx Gonorrhea: No (11/21/2016 04:15:Rosy Valdovinos) Inf Hx Chlamydia: No (11/21/2016 04:15:Rosy Valdovinos) Inf Hx Syphilis: No (11/21/2016 04:15:Rosy Valdovinos) Inf Hx HIV/AIDS: No (11/21/2016 04:15:Rosy Valdovinos) Inf Hx Human Papilloma Virus: No (11/21/2016 04:15:Rosy Valdovinos) Inf Hx Pt/Partner Genital Herpes: No (11/21/2016 04:15:Rosy Valdovinos) Inf Hx Tuberculosis/Exposure: No (11/21/2016 04:15:Rosy Valdovinos) Inf Hx Hepatitis B,C: No (11/21/2016 04:15:Rosy Valdovinos) Inf Hx Rash or Viral Illness: No (11/21/2016 04:15:Rosy Valdovinos) GENETIC HISTORY Gen Hx Age >=35 at TYRELL: No (11/21/2016 04:15:Rosy Valdovinos) Gen Hx Thalassemia: No (11/21/2016 04:15:Rosy Valdovinos) Gen Hx Congenital Heart Defect: No (11/21/2016 04:15:Rosy Valdovinos) Gen Hx Neural Tube Defect: No (11/21/2016 04:15:Rosy Valdovinos) Gen Hx Down's Syndrome: No (11/21/2016 04:15:Rosy Valdovinos) Gen Hx Jt-Sachs: No (11/21/2016 04:15:Rosy Valdovinos) Gen Hx Otto: No (11/21/2016 04:15:Rosy Valdovinos) Gen Hx Familial Dysautonomia: No (11/21/2016 04:15:Rosy Valdovinos) Gen Hx Sickle Cell Disease/Trait: No (11/21/2016 04:15:Rosy Valdovinos) Gen Hx Hemophilia/Blood Disorder: No (11/21/2016 04:15:Rosy Valdovinos) Gen Hx Muscular Dystrophy: No (11/21/2016 04:15:Rosy Valdovinos) Gen Hx Cystic Fibrosis: No (11/21/2016 04:15:Rosy Valdovinos) Gen Hx [place] Chorea: No (11/21/2016 04:15:Rosy Valdovinos) Gen Hx Mental Retardation/Autism: No (11/21/2016 04:15:Rosy Valdovinos) Gen Hx Tested for Fragile X: No (11/21/2016 04:15:Rosy Valdovinos) Gen Hx Other Inher/Chromosomal: No (11/21/2016 04:15:Rosy Valdovinos) Gen Hx Maternal Metabolic DO: No (11/21/2016 04:15:Rosy Valdovinos) Gen Hx Pt Father or FOB Defect: No (11/21/2016 04:15:Rosy Valdovinos) Gen Hx Other Genetic History: No (11/21/2016 04:15:Rosy Valdovinos) Gen Hx Drugs/Meds since LMP: No (11/21/2016 04:15:Rosy Valdovinos)
--- NOTE | 2016-11-25 20:20 | Delivery Summary ---
Del Sum A-C Datetime Report Generated by CPN: 11/25/2016 20:20 DELIVERY PERSONNEL DELIVERY PERSONNEL: [id number];[id number] Delivery Doctor:: Divnia Ferguson MD Labor and Delivery Nurse:: Rosy Valdovinos RN Nursery Nurse:: TYLOR Mcadams Tech/FORGER HELPER: Helen Pope FORGER HELPER MATERNAL INFORMATION Delivery Anesthesia: None Medications After Delivery: Pitocin Bolus-Please Comment Meds After Delivery Comment: Pitocin 20 units/1000 ml NS following placenta Estimated Blood Loss (ml): 250 Maternal Complications: Precipitous Labor (<3hrs) Provider Comments: Placenta delivered intact with 3vc LABOR SUMMARY EDC: 11/20/2016 00:00 Attempted: No Labor Anesthesia: None LABOR INFORMATION Reason for Induction: Not Applicable Onset of Labor: 11/21/2016 03:00 Complete Dilatation: 11/21/2016 04:42 Oxytocin: N/A Group B Beta Strep: negative Antibiotics # of Doses: 0 Antibiotics Time of Last Dose: n/a Steroids Given: None Reason Steroids Not Administered: Not Applicable MEMBRANES Membranes Rupture Method: Artificial Rupture of Membranes: 11/21/2016 04:45 Length of Rupture (hr): 0.18 Amniotic Fluid Color: Clear Amniotic Fluid Amount: Moderate Amniotic Fluid Odor: Normal STAGES OF LABOR Stage 1 hr: 1 Stage 1 min: 42 Stage 2 hr: 0 Stage 2 min: 14 Stage 3 hr: 0 Stage 3 min: 4 Total Time in Labor hr: 2 Total Time in Labor min: 0 VAGINAL DELIVERY Episiotomy: None Laceration Extension: First Degree Laceration Type: Perineal Laceration Repair: Yes Laceration Repair Note: one 3-0 chromic suture placed Sponge Count Correct: N/A Sharps Count Correct: N/A CSECTION DELIVERY Primary Indication: N/A Secondary Indication: N/A CSection Incidence: N/A Labor: N/A Elective: N/A CSection Incision: N/A BABY A INFORMATION Delivery Date/Time: 11/21/2016 04:56 Method of Delivery: Vaginal Born in Route : No : N/A Forceps: N/A Vacuum Extraction: N/A Shoulder Dystocia : No PRESENTATION/POSITION BABY A Presentation: Cephalic Cephalic Presentation: Vertex Vertex Position: Left Occipital Anterior Breech Presentation: N/A PLACENTA INFORMATION BABY A Placenta Delivery Time : 11/21/2016 05:00 Placenta Method of Delivery: Spontaneous Placenta Status: Delivered SCORES BABY A Heart Rate 1 min: >100 bpm Resp Effort 1 min: Slow, Irregular Reflex Irritability 1 min: Cough or Sneeze or Pulls Away Muscle Tone 1 min: Active Motion Color 1 min: Body [place], Extremities Blue SCORE 1 MIN: 8 Heart Rate 5 min: >100 bpm Resp Effort 5 min: Good Cry Reflex Irritability 5 min: Cough or Sneeze or Pulls Away Muscle Tone 5 min: Active Motion Color 5 min: Body [place], Extremities Blue SCORE 5 MIN: 9 INFANT INFORMATION BABY A Gestational Age at Delivery: 40.1 Gestational Status: Full Term- 39- 40.6 Weeks Outcome : Liveborn Condition : Stable Infant Sex: Female IDENTIFICATION BABY A Verification Date/Time: 11/21/2016 05:49 ID Band Number: [id number] Mother's Name Verified: Yes Infant RN Verifying : A Valdovinos Rn Additional Verifying Personnel: [employer] Rn WEIGHT/LENGTH BABY A Birthweight (gm): 3490 Weight (lb): 7 Weight (oz): 11 Infant Length (in): 20.00 Infant Length (cm): 50.80 CORD INFORMATION BABY A No. Cord Vessels: 3 Nuchal Cord : N/A Cord Blood Taken: Yes-For Eval (Mom's Blood Type - or O+) Suction: Mouth; Nose ASSESSMENT BABY A Complications: None Physical Findings at Delivery: Within Normal Limits Infant Respirations: Appears Normal Skin to Skin: Yes Skin to Skin Time (min): 40 Adult Family Home Program Manager/ALS Called : No Care By: Ena Campa RN Transferred To: Remains with Mother SIGNATURES Signature: with User ID: [email or web address]
--- NOTE | 2016-11-25 20:20 | L&D General Admission ---
General Admit Datetime Report Generated by CPN: 11/25/2016 20:20 INFORMATION Patient Age: 26 (10/08/2016 10:16:QS system process) EDC: 11/20/2016 00:00 (11/21/2016 04:15:Cristina Nascimento RN) EDC per Ultrasound: 11/20/2016 00:00 (11/21/2016 04:15:Cristina Nascimento RN) : 5 (11/21/2016 04:15:Cristina Nascimento RN) Para: 2 (11/21/2016 04:15:Cristina Nascimento RN) Term: 2 (11/21/2016 04:15:Cristina Nascimento RN) Spontaneous Abortions: 2 (11/21/2016 04:15:Cristina Nascimento RN) Livin (11/21/2016 04:15:Cristina Nascimento RN) Cesareans: 0 (11/21/2016 04:15:Cristina Nascimento RN) CARE Primary Contract Sheltered Workshop Supervisor: [facility] (11/21/2016 04:15:Rosy Valdovinos) Adequate Care: Yes (11/21/2016 04:15:Cristina Azam, RN) Height (in): 67 (11/22/2016 15:30:QS system process) ALLERGIES Medication Allergy: No (11/21/2016 04:15:Rosy Valdovinos) Medication Allergies: No Known Allergies (02/16/2013) (10/08/2016 10:16:QS system process) Latex Allergy: No Latex Allergies (11/21/2016 04:15:Rosy Valdovinos) Food Allergies: none (11/21/2016 04:15:Rosy Valdovinos) Environmental Allergies: none (11/21/2016 04:15:Rosy Valdovinos) COMMUNICATION Primary Language: Rwandan (11/21/2016 04:15:Rosy Valdovinos) Medical Tx Preferred Language: Rwandan (11/21/2016 04:15:Rosyabhilash Valdovinos) DEMOGRAPHICS Address: [address] [place] [phone] (10/08/2016 10:16:QS system process) Zipcode: [phone] (10/08/2016 10:16:QS system process) Home (10/08/2016 10:16:QS system process) SSN: [id number] (10/08/2016 10:16:QS system process) Next of Kin Name: JANETH MCMILLAN (10/08/2016 10:16:QS system process) Next of Kin (10/08/2016 10:16:QS system process) Next of Kin Relationship: SPO (10/08/2016 10:16:QS system process) Date of : 1990 (10/08/2016 10:16:QS system process) Marital Status: (10/08/2016 10:16:QS system process) Sex: Female (10/08/2016 10:16:QS system process) Race: (10/08/2016 10:16:QS system process) Ethnicity: Non- or (10/08/2016 10:16:QS system process) Rastafarian: Tenriism (10/08/2016 10:16:QS system process) DRUG AND ALCOHOL USE Alcohol: No (11/21/2016 04:15:Rosy Valdovinos) Cigarettes: Never Smoker. [id number] (11/21/2016 04:15:Rosy Valdovinos) Marijuana: No (11/21/2016 04:15:Rosy Valdovinos) Cocaine: No (11/21/2016 04:15:Rosy Valdovinos) Other Illicit Drugs: No (11/21/2016 04:15:Rosy Valdovinos) VACCINE HISTORY Influenza Vaccine: Yes (11/21/2016 04:15:Rosy Valdovinos) Influenza Date: 2016 (11/21/2016 04:15:Rosy Valdovinos) Tdap Vaccine: Yes (11/21/2016 04:15:Rosy Valdovinos) Tdap Date: 2016 (11/21/2016 04:15:Rosy Valdovinos) Ginner Helper: [facility] (11/21/2016 04:15:Rosy Valdovinos) Feeding Preference: Breast (11/21/2016 04:15:Rosy Valdovinos) Benefit of Breast Feed Discussed: Yes (11/21/2016 04:15:Viry Dickey RN) Circumcision: N/A (11/21/2016 04:15:Rosy Valdovinos) Classes Attended: No (11/21/2016 04:15:Rosy Valdovinos) Tubal Ligation: No (11/21/2016 04:15:Rosy Valdovinos) Tubal Authorization Signed: N/A (11/21/2016 04:15:Rosy Valdovinos) Consent: N/A (11/21/2016 04:15:Rosy Valdovinos) Consent Signed: N/A (11/21/2016 04:15:Rosy Valdovinos) Pain Management Plans: Epidural (11/21/2016 04:15:Rosy Valdovinos) Plans for Labor and Delivery: None (11/21/2016 04:15:Rosy Valdovinos) Support Person: Janeth (11/21/2016 04:15:Rosy Valdovinos) Support Person Relationship: (11/21/2016 04:15:Rosy Valdovinos) Cultural/Spritual Practice: N/A (11/21/2016 04:15:Rosy Valdovinos) Spir/Cult Dietary Needs: N/A (11/21/2016 04:15:Rosy Valdovinos) LIVING SITUATION/DISCHARGE PLAN Living Arrangements: House (11/21/2016 04:15:Rosy Valdovinos) Adequate Access to:: Electric; Heat; Refrigeration; Plumbing/Running water; Phone; Transportation (11/21/2016 04:15:Rosy Valdovinos) WIC Program: Yes (11/21/2016 04:15:oRsy Valdovinos) Discharge Lamp Shade Sewer Person: janeth- (11/21/2016 04:15:Rosy Valdovinos) Person to Help after Discharge: janeth- (11/21/2016 04:15:Rosy Valdovinos) Currently Using Commun Resources: Yes (11/21/2016 04:15:Rosy Valdovinos) Specify Current Resource Used: medicaid (11/21/2016 04:15:Rosy Valdovinos) Outside Agency/Cargo Broker: No (11/21/2016 04:15:Rosy Valdovinos) Car Seat for Discharge: Yes (11/21/2016 04:15:Rosy Valdovinos) Adoption Requested: No (11/21/2016 04:15:Rosy Valdovinos) Pt Contact w/ Post : N/A (11/21/2016 04:15:Rosy Valdovinos) LABS Blood Type: O Positive (11/21/2016 04:15:Cristina Nascimento RN) Hemoglobin: 11.1 L (11/22/2016 07:14:QS system process) Hematocrit: 33.0 L (11/22/2016 07:14:QS system process) MCV: 76 L (11/22/2016 07:14:QS system process) Group Beta Strep: negative (11/21/2016 04:15:Viry Dickey RN) RPR/VDRL: Nonreactive (11/21/2016 04:15:Cristina Nascimento RN) HIV Exposure Test: Negative (11/21/2016 04:15:Cristina Nascimento RN) Hepatitis B: Negative (11/21/2016 04:15:Cristina Nascimento RN) Rubella: POSITIVE NEGATIVE IF LESS THAN OR EQUAL TO 9.99 IU/mL POSITIVE IF GREATER THAN OR EQUAL TO 10.0 IU/mL (11/21/2016 05:50:QS system process) Rubella Titer: 41.30 (11/21/2016 05:50:QS system process) Varicella: Non Susceptible (11/21/2016 04:15:Cristina Nascimento RN) OB/PREVIOUS HISTORY Previous Procedures: Ultrasound; NST (11/21/2016 04:15:Rosy aVldovinos) Current Procedures: Ultrasound; NST (11/21/2016 04:15:Rosy Valdovinos) History of Previous : No (11/21/2016 04:15:Rosy Valdovinos) History of Gestational Diabetes: No (11/21/2016 04:15:Rosy Valdovinos) History of PIH: No (11/21/2016 04:15:Rosy Valdovinos) History of Incompetent Cervix: No (11/21/2016 04:15:Rosy Valdovinos) History of Placenta Previa/Abrup: No (11/21/2016 04:15:Rosy Valdovinos) History of Macrosomia: No (11/21/2016 04:15:Rosy aVldovinos) History of IUGR: No (11/21/2016 04:15:Rosy Valdovinos) History of Hemorrhage: No (11/21/2016 04:15:Rosy Valdovinos) History of Loss/Stillborn: No (11/21/2016 04:15:Rosy Valdovinos) History of : No (11/21/2016 04:15:Rosy Valdovinos) History of D (Rh) Sensitization: No (11/21/2016 04:15:Rosy Valdovinos) History Recurrent Loss/Stillborn: No (11/21/2016 04:15:Rosy Valdovinos) History Depression/PP Depression: No (11/21/2016 04:15:Rosy Valdovinos) History of Uterine Anomaly/GAVIOTA: No (11/21/2016 04:15:Rosy Valdovinos) History of Infertility: No (11/21/2016 04:15:Rosy Valdovinos) History of ART Treatment: No (11/21/2016 04:15:Rosy Valdovinos) History of GAVIOTA: No (11/21/2016 04:15:Rosy Valdovinos) MEDICAL HISTORY Med Hx Diabetes: No (11/21/2016 04:15:Rosy Valdovinos) Med Hx Hypertension: No (11/21/2016 04:15:Rosy Valdovinos) Med Hx Heart Disease: No (11/21/2016 04:15:Rosy Valdovinos) Med Hx Autoimmune Disorder: No (11/21/2016 04:15:Rosy Valdovinos) Med Hx Kidney Disease/UTI: No (11/21/2016 04:15:Rosy Valdovinos) Med Hx Neurologic/Epilepsy: No (11/21/2016 04:15:Rosy Valdovinos) Med Hx Psychiatric Disorders: No (11/21/2016 04:15:Rosy Valdovinos) Med Hx Hepatitis/Liver Disease: No (11/21/2016 04:15:Rosy Valdovinos) Med Hx Varicosities/Phlebitis: No (11/21/2016 04:15:Rosy Valdovinos) Med Hx Thyroid Dysfunction: No (11/21/2016 04:15:Rosy Valdovinos) Med Hx Trauma/Violence: No (11/21/2016 04:15:Rosy Valdovinos) Med Hx Blood Transfusion: No (11/21/2016 04:15:Rosy Valdovinos) Med Hx Pulmonary (Asthma,TB): No (11/21/2016 04:15:Rosy Valdovinos) Med Hx Breast: No (11/21/2016 04:15:Rosy Valdovinos) Med Hx DIAGNOSTIC TECHNICIAN Surgery: No (11/21/2016 04:15:Rosy Valdovinos) Med Hx Hospitalization/Surgery: No (11/21/2016 04:15:Rosy Valdovinos) Med Hx Anesthetic Complications: No (11/21/2016 04:15:Rosy Valdovinos) Med Hx Abnormal Pap Smear: No (11/21/2016 04:15:Rosy Valdovinos) Other Medical Diseases: No (11/21/2016 04:15:Rosy Valdovinos) Med Hx Significant Family Hx: No (11/21/2016 04:15:Rosy Valdovinos) Details of Med/Surg Hx: benign lump left breast-2009 depresasion-no suicidal thoughts (11/21/2016 04:15:Cristina Nascimento RN) INFECTIOUS HISTORY Inf Hx Gonorrhea: No (11/21/2016 04:15:Rosy Valdovinos) Inf Hx Chlamydia: No (11/21/2016 04:15:Rosy Valdovinos) Inf Hx Syphilis: No (11/21/2016 04:15:Rosy Valdovinos) Inf Hx HIV/AIDS: No (11/21/2016 04:15:Rosy Valdovinos) Inf Hx Human Papilloma Virus: No (11/21/2016 04:15:Rosy Valdovinos) Inf Hx Pt/Partner Genital Herpes: No (11/21/2016 04:15:Rosy Valdovinos) Inf Hx Tuberculosis/Exposure: No (11/21/2016 04:15:Rosy Valdovinos) Inf Hx Hepatitis B,C: No (11/21/2016 04:15:Rosy Valdovinos) Inf Hx Rash or Viral Illness: No (11/21/2016 04:15:Rosy Valdovinos) GENETIC HISTORY Gen Hx Age >=35 at TYRELL: No (11/21/2016 04:15:Rosy Valdovinos) Gen Hx Thalassemia: No (11/21/2016 04:15:Rosy Valdovinos) Gen Hx Congenital Heart Defect: No (11/21/2016 04:15:Rosy Valdovinos) Gen Hx Neural Tube Defect: No (11/21/2016 04:15:Rosy Valdovinos) Gen Hx Down's Syndrome: No (11/21/2016 04:15:Rosy Valdovinos) Gen Hx Jt-Sachs: No (11/21/2016 04:15:Rosy Valdovinos) Gen Hx Otto: No (11/21/2016 04:15:Rosy Valdovinos) Gen Hx Familial Dysautonomia: No (11/21/2016 04:15:Rosy Valdovinos) Gen Hx Sickle Cell Disease/Trait: No (11/21/2016 04:15:Rosy Valdovinos) Gen Hx Hemophilia/Blood Disorder: No (11/21/2016 04:15:Rosy Valdovinos) Gen Hx Muscular Dystrophy: No (11/21/2016 04:15:Rosy Valdovinos) Gen Hx Cystic Fibrosis: No (11/21/2016 04:15:Rosy Valdovinos) Gen Hx [place] Chorea: No (11/21/2016 04:15:Rosy Valdovinos) Gen Hx Mental Retardation/Autism: No (11/21/2016 04:15:Rosy Valdovinos) Gen Hx Tested for Fragile X: No (11/21/2016 04:15:Rosy Valdovinos) Gen Hx Other Inher/Chromosomal: No (11/21/2016 04:15:Rosy Valdovinos) Gen Hx Maternal Metabolic DO: No (11/21/2016 04:15:Rosy Valdovinos) Gen Hx Pt Father or FOB Defect: No (11/21/2016 04:15:Rosy Valdovinos) Gen Hx Other Genetic History: No (11/21/2016 04:15:Rosy Valdovinos) Gen Hx Drugs/Meds since LMP: No (11/21/2016 04:15:Rosy Valdovinos)
--- NOTE | 2016-11-25 20:20 | L&D Current Admission ---
Current Admit Datetime Report Generated by CPN: 11/25/2016 20:20 ADMISSION INFORMATION Current Admit Date/Time: 11/21/2016 04:41 (11/21/2016 04:41:Rosy Valdovinos) Reason for Admission: Onset of Labor (11/21/2016 04:41:Rosy Valdovinos) Chief Complaint: Contractions (11/21/2016 04:41:Rosy Valdovinos) Medications During : Vitamin; Rantidine (Zantac) (11/21/2016 04:41:Cristina Nascimento RN) Meds During -Oth: fiorcet (11/21/2016 04:41:Cristina Nascimento RN) EGA per Dates: 40.1 (11/21/2016 04:41:QS system process) EGA per US: 40.1 (11/21/2016 04:41:QS system process) Method of Arrival: Wheelchair (11/21/2016 04:41:Rosy Valdovinos) Admitted From: Home (11/21/2016 04:41:Cristina Nascimento RN) Reason for Induction: Not Applicable (11/21/2016 04:41:Cristina Nascimento RN) Records Available: Yes (11/21/2016 04:41:Cristina Nascimento RN) General Admission Information: Reviewed (11/21/2016 04:41:Rosy Valdovinos) General Admission Reviewed By: Edmar Valdovinos RN (11/21/2016 04:41:Rosy Valdovinos) BELONGINGS/ADVANCED DIRECTIVES Other Belongings: see consent sheet (11/21/2016 04:41:Rosy Valdovinos) Disposition of Belongings: Kept with Patient (11/21/2016 04:41:Cristina Nascimento RN) Advance Direct for Healthcare: No, and Wants No Information (11/21/2016 04:41:Rosy Valdovinos) Durable Power of Ceo & Co Founder: No (11/21/2016 04:41:Rosy Valdovinos) Living Will: No (11/21/2016 04:41:Rosy Valdovinos) Organ Donor: No (11/21/2016 04:41:Rosy Valdovinos) Pt Rights Information Given: Yes (11/21/2016 04:41:Rosy Valdovinos) Pt Understands Pt Rights: Yes (11/21/2016 04:41:Rosy Valdovinos) Patient Rights Comments: patient access (11/21/2016 04:41:Rosy Valdovinos) LEARNING ASSESSMENT Knowledge Level: Understands L_D Process (11/21/2016 04:41:Rosy Valdovinos) Barriers to Learning: None (11/21/2016 04:41:Rosy Valdovinos) Learning Readiness: Motivated (11/21/2016 04:41:Rosy Valdovinos) Learns Best By: 1 to 1 Instruction (11/21/2016 04:41:Rosy Valdovinos) Learning Needs: Labor and Delivery Process; Pain Management; Symptoms to Report; Treatment Plan; Medication (11/21/2016 04:41:Rosy Valdovinos) DOMESTIC VIOLANCE SCREENING Dom Viol Threatened/Hurt: No (11/21/2016 04:41:Rosy Valdovinos) Hx of Abuse/Neglect past 2yrs: No (11/21/2016 04:41:Rosy Valdovinos) Feel Unsafe Going Home: No (11/21/2016 04:41:Rosy Valdovinos) Addt'l Observ Indicating Abuse: No (11/21/2016 04:41:Rosy Valdovinos) Reason Unable to Complete Screen: N/A, Screen Completed (11/21/2016 04:41:Rosy Valdovinos) Considered Personal Harm/Suicide: No (11/21/2016 04:41:Rosy Valdovinos) NUTRITIONAL/FUNCTIONAL SCREENING Problem with Appetite >5 Days: No (11/21/2016 04:41:Rosy Valdovinos) Chew/Swallow Difficulties: No (11/21/2016 04:41:Rosy Valdovinos) Inappropriate Wt Gain/Loss: No (11/21/2016 04:41:Rosy Valdovinos) Presence Skin Breakdown/Ulcer: No (11/21/2016 04:41:Rosy Valdovinos) Special Diet: No (11/21/2016 04:41:Rosy Valdovinos) Pt Requests Cost Estimating Manager Visit: No (11/21/2016 04:41:Rosy Valdovinos) Hx of Any of the Following?: N/A (11/21/2016 04:41:Rosy Valdovinos) New Diagnosis of: N/A (11/21/2016 04:41:Rosy Valdovinos) Requires Assist w/Ambulation: No (11/21/2016 04:41:Rosy Valdovinos) Uses Assist Device to Ambulate: No (11/21/2016 04:41:Rosy Valdovinos) Pt Requires Help w/ADL's: No (11/21/2016 04:41:Rosy Valdovinos)
--- NOTE | 2016-11-25 20:23 | L&D General Admission ---
General Admit Datetime Report Generated by CPN: 11/25/2016 20:20 INFORMATION Patient Age: 26 (10/08/2016 10:16:QS system process) EDC: 11/20/2016 00:00 (11/21/2016 04:15:Cristina Nascimento RN) EDC per Ultrasound: 11/20/2016 00:00 (11/21/2016 04:15:Cristina Nascimento RN) : 5 (11/21/2016 04:15:Cristina Nascimento RN) Para: 2 (11/21/2016 04:15:Cristina Nascimento RN) Term: 2 (11/21/2016 04:15:Cristina Nascimento RN) Spontaneous Abortions: 2 (11/21/2016 04:15:Cristina Nascimento RN) Livin (11/21/2016 04:15:Cristina Nascimento RN) Cesareans: 0 (11/21/2016 04:15:Cristina Nascimento RN) CARE Primary Patient Account Analyst: [facility] (11/21/2016 04:15:Rosy Valdovinos) Adequate Care: Yes (11/21/2016 04:15:Cristina Azam, RN) Height (in): 67 (11/22/2016 15:30:QS system process) ALLERGIES Medication Allergy: No (11/21/2016 04:15:Rosy Valdovinos) Medication Allergies: No Known Allergies (02/16/2013) (10/08/2016 10:16:QS system process) Latex Allergy: No Latex Allergies (11/21/2016 04:15:Rosy Valdovinos) Food Allergies: none (11/21/2016 04:15:Rosy Valdovinos) Environmental Allergies: none (11/21/2016 04:15:Rosy Valdovinos) COMMUNICATION Primary Language: Andorran (11/21/2016 04:15:Rosy Valdovinos) Medical Tx Preferred Language: Andorran (11/21/2016 04:15:Rosyabhilash Valdovinos) DEMOGRAPHICS Address: [address] [place] [phone] (10/08/2016 10:16:QS system process) Zipcode: [phone] (10/08/2016 10:16:QS system process) Home (10/08/2016 10:16:QS system process) SSN: [id number] (10/08/2016 10:16:QS system process) Next of Kin Name: JANETH MCMILLAN (10/08/2016 10:16:QS system process) Next of Kin (10/08/2016 10:16:QS system process) Next of Kin Relationship: SPO (10/08/2016 10:16:QS system process) Date of : 1990 (10/08/2016 10:16:QS system process) Marital Status: (10/08/2016 10:16:QS system process) Sex: Female (10/08/2016 10:16:QS system process) Race: (10/08/2016 10:16:QS system process) Ethnicity: Non- or (10/08/2016 10:16:QS system process) Church: Gnosticist (10/08/2016 10:16:QS system process) DRUG AND ALCOHOL USE Alcohol: No (11/21/2016 04:15:Rosy Valdovinos) Cigarettes: Never Smoker. 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: [facility] (11/21/2016 04:15:Rosy Valdovinos) Feeding Preference: Breast (11/21/2016 04:15:Rosy Valdovinos) Benefit of Breast Feed Discussed: Yes (11/21/2016 04:15:Viry Dickey RN) Circumcision: N/A (11/21/2016 04:15:Rosy Valdovinos) Classes Attended: No (11/21/2016 04:15:Rosy Valdovinos) Tubal Ligation: No (11/21/2016 04:15:Rosy Valdovinos) Tubal Authorization Signed: N/A (11/21/2016 04:15:Rosy Valdovinos) Consent: N/A (11/21/2016 04:15:Rosy Valdovinos) Consent Signed: N/A (11/21/2016 04:15:Rosy Valdovinos) Pain Management Plans: Epidural (11/21/2016 04:15:Rosy Valdovinos) Plans for Labor and Delivery: None (11/21/2016 04:15:Rosy Valdovinos) Support Person: Janeth (11/21/2016 04:15:Rosy Valdovinos) Support Person Relationship: (11/21/2016 04:15:Rosy Valdovinos) Cultural/Spritual Practice: N/A (11/21/2016 04:15:Rosy Valdovinos) Spir/Cult Dietary Needs: N/A (11/21/2016 04:15:Rosy Valdovinos) LIVING SITUATION/DISCHARGE PLAN Living Arrangements: House (11/21/2016 04:15:Rosy Valdovinos) Adequate Access to:: Electric; Heat; Refrigeration; Plumbing/Running water; Phone; Transportation (11/21/2016 04:15:Rosy Valdovinos) WIC Program: Yes (11/21/2016 04:15:Rosy Valdovinos) Discharge Administration Internship Person: janeth- (11/21/2016 04:15:Rosy Valdovinos) Person to Help after Discharge: janeth- (11/21/2016 04:15:Rosy Valdovinos) Currently Using Commun Resources: Yes (11/21/2016 04:15:Rosy Valdovinos) Specify Current Resource Used: medicaid (11/21/2016 04:15:Rosy Valdovinos) Outside Agency/Title Insurance Agent: No (11/21/2016 04:15:Rosy Valdovinos) Car Seat for Discharge: Yes (11/21/2016 04:15:Rosy Valdovinos) Adoption Requested: No (11/21/2016 04:15:Rosy Valdovinos) Pt Contact w/ Post : N/A (11/21/2016 04:15:Rosy Valdovinos) LABS Blood Type: O Positive (11/21/2016 04:15:Cristina Nascimento RN) Hemoglobin: 11.1 L (11/22/2016 07:14:QS system process) Hematocrit: 33.0 L (11/22/2016 07:14:QS system process) MCV: 76 L (11/22/2016 07:14:QS system process) Group Beta Strep: negative (11/21/2016 04:15:Viry Dickey RN) RPR/VDRL: Nonreactive (11/21/2016 04:15:Cristina Nascimento RN) HIV Exposure Test: Negative (11/21/2016 04:15:Cristina Nascimento RN) Hepatitis B: Negative (11/21/2016 04:15:Cristina Nascimento RN) Rubella: POSITIVE NEGATIVE IF LESS THAN OR EQUAL TO 9.99 IU/mL POSITIVE IF GREATER THAN OR EQUAL TO 10.0 IU/mL (11/21/2016 05:50:QS system process) Rubella Titer: 41.30 (11/21/2016 05:50:QS system process) Varicella: Non Susceptible (11/21/2016 04:15:Cristina Nascimento RN) OB/PREVIOUS HISTORY Previous Procedures: Ultrasound; NST (11/21/2016 04:15:Rosy Valdovinos) Current Procedures: Ultrasound; NST (11/21/2016 04:15:Rosy Valdovinos) History of Previous : No (11/21/2016 04:15:Rosy Valdovinos) History of Gestational Diabetes: No (11/21/2016 04:15:Rosy Valdovinos) History of PIH: No (11/21/2016 04:15:Rosy Valdovinos) History of Incompetent Cervix: No (11/21/2016 04:15:Rosy Valdovinos) History of Placenta Previa/Abrup: No (11/21/2016 04:15:Rosy Valdovinos) History of Macrosomia: No (11/21/2016 04:15:Rosy Valdovinos) History of IUGR: No (11/21/2016 04:15:Rosy Valdovinos) History of Hemorrhage: No (11/21/2016 04:15:Rosy Valdovinos) History of Loss/Stillborn: No (11/21/2016 04:15:Rosy Valdovinos) History of : No (11/21/2016 04:15:Rosy Valdovinos) History of D (Rh) Sensitization: No (11/21/2016 04:15:Rosy Valdovinos) History Recurrent Loss/Stillborn: No (11/21/2016 04:15:Rosy Valdovinos) History Depression/PP Depression: No (11/21/2016 04:15:Rosy Valdovinos) History of Uterine Anomaly/GAVIOTA: No (11/21/2016 04:15:Rosy Valdovinos) History of Infertility: No (11/21/2016 04:15:Rosy Valdovinos) History of ART Treatment: No (11/21/2016 04:15:Rosy Valdovinos) History of GAVIOTA: No (11/21/2016 04:15:Rosy Valdovinos) MEDICAL HISTORY Med Hx Diabetes: No (11/21/2016 04:15:Rosy Valdovinos) Med Hx Hypertension: No (11/21/2016 04:15:Rosy Valdovinos) Med Hx Heart Disease: No (11/21/2016 04:15:Rosy Valdovinos) Med Hx Autoimmune Disorder: No (11/21/2016 04:15:Rosy Valdovinos) Med Hx Kidney Disease/UTI: No (11/21/2016 04:15:Rosy Valdovinos) Med Hx Neurologic/Epilepsy: No (11/21/2016 04:15:Rosy Valdovinos) Med Hx Psychiatric Disorders: No (11/21/2016 04:15:Rosy Valdovinos) Med Hx Hepatitis/Liver Disease: No (11/21/2016 04:15:Rosy Valdovinos) Med Hx Varicosities/Phlebitis: No (11/21/2016 04:15:Rosy Valdovinos) Med Hx Thyroid Dysfunction: No (11/21/2016 04:15:Rosy Valdovinos) Med Hx Trauma/Violence: No (11/21/2016 04:15:Rosy Valdovinos) Med Hx Blood Transfusion: No (11/21/2016 04:15:Rosy Valdovinos) Med Hx Pulmonary (Asthma,TB): No (11/21/2016 04:15:Rosy Valdovinos) Med Hx Breast: No (11/21/2016 04:15:Rosy Valdovinos) Med Hx ENGINEERING PRODUCTION WORKER Surgery: No (11/21/2016 04:15:Rosy Valdovinos) Med Hx Hospitalization/Surgery: No (11/21/2016 04:15:Rosy Valdovinos) Med Hx Anesthetic Complications: No (11/21/2016 04:15:Rosy Valdovinos) Med Hx Abnormal Pap Smear: No (11/21/2016 04:15:Rosy Valdovinos) Other Medical Diseases: No (11/21/2016 04:15:Rosy Valdovinos) Med Hx Significant Family Hx: No (11/21/2016 04:15:Rosy Valdovinos) Details of Med/Surg Hx: benign lump left breast-2009 depresasion-no suicidal thoughts (11/21/2016 04:15:Cristina Nascimento RN) INFECTIOUS HISTORY Inf Hx Gonorrhea: No (11/21/2016 04:15:Rosy Valdovinos) Inf Hx Chlamydia: No (11/21/2016 04:15:Rosy Valdovinos) Inf Hx Syphilis: No (11/21/2016 04:15:Rosy Valdovinos) Inf Hx HIV/AIDS: No (11/21/2016 04:15:Rosy Valdovinos) Inf Hx Human Papilloma Virus: No (11/21/2016 04:15:Rosy Valdovinos) Inf Hx Pt/Partner Genital Herpes: No (11/21/2016 04:15:Rosy Valdovinos) Inf Hx Tuberculosis/Exposure: No (11/21/2016 04:15:Rosy Valdovinos) Inf Hx Hepatitis B,C: No (11/21/2016 04:15:Rosy Valdovinos) Inf Hx Rash or Viral Illness: No (11/21/2016 04:15:Rosy Valdovinos) GENETIC HISTORY Gen Hx Age >=35 at TYRELL: No (11/21/2016 04:15:Rosy Valdovinos) Gen Hx Thalassemia: No (11/21/2016 04:15:Rosy Valdovinos) Gen Hx Congenital Heart Defect: No (11/21/2016 04:15:Rosy Valdovinos) Gen Hx Neural Tube Defect: No (11/21/2016 04:15:Rosy Valdovinos) Gen Hx Down's Syndrome: No (11/21/2016 04:15:Rosy Valdovinos) Gen Hx Jt-Sachs: No (11/21/2016 04:15:Rosy Valdovinos) Gen Hx Otto: No (11/21/2016 04:15:Rosy Valdovinos) Gen Hx Familial Dysautonomia: No (11/21/2016 04:15:Rosy Valdovinos) Gen Hx Sickle Cell Disease/Trait: No (11/21/2016 04:15:Rosy Valdovinos) Gen Hx Hemophilia/Blood Disorder: No (11/21/2016 04:15:Rosy Valdovinos) Gen Hx Muscular Dystrophy: No (11/21/2016 04:15:Rosy Valdovinos) Gen Hx Cystic Fibrosis: No (11/21/2016 04:15:Rosy Valdovinos) Gen Hx [place] Chorea: No (11/21/2016 04:15:Rosy Valdovinos) Gen Hx Mental Retardation/Autism: No (11/21/2016 04:15:Rosy Valdovinos) Gen Hx Tested for Fragile X: No (11/21/2016 04:15:Rosy Valdovinos) Gen Hx Other Inher/Chromosomal: No (11/21/2016 04:15:Rosy Valdovinos) Gen Hx Maternal Metabolic DO: No (11/21/2016 04:15:Rosy Valdovinos) Gen Hx Pt Father or FOB Defect: No (11/21/2016 04:15:Rosy Valdovinos) Gen Hx Other Genetic History: No (11/21/2016 04:15:Rosy Valdovinos) Gen Hx Drugs/Meds since LMP: No (11/21/2016 04:15:Rosy Valdovinos)
--- NOTE | 2016-11-25 20:23 | Delivery Summary ---
Del Sum A-C Datetime Report Generated by CPN: 11/25/2016 20:20 DELIVERY PERSONNEL DELIVERY PERSONNEL: [id number] Delivery Doctor:: Divina Ferguson MD Labor and Delivery Nurse:: Rosy Valdovinos RN Nursery Nurse:: TYLOR Mcadams Tech/WOMEN'S STUDIES PROFESSOR: Helen Pope WOMEN'S STUDIES PROFESSOR MATERNAL INFORMATION Delivery Anesthesia: None Medications After Delivery: Pitocin Bolus-Please Comment Meds After Delivery Comment: Pitocin 20 units/1000 ml NS following placenta Estimated Blood Loss (ml): 250 Maternal Complications: Precipitous Labor (<3hrs) Provider Comments: Placenta delivered intact with 3vc LABOR SUMMARY EDC: 11/20/2016 00:00 Attempted: No Labor Anesthesia: None LABOR INFORMATION Reason for Induction: Not Applicable Onset of Labor: 11/21/2016 03:00 Complete Dilatation: 11/21/2016 04:42 Oxytocin: N/A Group B Beta Strep: negative Antibiotics # of Doses: 0 Antibiotics Time of Last Dose: n/a Steroids Given: None Reason Steroids Not Administered: Not Applicable MEMBRANES Membranes Rupture Method: Artificial Rupture of Membranes: 11/21/2016 04:45 Length of Rupture (hr): 0.18 Amniotic Fluid Color: Clear Amniotic Fluid Amount: Moderate Amniotic Fluid Odor: Normal STAGES OF LABOR Stage 1 hr: 1 Stage 1 min: 42 Stage 2 hr: 0 Stage 2 min: 14 Stage 3 hr: 0 Stage 3 min: 4 Total Time in Labor hr: 2 Total Time in Labor min: 0 VAGINAL DELIVERY Episiotomy: None Laceration Extension: First Degree Laceration Type: Perineal Laceration Repair: Yes Laceration Repair Note: one 3-0 chromic suture placed Sponge Count Correct: N/A Sharps Count Correct: N/A CSECTION DELIVERY Primary Indication: N/A Secondary Indication: N/A CSection Incidence: N/A Labor: N/A Elective: N/A CSection Incision: N/A BABY A INFORMATION Delivery Date/Time: 11/21/2016 04:56 Method of Delivery: Vaginal Born in Route : No : N/A Forceps: N/A Vacuum Extraction: N/A Shoulder Dystocia : No PRESENTATION/POSITION BABY A Presentation: Cephalic Cephalic Presentation: Vertex Vertex Position: Left Occipital Anterior Breech Presentation: N/A PLACENTA INFORMATION BABY A Placenta Delivery Time : 11/21/2016 05:00 Placenta Method of Delivery: Spontaneous Placenta Status: Delivered SCORES BABY A Heart Rate 1 min: >100 bpm Resp Effort 1 min: Slow, Irregular Reflex Irritability 1 min: Cough or Sneeze or Pulls Away Muscle Tone 1 min: Active Motion Color 1 min: Body [place], Extremities Blue SCORE 1 MIN: 8 Heart Rate 5 min: >100 bpm Resp Effort 5 min: Good Cry Reflex Irritability 5 min: Cough or Sneeze or Pulls Away Muscle Tone 5 min: Active Motion Color 5 min: Body [place], Extremities Blue SCORE 5 MIN: 9 INFANT INFORMATION BABY A Gestational Age at Delivery: 40.1 Gestational Status: Full Term- 39- 40.6 Weeks Outcome : Liveborn Condition : Stable Infant Sex: Female IDENTIFICATION BABY A Verification Date/Time: 11/21/2016 05:49 ID Band Number: [id number] Mother's Name Verified: Yes Infant RN Verifying : A Valdovinos Rn Additional Verifying Personnel: [employer] Rn WEIGHT/LENGTH BABY A Birthweight (gm): 3490 Weight (lb): 7 Weight (oz): 11 Infant Length (in): 20.00 Infant Length (cm): 50.80 CORD INFORMATION BABY A No. Cord Vessels: 3 Nuchal Cord : N/A Cord Blood Taken: Yes-For Eval (Mom's Blood Type - or O+) Suction: Mouth; Nose ASSESSMENT BABY A Complications: None Physical Findings at Delivery: Within Normal Limits Infant Respirations: Appears Normal Skin to Skin: Yes Skin to Skin Time (min): 40 Mine Inspector Federal/ALS Called : No Care By: Ena Campa RN Transferred To: Remains with Mother SIGNATURES Signature: with User ID: [email or web address]
--- NOTE | 2016-11-26 06:01 | L&D General Admission ---
General Admit Datetime Report Generated by CPN: 11/26/2016 06:00 INFORMATION Patient Age: 26 (10/08/2016 10:16:QS system process) EDC: 11/20/2016 00:00 (11/21/2016 04:15:Cristina Nascimento RN) EDC per Ultrasound: 11/20/2016 00:00 (11/21/2016 04:15:Cristina Nascimento RN) : 5 (11/21/2016 04:15:Cristina Nascimento RN) Para: 2 (11/21/2016 04:15:Cristina Nascimento RN) Term: 2 (11/21/2016 04:15:Cristina Nascimento RN) Spontaneous Abortions: 2 (11/21/2016 04:15:Cristina Nascimento RN) Livin (11/21/2016 04:15:Cristina Nascimento RN) Cesareans: 0 (11/21/2016 04:15:Cristina Nascimento RN) CARE Primary 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: [facility] (11/21/2016 04:15:Rosy Valdovinos) Adequate Care: Yes (11/21/2016 04:15:Cristina Azam, RN) Height (in): 67 (11/22/2016 15:30:QS system process) ALLERGIES Medication Allergy: No (11/21/2016 04:15:Rosy Valdovinos) Medication Allergies: No Known Allergies (02/16/2013) (10/08/2016 10:16:QS system process) Latex Allergy: No Latex Allergies (11/21/2016 04:15:Rosy Valdovinos) Food Allergies: none (11/21/2016 04:15:Rosy Valdovinos) Environmental Allergies: none (11/21/2016 04:15:Rosy Valdovinos) COMMUNICATION Primary Language: [place] Citizen (11/21/2016 04:15:Rosy Valdovinos) Medical Tx Preferred Language: [place] Citizen (11/21/2016 04:15:Rosyabhilash Valdovinos) DEMOGRAPHICS Address: [address] [place] [id number] (10/08/2016 10:16:QS system process) Zipcode: [phone] (10/08/2016 10:16:QS system process) Home (10/08/2016 10:16:QS system process) SSN: [id number] (10/08/2016 10:16:QS system process) Next of Kin Name: JANETH MCMILLAN (10/08/2016 10:16:QS system process) Next of Kin (10/08/2016 10:16:QS system process) Next of Kin Relationship: SPO (10/08/2016 10:16:QS system process) Date of : 1990 (10/08/2016 10:16:QS system process) Marital Status: (10/08/2016 10:16:QS system process) Sex: Female (10/08/2016 10:16:QS system process) Race: (10/08/2016 10:16:QS system process) Ethnicity: Non- or (10/08/2016 10:16:QS system process) Scientology: Nondenominational (10/08/2016 10:16:QS system process) DRUG AND ALCOHOL USE Alcohol: No (11/21/2016 04:15:Rosy Valdovinos) Cigarettes: Never Smoker. 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: [facility] (11/21/2016 04:15:Rosy Valdovinos) Feeding Preference: Breast (11/21/2016 04:15:Rosy Valdovinos) Benefit of Breast Feed Discussed: Yes (11/21/2016 04:15:Viry Dickey RN) Circumcision: N/A (11/21/2016 04:15:Rosy Valdovinos) Classes Attended: No (11/21/2016 04:15:Rosy Valdovinos) Tubal Ligation: No (11/21/2016 04:15:Rosy Valdovinos) Tubal Authorization Signed: N/A (11/21/2016 04:15:Rosy Valdoivnos) Consent: N/A (11/21/2016 04:15:Rosy Valdovinos) Consent Signed: N/A (11/21/2016 04:15:Rosy Valdovinos) Pain Management Plans: Epidural (11/21/2016 04:15:Rosy Valdovinos) Plans for Labor and Delivery: None (11/21/2016 04:15:Rosy Valdovinos) Support Person: Janeth (11/21/2016 04:15:Rosy Valdovinos) Support Person Relationship: (11/21/2016 04:15:Rosy Valdovinos) Cultural/Spritual Practice: N/A (11/21/2016 04:15:Rosy Valdovinos) Spir/Cult Dietary Needs: N/A (11/21/2016 04:15:Rosy Valdovinos) LIVING SITUATION/DISCHARGE PLAN Living Arrangements: House (11/21/2016 04:15:Rosy Valdovinos) Adequate Access to:: Electric; Heat; Refrigeration; Plumbing/Running water; Phone; Transportation (11/21/2016 04:15:Rosy Valdovinos) WIC Program: Yes (11/21/2016 04:15:Rosy Valdovinos) Discharge Java Support Engineer Person: janeth- (11/21/2016 04:15:Rosy Valdovinos) Person to Help after Discharge: janeth- (11/21/2016 04:15:Rosy Valdovinos) Currently Using Commun Resources: Yes (11/21/2016 04:15:Rosy Valdovinos) Specify Current Resource Used: medicaid (11/21/2016 04:15:Rosy Valdovinos) Outside Agency/Embosser Apprentice: No (11/21/2016 04:15:Rosy Valdovinos) Car Seat for Discharge: Yes (11/21/2016 04:15:Rosy Valdovinos) Adoption Requested: No (11/21/2016 04:15:Rosy Valdovinos) Pt Contact w/ Post : N/A (11/21/2016 04:15:Rosy Valdovinos) LABS Blood Type: O Positive (11/21/2016 04:15:Cristina Nascimento RN) Hemoglobin: 11.1 L (11/22/2016 07:14:QS system process) Hematocrit: 33.0 L (11/22/2016 07:14:QS system process) MCV: 76 L (11/22/2016 07:14:QS system process) Group Beta Strep: negative (11/21/2016 04:15:Viry Dickey RN) RPR/VDRL: Nonreactive (11/21/2016 04:15:Cristina Nascimento RN) HIV Exposure Test: Negative (11/21/2016 04:15:Cristina Nascimento RN) Hepatitis B: Negative (11/21/2016 04:15:Cristina Nascimento RN) Rubella: POSITIVE NEGATIVE IF LESS THAN OR EQUAL TO 9.99 IU/mL POSITIVE IF GREATER THAN OR EQUAL TO 10.0 IU/mL (11/21/2016 05:50:QS system process) Rubella Titer: 41.30 (11/21/2016 05:50:QS system process) Varicella: Non Susceptible (11/21/2016 04:15:Cristina Nascimento RN) OB/PREVIOUS HISTORY Previous Procedures: Ultrasound; NST (11/21/2016 04:15:Rosy Valdovinos) Current Procedures: Ultrasound; NST (11/21/2016 04:15:Rosy Valdovinos) History of Previous : No (11/21/2016 04:15:Rosy Valdovinos) History of Gestational Diabetes: No (11/21/2016 04:15:Rosy Valdovinos) History of PIH: No (11/21/2016 04:15:Rosy Valdovinos) History of Incompetent Cervix: No (11/21/2016 04:15:Rosy Valdovinos) History of Placenta Previa/Abrup: No (11/21/2016 04:15:Rosy Valdovinos) History of Macrosomia: No (11/21/2016 04:15:Rosy Valdovinos) History of IUGR: No (11/21/2016 04:15:Rosy Valdovinos) History of Hemorrhage: No (11/21/2016 04:15:Rosy Valdovinos) History of Loss/Stillborn: No (11/21/2016 04:15:Rosy Valdovinos) History of : No (11/21/2016 04:15:Rosy Valdovinos) History of D (Rh) Sensitization: No (11/21/2016 04:15:Rosy Valdovinos) History Recurrent Loss/Stillborn: No (11/21/2016 04:15:Rosy Valdovinos) History Depression/PP Depression: No (11/21/2016 04:15:Rosy Valdovinos) History of Uterine Anomaly/GAVIOTA: No (11/21/2016 04:15:Rosy Valdovinos) History of Infertility: No (11/21/2016 04:15:Rosy Valdovinos) History of ART Treatment: No (11/21/2016 04:15:Rosy Valdovinos) History of GAVIOTA: No (11/21/2016 04:15:Rosy Valdovinos) MEDICAL HISTORY Med Hx Diabetes: No (11/21/2016 04:15:Rosy Valdovinos) Med Hx Hypertension: No (11/21/2016 04:15:Rosy Valdovinos) Med Hx Heart Disease: No (11/21/2016 04:15:Rosy Valdovinos) Med Hx Autoimmune Disorder: No (11/21/2016 04:15:Rosy Valdovinos) Med Hx Kidney Disease/UTI: No (11/21/2016 04:15:Rosy Valdovinos) Med Hx Neurologic/Epilepsy: No (11/21/2016 04:15:Rosy Valdovinos) Med Hx Psychiatric Disorders: No (11/21/2016 04:15:Rosy Valdovinos) Med Hx Hepatitis/Liver Disease: No (11/21/2016 04:15:Rosy Valdovinos) Med Hx Varicosities/Phlebitis: No (11/21/2016 04:15:Rosy Valdovinos) Med Hx Thyroid Dysfunction: No (11/21/2016 04:15:Rosy Valdovinos) Med Hx Trauma/Violence: No (11/21/2016 04:15:Rosy Valdovinos) Med Hx Blood Transfusion: No (11/21/2016 04:15:Rosy Valdovinos) Med Hx Pulmonary (Asthma,TB): No (11/21/2016 04:15:Rosy Valdovinos) Med Hx Breast: No (11/21/2016 04:15:Rosy Valdovinos) Med Hx STERILE SUPERVISOR Surgery: No (11/21/2016 04:15:Rosy Valdovinos) Med Hx Hospitalization/Surgery: No (11/21/2016 04:15:Rosy Valdovinos) Med Hx Anesthetic Complications: No (11/21/2016 04:15:Rosy Valdovinos) Med Hx Abnormal Pap Smear: No (11/21/2016 04:15:Rosy Valdovinos) Other Medical Diseases: No (11/21/2016 04:15:Rosy Valdovinos) Med Hx Significant Family Hx: No (11/21/2016 04:15:Rosy Valdovinos) Details of Med/Surg Hx: benign lump left breast-2009 depresasion-no suicidal thoughts (11/21/2016 04:15:Cristina Nascimento RN) INFECTIOUS HISTORY Inf Hx Gonorrhea: No (11/21/2016 04:15:Rosy Valdovinos) Inf Hx Chlamydia: No (11/21/2016 04:15:Rosy Valdovinos) Inf Hx Syphilis: No (11/21/2016 04:15:Rosy Valdovinos) Inf Hx HIV/AIDS: No (11/21/2016 04:15:Rosy Valdovinos) Inf Hx Human Papilloma Virus: No (11/21/2016 04:15:Rosy Valdovinos) Inf Hx Pt/Partner Genital Herpes: No (11/21/2016 04:15:Rosy Valdovinos) Inf Hx Tuberculosis/Exposure: No (11/21/2016 04:15:Rosy Valdovinos) Inf Hx Hepatitis B,C: No (11/21/2016 04:15:Rosy Valdovinos) Inf Hx Rash or Viral Illness: No (11/21/2016 04:15:Rosy Valdovinos) GENETIC HISTORY Gen Hx Age >=35 at TYRELL: No (11/21/2016 04:15:Rosy Valdovinos) Gen Hx Thalassemia: No (11/21/2016 04:15:Rosy Valdovinos) Gen Hx Congenital Heart Defect: No (11/21/2016 04:15:Rosy Valdovinos) Gen Hx Neural Tube Defect: No (11/21/2016 04:15:Rosy Valdovinos) Gen Hx Down's Syndrome: No (11/21/2016 04:15:Rosy Valdovinos) Gen Hx Jt-Sachs: No (11/21/2016 04:15:Rosy Valdovinos) Gen Hx Otto: No (11/21/2016 04:15:Rosy Valdovinos) Gen Hx Familial Dysautonomia: No (11/21/2016 04:15:Rosy Valdovinos) Gen Hx Sickle Cell Disease/Trait: No (11/21/2016 04:15:Rosy Valdovinos) Gen Hx Hemophilia/Blood Disorder: No (11/21/2016 04:15:Rosy Valdovinos) Gen Hx Muscular Dystrophy: No (11/21/2016 04:15:Rosy Valdovinos) Gen Hx Cystic Fibrosis: No (11/21/2016 04:15:Rosy Valdovinos) Gen Hx [place] Chorea: No (11/21/2016 04:15:Rosy Valdovinos) Gen Hx Mental Retardation/Autism: No (11/21/2016 04:15:Rosy Valdovinos) Gen Hx Tested for Fragile X: No (11/21/2016 04:15:Rosy Valdovinos) Gen Hx Other Inher/Chromosomal: No (11/21/2016 04:15:Rosy Valdovinos) Gen Hx Maternal Metabolic DO: No (11/21/2016 04:15:Rosy Valdovinos) Gen Hx Pt Father or FOB Defect: No (11/21/2016 04:15:Rosy Valdovinos) Gen Hx Other Genetic History: No (11/21/2016 04:15:Rosy Valdovinos) Gen Hx Drugs/Meds since LMP: No (11/21/2016 04:15:Rosy Valdovinos)
--- NOTE | 2016-11-26 18:01 | L&D General Admission ---
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: [facility] (11/21/2016 04:15:Rosy Valdovinos) Adequate Care: Yes (11/21/2016 04:15:Cristina Azam, RN) Height (in): 67 (11/22/2016 15:30:QS system process) ALLERGIES Medication Allergy: No (11/21/2016 04:15:Rosy Valdovinos) Medication Allergies: No Known Allergies (02/16/2013) (10/08/2016 10:16:QS system process) Latex Allergy: No Latex Allergies (11/21/2016 04:15:Rosy Valdovinos) Food Allergies: none (11/21/2016 04:15:Rosy Valdovinos) Environmental Allergies: none (11/21/2016 04:15:Rosy Valdovinos) COMMUNICATION Primary Language: Tongan (11/21/2016 04:15:Rosy Valdovinos) Medical Tx Preferred Language: Tongan (11/21/2016 04:15:Rosyabhilash Valdovinos) DEMOGRAPHICS Address: [address] [place] [phone] (10/08/2016 10:16:QS system process) Zipcode: [phone] (10/08/2016 10:16:QS system process) Home (10/08/2016 10:16:QS system process) SSN: [id number] (10/08/2016 10:16:QS system process) Next of Kin Name: JANETH MCMILLAN (10/08/2016 10:16:QS system process) Next of Kin (10/08/2016 10:16:QS system process) Next of Kin Relationship: SPO (10/08/2016 10:16:QS system process) Date of : 1990 (10/08/2016 10:16:QS system process) Marital Status: (10/08/2016 10:16:QS system process) Sex: Female (10/08/2016 10:16:QS system process) Race: (10/08/2016 10:16:QS system process) Ethnicity: Non- or (10/08/2016 10:16:QS system process) Faith: Adventist (10/08/2016 10:16:QS system process) DRUG AND ALCOHOL USE Alcohol: No (11/21/2016 04:15:Rosy Valdovinos) Cigarettes: Never Smoker. [id number] (11/21/2016 04:15:Rosy Valdovinos) Marijuana: No (11/21/2016 04:15:Rosy Valdovinos) Cocaine: No (11/21/2016 04:15:Rosy Valdovinos) Other Illicit Drugs: No (11/21/2016 04:15:Rosy Valdovinos) VACCINE HISTORY Influenza Vaccine: Yes (11/21/2016 04:15:Rosy Valdovinos) Influenza Date: 2016 (11/21/2016 04:15:Rosy Valdovinos) Tdap Vaccine: Yes (11/21/2016 04:15:Rosy Valdovinos) Tdap Date: 2016 (11/21/2016 04:15:Rosy Valdovinos) Advertising Job Titles: [facility] (11/21/2016 04:15:Rosy Valdovinos) Feeding Preference: Breast (11/21/2016 04:15:Rosy Valdovinos) Benefit of Breast Feed Discussed: Yes (11/21/2016 04:15:Viry Dickey RN) Circumcision: N/A (11/21/2016 04:15:Rosy Valdovinos) Classes Attended: No (11/21/2016 04:15:Rosy Valdovinos) Tubal Ligation: No (11/21/2016 04:15:Rosy Valdovinos) Tubal Authorization Signed: N/A (11/21/2016 04:15:Rosy Valdovinos) Consent: N/A (11/21/2016 04:15:Rosy Valdovinos) Consent Signed: N/A (11/21/2016 04:15:Rosy Valdovinos) Pain Management Plans: Epidural (11/21/2016 04:15:Rosy Valdovinos) Plans for Labor and Delivery: None (11/21/2016 04:15:Rosy Valdovinos) Support Person: Janeth (11/21/2016 04:15:Rosy Valdovinos) Support Person Relationship: (11/21/2016 04:15:Rosy Valdovinos) Cultural/Spritual Practice: N/A (11/21/2016 04:15:Rosy Valdovinos) Spir/Cult Dietary Needs: N/A (11/21/2016 04:15:Rosy Valdovinos) LIVING SITUATION/DISCHARGE PLAN Living Arrangements: House (11/21/2016 04:15:Rosy Valdovinos) Adequate Access to:: Electric; Heat; Refrigeration; Plumbing/Running water; Phone; Transportation (11/21/2016 04:15:Rosy Valdovinos) WIC Program: Yes (11/21/2016 04:15:Rosy Valdovinos) Discharge English And Reading Instructor Person: janeth- (11/21/2016 04:15:Rosy Valdovinos) Person to Help after Discharge: janeth- (11/21/2016 04:15:Rosy Valdovinos) Currently Using Commun Resources: Yes (11/21/2016 04:15:Rosy Valdovinos) Specify Current Resource Used: medicaid (11/21/2016 04:15:Rosy Valdovinos) Outside Agency/Automotive Leasing Sales Representative: No (11/21/2016 04:15:Rosy Valdovinos) Car Seat for Discharge: Yes (11/21/2016 04:15:Rosy Valdovinos) Adoption Requested: No (11/21/2016 04:15:Rosy Valdovinos) Pt Contact w/ Post : N/A (11/21/2016 04:15:Rosy Valdovinos) LABS Blood Type: O Positive (11/21/2016 04:15:Cristina Nascimento RN) Hemoglobin: 11.1 L (11/22/2016 07:14:QS system process) Hematocrit: 33.0 L (11/22/2016 07:14:QS system process) MCV: 76 L (11/22/2016 07:14:QS system process) Group Beta Strep: negative (11/21/2016 04:15:Viry Dickey RN) RPR/VDRL: Nonreactive (11/21/2016 04:15:Cristina Nascimento RN) HIV Exposure Test: Negative (11/21/2016 04:15:Cristina Nascimento RN) Hepatitis B: Negative (11/21/2016 04:15:Cristina Nascimento RN) Rubella: POSITIVE NEGATIVE IF LESS THAN OR EQUAL TO 9.99 IU/mL POSITIVE IF GREATER THAN OR EQUAL TO 10.0 IU/mL (11/21/2016 05:50:QS system process) Rubella Titer: 41.30 (11/21/2016 05:50:QS system process) Varicella: Non Susceptible (11/21/2016 04:15:Cristina Nascimento RN) OB/PREVIOUS HISTORY Previous Procedures: Ultrasound; NST (11/21/2016 04:15:Rosy Valdovinos) Current Procedures: Ultrasound; NST (11/21/2016 04:15:Rosy Valdovinos) History of Previous : No (11/21/2016 04:15:Rosy Valdovinos) History of Gestational Diabetes: No (11/21/2016 04:15:Rosy Valdovinos) History of PIH: No (11/21/2016 04:15:Rosy Valdovinos) History of Incompetent Cervix: No (11/21/2016 04:15:Rosy Valdovinos) History of Placenta Previa/Abrup: No (11/21/2016 04:15:Rosy Valdovinos) History of Macrosomia: No (11/21/2016 04:15:Rosy Valdovinos) History of IUGR: No (11/21/2016 04:15:Rosy Valdovinos) History of Hemorrhage: No (11/21/2016 04:15:Rosy Valdovinos) History of Loss/Stillborn: No (11/21/2016 04:15:Rosy Valdovinos) History of : No (11/21/2016 04:15:Rosy Valdovinos) History of D (Rh) Sensitization: No (11/21/2016 04:15:Rosy Valdovinos) History Recurrent Loss/Stillborn: No (11/21/2016 04:15:Rosy Valdovinos) History Depression/PP Depression: No (11/21/2016 04:15:Rosy Valdovinos) History of Uterine Anomaly/GAVIOTA: No (11/21/2016 04:15:Rosy Valdovinos) History of Infertility: No (11/21/2016 04:15:Rosy Valdovinos) History of ART Treatment: No (11/21/2016 04:15:Rosy Valdovinos) History of GAVIOTA: No (11/21/2016 04:15:Rosy Valdovinos) MEDICAL HISTORY Med Hx Diabetes: No (11/21/2016 04:15:Rosy Valdovinos) Med Hx Hypertension: No (11/21/2016 04:15:Rosy Valdovinos) Med Hx Heart Disease: No (11/21/2016 04:15:Rosy Valdovinos) Med Hx Autoimmune Disorder: No (11/21/2016 04:15:Rosy Valdovinos) Med Hx Kidney Disease/UTI: No (11/21/2016 04:15:Rosy Valdovinos) Med Hx Neurologic/Epilepsy: No (11/21/2016 04:15:Rosy Valdovinos) Med Hx Psychiatric Disorders: No (11/21/2016 04:15:Rosy Valdovinos) Med Hx Hepatitis/Liver Disease: No (11/21/2016 04:15:Rosy Valdovinos) Med Hx Varicosities/Phlebitis: No (11/21/2016 04:15:Rosy Valdovinos) Med Hx Thyroid Dysfunction: No (11/21/2016 04:15:Rosy Valdovinos) Med Hx Trauma/Violence: No (11/21/2016 04:15:Rosy Valdovinos) Med Hx Blood Transfusion: No (11/21/2016 04:15:Rosy Valdovinos) Med Hx Pulmonary (Asthma,TB): No (11/21/2016 04:15:Rosy Valdovinos) Med Hx Breast: No (11/21/2016 04:15:Rosy Valdovinos) Med Hx [place] Surgery: No (11/21/2016 04:15:Rosy Valdovinos) Med Hx Hospitalization/Surgery: No (11/21/2016 04:15:Rosy Valdovinos) Med Hx Anesthetic Complications: No (11/21/2016 04:15:Rosy Valdovinos) Med Hx Abnormal Pap Smear: No (11/21/2016 04:15:Rosy Valdovinos) Other Medical Diseases: No (11/21/2016 04:15:Rosy Valdovinos) Med Hx Significant Family Hx: No (11/21/2016 04:15:Rosy Valdovinos) Details of Med/Surg Hx: benign lump left breast-2009 depresasion-no suicidal thoughts (11/21/2016 04:15:Cristina Nascimento RN) INFECTIOUS HISTORY Inf Hx Gonorrhea: No (11/21/2016 04:15:Rosy Valdovinos) Inf Hx Chlamydia: No (11/21/2016 04:15:Rosy Valdovinos) Inf Hx Syphilis: No (11/21/2016 04:15:Rosy Valdovinos) Inf Hx HIV/AIDS: No (11/21/2016 04:15:Rosy Valdovinos) Inf Hx Human Papilloma Virus: No (11/21/2016 04:15:Rosy Valdovinos) Inf Hx Pt/Partner Genital Herpes: No (11/21/2016 04:15:Rosy Valdovinos) Inf Hx Tuberculosis/Exposure: No (11/21/2016 04:15:Rosy Valdovinos) Inf Hx Hepatitis B,C: No (11/21/2016 04:15:Rosy Valdovinos) Inf Hx Rash or Viral Illness: No (11/21/2016 04:15:Rosy Valdovinos) GENETIC HISTORY Gen Hx Age >=35 at TYRELL: No (11/21/2016 04:15:Rosy Valdovinos) Gen Hx Thalassemia: No (11/21/2016 04:15:Rosy Valdovinos) Gen Hx Congenital Heart Defect: No (11/21/2016 04:15:Rosy Valdovinos) Gen Hx Neural Tube Defect: No (11/21/2016 04:15:Rosy Valdovinos) Gen Hx Down's Syndrome: No (11/21/2016 04:15:Rosy Valdovinos) Gen Hx Jt-Sachs: No (11/21/2016 04:15:Rosy Valdovinos) Gen Hx Otto: No (11/21/2016 04:15:Rosy Valdovinos) Gen Hx Familial Dysautonomia: No (11/21/2016 04:15:Rosy Valdovinos) Gen Hx Sickle Cell Disease/Trait: No (11/21/2016 04:15:Rosy Valdovinos) Gen Hx Hemophilia/Blood Disorder: No (11/21/2016 04:15:Rosy Valdovinos) Gen Hx Muscular Dystrophy: No (11/21/2016 04:15:Rosy Valdovinos) Gen Hx Cystic Fibrosis: No (11/21/2016 04:15:Rosy Valdovinos) Gen Hx [place] Chorea: No (11/21/2016 04:15:Rosy Valdovinos) Gen Hx Mental Retardation/Autism: No (11/21/2016 04:15:Rosy Valdovinos) Gen Hx Tested for Fragile X: No (11/21/2016 04:15:Rosy Valdovinos) Gen Hx Other Inher/Chromosomal: No (11/21/2016 04:15:Rosy Valdovinos) Gen Hx Maternal Metabolic DO: No (11/21/2016 04:15:Rosy Valdovinos) Gen Hx Pt Father or FOB Defect: No (11/21/2016 04:15:Rosy Valdovinos) Gen Hx Other Genetic History: No (11/21/2016 04:15:Rosy Valdovinos) Gen Hx Drugs/Meds since LMP: No (11/21/2016 04:15:Rosy Valdovinos)
--- NOTE | 2016-11-26 18:02 | L&D General Admission ---
General Admit Datetime Report Generated by CPN: 11/26/2016 18:00 INFORMATION Patient Age: 26 (10/08/2016 10:16:QS system process) EDC: 11/20/2016 00:00 (11/21/2016 04:15:Cristina Nascimento RN) EDC per Ultrasound: 11/20/2016 00:00 (11/21/2016 04:15:Cristina Nascimento RN) : 5 (11/21/2016 04:15:Cristina Nascimento RN) Para: 2 (11/21/2016 04:15:Cristina Nascimento RN) Term: 2 (11/21/2016 04:15:Cristina Nascimento RN) Spontaneous Abortions: 2 (11/21/2016 04:15:Cristina Nascimento RN) Livin (11/21/2016 04:15:Cristina Nascimento RN) Cesareans: 0 (11/21/2016 04:15:Cristina Nascimento RN) CARE Primary Occupational Health Technician: [facility] (11/21/2016 04:15:Rosy Valdovinos) Adequate Care: Yes (11/21/2016 04:15:Cristina Azam, RN) Height (in): 67 (11/22/2016 15:30:QS system process) ALLERGIES Medication Allergy: No (11/21/2016 04:15:Rosy Valdovinos) Medication Allergies: No Known Allergies (02/16/2013) (10/08/2016 10:16:QS system process) Latex Allergy: No Latex Allergies (11/21/2016 04:15:Rosy Valdovinos) Food Allergies: none (11/21/2016 04:15:Rosy Valdovinos) Environmental Allergies: none (11/21/2016 04:15:Rosy Valdovinos) COMMUNICATION Primary Language: [place]an (11/21/2016 04:15:Rosy Valdovinos) Medical Tx Preferred Language: [place] (11/21/2016 04:15:Rosyabhilash Valdovinos) DEMOGRAPHICS Address: [address] [place] [id number] (10/08/2016 10:16:QS system process) Zipcode: [phone] (10/08/2016 10:16:QS system process) Home (10/08/2016 10:16:QS system process) SSN: [id number] (10/08/2016 10:16:QS system process) Next of Kin Name: JANETH MCMILLAN (10/08/2016 10:16:QS system process) Next of Kin (10/08/2016 10:16:QS system process) Next of Kin Relationship: SPO (10/08/2016 10:16:QS system process) Date of : 1990 (10/08/2016 10:16:QS system process) Marital Status: (10/08/2016 10:16:QS system process) Sex: Female (10/08/2016 10:16:QS system process) Race: (10/08/2016 10:16:QS system process) Ethnicity: Non- or (10/08/2016 10:16:QS system process) Christian: Jain (10/08/2016 10:16:QS system process) DRUG AND ALCOHOL USE Alcohol: No (11/21/2016 04:15:Rosy Valdovinos) Cigarettes: Never Smoker. [id number] (11/21/2016 04:15:Rosy Valdovinos) Marijuana: No (11/21/2016 04:15:Rosy Valdovinos) Cocaine: No (11/21/2016 04:15:Rosy Valdovinos) Other Illicit Drugs: No (11/21/2016 04:15:Rosy Valdovinos) VACCINE HISTORY Influenza Vaccine: Yes (11/21/2016 04:15:Rosy Valdovinos) Influenza Date: 2016 (11/21/2016 04:15:Rosy Valdovinos) Tdap Vaccine: Yes (11/21/2016 04:15:Rosy Valdovinos) Tdap Date: 2016 (11/21/2016 04:15:Rosy Valdovinos) Dye Beck Reel Operator: [facility] (11/21/2016 04:15:Rosy Valdovinos) Feeding Preference: Breast (11/21/2016 04:15:Rosy Valdovinos) Benefit of Breast Feed Discussed: Yes (11/21/2016 04:15:Viry Dickey RN) Circumcision: N/A (11/21/2016 04:15:Rosy Valdovinos) Classes Attended: No (11/21/2016 04:15:Rosy Valdovinos) Tubal Ligation: No (11/21/2016 04:15:Rosy Valdovinos) Tubal Authorization Signed: N/A (11/21/2016 04:15:Rosy Valdovinos) Consent: N/A (11/21/2016 04:15:Rosy Valdovinos) Consent Signed: N/A (11/21/2016 04:15:Rosy Valdovinos) Pain Management Plans: Epidural (11/21/2016 04:15:Rosy Valdovinos) Plans for Labor and Delivery: None (11/21/2016 04:15:Rosy Valdovinos) Support Person: Janeth (11/21/2016 04:15:Rosy Valdovinos) Support Person Relationship: (11/21/2016 04:15:Rosy Valdovinos) Cultural/Spritual Practice: N/A (11/21/2016 04:15:Rosy Valdovinos) Spir/Cult Dietary Needs: N/A (11/21/2016 04:15:Rosy Valdovinos) LIVING SITUATION/DISCHARGE PLAN Living Arrangements: House (11/21/2016 04:15:Rosy Valdovinos) Adequate Access to:: Electric; Heat; Refrigeration; Plumbing/Running water; Phone; Transportation (11/21/2016 04:15:Rosy Valdovinos) WIC Program: Yes (11/21/2016 04:15:Rosy Valdovinos) Discharge Public Interviewer Person: janeth- (11/21/2016 04:15:Rosy Valdovinos) Person to Help after Discharge: janeth- (11/21/2016 04:15:Rosy Valdovinos) Currently Using Commun Resources: Yes (11/21/2016 04:15:Rosy Valdovinos) Specify Current Resource Used: medicaid (11/21/2016 04:15:Rosy Valdovinos) Outside Agency/Set Up Operator: No (11/21/2016 04:15:Rosy Valdovinos) Car Seat for Discharge: Yes (11/21/2016 04:15:Rosy Valdovinos) Adoption Requested: No (11/21/2016 04:15:Rosy Valdovinos) Pt Contact w/ Post : N/A (11/21/2016 04:15:Rosy Valdovinos) LABS Blood Type: O Positive (11/21/2016 04:15:Cristina Nascimento RN) Hemoglobin: 11.1 L (11/22/2016 07:14:QS system process) Hematocrit: 33.0 L (11/22/2016 07:14:QS system process) MCV: 76 L (11/22/2016 07:14:QS system process) Group Beta Strep: negative (11/21/2016 04:15:Viry Dickey RN) RPR/VDRL: Nonreactive (11/21/2016 04:15:Cristina Nascimento RN) HIV Exposure Test: Negative (11/21/2016 04:15:Cristina Nascimento RN) Hepatitis B: Negative (11/21/2016 04:15:Cristina Nascimento RN) Rubella: POSITIVE NEGATIVE IF LESS THAN OR EQUAL TO 9.99 IU/mL POSITIVE IF GREATER THAN OR EQUAL TO 10.0 IU/mL (11/21/2016 05:50:QS system process) Rubella Titer: 41.30 (11/21/2016 05:50:QS system process) Varicella: Non Susceptible (11/21/2016 04:15:Cristina Nascimento RN) OB/PREVIOUS HISTORY Previous Procedures: Ultrasound; NST (11/21/2016 04:15:Rosy Valdovinos) Current Procedures: Ultrasound; NST (11/21/2016 04:15:Rosy Valdovinos) History of Previous : No (11/21/2016 04:15:Rosy Valdovinos) History of Gestational Diabetes: No (11/21/2016 04:15:Rosy Valdovinos) History of PIH: No (11/21/2016 04:15:Rosy Valdovinos) History of Incompetent Cervix: No (11/21/2016 04:15:Rosy Valdovinos) History of Placenta Previa/Abrup: No (11/21/2016 04:15:Rosy Valdovinos) History of Macrosomia: No (11/21/2016 04:15:Rosy Valdovinos) History of IUGR: No (11/21/2016 04:15:Rosy Valdovinos) History of Hemorrhage: No (11/21/2016 04:15:Rosy Valdovinos) History of Loss/Stillborn: No (11/21/2016 04:15:Rosy Valdovinos) History of : No (11/21/2016 04:15:Rosy Valdovinos) History of D (Rh) Sensitization: No (11/21/2016 04:15:Rosy Valdovinos) History Recurrent Loss/Stillborn: No (11/21/2016 04:15:Rosy Valdovinos) History Depression/PP Depression: No (11/21/2016 04:15:Rosy Valdovinos) History of Uterine Anomaly/GAVIOTA: No (11/21/2016 04:15:Rosy Valdovinos) History of Infertility: No (11/21/2016 04:15:Rosy Valdovinos) History of ART Treatment: No (11/21/2016 04:15:Rosy Valdovinos) History of GAVIOTA: No (11/21/2016 04:15:Rosy Valdovinos) MEDICAL HISTORY Med Hx Diabetes: No (11/21/2016 04:15:Rosy Valdovinos) Med Hx Hypertension: No (11/21/2016 04:15:Rosy Valdovinos) Med Hx Heart Disease: No (11/21/2016 04:15:Rosy Valdovinos) Med Hx Autoimmune Disorder: No (11/21/2016 04:15:Rosy Valdovinos) Med Hx Kidney Disease/UTI: No (11/21/2016 04:15:Rosy Valdovinos) Med Hx Neurologic/Epilepsy: No (11/21/2016 04:15:Rosy Valdovinos) Med Hx Psychiatric Disorders: No (11/21/2016 04:15:Rosy Valdovinos) Med Hx Hepatitis/Liver Disease: No (11/21/2016 04:15:Rosy Valdovinos) Med Hx Varicosities/Phlebitis: No (11/21/2016 04:15:Rosy Valdovinos) Med Hx Thyroid Dysfunction: No (11/21/2016 04:15:Rosy Valdovinos) Med Hx Trauma/Violence: No (11/21/2016 04:15:Rosy Valdovinos) Med Hx Blood Transfusion: No (11/21/2016 04:15:Rosy Valdovinos) Med Hx Pulmonary (Asthma,TB): No (11/21/2016 04:15:Rosy Valdovinos) Med Hx Breast: No (11/21/2016 04:15:Rosy Valdovinos) Med Hx PEDIATRIC PSYCHIATRIST Surgery: No (11/21/2016 04:15:Rosy Valdovinos) Med Hx Hospitalization/Surgery: No (11/21/2016 04:15:Rosy Valdovinos) Med Hx Anesthetic Complications: No (11/21/2016 04:15:Rosy Valdovinos) Med Hx Abnormal Pap Smear: No (11/21/2016 04:15:Rosy Valdovinos) Other Medical Diseases: No (11/21/2016 04:15:Rosy Valdovinos) Med Hx Significant Family Hx: No (11/21/2016 04:15:Rosy Valdovinos) Details of Med/Surg Hx: benign lump left breast-2009 depresasion-no suicidal thoughts (11/21/2016 04:15:Cristina Nascimento RN) INFECTIOUS HISTORY Inf Hx Gonorrhea: No (11/21/2016 04:15:Rosy Valdovinos) Inf Hx Chlamydia: No (11/21/2016 04:15:Rosy Valdovinos) Inf Hx Syphilis: No (11/21/2016 04:15:Rosy Valdovinos) Inf Hx HIV/AIDS: No (11/21/2016 04:15:Rosy Valdovinos) Inf Hx Human Papilloma Virus: No (11/21/2016 04:15:Rosy Valdovinos) Inf Hx Pt/Partner Genital Herpes: No (11/21/2016 04:15:Rosy Valdovinos) Inf Hx Tuberculosis/Exposure: No (11/21/2016 04:15:Rosy Valdovinos) Inf Hx Hepatitis B,C: No (11/21/2016 04:15:Rosy Valdovinos) Inf Hx Rash or Viral Illness: No (11/21/2016 04:15:Rosy Valdovinos) GENETIC HISTORY Gen Hx Age >=35 at TYRELL: No (11/21/2016 04:15:Rosy Valdovinos) Gen Hx Thalassemia: No (11/21/2016 04:15:Rosy Valdovinos) Gen Hx Congenital Heart Defect: No (11/21/2016 04:15:Rosy Valdovinos) Gen Hx Neural Tube Defect: No (11/21/2016 04:15:Rosy Valdovinos) Gen Hx Down's Syndrome: No (11/21/2016 04:15:Rosy Valdovinos) Gen Hx Jt-Sachs: No (11/21/2016 04:15:Rosy Valdovinos) Gen Hx Otto: No (11/21/2016 04:15:Rosy Valdovinos) Gen Hx Familial Dysautonomia: No (11/21/2016 04:15:Rosy Valdovinos) Gen Hx Sickle Cell Disease/Trait: No (11/21/2016 04:15:Rosy Valdovinos) Gen Hx Hemophilia/Blood Disorder: No (11/21/2016 04:15:Rosy Valdovinos) Gen Hx Muscular Dystrophy: No (11/21/2016 04:15:Rosy Valdovinos) Gen Hx Cystic Fibrosis: No (11/21/2016 04:15:Rosy Valdovinos) Gen Hx [place] Chorea: No (11/21/2016 04:15:Rosy Valdovinos) Gen Hx Mental Retardation/Autism: No (11/21/2016 04:15:Rosy Valdovinos) Gen Hx Tested for Fragile X: No (11/21/2016 04:15:Rosy Valdovinos) Gen Hx Other Inher/Chromosomal: No (11/21/2016 04:15:Rosy Valdovinos) Gen Hx Maternal Metabolic DO: No (11/21/2016 04:15:Rosy Valdovinos) Gen Hx Pt Father or FOB Defect: No (11/21/2016 04:15:Rosy Valdovinos) Gen Hx Other Genetic History: No (11/21/2016 04:15:Rosy Valdovinos) Gen Hx Drugs/Meds since LMP: No (11/21/2016 04:15:Rosy Valdovinos)
--- NOTE | 2016-11-26 18:02 | L&D Current Admission ---
Current Admit Datetime Report Generated by CPN: 11/26/2016 18:00 ADMISSION INFORMATION Current Admit Date/Time: 11/21/2016 04:41 (11/21/2016 04:41:Rosy Valdovinos) Reason for Admission: Onset of Labor (11/21/2016 04:41:Rosy Valdovinos) Chief Complaint: Contractions (11/21/2016 04:41:Rosy Valdovinos) Medications During : Vitamin; Rantidine (Zantac) (11/21/2016 04:41:Cristina Nascimento RN) Meds During -Oth: fiorcet (11/21/2016 04:41:Cristina Nascimento RN) EGA per Dates: 40.1 (11/21/2016 04:41:QS system process) EGA per US: 40.1 (11/21/2016 04:41:QS system process) Method of Arrival: Wheelchair (11/21/2016 04:41:Rosy Valdovinos) Admitted From: Home (11/21/2016 04:41:Cristina Nascimento RN) Reason for Induction: Not Applicable (11/21/2016 04:41:Cristina Nascimento RN) Records Available: Yes (11/21/2016 04:41:Cristina Nascimento RN) General Admission Information: Reviewed (11/21/2016 04:41:Rosy Valdovinos) General Admission Reviewed By: Edmar Valdovinos RN (11/21/2016 04:41:Rosy Valdovinos) BELONGINGS/ADVANCED DIRECTIVES Other Belongings: see consent sheet (11/21/2016 04:41:Rosy Valdovinos) Disposition of Belongings: Kept with Patient (11/21/2016 04:41:Cristina Nascimento RN) Advance Direct for Healthcare: No, and Wants No Information (11/21/2016 04:41:Rosy Valdovinos) Durable Power of Director Of Property Management: No (11/21/2016 04:41:Rosy Valdovinos) Living Will: No (11/21/2016 04:41:Rosy Valdovinos) Organ Donor: No (11/21/2016 04:41:Rosy Valdovinos) Pt Rights Information Given: Yes (11/21/2016 04:41:Rosy Valdovinos) Pt Understands Pt Rights: Yes (11/21/2016 04:41:Rosy Valdovinos) Patient Rights Comments: patient access (11/21/2016 04:41:Rosy Valdovinos) LEARNING ASSESSMENT Knowledge Level: Understands L_D Process (11/21/2016 04:41:Rosy Valdovinos) Barriers to Learning: None (11/21/2016 04:41:Rosy Valdovinos) Learning Readiness: Motivated (11/21/2016 04:41:Rosy Valdovinos) Learns Best By: 1 to 1 Instruction (11/21/2016 04:41:Orsy Valdovinos) Learning Needs: Labor and Delivery Process; Pain Management; Symptoms to Report; Treatment Plan; Medication (11/21/2016 04:41:Rosy Valdovinos) DOMESTIC VIOLANCE SCREENING Dom Viol Threatened/Hurt: No (11/21/2016 04:41:Rosy Valdovinos) Hx of Abuse/Neglect past 2yrs: No (11/21/2016 04:41:Rosy Valdovinos) Feel Unsafe Going Home: No (11/21/2016 04:41:Rosy Valdovinos) Addt'l Observ Indicating Abuse: No (11/21/2016 04:41:Rosy Valdovinos) Reason Unable to Complete Screen: N/A, Screen Completed (11/21/2016 04:41:Rosy Valdovinos) Considered Personal Harm/Suicide: No (11/21/2016 04:41:Rosy Valdovinos) NUTRITIONAL/FUNCTIONAL SCREENING Problem with Appetite >5 Days: No (11/21/2016 04:41:Rosy Valdovinos) Chew/Swallow Difficulties: No (11/21/2016 04:41:Rosy Valdovinos) Inappropriate Wt Gain/Loss: No (11/21/2016 04:41:Rosy Valdovinos) Presence Skin Breakdown/Ulcer: No (11/21/2016 04:41:Rosy Valdovinos) Special Diet: No (11/21/2016 04:41:Rosy Valdovinos) Pt Requests Instructor Kindergarten Visit: No (11/21/2016 04:41:Rosy Valdovinos) Hx of Any of the Following?: N/A (11/21/2016 04:41:Rosy Valdovinos) New Diagnosis of: N/A (11/21/2016 04:41:Rosy Valdovinos) Requires Assist w/Ambulation: No (11/21/2016 04:41:Rosy Valdovinos) Uses Assist Device to Ambulate: No (11/21/2016 04:41:Rosy Valdovinos) Pt Requires Help w/ADL's: No (11/21/2016 04:41:Rosy Valdovinos)
--- NOTE | 2016-11-26 20:21 | L&D General Admission ---
General Admit Datetime Report Generated by CPN: 11/26/2016 20:20 INFORMATION Patient Age: 26 (10/08/2016 10:16:QS system process) EDC: 11/20/2016 00:00 (11/21/2016 04:15:Cristina Nascimento RN) EDC per Ultrasound: 11/20/2016 00:00 (11/21/2016 04:15:Cristina Nascimento RN) : 5 (11/21/2016 04:15:Cristina Nascimento RN) Para: 2 (11/21/2016 04:15:Cristina Nascimento RN) Term: 2 (11/21/2016 04:15:Cristina Nascimento RN) Spontaneous Abortions: 2 (11/21/2016 04:15:Cristina Nascimento RN) Livin (11/21/2016 04:15:Cristina Nascimento RN) Cesareans: 0 (11/21/2016 04:15:Cristina Nascimento RN) CARE Primary Adaptive Physical Education Specialist: [facility] (11/21/2016 04:15:Rosy Valdovinos) Adequate Care: Yes (11/21/2016 04:15:Cristina Azam, RN) Height (in): 67 (11/22/2016 15:30:QS system process) ALLERGIES Medication Allergy: No (11/21/2016 04:15:Rosy Valdovinos) Medication Allergies: No Known Allergies (02/16/2013) (10/08/2016 10:16:QS system process) Latex Allergy: No Latex Allergies (11/21/2016 04:15:Rosy Valdovinos) Food Allergies: none (11/21/2016 04:15:Rosy Valdovinos) Environmental Allergies: none (11/21/2016 04:15:Rosy Valdovinos) COMMUNICATION Primary Language: Turkmen (11/21/2016 04:15:Rosy Valdovinos) Medical Tx Preferred Language: Turkmen (11/21/2016 04:15:Rosyabhilash Valdovinos) DEMOGRAPHICS Address: [address] [place] [phone] (10/08/2016 10:16:QS system process) Zipcode: [phone] (10/08/2016 10:16:QS system process) Home (10/08/2016 10:16:QS system process) SSN: [id number] (10/08/2016 10:16:QS system process) Next of Kin Name: JANETH MCMILLAN (10/08/2016 10:16:QS system process) Next of Kin (10/08/2016 10:16:QS system process) Next of Kin Relationship: SPO (10/08/2016 10:16:QS system process) Date of : 1990 (10/08/2016 10:16:QS system process) Marital Status: (10/08/2016 10:16:QS system process) Sex: Female (10/08/2016 10:16:QS system process) Race: (10/08/2016 10:16:QS system process) Ethnicity: Non- or (10/08/2016 10:16:QS system process) Zoroastrian: Confucianist (10/08/2016 10:16:QS system process) DRUG AND ALCOHOL USE Alcohol: No (11/21/2016 04:15:Rosy Valdovinos) Cigarettes: Never Smoker. [id number] (11/21/2016 04:15:Rosy Valdovinos) Marijuana: No (11/21/2016 04:15:Rosy Valdovinos) Cocaine: No (11/21/2016 04:15:Rosy Valdovinos) Other Illicit Drugs: No (11/21/2016 04:15:Rosy Valdovinos) VACCINE HISTORY Influenza Vaccine: Yes (11/21/2016 04:15:Rosy Valdovinos) Influenza Date: 2016 (11/21/2016 04:15:Rosy Valdovinos) Tdap Vaccine: Yes (11/21/2016 04:15:Rosy Valdovinos) Tdap Date: 2016 (11/21/2016 04:15:Rosy Valdovinos) Laboratory Analyst: [facility] (11/21/2016 04:15:Rosy Valdovinos) Feeding Preference: Breast (11/21/2016 04:15:Rosy Valdovinos) Benefit of Breast Feed Discussed: Yes (11/21/2016 04:15:Viry Dickey RN) Circumcision: N/A (11/21/2016 04:15:Rosy Valdovinos) Classes Attended: No (11/21/2016 04:15:Rosy Valdovinos) Tubal Ligation: No (11/21/2016 04:15:Rosy Valdovinos) Tubal Authorization Signed: N/A (11/21/2016 04:15:Rosy Valdovinos) Consent: N/A (11/21/2016 04:15:Rosy Valdovinos) Consent Signed: N/A (11/21/2016 04:15:Rosy Valdovinos) Pain Management Plans: Epidural (11/21/2016 04:15:Rosy Valdovinos) Plans for Labor and Delivery: None (11/21/2016 04:15:Rosy Valdovinos) Support Person: Janeth (11/21/2016 04:15:Rosy Valdovinos) Support Person Relationship: (11/21/2016 04:15:Rosy Valdovinos) Cultural/Spritual Practice: N/A (11/21/2016 04:15:Rosy Valdovinos) Spir/Cult Dietary Needs: N/A (11/21/2016 04:15:Rosy Valdovinos) LIVING SITUATION/DISCHARGE PLAN Living Arrangements: House (11/21/2016 04:15:Rosy Valdovinos) Adequate Access to:: Electric; Heat; Refrigeration; Plumbing/Running water; Phone; Transportation (11/21/2016 04:15:Rosy Valdovinos) WIC Program: Yes (11/21/2016 04:15:Rosy Valdovinso) Discharge Wrestling Coach Person: janeth- (11/21/2016 04:15:Rosy Valdovinos) Person to Help after Discharge: janeth- (11/21/2016 04:15:Rosy Valdovinos) Currently Using Commun Resources: Yes (11/21/2016 04:15:Rosy Valdovinos) Specify Current Resource Used: medicaid (11/21/2016 04:15:Rosy Valdovinos) Outside Agency/Conveyor Weigher Operator: No (11/21/2016 04:15:Rosy Valdovinos) Car Seat for Discharge: Yes (11/21/2016 04:15:Rosy Valdovinos) Adoption Requested: No (11/21/2016 04:15:Rosy Valdovinos) Pt Contact w/ Post : N/A (11/21/2016 04:15:Rosy Valdovinos) LABS Blood Type: O Positive (11/21/2016 04:15:Cristina Nascimento RN) Hemoglobin: 11.1 L (11/22/2016 07:14:QS system process) Hematocrit: 33.0 L (11/22/2016 07:14:QS system process) MCV: 76 L (11/22/2016 07:14:QS system process) Group Beta Strep: negative (11/21/2016 04:15:Viry Dickey RN) RPR/VDRL: Nonreactive (11/21/2016 04:15:Cristina Nascimento RN) HIV Exposure Test: Negative (11/21/2016 04:15:Cristina Nascimento RN) Hepatitis B: Negative (11/21/2016 04:15:Cristina Nascimento RN) Rubella: POSITIVE NEGATIVE IF LESS THAN OR EQUAL TO 9.99 IU/mL POSITIVE IF GREATER THAN OR EQUAL TO 10.0 IU/mL (11/21/2016 05:50:QS system process) Rubella Titer: 41.30 (11/21/2016 05:50:QS system process) Varicella: Non Susceptible (11/21/2016 04:15:Cristina Nascimento RN) OB/PREVIOUS HISTORY Previous Procedures: Ultrasound; NST (11/21/2016 04:15:Rosy Valdovinos) Current Procedures: Ultrasound; NST (11/21/2016 04:15:Rosy Valdovinos) History of Previous : No (11/21/2016 04:15:Rosy Valdovinos) History of Gestational Diabetes: No (11/21/2016 04:15:Rosy Valdovinos) History of PIH: No (11/21/2016 04:15:Rosy Valdovinos) History of Incompetent Cervix: No (11/21/2016 04:15:Rosy Valdovinos) History of Placenta Previa/Abrup: No (11/21/2016 04:15:Rosy Valdovinos) History of Macrosomia: No (11/21/2016 04:15:Rosy Valdovinos) History of IUGR: No (11/21/2016 04:15:Rosy Valdovinos) History of Hemorrhage: No (11/21/2016 04:15:Rosy Valdovinos) History of Loss/Stillborn: No (11/21/2016 04:15:Rosy Valdovinos) History of : No (11/21/2016 04:15:Rosy Valdovinos) History of D (Rh) Sensitization: No (11/21/2016 04:15:Rosy Valdovinos) History Recurrent Loss/Stillborn: No (11/21/2016 04:15:Rosy Valdovinos) History Depression/PP Depression: No (11/21/2016 04:15:Rosy Valdovinos) History of Uterine Anomaly/GAVIOTA: No (11/21/2016 04:15:Rosy Valdovinos) History of Infertility: No (11/21/2016 04:15:Rosy Valdovinos) History of ART Treatment: No (11/21/2016 04:15:Rosy Valdovinos) History of GAVIOTA: No (11/21/2016 04:15:Rosy Valdovinos) MEDICAL HISTORY Med Hx Diabetes: No (11/21/2016 04:15:Rosy Valdovinos) Med Hx Hypertension: No (11/21/2016 04:15:Rosy Valdovinos) Med Hx Heart Disease: No (11/21/2016 04:15:Rosy Valdovinos) Med Hx Autoimmune Disorder: No (11/21/2016 04:15:Rosy Valdovinos) Med Hx Kidney Disease/UTI: No (11/21/2016 04:15:Rosy Valdovinos) Med Hx Neurologic/Epilepsy: No (11/21/2016 04:15:Rosy Valdovinos) Med Hx Psychiatric Disorders: No (11/21/2016 04:15:Rosy Valdovinos) Med Hx Hepatitis/Liver Disease: No (11/21/2016 04:15:Rosy Valdovinos) Med Hx Varicosities/Phlebitis: No (11/21/2016 04:15:Rosy Valdovinos) Med Hx Thyroid Dysfunction: No (11/21/2016 04:15:Rosy Valdovinos) Med Hx Trauma/Violence: No (11/21/2016 04:15:Rosy Valdovinos) Med Hx Blood Transfusion: No (11/21/2016 04:15:Rosy Valdovinos) Med Hx Pulmonary (Asthma,TB): No (11/21/2016 04:15:Rosy Valdovinos) Med Hx Breast: No (11/21/2016 04:15:Rosy Valdovinos) Med Hx ARCHITECTURAL DRAFTSPERSON Surgery: No (11/21/2016 04:15:Rosy Valdovinos) Med Hx Hospitalization/Surgery: No (11/21/2016 04:15:Rosy Valdovinos) Med Hx Anesthetic Complications: No (11/21/2016 04:15:Rosy Valdovinos) Med Hx Abnormal Pap Smear: No (11/21/2016 04:15:Rosy Valdovinos) Other Medical Diseases: No (11/21/2016 04:15:Rosy Valdovinos) Med Hx Significant Family Hx: No (11/21/2016 04:15:Rosy Valdovinos) Details of Med/Surg Hx: benign lump left breast-2009 depresasion-no suicidal thoughts (11/21/2016 04:15:Cristina Nascimento RN) INFECTIOUS HISTORY Inf Hx Gonorrhea: No (11/21/2016 04:15:Rosy Valdovinos) Inf Hx Chlamydia: No (11/21/2016 04:15:Rosy Valdovinos) Inf Hx Syphilis: No (11/21/2016 04:15:Rosy Valdovinos) Inf Hx HIV/AIDS: No (11/21/2016 04:15:Rosy Valdovinos) Inf Hx Human Papilloma Virus: No (11/21/2016 04:15:Rosy Valdovinos) Inf Hx Pt/Partner Genital Herpes: No (11/21/2016 04:15:Rosy Valdovinos) Inf Hx Tuberculosis/Exposure: No (11/21/2016 04:15:Rosy Valdovinos) Inf Hx Hepatitis B,C: No (11/21/2016 04:15:Rosy Valdovinos) Inf Hx Rash or Viral Illness: No (11/21/2016 04:15:Rosy Valdovinos) GENETIC HISTORY Gen Hx Age >=35 at TYRELL: No (11/21/2016 04:15:Rosy Valdovinos) Gen Hx Thalassemia: No (11/21/2016 04:15:Rosy Valdovinos) Gen Hx Congenital Heart Defect: No (11/21/2016 04:15:Rosy Valdovinos) Gen Hx Neural Tube Defect: No (11/21/2016 04:15:Rosy Valdovinos) Gen Hx Down's Syndrome: No (11/21/2016 04:15:Rosy Valdovinos) Gen Hx Jt-Sachs: No (11/21/2016 04:15:Rosy Valdovinos) Gen Hx Otto: No (11/21/2016 04:15:Rosy Valdovinos) Gen Hx Familial Dysautonomia: No (11/21/2016 04:15:Rosy Valdovinos) Gen Hx Sickle Cell Disease/Trait: No (11/21/2016 04:15:Rosy Valdovinos) Gen Hx Hemophilia/Blood Disorder: No (11/21/2016 04:15:Rosy Valdovinos) Gen Hx Muscular Dystrophy: No (11/21/2016 04:15:Rosy Valdovinos) Gen Hx Cystic Fibrosis: No (11/21/2016 04:15:Rosy Valdovinos) Gen Hx [place] Chorea: No (11/21/2016 04:15:Rosy Valdovinos) Gen Hx Mental Retardation/Autism: No (11/21/2016 04:15:Rosy Valdovinos) Gen Hx Tested for Fragile X: No (11/21/2016 04:15:Rosy Valdovinos) Gen Hx Other Inher/Chromosomal: No (11/21/2016 04:15:Rosy Valdovinos) Gen Hx Maternal Metabolic DO: No (11/21/2016 04:15:Rosy Valdovinos) Gen Hx Pt Father or FOB Defect: No (11/21/2016 04:15:Rosy Valdovinos) Gen Hx Other Genetic History: No (11/21/2016 04:15:Rosy Valdovinos) Gen Hx Drugs/Meds since LMP: No (11/21/2016 04:15:Rosy Valdovinos)
--- NOTE | 2016-11-26 20:21 | Delivery Summary ---
Del Sum A-C Datetime Report Generated by CPN: 11/26/2016 20:20 DELIVERY PERSONNEL DELIVERY PERSONNEL: [phone];[id number] Delivery Doctor:: Divina Ferguson MD Labor and Delivery Nurse:: Rosy Valdovinos RN Nursery Nurse:: TYLOR Mcadams Tech/ASPHALT BLENDER: Helen Pope ASPHALT BLENDER MATERNAL INFORMATION Delivery Anesthesia: None Medications After Delivery: Pitocin Bolus-Please Comment Meds After Delivery Comment: Pitocin 20 units/1000 ml NS following placenta Estimated Blood Loss (ml): 250 Maternal Complications: Precipitous Labor (<3hrs) Provider Comments: Placenta delivered intact with 3vc LABOR SUMMARY EDC: 11/20/2016 00:00 Attempted: No Labor Anesthesia: None LABOR INFORMATION Reason for Induction: Not Applicable Onset of Labor: 11/21/2016 03:00 Complete Dilatation: 11/21/2016 04:42 Oxytocin: N/A Group B Beta Strep: negative Antibiotics # of Doses: 0 Antibiotics Time of Last Dose: n/a Steroids Given: None Reason Steroids Not Administered: Not Applicable MEMBRANES Membranes Rupture Method: Artificial Rupture of Membranes: 11/21/2016 04:45 Length of Rupture (hr): 0.18 Amniotic Fluid Color: Clear Amniotic Fluid Amount: Moderate Amniotic Fluid Odor: Normal STAGES OF LABOR Stage 1 hr: 1 Stage 1 min: 42 Stage 2 hr: 0 Stage 2 min: 14 Stage 3 hr: 0 Stage 3 min: 4 Total Time in Labor hr: 2 Total Time in Labor min: 0 VAGINAL DELIVERY Episiotomy: None Laceration Extension: First Degree Laceration Type: Perineal Laceration Repair: Yes Laceration Repair Note: one 3-0 chromic suture placed Sponge Count Correct: N/A Sharps Count Correct: N/A CSECTION DELIVERY Primary Indication: N/A Secondary Indication: N/A CSection Incidence: N/A Labor: N/A Elective: N/A CSection Incision: N/A BABY A INFORMATION Delivery Date/Time: 11/21/2016 04:56 Method of Delivery: Vaginal Born in Route : No : N/A Forceps: N/A Vacuum Extraction: N/A Shoulder Dystocia : No PRESENTATION/POSITION BABY A Presentation: Cephalic Cephalic Presentation: Vertex Vertex Position: Left Occipital Anterior Breech Presentation: N/A PLACENTA INFORMATION BABY A Placenta Delivery Time : 11/21/2016 05:00 Placenta Method of Delivery: Spontaneous Placenta Status: Delivered SCORES BABY A Heart Rate 1 min: >100 bpm Resp Effort 1 min: Slow, Irregular Reflex Irritability 1 min: Cough or Sneeze or Pulls Away Muscle Tone 1 min: Active Motion Color 1 min: Body [place], Extremities Blue SCORE 1 MIN: 8 Heart Rate 5 min: >100 bpm Resp Effort 5 min: Good Cry Reflex Irritability 5 min: Cough or Sneeze or Pulls Away Muscle Tone 5 min: Active Motion Color 5 min: Body [place], Extremities Blue SCORE 5 MIN: 9 INFANT INFORMATION BABY A Gestational Age at Delivery: 40.1 Gestational Status: Full Term- 39- 40.6 Weeks Outcome : Liveborn Condition : Stable Infant Sex: Female IDENTIFICATION BABY A Verification Date/Time: 11/21/2016 05:49 ID Band Number: [id number] Mother's Name Verified: Yes Infant RN Verifying : A Valdovinos Rn Additional Verifying Personnel: [employer] Rn WEIGHT/LENGTH BABY A Birthweight (gm): 3490 Weight (lb): 7 Weight (oz): 11 Infant Length (in): 20.00 Infant Length (cm): 50.80 CORD INFORMATION BABY A No. Cord Vessels: 3 Nuchal Cord : N/A Cord Blood Taken: Yes-For Eval (Mom's Blood Type - or O+) Suction: Mouth; Nose ASSESSMENT BABY A Complications: None Physical Findings at Delivery: Within Normal Limits Infant Respirations: Appears Normal Skin to Skin: Yes Skin to Skin Time (min): 40 Hair Assistant/ALS Called : No Care By: Ena Campa RN Transferred To: Remains with Mother SIGNATURES Signature: with User ID: [email or web address]
--- NOTE | 2016-11-26 20:23 | Delivery Summary ---
Del Sum A-C Datetime Report Generated by CPN: 11/26/2016 20:20 DELIVERY PERSONNEL DELIVERY PERSONNEL: [id number];[id number] Delivery Doctor:: Divina Ferguson MD Labor and Delivery Nurse:: Rosy Valdovinos RN Nursery Nurse:: TYLOR Mcadams Tech/GELATIN POWDER MIXER: Helen Pope GELATIN POWDER MIXER MATERNAL INFORMATION Delivery Anesthesia: None Medications After Delivery: Pitocin Bolus-Please Comment Meds After Delivery Comment: Pitocin 20 units/1000 ml NS following placenta Estimated Blood Loss (ml): 250 Maternal Complications: Precipitous Labor (<3hrs) Provider Comments: Placenta delivered intact with 3vc LABOR SUMMARY EDC: 11/20/2016 00:00 Attempted: No Labor Anesthesia: None LABOR INFORMATION Reason for Induction: Not Applicable Onset of Labor: 11/21/2016 03:00 Complete Dilatation: 11/21/2016 04:42 Oxytocin: N/A Group B Beta Strep: negative Antibiotics # of Doses: 0 Antibiotics Time of Last Dose: n/a Steroids Given: None Reason Steroids Not Administered: Not Applicable MEMBRANES Membranes Rupture Method: Artificial Rupture of Membranes: 11/21/2016 04:45 Length of Rupture (hr): 0.18 Amniotic Fluid Color: Clear Amniotic Fluid Amount: Moderate Amniotic Fluid Odor: Normal STAGES OF LABOR Stage 1 hr: 1 Stage 1 min: 42 Stage 2 hr: 0 Stage 2 min: 14 Stage 3 hr: 0 Stage 3 min: 4 Total Time in Labor hr: 2 Total Time in Labor min: 0 VAGINAL DELIVERY Episiotomy: None Laceration Extension: First Degree Laceration Type: Perineal Laceration Repair: Yes Laceration Repair Note: one 3-0 chromic suture placed Sponge Count Correct: N/A Sharps Count Correct: N/A CSECTION DELIVERY Primary Indication: N/A Secondary Indication: N/A CSection Incidence: N/A Labor: N/A Elective: N/A CSection Incision: N/A BABY A INFORMATION Delivery Date/Time: 11/21/2016 04:56 Method of Delivery: Vaginal Born in Route : No : N/A Forceps: N/A Vacuum Extraction: N/A Shoulder Dystocia : No PRESENTATION/POSITION BABY A Presentation: Cephalic Cephalic Presentation: Vertex Vertex Position: Left Occipital Anterior Breech Presentation: N/A PLACENTA INFORMATION BABY A Placenta Delivery Time : 11/21/2016 05:00 Placenta Method of Delivery: Spontaneous Placenta Status: Delivered SCORES BABY A Heart Rate 1 min: >100 bpm Resp Effort 1 min: Slow, Irregular Reflex Irritability 1 min: Cough or Sneeze or Pulls Away Muscle Tone 1 min: Active Motion Color 1 min: Body [place], Extremities Blue SCORE 1 MIN: 8 Heart Rate 5 min: >100 bpm Resp Effort 5 min: Good Cry Reflex Irritability 5 min: Cough or Sneeze or Pulls Away Muscle Tone 5 min: Active Motion Color 5 min: Body [place], Extremities Blue SCORE 5 MIN: 9 INFANT INFORMATION BABY A Gestational Age at Delivery: 40.1 Gestational Status: Full Term- 39- 40.6 Weeks Outcome : Liveborn Condition : Stable Infant Sex: Female IDENTIFICATION BABY A Verification Date/Time: 11/21/2016 05:49 ID Band Number: [id number] Mother's Name Verified: Yes Infant RN Verifying : A Valdovinos Rn Additional Verifying Personnel: [employer] Rn WEIGHT/LENGTH BABY A Birthweight (gm): 3490 Weight (lb): 7 Weight (oz): 11 Infant Length (in): 20.00 Infant Length (cm): 50.80 CORD INFORMATION BABY A No. Cord Vessels: 3 Nuchal Cord : N/A Cord Blood Taken: Yes-For Eval (Mom's Blood Type - or O+) Suction: Mouth; Nose ASSESSMENT BABY A Complications: None Physical Findings at Delivery: Within Normal Limits Infant Respirations: Appears Normal Skin to Skin: Yes Skin to Skin Time (min): 40 Manager Unit/ALS Called : No Care By: Ena Campa RN Transferred To: Remains with Mother SIGNATURES Signature: with User ID: [email or web address]
--- NOTE | 2016-11-26 20:23 | L&D General Admission ---
General Admit Datetime Report Generated by CPN: 11/26/2016 20:20 INFORMATION Patient Age: 26 (10/08/2016 10:16:QS system process) EDC: 11/20/2016 00:00 (11/21/2016 04:15:Cristina Nascimento RN) EDC per Ultrasound: 11/20/2016 00:00 (11/21/2016 04:15:Cristina Nascimento RN) : 5 (11/21/2016 04:15:Cristina Nascimento RN) Para: 2 (11/21/2016 04:15:Cristina Nascimento RN) Term: 2 (11/21/2016 04:15:Cristina Nascimento RN) Spontaneous Abortions: 2 (11/21/2016 04:15:Cristina Nascimento RN) Livin (11/21/2016 04:15:Cristina Nascimento RN) Cesareans: 0 (11/21/2016 04:15:Cristina Nascimento RN) CARE Primary Social Studies Teacher: [facility] (11/21/2016 04:15:Rosy Valdovinos) Adequate Care: Yes (11/21/2016 04:15:Cristina Azam, RN) Height (in): 67 (11/22/2016 15:30:QS system process) ALLERGIES Medication Allergy: No (11/21/2016 04:15:Rosy Valdovinos) Medication Allergies: No Known Allergies (02/16/2013) (10/08/2016 10:16:QS system process) Latex Allergy: No Latex Allergies (11/21/2016 04:15:Rosy Valdovinos) Food Allergies: none (11/21/2016 04:15:Rosy Valdovinos) Environmental Allergies: none (11/21/2016 04:15:Rosy Valdovinos) COMMUNICATION Primary Language: Swiss (11/21/2016 04:15:Rosy Valdovinos) Medical Tx Preferred Language: Swiss (11/21/2016 04:15:Rosyabhilash Valdovinos) DEMOGRAPHICS Address: [address] [place] [id number] (10/08/2016 10:16:QS system process) Zipcode: [phone] (10/08/2016 10:16:QS system process) Home (10/08/2016 10:16:QS system process) SSN: [id number] (10/08/2016 10:16:QS system process) Next of Kin Name: JANETH MCMILLAN (10/08/2016 10:16:QS system process) Next of Kin (10/08/2016 10:16:QS system process) Next of Kin Relationship: SPO (10/08/2016 10:16:QS system process) Date of : 1990 (10/08/2016 10:16:QS system process) Marital Status: (10/08/2016 10:16:QS system process) Sex: Female (10/08/2016 10:16:QS system process) Race: (10/08/2016 10:16:QS system process) Ethnicity: Non- or (10/08/2016 10:16:QS system process) Religious: Congregational (10/08/2016 10:16:QS system process) DRUG AND ALCOHOL USE Alcohol: No (11/21/2016 04:15:Rosy Valdovinos) Cigarettes: Never Smoker. [id number] (11/21/2016 04:15:Rosy Valdovinos) Marijuana: No (11/21/2016 04:15:Rosy Valdovinos) Cocaine: No (11/21/2016 04:15:Rosy Valdovinos) Other Illicit Drugs: No (11/21/2016 04:15:Rosy Valdovinos) VACCINE HISTORY Influenza Vaccine: Yes (11/21/2016 04:15:Rosy Valdovinos) Influenza Date: 2016 (11/21/2016 04:15:Rosy Valdovinos) Tdap Vaccine: Yes (11/21/2016 04:15:Rosy Valdovinos) Tdap Date: 2016 (11/21/2016 04:15:Rosy Valdovinos) Mill Oiler: [facility] (11/21/2016 04:15:Rosy Valdovinos) Feeding Preference: Breast (11/21/2016 04:15:Rosy Valdovinos) Benefit of Breast Feed Discussed: Yes (11/21/2016 04:15:Viry Dickey RN) Circumcision: N/A (11/21/2016 04:15:Rosy Valdovinos) Classes Attended: No (11/21/2016 04:15:Rosy Valdovinos) Tubal Ligation: No (11/21/2016 04:15:Rosy Valdovinos) Tubal Authorization Signed: N/A (11/21/2016 04:15:Rosy Valdovinos) Consent: N/A (11/21/2016 04:15:Rosy Valdovinos) Consent Signed: N/A (11/21/2016 04:15:Rosy Valdovinos) Pain Management Plans: Epidural (11/21/2016 04:15:Rosy Valdovinos) Plans for Labor and Delivery: None (11/21/2016 04:15:Rosy Valdovinos) Support Person: Janeth (11/21/2016 04:15:Rosy Valdovinos) Support Person Relationship: (11/21/2016 04:15:Rosy Valdovinos) Cultural/Spritual Practice: N/A (11/21/2016 04:15:Rosy Valdovinos) Spir/Cult Dietary Needs: N/A (11/21/2016 04:15:Rosy Valdovinos) LIVING SITUATION/DISCHARGE PLAN Living Arrangements: House (11/21/2016 04:15:Rosy Valdovinos) Adequate Access to:: Electric; Heat; Refrigeration; Plumbing/Running water; Phone; Transportation (11/21/2016 04:15:Rosy Valdovinos) WIC Program: Yes (11/21/2016 04:15:Rosy Valdovinos) Discharge Mobile Ui Developer Person: janeth- (11/21/2016 04:15:Rosy Valdovinos) Person to Help after Discharge: janeth- (11/21/2016 04:15:Rosy Valdovinos) Currently Using Commun Resources: Yes (11/21/2016 04:15:Rosy Valdovinos) Specify Current Resource Used: medicaid (11/21/2016 04:15:Rosy Valdovinos) Outside Agency/[place] [facility]: No (11/21/2016 04:15:Rosy Valdovinos) Car Seat for Discharge: Yes (11/21/2016 04:15:Rosy Valdovinos) Adoption Requested: No (11/21/2016 04:15:Rosy Valdovinos) Pt Contact w/ Post : N/A (11/21/2016 04:15:Rosy Valdovinos) LABS Blood Type: O Positive (11/21/2016 04:15:Cristina Nascimento RN) Hemoglobin: 11.1 L (11/22/2016 07:14:QS system process) Hematocrit: 33.0 L (11/22/2016 07:14:QS system process) MCV: 76 L (11/22/2016 07:14:QS system process) Group Beta Strep: negative (11/21/2016 04:15:Viry Dickey RN) RPR/VDRL: Nonreactive (11/21/2016 04:15:Cristina Nascimento RN) HIV Exposure Test: Negative (11/21/2016 04:15:Cristina Nascimento RN) Hepatitis B: Negative (11/21/2016 04:15:Cristina Nascimento RN) Rubella: POSITIVE NEGATIVE IF LESS THAN OR EQUAL TO 9.99 IU/mL POSITIVE IF GREATER THAN OR EQUAL TO 10.0 IU/mL (11/21/2016 05:50:QS system process) Rubella Titer: 41.30 (11/21/2016 05:50:QS system process) Varicella: Non Susceptible (11/21/2016 04:15:Cristina Nascimento RN) OB/PREVIOUS HISTORY Previous Procedures: Ultrasound; NST (11/21/2016 04:15:Rosy Valdovinos) Current Procedures: Ultrasound; NST (11/21/2016 04:15:Rosy Valdovinos) History of Previous : No (11/21/2016 04:15:Rosy Valdovinos) History of Gestational Diabetes: No (11/21/2016 04:15:Rosy Valdovinos) History of PIH: No (11/21/2016 04:15:Rosy Valdovinos) History of Incompetent Cervix: No (11/21/2016 04:15:Rosy Valdovinos) History of Placenta Previa/Abrup: No (11/21/2016 04:15:Rosy Valdovinos) History of Macrosomia: No (11/21/2016 04:15:Rosy Valdovinos) History of IUGR: No (11/21/2016 04:15:Rosy Valdovinos) History of Hemorrhage: No (11/21/2016 04:15:Rosy Valdovinos) History of Loss/Stillborn: No (11/21/2016 04:15:Rosy Valdovinos) History of : No (11/21/2016 04:15:Rosy Valdovinos) History of D (Rh) Sensitization: No (11/21/2016 04:15:Rosy Valdovinos) History Recurrent Loss/Stillborn: No (11/21/2016 04:15:Rosy Valdovinos) History Depression/PP Depression: No (11/21/2016 04:15:Rosy Valdovinos) History of Uterine Anomaly/GAVIOTA: No (11/21/2016 04:15:Rosy Valdovinos) History of Infertility: No (11/21/2016 04:15:Rosy Valdovinos) History of ART Treatment: No (11/21/2016 04:15:Rosy Valdovinos) History of GAVIOTA: No (11/21/2016 04:15:Rosy Valdovinos) MEDICAL HISTORY Med Hx Diabetes: No (11/21/2016 04:15:Rosy Valdovinos) Med Hx Hypertension: No (11/21/2016 04:15:Rosy Valdovinos) Med Hx Heart Disease: No (11/21/2016 04:15:Rosy Valdovinos) Med Hx Autoimmune Disorder: No (11/21/2016 04:15:Rosy Valdovinos) Med Hx Kidney Disease/UTI: No (11/21/2016 04:15:Rosy Valdovinos) Med Hx Neurologic/Epilepsy: No (11/21/2016 04:15:Rosy Valdovinos) Med Hx Psychiatric Disorders: No (11/21/2016 04:15:Rosy Valdovinos) Med Hx Hepatitis/Liver Disease: No (11/21/2016 04:15:Rosy Valdovinos) Med Hx Varicosities/Phlebitis: No (11/21/2016 04:15:Rosy Valdovinos) Med Hx Thyroid Dysfunction: No (11/21/2016 04:15:Rosy Valdovinos) Med Hx Trauma/Violence: No (11/21/2016 04:15:Rosy Valdovinos) Med Hx Blood Transfusion: No (11/21/2016 04:15:Rosy Valdovinos) Med Hx Pulmonary (Asthma,TB): No (11/21/2016 04:15:Rosy Valdovinos) Med Hx Breast: No (11/21/2016 04:15:Rosy Valdovinos) Med Hx COMPRESSOR STATION CHIEF ENGINEER Surgery: No (11/21/2016 04:15:Rosy Valdovinos) Med Hx Hospitalization/Surgery: No (11/21/2016 04:15:Rosy Valdovinos) Med Hx Anesthetic Complications: No (11/21/2016 04:15:Rosy Valdovinos) Med Hx Abnormal Pap Smear: No (11/21/2016 04:15:Rosy Valdovinos) Other Medical Diseases: No (11/21/2016 04:15:Rosy Valdovinos) Med Hx Significant Family Hx: No (11/21/2016 04:15:Rosy Valdovinos) Details of Med/Surg Hx: benign lump left breast-2009 depresasion-no suicidal thoughts (11/21/2016 04:15:Cristina Nascimento RN) INFECTIOUS HISTORY Inf Hx Gonorrhea: No (11/21/2016 04:15:Rosy Valdovinos) Inf Hx Chlamydia: No (11/21/2016 04:15:Rosy Valdovinos) Inf Hx Syphilis: No (11/21/2016 04:15:Rosy Valdovinos) Inf Hx HIV/AIDS: No (11/21/2016 04:15:Rosy Valdovinos) Inf Hx Human Papilloma Virus: No (11/21/2016 04:15:Rosy Valdovinos) Inf Hx Pt/Partner Genital Herpes: No (11/21/2016 04:15:Rosy Valdovinos) Inf Hx Tuberculosis/Exposure: No (11/21/2016 04:15:Rosy Valdovinos) Inf Hx Hepatitis B,C: No (11/21/2016 04:15:Rosy Valdovinos) Inf Hx Rash or Viral Illness: No (11/21/2016 04:15:Rosy Valdovinos) GENETIC HISTORY Gen Hx Age >=35 at TYRELL: No (11/21/2016 04:15:Rosy Valdovinos) Gen Hx Thalassemia: No (11/21/2016 04:15:Rosy Valdovinos) Gen Hx Congenital Heart Defect: No (11/21/2016 04:15:Rosy Valdovinos) Gen Hx Neural Tube Defect: No (11/21/2016 04:15:Rosy Valdovinos) Gen Hx Down's Syndrome: No (11/21/2016 04:15:Rosy Valdovinos) Gen Hx Jt-Sachs: No (11/21/2016 04:15:Rosy Valdovinos) Gen Hx Otto: No (11/21/2016 04:15:Rosy Valdovinos) Gen Hx Familial Dysautonomia: No (11/21/2016 04:15:Rosy Valdovinos) Gen Hx Sickle Cell Disease/Trait: No (11/21/2016 04:15:Rosy Valdovinos) Gen Hx Hemophilia/Blood Disorder: No (11/21/2016 04:15:Rosy Valdovinos) Gen Hx Muscular Dystrophy: No (11/21/2016 04:15:Rosy Valdovinos) Gen Hx Cystic Fibrosis: No (11/21/2016 04:15:Rosy Valdovinos) Gen Hx [place] Chorea: No (11/21/2016 04:15:Rosy Valdovinos) Gen Hx Mental Retardation/Autism: No (11/21/2016 04:15:Rosy Valdovinos) Gen Hx Tested for Fragile X: No (11/21/2016 04:15:Rosy Valdovinos) Gen Hx Other Inher/Chromosomal: No (11/21/2016 04:15:Rosy Valdovinos) Gen Hx Maternal Metabolic DO: No (11/21/2016 04:15:Rosy Valdovinos) Gen Hx Pt Father or FOB Defect: No (11/21/2016 04:15:Rosy Valdovinos) Gen Hx Other Genetic History: No (11/21/2016 04:15:Rosy Valdovinos) Gen Hx Drugs/Meds since LMP: No (11/21/2016 04:15:Rosy Valdovinos)
--- NOTE | 2016-11-27 06:01 | L&D General Admission ---
General Admit Datetime Report Generated by CPN: 11/27/2016 06:00 INFORMATION Patient Age: 26 (10/08/2016 10:16:QS system process) EDC: 11/20/2016 00:00 (11/21/2016 04:15:Cristina Nascimento RN) EDC per Ultrasound: 11/20/2016 00:00 (11/21/2016 04:15:Cristina Nascimento RN) : 5 (11/21/2016 04:15:Cristina Nascimento RN) Para: 2 (11/21/2016 04:15:Cristina Nascimento RN) Term: 2 (11/21/2016 04:15:Cristina Nascimento RN) Spontaneous Abortions: 2 (11/21/2016 04:15:Cristina Nascimento RN) Livin (11/21/2016 04:15:Cristina Nascimento RN) Cesareans: 0 (11/21/2016 04:15:Cristina Nascimento RN) CARE Primary Central Communications Specialist: [facility] (11/21/2016 04:15:Rosy Valdovinos) Adequate Care: Yes (11/21/2016 04:15:Cristina Azam, RN) Height (in): 67 (11/22/2016 15:30:QS system process) ALLERGIES Medication Allergy: No (11/21/2016 04:15:Rosy Valdovinos) Medication Allergies: No Known Allergies (02/16/2013) (10/08/2016 10:16:QS system process) Latex Allergy: No Latex Allergies (11/21/2016 04:15:Rosy Valdovinos) Food Allergies: none (11/21/2016 04:15:Rosy Valdovinos) Environmental Allergies: none (11/21/2016 04:15:Rosy Valdovinos) COMMUNICATION Primary Language: [place] Rican (11/21/2016 04:15:Rosy Valdovinos) Medical Tx Preferred Language: [place]ican (11/21/2016 04:15:Rosyabhilash Valdovinos) DEMOGRAPHICS Address: [address] [place] [phone] (10/08/2016 10:16:QS system process) Zipcode: [phone] (10/08/2016 10:16:QS system process) Home (10/08/2016 10:16:QS system process) SSN: [id number] (10/08/2016 10:16:QS system process) Next of Kin Name: JANETH MCMILLAN (10/08/2016 10:16:QS system process) Next of Kin (10/08/2016 10:16:QS system process) Next of Kin Relationship: SPO (10/08/2016 10:16:QS system process) Date of : 1990 (10/08/2016 10:16:QS system process) Marital Status: (10/08/2016 10:16:QS system process) Sex: Female (10/08/2016 10:16:QS system process) Race: (10/08/2016 10:16:QS system process) Ethnicity: Non- or (10/08/2016 10:16:QS system process) Scientologist: Tenriism (10/08/2016 10:16:QS system process) DRUG AND ALCOHOL USE Alcohol: No (11/21/2016 04:15:Rosy Valdovinos) Cigarettes: Never Smoker. [id number] (11/21/2016 04:15:Rosy Valdovinos) Marijuana: No (11/21/2016 04:15:Rosy Valdovinos) Cocaine: No (11/21/2016 04:15:Rosy Valdovinos) Other Illicit Drugs: No (11/21/2016 04:15:Rosy Valdovinos) VACCINE HISTORY Influenza Vaccine: Yes (11/21/2016 04:15:Rosy Valdovinos) Influenza Date: 2016 (11/21/2016 04:15:Rosy Valdovinos) Tdap Vaccine: Yes (11/21/2016 04:15:Rosy Valdovinos) Tdap Date: 2016 (11/21/2016 04:15:Rosy Valdovinos) Hand Binder Stripper: [facility] (11/21/2016 04:15:Rosy Valdovinos) Feeding Preference: Breast (11/21/2016 04:15:Rosy Valdovinos) Benefit of Breast Feed Discussed: Yes (11/21/2016 04:15:Viry Dickey RN) Circumcision: N/A (11/21/2016 04:15:Rosy Valdovinos) Classes Attended: No (11/21/2016 04:15:Rosy Valdovinos) Tubal Ligation: No (11/21/2016 04:15:Rosy Valdovinos) Tubal Authorization Signed: N/A (11/21/2016 04:15:Rosy Valdovinos) Consent: N/A (11/21/2016 04:15:Rosy Valdovinos) Consent Signed: N/A (11/21/2016 04:15:Rosy Valdovinos) Pain Management Plans: Epidural (11/21/2016 04:15:Rosy Valdovinos) Plans for Labor and Delivery: None (11/21/2016 04:15:Rosy Valdovinos) Support Person: Janeth (11/21/2016 04:15:Rosy Valdovinos) Support Person Relationship: (11/21/2016 04:15:Rosy Valdovinos) Cultural/Spritual Practice: N/A (11/21/2016 04:15:Rosy Valdovinos) Spir/Cult Dietary Needs: N/A (11/21/2016 04:15:Rosy Valdovinos) LIVING SITUATION/DISCHARGE PLAN Living Arrangements: House (11/21/2016 04:15:Rosy Valdovinos) Adequate Access to:: Electric; Heat; Refrigeration; Plumbing/Running water; Phone; Transportation (11/21/2016 04:15:Rosy Valdovinos) WIC Program: Yes (11/21/2016 04:15:Rosy Valdovinos) Discharge Director Of Physical Education Person: janeth- (11/21/2016 04:15:Rosy Valdovinos) Person to Help after Discharge: janeth- (11/21/2016 04:15:Rosy Valdovinos) Currently Using Commun Resources: Yes (11/21/2016 04:15:Rosy Valdovinos) Specify Current Resource Used: medicaid (11/21/2016 04:15:Rosy Valdovinos) Outside Agency/Recreation Center Director: No (11/21/2016 04:15:Rosy Valdovinos) Car Seat for Discharge: Yes (11/21/2016 04:15:Rosy Valdovinos) Adoption Requested: No (11/21/2016 04:15:Rosy Valdovinos) Pt Contact w/ Post : N/A (11/21/2016 04:15:Rosy Valdovinos) LABS Blood Type: O Positive (11/21/2016 04:15:Cristina Nascimento RN) Hemoglobin: 11.1 L (11/22/2016 07:14:QS system process) Hematocrit: 33.0 L (11/22/2016 07:14:QS system process) MCV: 76 L (11/22/2016 07:14:QS system process) Group Beta Strep: negative (11/21/2016 04:15:Viry Dickey RN) RPR/VDRL: Nonreactive (11/21/2016 04:15:Cristina Nascimento RN) HIV Exposure Test: Negative (11/21/2016 04:15:Cristina Nascimento RN) Hepatitis B: Negative (11/21/2016 04:15:Cristina Nascimento RN) Rubella: POSITIVE NEGATIVE IF LESS THAN OR EQUAL TO 9.99 IU/mL POSITIVE IF GREATER THAN OR EQUAL TO 10.0 IU/mL (11/21/2016 05:50:QS system process) Rubella Titer: 41.30 (11/21/2016 05:50:QS system process) Varicella: Non Susceptible (11/21/2016 04:15:Cristina Nascimento RN) OB/PREVIOUS HISTORY Previous Procedures: Ultrasound; NST (11/21/2016 04:15:Rosy Valdovinos) Current Procedures: Ultrasound; NST (11/21/2016 04:15:Rosy Valdovinos) History of Previous : No (11/21/2016 04:15:Rosy Valdovinos) History of Gestational Diabetes: No (11/21/2016 04:15:Rosy Valdovinos) History of PIH: No (11/21/2016 04:15:Rosy Valdovinos) History of Incompetent Cervix: No (11/21/2016 04:15:Rosy Valdovinos) History of Placenta Previa/Abrup: No (11/21/2016 04:15:Rosy Valdovinos) History of Macrosomia: No (11/21/2016 04:15:Rosy Valdovinos) History of IUGR: No (11/21/2016 04:15:Rosy Valdovinos) History of Hemorrhage: No (11/21/2016 04:15:Rosy Valdovinos) History of Loss/Stillborn: No (11/21/2016 04:15:Rosy Valdovinos) History of : No (11/21/2016 04:15:Rosy Valdovinos) History of D (Rh) Sensitization: No (11/21/2016 04:15:Rosy Valdovinos) History Recurrent Loss/Stillborn: No (11/21/2016 04:15:Rosy Valdovinos) History Depression/PP Depression: No (11/21/2016 04:15:Rosy Valdovinos) History of Uterine Anomaly/GAVIOTA: No (11/21/2016 04:15:Rosy Valdovinos) History of Infertility: No (11/21/2016 04:15:Rosy Valdovinos) History of ART Treatment: No (11/21/2016 04:15:Rosy Valdovinos) History of GAVIOTA: No (11/21/2016 04:15:Rosy Valdovinos) MEDICAL HISTORY Med Hx Diabetes: No (11/21/2016 04:15:Rosy Valdovinos) Med Hx Hypertension: No (11/21/2016 04:15:Rosy Valdovinos) Med Hx Heart Disease: No (11/21/2016 04:15:Rosy Valdovinos) Med Hx Autoimmune Disorder: No (11/21/2016 04:15:Rosy Valdovinos) Med Hx Kidney Disease/UTI: No (11/21/2016 04:15:Rosy Valdovinos) Med Hx Neurologic/Epilepsy: No (11/21/2016 04:15:Rosy Valdovinos) Med Hx Psychiatric Disorders: No (11/21/2016 04:15:Rosy Valdovinos) Med Hx Hepatitis/Liver Disease: No (11/21/2016 04:15:Rosy Valdovinos) Med Hx Varicosities/Phlebitis: No (11/21/2016 04:15:Rosy Valdovinos) Med Hx Thyroid Dysfunction: No (11/21/2016 04:15:Rosy Valdovinos) Med Hx Trauma/Violence: No (11/21/2016 04:15:Rosy Valdovinos) Med Hx Blood Transfusion: No (11/21/2016 04:15:Rosy Valdovinos) Med Hx Pulmonary (Asthma,TB): No (11/21/2016 04:15:Rosy Valdovinos) Med Hx Breast: No (11/21/2016 04:15:Rosy Valdovinos) 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 (11/21/2016 04:15:Rosy Valdovinos) Med Hx Hospitalization/Surgery: No (11/21/2016 04:15:Rosy Valdovinos) Med Hx Anesthetic Complications: No (11/21/2016 04:15:Rosy Valdovinos) Med Hx Abnormal Pap Smear: No (11/21/2016 04:15:Rosy Valdovinos) Other Medical Diseases: No (11/21/2016 04:15:Rosy Valdovinos) Med Hx Significant Family Hx: No (11/21/2016 04:15:Rosy Valdovinos) Details of Med/Surg Hx: benign lump left breast-2009 depresasion-no suicidal thoughts (11/21/2016 04:15:Cristina Nascimento RN) INFECTIOUS HISTORY Inf Hx Gonorrhea: No (11/21/2016 04:15:Rosy Valdovinos) Inf Hx Chlamydia: No (11/21/2016 04:15:Rosy Valdovinos) Inf Hx Syphilis: No (11/21/2016 04:15:Rosy Valdovinos) Inf Hx HIV/AIDS: No (11/21/2016 04:15:Rosy Valdovinos) Inf Hx Human Papilloma Virus: No (11/21/2016 04:15:Rosy Valdovinos) Inf Hx Pt/Partner Genital Herpes: No (11/21/2016 04:15:Rosy Valdovinos) Inf Hx Tuberculosis/Exposure: No (11/21/2016 04:15:Rosy Valdovinos) Inf Hx Hepatitis B,C: No (11/21/2016 04:15:Rosy Valdovinos) Inf Hx Rash or Viral Illness: No (11/21/2016 04:15:Rosy Valdovinos) GENETIC HISTORY Gen Hx Age >=35 at TYRELL: No (11/21/2016 04:15:Rosy Valdovinos) Gen Hx Thalassemia: No (11/21/2016 04:15:Rosy Valdovinos) Gen Hx Congenital Heart Defect: No (11/21/2016 04:15:Rosy Valdovinos) Gen Hx Neural Tube Defect: No (11/21/2016 04:15:Rosy Valdovinos) Gen Hx Down's Syndrome: No (11/21/2016 04:15:Rosy Valdovinos) Gen Hx Jt-Sachs: No (11/21/2016 04:15:Rosy Valdovinos) Gen Hx Otto: No (11/21/2016 04:15:Rosy Valdovinos) Gen Hx Familial Dysautonomia: No (11/21/2016 04:15:Rosy Valdovinos) Gen Hx Sickle Cell Disease/Trait: No (11/21/2016 04:15:Rosy Valdovinos) Gen Hx Hemophilia/Blood Disorder: No (11/21/2016 04:15:Rosy Valdovinos) Gen Hx Muscular Dystrophy: No (11/21/2016 04:15:Rosy Valdovinos) Gen Hx Cystic Fibrosis: No (11/21/2016 04:15:Rosy Valdovinos) Gen Hx [place] Chorea: No (11/21/2016 04:15:Rosy Valdovinos) Gen Hx Mental Retardation/Autism: No (11/21/2016 04:15:Rosy Valdovinos) Gen Hx Tested for Fragile X: No (11/21/2016 04:15:Rosy Valdovinos) Gen Hx Other Inher/Chromosomal: No (11/21/2016 04:15:Rosy Valdovinos) Gen Hx Maternal Metabolic DO: No (11/21/2016 04:15:Rosy Valdovinos) Gen Hx Pt Father or FOB Defect: No (11/21/2016 04:15:Rosy Valdovinos) Gen Hx Other Genetic History: No (11/21/2016 04:15:Rosy Valdovinos) Gen Hx Drugs/Meds since LMP: No (11/21/2016 04:15:Rosy Valdovinos)
--- NOTE | 2016-11-27 18:01 | L&D General Admission ---
General Admit Datetime Report Generated by CPN: 11/27/2016 18:00 INFORMATION Patient Age: 26 (10/08/2016 10:16:QS system process) EDC: 11/20/2016 00:00 (11/21/2016 04:15:Cristina Nascimento RN) EDC per Ultrasound: 11/20/2016 00:00 (11/21/2016 04:15:Cristina Nascimento RN) : 5 (11/21/2016 04:15:Cristina Nascimento RN) Para: 2 (11/21/2016 04:15:Cristina Nascimento RN) Term: 2 (11/21/2016 04:15:Cristina Nascimento RN) Spontaneous Abortions: 2 (11/21/2016 04:15:Cristina Nascimento RN) Livin (11/21/2016 04:15:Cristina Nascimento RN) Cesareans: 0 (11/21/2016 04:15:Cristina Nascimento RN) CARE Primary Specialty Person: [facility] (11/21/2016 04:15:Rosy Valdovinos) Adequate Care: Yes (11/21/2016 04:15:Cristina Azam, RN) Height (in): 67 (11/22/2016 15:30:QS system process) ALLERGIES Medication Allergy: No (11/21/2016 04:15:Rosy Valdovinos) Medication Allergies: No Known Allergies (02/16/2013) (10/08/2016 10:16:QS system process) Latex Allergy: No Latex Allergies (11/21/2016 04:15:Rosy Valdovinos) Food Allergies: none (11/21/2016 04:15:Rosy Valdovinos) Environmental Allergies: none (11/21/2016 04:15:Rosy Valdovinos) COMMUNICATION Primary Language: Sammarinese (11/21/2016 04:15:Rosy Valdovinos) Medical Tx Preferred Language: Sammarinese (11/21/2016 04:15:Rosyabhilash Valdovinos) DEMOGRAPHICS Address: [address] [place] [phone] (10/08/2016 10:16:QS system process) Zipcode: [phone] (10/08/2016 10:16:QS system process) Home (10/08/2016 10:16:QS system process) SSN: [id number] (10/08/2016 10:16:QS system process) Next of Kin Name: JANETH MCMILLAN (10/08/2016 10:16:QS system process) Next of Kin (10/08/2016 10:16:QS system process) Next of Kin Relationship: SPO (10/08/2016 10:16:QS system process) Date of : 1990 (10/08/2016 10:16:QS system process) Marital Status: (10/08/2016 10:16:QS system process) Sex: Female (10/08/2016 10:16:QS system process) Race: (10/08/2016 10:16:QS system process) Ethnicity: Non- or (10/08/2016 10:16:QS system process) Hoahaoism: Zoroastrian (10/08/2016 10:16:QS system process) DRUG AND ALCOHOL USE Alcohol: No (11/21/2016 04:15:Rosy Valdovinos) Cigarettes: Never Smoker. [id number] (11/21/2016 04:15:Rosy Valdovinos) Marijuana: No (11/21/2016 04:15:Rosy Valdovinos) Cocaine: No (11/21/2016 04:15:Rosy Valdovinos) Other Illicit Drugs: No (11/21/2016 04:15:Rosy Valdovinos) VACCINE HISTORY Influenza Vaccine: Yes (11/21/2016 04:15:Rosy Valdovinos) Influenza Date: 2016 (11/21/2016 04:15:Rosy Valdovinos) Tdap Vaccine: Yes (11/21/2016 04:15:Rosy Valdovinos) Tdap Date: 2016 (11/21/2016 04:15:Rosy Valdovinos) Seat Covers Trimmer: [facility] (11/21/2016 04:15:Rosy Valdovinos) Feeding Preference: Breast (11/21/2016 04:15:Rosy Valdovinos) Benefit of Breast Feed Discussed: Yes (11/21/2016 04:15:Viry Dickey RN) Circumcision: N/A (11/21/2016 04:15:Rosy Valdovinos) Classes Attended: No (11/21/2016 04:15:Rosy Valdovinos) Tubal Ligation: No (11/21/2016 04:15:Rosy Valdovinos) Tubal Authorization Signed: N/A (11/21/2016 04:15:Rosy Valdovinos) Consent: N/A (11/21/2016 04:15:Rosy Valdovinos) Consent Signed: N/A (11/21/2016 04:15:Rosy Valdovinos) Pain Management Plans: Epidural (11/21/2016 04:15:Rosy Valdovinos) Plans for Labor and Delivery: None (11/21/2016 04:15:Rosy Valdovinos) Support Person: Janeth (11/21/2016 04:15:Rosy Valdovinos) Support Person Relationship: (11/21/2016 04:15:Rosy Valdovinos) Cultural/Spritual Practice: N/A (11/21/2016 04:15:Rosy Valdovinos) Spir/Cult Dietary Needs: N/A (11/21/2016 04:15:Rosy Valdovinos) LIVING SITUATION/DISCHARGE PLAN Living Arrangements: House (11/21/2016 04:15:Rosy Valdovinos) Adequate Access to:: Electric; Heat; Refrigeration; Plumbing/Running water; Phone; Transportation (11/21/2016 04:15:Rosy Valdovinos) WIC Program: Yes (11/21/2016 04:15:Rosy Valdovinos) Discharge [place] Flap Trimmer Person: janeth- (11/21/2016 04:15:Rosy Valdovinos) Person to Help after Discharge: janeth- (11/21/2016 04:15:Rosy Valdovinos) Currently Using Commun Resources: Yes (11/21/2016 04:15:Rosy Valdovinos) Specify Current Resource Used: medicaid (11/21/2016 04:15:Rosy Valdovinos) Outside Agency/Truck Driving Instructor: No (11/21/2016 04:15:Rosy Valdovinos) Car Seat for Discharge: Yes (11/21/2016 04:15:Rosy Valdovinos) Adoption Requested: No (11/21/2016 04:15:Rosy Valdovinos) Pt Contact w/ Post : N/A (11/21/2016 04:15:Rosy Valdovinos) LABS Blood Type: O Positive (11/21/2016 04:15:Cristina Nascimento RN) Hemoglobin: 11.1 L (11/22/2016 07:14:QS system process) Hematocrit: 33.0 L (11/22/2016 07:14:QS system process) MCV: 76 L (11/22/2016 07:14:QS system process) Group Beta Strep: negative (11/21/2016 04:15:Viry Dickey RN) RPR/VDRL: Nonreactive (11/21/2016 04:15:Cristina Nascimento RN) HIV Exposure Test: Negative (11/21/2016 04:15:Cristina Nascimento RN) Hepatitis B: Negative (11/21/2016 04:15:Cristina Nascimento RN) Rubella: POSITIVE NEGATIVE IF LESS THAN OR EQUAL TO 9.99 IU/mL POSITIVE IF GREATER THAN OR EQUAL TO 10.0 IU/mL (11/21/2016 05:50:QS system process) Rubella Titer: 41.30 (11/21/2016 05:50:QS system process) Varicella: Non Susceptible (11/21/2016 04:15:Cristina Nascimento RN) OB/PREVIOUS HISTORY Previous Procedures: Ultrasound; NST (11/21/2016 04:15:Rosy Valdovinos) Current Procedures: Ultrasound; NST (11/21/2016 04:15:Rosy Valdovinos) History of Previous : No (11/21/2016 04:15:Rosy Valdovinos) History of Gestational Diabetes: No (11/21/2016 04:15:Rosy Valdovinos) History of PIH: No (11/21/2016 04:15:Rosy Valdovinos) History of Incompetent Cervix: No (11/21/2016 04:15:Rosy Valdovinos) History of Placenta Previa/Abrup: No (11/21/2016 04:15:Rosy Valdovinos) History of Macrosomia: No (11/21/2016 04:15:Rosy Valdovinos) History of IUGR: No (11/21/2016 04:15:Rosy Valdovinos) History of Hemorrhage: No (11/21/2016 04:15:Rosy Valdovinos) History of Loss/Stillborn: No (11/21/2016 04:15:Rosy Valdovinos) History of : No (11/21/2016 04:15:Rosy Valdovinos) History of D (Rh) Sensitization: No (11/21/2016 04:15:Rosy Valdovinos) History Recurrent Loss/Stillborn: No (11/21/2016 04:15:Rosy Valdovinos) History Depression/PP Depression: No (11/21/2016 04:15:Rosy Valdovinos) History of Uterine Anomaly/GAVIOTA: No (11/21/2016 04:15:Rosy Valdovinos) History of Infertility: No (11/21/2016 04:15:Rosy Valdovinos) History of ART Treatment: No (11/21/2016 04:15:Rosy Valdovinos) History of GAVIOTA: No (11/21/2016 04:15:Rosy Valdovinos) MEDICAL HISTORY Med Hx Diabetes: No (11/21/2016 04:15:Rosy Valdovinos) Med Hx Hypertension: No (11/21/2016 04:15:Rosy Valdovinos) Med Hx Heart Disease: No (11/21/2016 04:15:Rosy Valdovinos) Med Hx Autoimmune Disorder: No (11/21/2016 04:15:Rosy Valdovinos) Med Hx Kidney Disease/UTI: No (11/21/2016 04:15:Rosy Valdovinos) Med Hx Neurologic/Epilepsy: No (11/21/2016 04:15:Rosy Valdovinos) Med Hx Psychiatric Disorders: No (11/21/2016 04:15:Rosy Valdovinos) Med Hx Hepatitis/Liver Disease: No (11/21/2016 04:15:Rosy Valdovinos) Med Hx Varicosities/Phlebitis: No (11/21/2016 04:15:Rosy Valdovinos) Med Hx Thyroid Dysfunction: No (11/21/2016 04:15:Rosy Valdovinos) Med Hx Trauma/Violence: No (11/21/2016 04:15:Rosy Valdovinos) Med Hx Blood Transfusion: No (11/21/2016 04:15:Rosy Valdovinos) Med Hx Pulmonary (Asthma,TB): No (11/21/2016 04:15:Rosy Valdovinos) Med Hx Breast: No (11/21/2016 04:15:Rosy Valdovinos) 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 (11/21/2016 04:15:Rosy Valdovinos) Med Hx Hospitalization/Surgery: No (11/21/2016 04:15:Rosy Valdovinos) Med Hx Anesthetic Complications: No (11/21/2016 04:15:Rosy Valdovinos) Med Hx Abnormal Pap Smear: No (11/21/2016 04:15:Rosy Valdovinos) Other Medical Diseases: No (11/21/2016 04:15:Rosy Valdovinos) Med Hx Significant Family Hx: No (11/21/2016 04:15:Rosy Valdovinos) Details of Med/Surg Hx: benign lump left breast-2009 depresasion-no suicidal thoughts (11/21/2016 04:15:Cristina Nascimento RN) INFECTIOUS HISTORY Inf Hx Gonorrhea: No (11/21/2016 04:15:Rosy Valdovinos) Inf Hx Chlamydia: No (11/21/2016 04:15:Rosy Valdovinos) Inf Hx Syphilis: No (11/21/2016 04:15:Rosy Valdovinos) Inf Hx HIV/AIDS: No (11/21/2016 04:15:Rosy Valdovinos) Inf Hx Human Papilloma Virus: No (11/21/2016 04:15:Rosy Valdovinos) Inf Hx Pt/Partner Genital Herpes: No (11/21/2016 04:15:Rosy Valdovinos) Inf Hx Tuberculosis/Exposure: No (11/21/2016 04:15:Rosy Valdovinos) Inf Hx Hepatitis B,C: No (11/21/2016 04:15:Rosy Valdovinos) Inf Hx Rash or Viral Illness: No (11/21/2016 04:15:Rosy Valdovinos) GENETIC HISTORY Gen Hx Age >=35 at TYRELL: No (11/21/2016 04:15:Rosy Valdovinos) Gen Hx Thalassemia: No (11/21/2016 04:15:Rosy Valdovinos) Gen Hx Congenital Heart Defect: No (11/21/2016 04:15:Rosy Valdovinos) Gen Hx Neural Tube Defect: No (11/21/2016 04:15:Rosy Valdovinos) Gen Hx Down's Syndrome: No (11/21/2016 04:15:Rosy Valdovinos) Gen Hx Jt-Sachs: No (11/21/2016 04:15:Rosy Valdovinos) Gen Hx Otto: No (11/21/2016 04:15:Rosy Valdovinos) Gen Hx Familial Dysautonomia: No (11/21/2016 04:15:Rosy Valdovinos) Gen Hx Sickle Cell Disease/Trait: No (11/21/2016 04:15:Rosy Valdovinos) Gen Hx Hemophilia/Blood Disorder: No (11/21/2016 04:15:Rosy Valdovinos) Gen Hx Muscular Dystrophy: No (11/21/2016 04:15:Rosy Valdovinos) Gen Hx Cystic Fibrosis: No (11/21/2016 04:15:Rosy Valdovinos) Gen Hx [place] Chorea: No (11/21/2016 04:15:Rosy Valdovinos) Gen Hx Mental Retardation/Autism: No (11/21/2016 04:15:Rosy Valdovinos) Gen Hx Tested for Fragile X: No (11/21/2016 04:15:Rosy Valdovinos) Gen Hx Other Inher/Chromosomal: No (11/21/2016 04:15:Rosy Valdovinos) Gen Hx Maternal Metabolic DO: No (11/21/2016 04:15:Rosy Valdovinos) Gen Hx Pt Father or FOB Defect: No (11/21/2016 04:15:Rosy Valdovinos) Gen Hx Other Genetic History: No (11/21/2016 04:15:Rosy Valdovinos) Gen Hx Drugs/Meds since LMP: No (11/21/2016 04:15:Rosy Valdovinos)
--- NOTE | 2016-11-27 18:02 | L&D Current Admission ---
Current Admit Datetime Report Generated by CPN: 11/27/2016 18:00 ADMISSION INFORMATION Current Admit Date/Time: 11/21/2016 04:41 (11/21/2016 04:41:Rosy Valdovinos) Reason for Admission: Onset of Labor (11/21/2016 04:41:Rosy Valdovinos) Chief Complaint: Contractions (11/21/2016 04:41:Rosy Valdovinos) Medications During : Vitamin; Rantidine (Zantac) (11/21/2016 04:41:Cristina Nascimento RN) Meds During -Oth: fiorcet (11/21/2016 04:41:Cristina Nascimento RN) EGA per Dates: 40.1 (11/21/2016 04:41:QS system process) EGA per US: 40.1 (11/21/2016 04:41:QS system process) Method of Arrival: Wheelchair (11/21/2016 04:41:Rosy Valdovinos) Admitted From: Home (11/21/2016 04:41:Cristina Nascimento RN) Reason for Induction: Not Applicable (11/21/2016 04:41:Cristina Nascimento RN) Records Available: Yes (11/21/2016 04:41:Cristina Nascimento RN) General Admission Information: Reviewed (11/21/2016 04:41:Rosy Valdovinos) General Admission Reviewed By: Edmar Valdovinos RN (11/21/2016 04:41:Rosy Valdovinos) BELONGINGS/ADVANCED DIRECTIVES Other Belongings: see consent sheet (11/21/2016 04:41:Rosy Valdovinos) Disposition of Belongings: Kept with Patient (11/21/2016 04:41:Cristina Nascimento RN) Advance Direct for Healthcare: No, and Wants No Information (11/21/2016 04:41:Rosy Valdovinos) Durable Power of Relations Specialist: No (11/21/2016 04:41:Rosy Valdovinos) Living Will: No (11/21/2016 04:41:Rosy Valdovinos) Organ Donor: No (11/21/2016 04:41:Rosy Valdovinos) Pt Rights Information Given: Yes (11/21/2016 04:41:Rosy Valdovinos) Pt Understands Pt Rights: Yes (11/21/2016 04:41:Rosy Valdovinos) Patient Rights Comments: patient access (11/21/2016 04:41:Rosy Valdovinos) LEARNING ASSESSMENT Knowledge Level: Understands L_D Process (11/21/2016 04:41:Rosy Valdovinos) Barriers to Learning: None (11/21/2016 04:41:Rosy Valdovinos) Learning Readiness: Motivated (11/21/2016 04:41:Rosy Valdovinos) Learns Best By: 1 to 1 Instruction (11/21/2016 04:41:Rosy Valdovinos) Learning Needs: Labor and Delivery Process; Pain Management; Symptoms to Report; Treatment Plan; Medication (11/21/2016 04:41:Rosy Valdovinos) DOMESTIC VIOLANCE SCREENING Dom Viol Threatened/Hurt: No (11/21/2016 04:41:Rosy Valdovinos) Hx of Abuse/Neglect past 2yrs: No (11/21/2016 04:41:Rosy Valdovinos) Feel Unsafe Going Home: No (11/21/2016 04:41:Rosy Valdovinos) Addt'l Observ Indicating Abuse: No (11/21/2016 04:41:Rosy Valdovinos) Reason Unable to Complete Screen: N/A, Screen Completed (11/21/2016 04:41:Rosy Valdovinos) Considered Personal Harm/Suicide: No (11/21/2016 04:41:Rosy Valdovinos) NUTRITIONAL/FUNCTIONAL SCREENING Problem with Appetite >5 Days: No (11/21/2016 04:41:Rosy Valdovinos) Chew/Swallow Difficulties: No (11/21/2016 04:41:Rosy Valdovinos) Inappropriate Wt Gain/Loss: No (11/21/2016 04:41:Rosy Valdovinos) Presence Skin Breakdown/Ulcer: No (11/21/2016 04:41:Rosy Valdovinos) Special Diet: No (11/21/2016 04:41:Rosy Valdovinos) Pt Requests Facility Security Officer Visit: No (11/21/2016 04:41:Rosy Valdovinos) Hx of Any of the Following?: N/A (11/21/2016 04:41:oRsy Valdovinos) New Diagnosis of: N/A (11/21/2016 04:41:Rosy Valdovinos) Requires Assist w/Ambulation: No (11/21/2016 04:41:Rosy Valdovinos) Uses Assist Device to Ambulate: No (11/21/2016 04:41:Rosy Valdovinos) Pt Requires Help w/ADL's: No (11/21/2016 04:41:Rosy Valdovinos)
--- NOTE | 2016-11-27 18:02 | L&D General Admission ---
General Admit Datetime Report Generated by CPN: 11/27/2016 18:00 INFORMATION Patient Age: 26 (10/08/2016 10:16:QS system process) EDC: 11/20/2016 00:00 (11/21/2016 04:15:Cristina Nascimento RN) EDC per Ultrasound: 11/20/2016 00:00 (11/21/2016 04:15:Cristina Nascimento RN) : 5 (11/21/2016 04:15:Cristina Nascimento RN) Para: 2 (11/21/2016 04:15:Cristina Nascimento RN) Term: 2 (11/21/2016 04:15:Cristina Nascimento RN) Spontaneous Abortions: 2 (11/21/2016 04:15:Cristina Nascimento RN) Livin (11/21/2016 04:15:Cristina Nascimento RN) Cesareans: 0 (11/21/2016 04:15:Cristina Nascimento RN) CARE Primary Reeling And Tubing Machine Operator: [facility] (11/21/2016 04:15:Rosy Valdovinos) Adequate Care: Yes (11/21/2016 04:15:Cristina Azam, RN) Height (in): 67 (11/22/2016 15:30:QS system process) ALLERGIES Medication Allergy: No (11/21/2016 04:15:Rosy Valdovinos) Medication Allergies: No Known Allergies (02/16/2013) (10/08/2016 10:16:QS system process) Latex Allergy: No Latex Allergies (11/21/2016 04:15:Rosy Valdovinos) Food Allergies: none (11/21/2016 04:15:Rosy Valdovinos) Environmental Allergies: none (11/21/2016 04:15:Rosy Valdovinos) COMMUNICATION Primary Language: Botswanan (11/21/2016 04:15:Rosy Valdovinos) Medical Tx Preferred Language: Botswanan (11/21/2016 04:15:Rosyabhilash Valdovinos) DEMOGRAPHICS Address: [address] [place] [id number] (10/08/2016 10:16:QS system process) Zipcode: [phone] (10/08/2016 10:16:QS system process) Home (10/08/2016 10:16:QS system process) SSN: [id number] (10/08/2016 10:16:QS system process) Next of Kin Name: JANETH MCMILLAN (10/08/2016 10:16:QS system process) Next of Kin (10/08/2016 10:16:QS system process) Next of Kin Relationship: SPO (10/08/2016 10:16:QS system process) Date of : 1990 (10/08/2016 10:16:QS system process) Marital Status: (10/08/2016 10:16:QS system process) Sex: Female (10/08/2016 10:16:QS system process) Race: (10/08/2016 10:16:QS system process) Ethnicity: Non- or (10/08/2016 10:16:QS system process) Protestant: Roman Catholic (10/08/2016 10:16:QS system process) DRUG AND ALCOHOL USE Alcohol: No (11/21/2016 04:15:Rosy Valdovinos) Cigarettes: Never Smoker. [id number] (11/21/2016 04:15:Rosy Valdovinos) Marijuana: No (11/21/2016 04:15:Rosy Valdovinos) Cocaine: No (11/21/2016 04:15:Rosy Valdovinos) Other Illicit Drugs: No (11/21/2016 04:15:Rosy Valdovinos) VACCINE HISTORY Influenza Vaccine: Yes (11/21/2016 04:15:Rosy Valdovinos) Influenza Date: 2016 (11/21/2016 04:15:Rosy Valdovinos) Tdap Vaccine: Yes (11/21/2016 04:15:Rosy Valdovinos) Tdap Date: 2016 (11/21/2016 04:15:Rosy Valdovinos) Slot Operations Manager: [facility] (11/21/2016 04:15:Rosy Valdovinos) Feeding Preference: Breast (11/21/2016 04:15:Rosy Valdovinos) Benefit of Breast Feed Discussed: Yes (11/21/2016 04:15:Viry Dickey RN) Circumcision: N/A (11/21/2016 04:15:Rosy Valdovinos) Classes Attended: No (11/21/2016 04:15:Rosy Valdovinos) Tubal Ligation: No (11/21/2016 04:15:Rosy Valdovinos) Tubal Authorization Signed: N/A (11/21/2016 04:15:Rosy Valdovinos) Consent: N/A (11/21/2016 04:15:Rosy Valdovinos) Consent Signed: N/A (11/21/2016 04:15:Rosy Valdovinos) Pain Management Plans: Epidural (11/21/2016 04:15:Rosy Valdovinos) Plans for Labor and Delivery: None (11/21/2016 04:15:Rosy Valdovinos) Support Person: Janeth (11/21/2016 04:15:Rosy Valdovinos) Support Person Relationship: (11/21/2016 04:15:Rosy Valdovinos) Cultural/Spritual Practice: N/A (11/21/2016 04:15:Rosy Valdovinos) Spir/Cult Dietary Needs: N/A (11/21/2016 04:15:Rosy Valdovinos) LIVING SITUATION/DISCHARGE PLAN Living Arrangements: House (11/21/2016 04:15:Rosy Valdovinos) Adequate Access to:: Electric; Heat; Refrigeration; Plumbing/Running water; Phone; Transportation (11/21/2016 04:15:Rosy Valdovinos) WIC Program: Yes (11/21/2016 04:15:Rosy Valdovinos) Discharge Salesperson Pianos And Organs Person: janeth- (11/21/2016 04:15:Rosy Valdovinos) Person to Help after Discharge: janeth- (11/21/2016 04:15:Rosy Valdovinos) Currently Using Commun Resources: Yes (11/21/2016 04:15:Rosy Valdovinos) Specify Current Resource Used: medicaid (11/21/2016 04:15:Rosy Valdovinos) Outside Agency/Hand Developer: No (11/21/2016 04:15:Rosy Valdovinos) Car Seat for Discharge: Yes (11/21/2016 04:15:Rosy Valdovinos) Adoption Requested: No (11/21/2016 04:15:Rosy Valdovinos) Pt Contact w/ Post : N/A (11/21/2016 04:15:Rosy Valdovinos) LABS Blood Type: O Positive (11/21/2016 04:15:Cristina Nascimento RN) Hemoglobin: 11.1 L (11/22/2016 07:14:QS system process) Hematocrit: 33.0 L (11/22/2016 07:14:QS system process) MCV: 76 L (11/22/2016 07:14:QS system process) Group Beta Strep: negative (11/21/2016 04:15:Viry Dickey RN) RPR/VDRL: Nonreactive (11/21/2016 04:15:Cristina Nascimento RN) HIV Exposure Test: Negative (11/21/2016 04:15:Cristina Nascimento RN) Hepatitis B: Negative (11/21/2016 04:15:Cristina Nascimento RN) Rubella: POSITIVE NEGATIVE IF LESS THAN OR EQUAL TO 9.99 IU/mL POSITIVE IF GREATER THAN OR EQUAL TO 10.0 IU/mL (11/21/2016 05:50:QS system process) Rubella Titer: 41.30 (11/21/2016 05:50:QS system process) Varicella: Non Susceptible (11/21/2016 04:15:Cristina Nascimento RN) OB/PREVIOUS HISTORY Previous Procedures: Ultrasound; NST (11/21/2016 04:15:Rosy Valdovinos) Current Procedures: Ultrasound; NST (11/21/2016 04:15:Rosy Valdovinos) History of Previous : No (11/21/2016 04:15:Rosy Valdovinos) History of Gestational Diabetes: No (11/21/2016 04:15:Rosy Valdovinos) History of PIH: No (11/21/2016 04:15:Rosy Valdovinos) History of Incompetent Cervix: No (11/21/2016 04:15:Rosy Valdovinos) History of Placenta Previa/Abrup: No (11/21/2016 04:15:Rosy Valdovinos) History of Macrosomia: No (11/21/2016 04:15:Rosy Valdovinos) History of IUGR: No (11/21/2016 04:15:Rosy Valdovinos) History of Hemorrhage: No (11/21/2016 04:15:Rosy Valdovinos) History of Loss/Stillborn: No (11/21/2016 04:15:Rosy Valdovinos) History of : No (11/21/2016 04:15:Rosy Valdovinos) History of D (Rh) Sensitization: No (11/21/2016 04:15:Rosy Valdovinos) History Recurrent Loss/Stillborn: No (11/21/2016 04:15:Rosy Valdovinos) History Depression/PP Depression: No (11/21/2016 04:15:Rosy Valdovinos) History of Uterine Anomaly/GAVIOTA: No (11/21/2016 04:15:Rosy Valdovinos) History of Infertility: No (11/21/2016 04:15:Rosy Valdovinos) History of ART Treatment: No (11/21/2016 04:15:Rosy Valdovinos) History of GAVIOTA: No (11/21/2016 04:15:Rosy Valdovinos) MEDICAL HISTORY Med Hx Diabetes: No (11/21/2016 04:15:Rosy Valdovinos) Med Hx Hypertension: No (11/21/2016 04:15:Rosy Valdovinos) Med Hx Heart Disease: No (11/21/2016 04:15:Rosy Valdovinos) Med Hx Autoimmune Disorder: No (11/21/2016 04:15:Rosy Valdovinos) Med Hx Kidney Disease/UTI: No (11/21/2016 04:15:Rosy Valdovinos) Med Hx Neurologic/Epilepsy: No (11/21/2016 04:15:Rosy Valdovinos) Med Hx Psychiatric Disorders: No (11/21/2016 04:15:Rosy Valdovinos) Med Hx Hepatitis/Liver Disease: No (11/21/2016 04:15:Rosy Valdovinos) Med Hx Varicosities/Phlebitis: No (11/21/2016 04:15:oRsy Valdovinos) Med Hx Thyroid Dysfunction: No (11/21/2016 04:15:Rosy Valdovinos) Med Hx Trauma/Violence: No (11/21/2016 04:15:Rosy Valdovinos) Med Hx Blood Transfusion: No (11/21/2016 04:15:Rosy Valdovinos) Med Hx Pulmonary (Asthma,TB): No (11/21/2016 04:15:Rosy Valdovinos) Med Hx Breast: No (11/21/2016 04:15:Rosy Valdovinos) Med Hx CO OP Surgery: No (11/21/2016 04:15:Rosy Valdovinos) Med Hx Hospitalization/Surgery: No (11/21/2016 04:15:Rosy Valdovinos) Med Hx Anesthetic Complications: No (11/21/2016 04:15:Rosy Valdovinos) Med Hx Abnormal Pap Smear: No (11/21/2016 04:15:Rosy Valdovinos) Other Medical Diseases: No (11/21/2016 04:15:Rosy Valdovinos) Med Hx Significant Family Hx: No (11/21/2016 04:15:Rosy Valdovinos) Details of Med/Surg Hx: benign lump left breast-2009 depresasion-no suicidal thoughts (11/21/2016 04:15:Cristina Nascimento RN) INFECTIOUS HISTORY Inf Hx Gonorrhea: No (11/21/2016 04:15:Rosy Valdovinos) Inf Hx Chlamydia: No (11/21/2016 04:15:Rosy Valdovinos) Inf Hx Syphilis: No (11/21/2016 04:15:Rosy Valdovinos) Inf Hx HIV/AIDS: No (11/21/2016 04:15:Rosy Valdovinos) Inf Hx Human Papilloma Virus: No (11/21/2016 04:15:Rosy Valdovinos) Inf Hx Pt/Partner Genital Herpes: No (11/21/2016 04:15:Rosy Valdovinos) Inf Hx Tuberculosis/Exposure: No (11/21/2016 04:15:Rosy Valdovinos) Inf Hx Hepatitis B,C: No (11/21/2016 04:15:Rosy Valdovinos) Inf Hx Rash or Viral Illness: No (11/21/2016 04:15:Rosy Valdovinos) GENETIC HISTORY Gen Hx Age >=35 at TYRELL: No (11/21/2016 04:15:Rosy Valdovinos) Gen Hx Thalassemia: No (11/21/2016 04:15:Rosy Valdovinos) Gen Hx Congenital Heart Defect: No (11/21/2016 04:15:Rosy Valdovinos) Gen Hx Neural Tube Defect: No (11/21/2016 04:15:Rosy Valdovinos) Gen Hx Down's Syndrome: No (11/21/2016 04:15:Rosy Valdovinos) Gen Hx Jt-Sachs: No (11/21/2016 04:15:Rosy Valdovinos) Gen Hx Otto: No (11/21/2016 04:15:Rosy Valdovinos) Gen Hx Familial Dysautonomia: No (11/21/2016 04:15:Rosy Valdovinos) Gen Hx Sickle Cell Disease/Trait: No (11/21/2016 04:15:Rosy Valdovinos) Gen Hx Hemophilia/Blood Disorder: No (11/21/2016 04:15:Rosy Valdovinos) Gen Hx Muscular Dystrophy: No (11/21/2016 04:15:Rosy Valdovinos) Gen Hx Cystic Fibrosis: No (11/21/2016 04:15:Rosy Valdovinos) Gen Hx [place] Chorea: No (11/21/2016 04:15:Rosy Valdovinos) Gen Hx Mental Retardation/Autism: No (11/21/2016 04:15:Rosy Valdovinos) Gen Hx Tested for Fragile X: No (11/21/2016 04:15:Rosy Valdovinos) Gen Hx Other Inher/Chromosomal: No (11/21/2016 04:15:Rosy Valdovinos) Gen Hx Maternal Metabolic DO: No (11/21/2016 04:15:Rosy Valdovinos) Gen Hx Pt Father or FOB Defect: No (11/21/2016 04:15:Rosy Valdovinos) Gen Hx Other Genetic History: No (11/21/2016 04:15:Rosy Valdovinos) Gen Hx Drugs/Meds since LMP: No (11/21/2016 04:15:Rosy Valdovinos)
--- NOTE | 2016-11-27 20:21 | Delivery Summary ---
Del Sum A-C Datetime Report Generated by CPN: 11/27/2016 20:20 DELIVERY PERSONNEL DELIVERY PERSONNEL: [phone];[phone] Delivery Doctor:: Divina Ferguson MD Labor and Delivery Nurse:: Rosy Valdovinos RN Nursery Nurse:: TYLOR Mcadams Tech/EMPLOYMENT TRAINER: Helen Pope EMPLOYMENT TRAINER MATERNAL INFORMATION Delivery Anesthesia: None Medications After Delivery: Pitocin Bolus-Please Comment Meds After Delivery Comment: Pitocin 20 units/1000 ml NS following placenta Estimated Blood Loss (ml): 250 Maternal Complications: Precipitous Labor (<3hrs) Provider Comments: Placenta delivered intact with 3vc LABOR SUMMARY EDC: 11/20/2016 00:00 Attempted: No Labor Anesthesia: None LABOR INFORMATION Reason for Induction: Not Applicable Onset of Labor: 11/21/2016 03:00 Complete Dilatation: 11/21/2016 04:42 Oxytocin: N/A Group B Beta Strep: negative Antibiotics # of Doses: 0 Antibiotics Time of Last Dose: n/a Steroids Given: None Reason Steroids Not Administered: Not Applicable MEMBRANES Membranes Rupture Method: Artificial Rupture of Membranes: 11/21/2016 04:45 Length of Rupture (hr): 0.18 Amniotic Fluid Color: Clear Amniotic Fluid Amount: Moderate Amniotic Fluid Odor: Normal STAGES OF LABOR Stage 1 hr: 1 Stage 1 min: 42 Stage 2 hr: 0 Stage 2 min: 14 Stage 3 hr: 0 Stage 3 min: 4 Total Time in Labor hr: 2 Total Time in Labor min: 0 VAGINAL DELIVERY Episiotomy: None Laceration Extension: First Degree Laceration Type: Perineal Laceration Repair: Yes Laceration Repair Note: one 3-0 chromic suture placed Sponge Count Correct: N/A Sharps Count Correct: N/A CSECTION DELIVERY Primary Indication: N/A Secondary Indication: N/A CSection Incidence: N/A Labor: N/A Elective: N/A CSection Incision: N/A BABY A INFORMATION Delivery Date/Time: 11/21/2016 04:56 Method of Delivery: Vaginal Born in Route : No : N/A Forceps: N/A Vacuum Extraction: N/A Shoulder Dystocia : No PRESENTATION/POSITION BABY A Presentation: Cephalic Cephalic Presentation: Vertex Vertex Position: Left Occipital Anterior Breech Presentation: N/A PLACENTA INFORMATION BABY A Placenta Delivery Time : 11/21/2016 05:00 Placenta Method of Delivery: Spontaneous Placenta Status: Delivered SCORES BABY A Heart Rate 1 min: >100 bpm Resp Effort 1 min: Slow, Irregular Reflex Irritability 1 min: Cough or Sneeze or Pulls Away Muscle Tone 1 min: Active Motion Color 1 min: Body [place], Extremities Blue SCORE 1 MIN: 8 Heart Rate 5 min: >100 bpm Resp Effort 5 min: Good Cry Reflex Irritability 5 min: Cough or Sneeze or Pulls Away Muscle Tone 5 min: Active Motion Color 5 min: Body [place], Extremities Blue SCORE 5 MIN: 9 INFANT INFORMATION BABY A Gestational Age at Delivery: 40.1 Gestational Status: Full Term- 39- 40.6 Weeks Outcome : Liveborn Condition : Stable Infant Sex: Female IDENTIFICATION BABY A Verification Date/Time: 11/21/2016 05:49 ID Band Number: [id number] Mother's Name Verified: Yes Infant RN Verifying : A Valdovinos Rn Additional Verifying Personnel: [facility] Rn WEIGHT/LENGTH BABY A Birthweight (gm): 3490 Weight (lb): 7 Weight (oz): 11 Infant Length (in): 20.00 Infant Length (cm): 50.80 CORD INFORMATION BABY A No. Cord Vessels: 3 Nuchal Cord : N/A Cord Blood Taken: Yes-For Eval (Mom's Blood Type - or O+) Suction: Mouth; Nose ASSESSMENT BABY A Complications: None Physical Findings at Delivery: Within Normal Limits Infant Respirations: Appears Normal Skin to Skin: Yes Skin to Skin Time (min): 40 Tank Setter/ALS Called : No Care By: Ena Campa RN Transferred To: Remains with Mother SIGNATURES Signature: with User ID: [email or web address]
--- NOTE | 2016-11-27 20:21 | L&D General Admission ---
General Admit Datetime Report Generated by CPN: 11/27/2016 20:20 INFORMATION Patient Age: 26 (10/08/2016 10:16:QS system process) EDC: 11/20/2016 00:00 (11/21/2016 04:15:Cristina Nascimento RN) EDC per Ultrasound: 11/20/2016 00:00 (11/21/2016 04:15:Cristina Nascimento RN) : 5 (11/21/2016 04:15:Cristina Nascimento RN) Para: 2 (11/21/2016 04:15:Cristina Nascimento RN) Term: 2 (11/21/2016 04:15:Cristina Nascimento RN) Spontaneous Abortions: 2 (11/21/2016 04:15:Cristina Nascimento RN) Livin (11/21/2016 04:15:Cristina Nascimento RN) Cesareans: 0 (11/21/2016 04:15:Cristina Nascimento RN) CARE Primary Generator Worker: [facility] (11/21/2016 04:15:Rosy Valdovinos) Adequate Care: Yes (11/21/2016 04:15:Cristina Azam, RN) Height (in): 67 (11/22/2016 15:30:QS system process) ALLERGIES Medication Allergy: No (11/21/2016 04:15:Rosy Valdovinos) Medication Allergies: No Known Allergies (02/16/2013) (10/08/2016 10:16:QS system process) Latex Allergy: No Latex Allergies (11/21/2016 04:15:Rosy Valdovinos) Food Allergies: none (11/21/2016 04:15:Rosy Valdovinos) Environmental Allergies: none (11/21/2016 04:15:Rosy Valdovinos) COMMUNICATION Primary Language: Prydeinig (11/21/2016 04:15:Rosy Valdovinos) Medical Tx Preferred Language: Prydeinig (11/21/2016 04:15:Rosyabhilash Valdovinos) DEMOGRAPHICS Address: [address] [place] [id number] (10/08/2016 10:16:QS system process) Zipcode: [phone] (10/08/2016 10:16:QS system process) Home (10/08/2016 10:16:QS system process) SSN: [id number] (10/08/2016 10:16:QS system process) Next of Kin Name: JANETH MCMILLAN (10/08/2016 10:16:QS system process) Next of Kin (10/08/2016 10:16:QS system process) Next of Kin Relationship: SPO (10/08/2016 10:16:QS system process) Date of : 1990 (10/08/2016 10:16:QS system process) Marital Status: (10/08/2016 10:16:QS system process) Sex: Female (10/08/2016 10:16:QS system process) Race: (10/08/2016 10:16:QS system process) Ethnicity: Non- or (10/08/2016 10:16:QS system process) Shinto: Pentecostalism (10/08/2016 10:16:QS system process) DRUG AND ALCOHOL USE Alcohol: No (11/21/2016 04:15:Rosy Valdovinos) Cigarettes: Never Smoker. [id number] (11/21/2016 04:15:Rosy Valdovinos) Marijuana: No (11/21/2016 04:15:Rosy Valdovinos) Cocaine: No (11/21/2016 04:15:Rosy Valdovinos) Other Illicit Drugs: No (11/21/2016 04:15:Rosy Valdovinos) VACCINE HISTORY Influenza Vaccine: Yes (11/21/2016 04:15:Rosy Valdovinos) Influenza Date: 2016 (11/21/2016 04:15:Rosy Valdovinos) Tdap Vaccine: Yes (11/21/2016 04:15:Rosy Valdovinos) Tdap Date: 2016 (11/21/2016 04:15:Rosy Valdovinos) Data Control Clerk: [facility] (11/21/2016 04:15:Rosy Valdovinos) Feeding Preference: Breast (11/21/2016 04:15:Rosy Valdovinos) Benefit of Breast Feed Discussed: Yes (11/21/2016 04:15:Viry Dickey RN) Circumcision: N/A (11/21/2016 04:15:Rosy Valdovinos) Classes Attended: No (11/21/2016 04:15:Rosy Valdovinos) Tubal Ligation: No (11/21/2016 04:15:Rosy Valdovinos) Tubal Authorization Signed: N/A (11/21/2016 04:15:Rosy Valdovinos) Consent: N/A (11/21/2016 04:15:Rosy Valdovinos) Consent Signed: N/A (11/21/2016 04:15:Rosy Valdovinos) Pain Management Plans: Epidural (11/21/2016 04:15:Rosy Valdovinos) Plans for Labor and Delivery: None (11/21/2016 04:15:Rosy Valdovinos) Support Person: Janeth (11/21/2016 04:15:Rosy Valdovinos) Support Person Relationship: (11/21/2016 04:15:Rosy Valdovinos) Cultural/Spritual Practice: N/A (11/21/2016 04:15:Rosy Valdovinos) Spir/Cult Dietary Needs: N/A (11/21/2016 04:15:Rosy Valdovinos) LIVING SITUATION/DISCHARGE PLAN Living Arrangements: House (11/21/2016 04:15:Rosy Valdovinos) Adequate Access to:: Electric; Heat; Refrigeration; Plumbing/Running water; Phone; Transportation (11/21/2016 04:15:Rosy Valdovinos) WIC Program: Yes (11/21/2016 04:15:Rosy Valdovinos) Discharge Field Service Supervisor Person: janeth- (11/21/2016 04:15:Rosy Valdovinos) Person to Help after Discharge: janeth- (11/21/2016 04:15:Rosy Valdovinos) Currently Using Commun Resources: Yes (11/21/2016 04:15:Rosy Valdovinos) Specify Current Resource Used: medicaid (11/21/2016 04:15:Rosy Valdovinos) Outside Agency/Freelance Graphic Designer: No (11/21/2016 04:15:Rosy Valdovinos) Car Seat for Discharge: Yes (11/21/2016 04:15:Rosy Valdovinos) Adoption Requested: No (11/21/2016 04:15:Rosy Valdovinos) Pt Contact w/ Post : N/A (11/21/2016 04:15:Rosy Valdovinos) LABS Blood Type: O Positive (11/21/2016 04:15:Cristina Nascimento RN) Hemoglobin: 11.1 L (11/22/2016 07:14:QS system process) Hematocrit: 33.0 L (11/22/2016 07:14:QS system process) MCV: 76 L (11/22/2016 07:14:QS system process) Group Beta Strep: negative (11/21/2016 04:15:Viry Dickey RN) RPR/VDRL: Nonreactive (11/21/2016 04:15:Cristina Nascimento RN) HIV Exposure Test: Negative (11/21/2016 04:15:Cristina Nascimento RN) Hepatitis B: Negative (11/21/2016 04:15:Cristina Nascimento RN) Rubella: POSITIVE NEGATIVE IF LESS THAN OR EQUAL TO 9.99 IU/mL POSITIVE IF GREATER THAN OR EQUAL TO 10.0 IU/mL (11/21/2016 05:50:QS system process) Rubella Titer: 41.30 (11/21/2016 05:50:QS system process) Varicella: Non Susceptible (11/21/2016 04:15:Cristina Nascimento RN) OB/PREVIOUS HISTORY Previous Procedures: Ultrasound; NST (11/21/2016 04:15:Rosy Valdovinos) Current Procedures: Ultrasound; NST (11/21/2016 04:15:Rosy Valdovinos) History of Previous : No (11/21/2016 04:15:Rosy Valdovinos) History of Gestational Diabetes: No (11/21/2016 04:15:Rosy Valdovinos) History of PIH: No (11/21/2016 04:15:Rosy Valdovinos) History of Incompetent Cervix: No (11/21/2016 04:15:Rosy Valdovinos) History of Placenta Previa/Abrup: No (11/21/2016 04:15:Rosy Valdovinos) History of Macrosomia: No (11/21/2016 04:15:Rosy Valdovinos) History of IUGR: No (11/21/2016 04:15:Rosy Valdovinos) History of Hemorrhage: No (11/21/2016 04:15:Rosy Valdovinos) History of Loss/Stillborn: No (11/21/2016 04:15:Rosy Valdovinos) History of : No (11/21/2016 04:15:Rosy Valdovinos) History of D (Rh) Sensitization: No (11/21/2016 04:15:Rosy Valdovinos) History Recurrent Loss/Stillborn: No (11/21/2016 04:15:Rosy Valdovinos) History Depression/PP Depression: No (11/21/2016 04:15:Rosy Valdovinos) History of Uterine Anomaly/GAVIOTA: No (11/21/2016 04:15:Rosy Valdovinos) History of Infertility: No (11/21/2016 04:15:Rosy Valdovinos) History of ART Treatment: No (11/21/2016 04:15:Rosy Valdovinos) History of GAVIOTA: No (11/21/2016 04:15:Rosy Valdovinos) MEDICAL HISTORY Med Hx Diabetes: No (11/21/2016 04:15:Rosy Valdovinos) Med Hx Hypertension: No (11/21/2016 04:15:Rosy Valdovinos) Med Hx Heart Disease: No (11/21/2016 04:15:Rosy Valdovinos) Med Hx Autoimmune Disorder: No (11/21/2016 04:15:Rosy Valdovinos) Med Hx Kidney Disease/UTI: No (11/21/2016 04:15:Rosy Valdovinos) Med Hx Neurologic/Epilepsy: No (11/21/2016 04:15:Rosy Valdovinos) Med Hx Psychiatric Disorders: No (11/21/2016 04:15:Rosy Valdovinos) Med Hx Hepatitis/Liver Disease: No (11/21/2016 04:15:Rosy Valdovinos) Med Hx Varicosities/Phlebitis: No (11/21/2016 04:15:Rosy Valdovinos) Med Hx Thyroid Dysfunction: No (11/21/2016 04:15:Rosy Valdovinos) Med Hx Trauma/Violence: No (11/21/2016 04:15:Rosy Valdovinos) Med Hx Blood Transfusion: No (11/21/2016 04:15:Rosy Valdovinos) Med Hx Pulmonary (Asthma,TB): No (11/21/2016 04:15:Rosy Valdovinos) Med Hx Breast: No (11/21/2016 04:15:Rosy Valdovinos) Med Hx NUTRITION COUNSELOR Surgery: No (11/21/2016 04:15:Rosy Valdovinos) Med Hx Hospitalization/Surgery: No (11/21/2016 04:15:Rosy Valdovinos) Med Hx Anesthetic Complications: No (11/21/2016 04:15:Rosy Valdovinos) Med Hx Abnormal Pap Smear: No (11/21/2016 04:15:Rosy Valdovinos) Other Medical Diseases: No (11/21/2016 04:15:Rosy Valdovinos) Med Hx Significant Family Hx: No (11/21/2016 04:15:Rosy Valdovinos) Details of Med/Surg Hx: benign lump left breast-2009 depresasion-no suicidal thoughts (11/21/2016 04:15:Cristina Nascimento RN) INFECTIOUS HISTORY Inf Hx Gonorrhea: No (11/21/2016 04:15:Rosy Valdovinos) Inf Hx Chlamydia: No (11/21/2016 04:15:Rosy Valdovinos) Inf Hx Syphilis: No (11/21/2016 04:15:Rosy Valdovinos) Inf Hx HIV/AIDS: No (11/21/2016 04:15:Rosy Valdovinos) Inf Hx Human Papilloma Virus: No (11/21/2016 04:15:Rosy Valdovinos) Inf Hx Pt/Partner Genital Herpes: No (11/21/2016 04:15:Rosy Valdovinos) Inf Hx Tuberculosis/Exposure: No (11/21/2016 04:15:Rosy Valdovinos) Inf Hx Hepatitis B,C: No (11/21/2016 04:15:Rosy Valdovinos) Inf Hx Rash or Viral Illness: No (11/21/2016 04:15:Rosy Valdovinos) GENETIC HISTORY Gen Hx Age >=35 at TYRELL: No (11/21/2016 04:15:Rosy Valdovinos) Gen Hx Thalassemia: No (11/21/2016 04:15:Rosy Valdovinos) Gen Hx Congenital Heart Defect: No (11/21/2016 04:15:Rosy Valdovinos) Gen Hx Neural Tube Defect: No (11/21/2016 04:15:Rosy Valdovinos) Gen Hx Down's Syndrome: No (11/21/2016 04:15:Rosy Valdovinos) Gen Hx Jt-Sachs: No (11/21/2016 04:15:Rosy Valdovinos) Gen Hx Otto: No (11/21/2016 04:15:Rosy Valdovinos) Gen Hx Familial Dysautonomia: No (11/21/2016 04:15:Rosy Valdovinos) Gen Hx Sickle Cell Disease/Trait: No (11/21/2016 04:15:Rosy Valdovinos) Gen Hx Hemophilia/Blood Disorder: No (11/21/2016 04:15:Rosy Valdovinos) Gen Hx Muscular Dystrophy: No (11/21/2016 04:15:Rosy Valdovinos) Gen Hx Cystic Fibrosis: No (11/21/2016 04:15:Rosy Valdovinos) Gen Hx [place] Chorea: No (11/21/2016 04:15:Rosy Valdovinos) Gen Hx Mental Retardation/Autism: No (11/21/2016 04:15:Rosy Valdovinos) Gen Hx Tested for Fragile X: No (11/21/2016 04:15:Rosy Valdovinos) Gen Hx Other Inher/Chromosomal: No (11/21/2016 04:15:Rosy Valdovinos) Gen Hx Maternal Metabolic DO: No (11/21/2016 04:15:Rosy Valdovinos) Gen Hx Pt Father or FOB Defect: No (11/21/2016 04:15:Rosy Valdovinos) Gen Hx Other Genetic History: No (11/21/2016 04:15:Rosy Valdovinos) Gen Hx Drugs/Meds since LMP: No (11/21/2016 04:15:Rosy Valdovinos)
--- NOTE | 2016-11-27 20:24 | L&D General Admission ---
General Admit Datetime Report Generated by CPN: 11/27/2016 20:20 INFORMATION Patient Age: 26 (10/08/2016 10:16:QS system process) EDC: 11/20/2016 00:00 (11/21/2016 04:15:Cristina Nascimento RN) EDC per Ultrasound: 11/20/2016 00:00 (11/21/2016 04:15:Cristina Nascimento RN) : 5 (11/21/2016 04:15:Cirstina Nascimento RN) Para: 2 (11/21/2016 04:15:Cristina Nascimento RN) Term: 2 (11/21/2016 04:15:Cristina Nascimento RN) Spontaneous Abortions: 2 (11/21/2016 04:15:Cristina Nascimento RN) Livin (11/21/2016 04:15:Cristina Nascimento RN) Cesareans: 0 (11/21/2016 04:15:Cristina Nascimento RN) CARE Primary Front Office Assistant: [facility] (11/21/2016 04:15:Rosy Valdovinos) Adequate Care: Yes (11/21/2016 04:15:Cristina Azam, RN) Height (in): 67 (11/22/2016 15:30:QS system process) ALLERGIES Medication Allergy: No (11/21/2016 04:15:Rosy Valdovinos) Medication Allergies: No Known Allergies (02/16/2013) (10/08/2016 10:16:QS system process) Latex Allergy: No Latex Allergies (11/21/2016 04:15:Rosy Valdovinos) Food Allergies: none (11/21/2016 04:15:Rosy Valdovinos) Environmental Allergies: none (11/21/2016 04:15:Rosy Valdovinos) COMMUNICATION Primary Language: Sierra Leonean (11/21/2016 04:15:Rosy Valdovinos) Medical Tx Preferred Language: Sierra Leonean (11/21/2016 04:15:Rosyabhilash Valdovinos) DEMOGRAPHICS Address: [address] [place] [phone] (10/08/2016 10:16:QS system process) Zipcode: [phone] (10/08/2016 10:16:QS system process) Home (10/08/2016 10:16:QS system process) SSN: [id number] (10/08/2016 10:16:QS system process) Next of Kin Name: JANETH MCMILLAN (10/08/2016 10:16:QS system process) Next of Kin (10/08/2016 10:16:QS system process) Next of Kin Relationship: SPO (10/08/2016 10:16:QS system process) Date of : 1990 (10/08/2016 10:16:QS system process) Marital Status: (10/08/2016 10:16:QS system process) Sex: Female (10/08/2016 10:16:QS system process) Race: (10/08/2016 10:16:QS system process) Ethnicity: Non- or (10/08/2016 10:16:QS system process) Advent: Jew (10/08/2016 10:16:QS system process) DRUG AND ALCOHOL USE Alcohol: No (11/21/2016 04:15:Rosy Valdovinos) Cigarettes: Never Smoker. [id number] (11/21/2016 04:15:Rosy Valdovinos) Marijuana: No (11/21/2016 04:15:Rosy Valdovinos) Cocaine: No (11/21/2016 04:15:Rosy Valdovinos) Other Illicit Drugs: No (11/21/2016 04:15:Rosy Valdovinos) VACCINE HISTORY Influenza Vaccine: Yes (11/21/2016 04:15:Rosy Valdovinos) Influenza Date: 2016 (11/21/2016 04:15:Rosy Valdovinos) Tdap Vaccine: Yes (11/21/2016 04:15:Rosy Valdovinos) Tdap Date: 2016 (11/21/2016 04:15:Rosy Valdovinos) Road Mixer Operator: [facility] (11/21/2016 04:15:Rosy Valdovinos) Feeding Preference: Breast (11/21/2016 04:15:Rosy Valdovinos) Benefit of Breast Feed Discussed: Yes (11/21/2016 04:15:Viry Dickey RN) Circumcision: N/A (11/21/2016 04:15:Rosy Valdovinos) Classes Attended: No (11/21/2016 04:15:Rosy Valdovinos) Tubal Ligation: No (11/21/2016 04:15:Rosy Valdovinos) Tubal Authorization Signed: N/A (11/21/2016 04:15:Rosy Valdovinos) Consent: N/A (11/21/2016 04:15:Rosy Valdovinos) Consent Signed: N/A (11/21/2016 04:15:Rosy Valdovinos) Pain Management Plans: Epidural (11/21/2016 04:15:Rosy Valdovinos) Plans for Labor and Delivery: None (11/21/2016 04:15:Rosy Valdovinos) Support Person: Janeth (11/21/2016 04:15:Rosy Valdovinos) Support Person Relationship: (11/21/2016 04:15:Rosy Valdovinos) Cultural/Spritual Practice: N/A (11/21/2016 04:15:Rosy Valdovinos) Spir/Cult Dietary Needs: N/A (11/21/2016 04:15:Rosy Valdovinos) LIVING SITUATION/DISCHARGE PLAN Living Arrangements: House (11/21/2016 04:15:Rosy Valdovinos) Adequate Access to:: Electric; Heat; Refrigeration; Plumbing/Running water; Phone; Transportation (11/21/2016 04:15:Rosy Valdovinos) WIC Program: Yes (11/21/2016 04:15:Rosy Valdovinos) Discharge Manager Quality Compliance Person: janeth- (11/21/2016 04:15:Rosy Valdovinos) Person to Help after Discharge: janeth- (11/21/2016 04:15:Rosy Valdovinos) Currently Using Commun Resources: Yes (11/21/2016 04:15:Rosy Valdovinos) Specify Current Resource Used: medicaid (11/21/2016 04:15:Rosy Valdovinos) Outside Agency/Fiscal Technician: No (11/21/2016 04:15:Rosy Valdovinos) Car Seat for Discharge: Yes (11/21/2016 04:15:Rosy Valdovinos) Adoption Requested: No (11/21/2016 04:15:Rosy Valdovinos) Pt Contact w/ Post : N/A (11/21/2016 04:15:Rosy Valdovinos) LABS Blood Type: O Positive (11/21/2016 04:15:Cristina Nascimento RN) Hemoglobin: 11.1 L (11/22/2016 07:14:QS system process) Hematocrit: 33.0 L (11/22/2016 07:14:QS system process) MCV: 76 L (11/22/2016 07:14:QS system process) Group Beta Strep: negative (11/21/2016 04:15:Viry Dickey RN) RPR/VDRL: Nonreactive (11/21/2016 04:15:Cristina Nascimento RN) HIV Exposure Test: Negative (11/21/2016 04:15:Cristina Nascimento RN) Hepatitis B: Negative (11/21/2016 04:15:Cristina Nascimento RN) Rubella: POSITIVE NEGATIVE IF LESS THAN OR EQUAL TO 9.99 IU/mL POSITIVE IF GREATER THAN OR EQUAL TO 10.0 IU/mL (11/21/2016 05:50:QS system process) Rubella Titer: 41.30 (11/21/2016 05:50:QS system process) Varicella: Non Susceptible (11/21/2016 04:15:Cristina Nascimento RN) OB/PREVIOUS HISTORY Previous Procedures: Ultrasound; NST (11/21/2016 04:15:Rosy Valdovinos) Current Procedures: Ultrasound; NST (11/21/2016 04:15:Rosy Valdovinos) History of Previous : No (11/21/2016 04:15:Rosy Valdovinos) History of Gestational Diabetes: No (11/21/2016 04:15:Rosy Valdovinos) History of PIH: No (11/21/2016 04:15:Rosy Valdovinos) History of Incompetent Cervix: No (11/21/2016 04:15:Rosy Valdovinos) History of Placenta Previa/Abrup: No (11/21/2016 04:15:Rosy Valdovinos) History of Macrosomia: No (11/21/2016 04:15:Rosy Valdovinos) History of IUGR: No (11/21/2016 04:15:Rosy Valdovinos) History of Hemorrhage: No (11/21/2016 04:15:Rosy Valdovinos) History of Loss/Stillborn: No (11/21/2016 04:15:Rosy Valdovinos) History of : No (11/21/2016 04:15:Rosy Valdovinos) History of D (Rh) Sensitization: No (11/21/2016 04:15:Rosy Valdovinos) History Recurrent Loss/Stillborn: No (11/21/2016 04:15:Rosy Valdovinos) History Depression/PP Depression: No (11/21/2016 04:15:Rosy Valdovinos) History of Uterine Anomaly/GAVIOTA: No (11/21/2016 04:15:Rosy Valdovinos) History of Infertility: No (11/21/2016 04:15:Rosy Valdovinos) History of ART Treatment: No (11/21/2016 04:15:Rosy Valdovinos) History of GAVIOTA: No (11/21/2016 04:15:Rosy Valdovinos) MEDICAL HISTORY Med Hx Diabetes: No (11/21/2016 04:15:Rosy Valdovinos) Med Hx Hypertension: No (11/21/2016 04:15:Rosy Valdovinos) Med Hx Heart Disease: No (11/21/2016 04:15:Rosy Valdovinos) Med Hx Autoimmune Disorder: No (11/21/2016 04:15:Rosy Valdovinos) Med Hx Kidney Disease/UTI: No (11/21/2016 04:15:Rosy Valdovinos) Med Hx Neurologic/Epilepsy: No (11/21/2016 04:15:Rosy Valdovinos) Med Hx Psychiatric Disorders: No (11/21/2016 04:15:Rosy Valdovinos) Med Hx Hepatitis/Liver Disease: No (11/21/2016 04:15:Rosy Valdovinos) Med Hx Varicosities/Phlebitis: No (11/21/2016 04:15:Rosy Valdovinos) Med Hx Thyroid Dysfunction: No (11/21/2016 04:15:Rosy Valdovinos) Med Hx Trauma/Violence: No (11/21/2016 04:15:Rosy Valdovinos) Med Hx Blood Transfusion: No (11/21/2016 04:15:Rosy Valdovinos) Med Hx Pulmonary (Asthma,TB): No (11/21/2016 04:15:Rosy Valdovinos) Med Hx Breast: No (11/21/2016 04:15:Rosy Valdovinos) Med Hx INSURANCE AND BENEFITS CLERK Surgery: No (11/21/2016 04:15:Rosy Valdovinos) Med Hx Hospitalization/Surgery: No (11/21/2016 04:15:Rosy Valdovinos) Med Hx Anesthetic Complications: No (11/21/2016 04:15:Rosy Valdovinos) Med Hx Abnormal Pap Smear: No (11/21/2016 04:15:Rosy Valdovinos) Other Medical Diseases: No (11/21/2016 04:15:Rosy Valdovinos) Med Hx Significant Family Hx: No (11/21/2016 04:15:Rosy Valdovinos) Details of Med/Surg Hx: benign lump left breast-2009 depresasion-no suicidal thoughts (11/21/2016 04:15:Cristina Nascimento RN) INFECTIOUS HISTORY Inf Hx Gonorrhea: No (11/21/2016 04:15:Rosy Valdovinos) Inf Hx Chlamydia: No (11/21/2016 04:15:Rosy Valdovinos) Inf Hx Syphilis: No (11/21/2016 04:15:Rosy Valdovinos) Inf Hx HIV/AIDS: No (11/21/2016 04:15:Rosy Valdovinos) Inf Hx Human Papilloma Virus: No (11/21/2016 04:15:Rosy Valdovinos) Inf Hx Pt/Partner Genital Herpes: No (11/21/2016 04:15:Rosy Valdovinos) Inf Hx Tuberculosis/Exposure: No (11/21/2016 04:15:Rosy Valdovinos) Inf Hx Hepatitis B,C: No (11/21/2016 04:15:Rosy Valdovinos) Inf Hx Rash or Viral Illness: No (11/21/2016 04:15:Rosy Valdovinos) GENETIC HISTORY Gen Hx Age >=35 at TYRELL: No (11/21/2016 04:15:Rosy Valdovinos) Gen Hx Thalassemia: No (11/21/2016 04:15:Rosy Valdovinos) Gen Hx Congenital Heart Defect: No (11/21/2016 04:15:Rosy Valdovinos) Gen Hx Neural Tube Defect: No (11/21/2016 04:15:Rosy Valdovinos) Gen Hx Down's Syndrome: No (11/21/2016 04:15:Rosy Valdovinos) Gen Hx Jt-Sachs: No (11/21/2016 04:15:Rosy Valdovinos) Gen Hx Otto: No (11/21/2016 04:15:Rosy Valdovinos) Gen Hx Familial Dysautonomia: No (11/21/2016 04:15:Rosy Valdovinos) Gen Hx Sickle Cell Disease/Trait: No (11/21/2016 04:15:Rosy Valdovinos) Gen Hx Hemophilia/Blood Disorder: No (11/21/2016 04:15:Rosy Valdovinos) Gen Hx Muscular Dystrophy: No (11/21/2016 04:15:Rosy Valdovinos) Gen Hx Cystic Fibrosis: No (11/21/2016 04:15:Rosy Valdovinos) Gen Hx [place] Chorea: No (11/21/2016 04:15:Rosy Valdovinos) Gen Hx Mental Retardation/Autism: No (11/21/2016 04:15:Rosy Valdovinos) Gen Hx Tested for Fragile X: No (11/21/2016 04:15:Rosy Valdovinos) Gen Hx Other Inher/Chromosomal: No (11/21/2016 04:15:Rosy Valdovinos) Gen Hx Maternal Metabolic DO: No (11/21/2016 04:15:Rosy Valdovinos) Gen Hx Pt Father or FOB Defect: No (11/21/2016 04:15:Rosy Valdovinos) Gen Hx Other Genetic History: No (11/21/2016 04:15:Rosy Valdovinos) Gen Hx Drugs/Meds since LMP: No (11/21/2016 04:15:Rosy Valdovinos)
--- NOTE | 2016-11-27 20:24 | Delivery Summary ---
Del Sum A-C Datetime Report Generated by CPN: 11/27/2016 20:20 DELIVERY PERSONNEL DELIVERY PERSONNEL: [id number] Delivery Doctor:: Divina Ferguson MD Labor and Delivery Nurse:: Rosy Valdovinos RN Nursery Nurse:: TYLOR Mcadams Tech/TAI CHI INSTRUCTOR: Helen Pope TAI CHI INSTRUCTOR MATERNAL INFORMATION Delivery Anesthesia: None Medications After Delivery: Pitocin Bolus-Please Comment Meds After Delivery Comment: Pitocin 20 units/1000 ml NS following placenta Estimated Blood Loss (ml): 250 Maternal Complications: Precipitous Labor (<3hrs) Provider Comments: Placenta delivered intact with 3vc LABOR SUMMARY EDC: 11/20/2016 00:00 Attempted: No Labor Anesthesia: None LABOR INFORMATION Reason for Induction: Not Applicable Onset of Labor: 11/21/2016 03:00 Complete Dilatation: 11/21/2016 04:42 Oxytocin: N/A Group B Beta Strep: negative Antibiotics # of Doses: 0 Antibiotics Time of Last Dose: n/a Steroids Given: None Reason Steroids Not Administered: Not Applicable MEMBRANES Membranes Rupture Method: Artificial Rupture of Membranes: 11/21/2016 04:45 Length of Rupture (hr): 0.18 Amniotic Fluid Color: Clear Amniotic Fluid Amount: Moderate Amniotic Fluid Odor: Normal STAGES OF LABOR Stage 1 hr: 1 Stage 1 min: 42 Stage 2 hr: 0 Stage 2 min: 14 Stage 3 hr: 0 Stage 3 min: 4 Total Time in Labor hr: 2 Total Time in Labor min: 0 VAGINAL DELIVERY Episiotomy: None Laceration Extension: First Degree Laceration Type: Perineal Laceration Repair: Yes Laceration Repair Note: one 3-0 chromic suture placed Sponge Count Correct: N/A Sharps Count Correct: N/A CSECTION DELIVERY Primary Indication: N/A Secondary Indication: N/A CSection Incidence: N/A Labor: N/A Elective: N/A CSection Incision: N/A BABY A INFORMATION Delivery Date/Time: 11/21/2016 04:56 Method of Delivery: Vaginal Born in Route : No : N/A Forceps: N/A Vacuum Extraction: N/A Shoulder Dystocia : No PRESENTATION/POSITION BABY A Presentation: Cephalic Cephalic Presentation: Vertex Vertex Position: Left Occipital Anterior Breech Presentation: N/A PLACENTA INFORMATION BABY A Placenta Delivery Time : 11/21/2016 05:00 Placenta Method of Delivery: Spontaneous Placenta Status: Delivered SCORES BABY A Heart Rate 1 min: >100 bpm Resp Effort 1 min: Slow, Irregular Reflex Irritability 1 min: Cough or Sneeze or Pulls Away Muscle Tone 1 min: Active Motion Color 1 min: Body Sanger, Extremities Blue SCORE 1 MIN: 8 Heart Rate 5 min: >100 bpm Resp Effort 5 min: Good Cry Reflex Irritability 5 min: Cough or Sneeze or Pulls Away Muscle Tone 5 min: Active Motion Color 5 min: Body Sanger, Extremities Blue SCORE 5 MIN: 9 INFANT INFORMATION BABY A Gestational Age at Delivery: 40.1 Gestational Status: Full Term- 39- 40.6 Weeks Outcome : Liveborn Condition : Stable Infant Sex: Female IDENTIFICATION BABY A Verification Date/Time: 11/21/2016 05:49 ID Band Number: [id number] Mother's Name Verified: Yes Infant RN Verifying : A Valdovinos Rn Additional Verifying Personnel: Crowdp[employer] Rn WEIGHT/LENGTH BABY A Birthweight (gm): 3490 Weight (lb): 7 Weight (oz): 11 Infant Length (in): 20.00 Infant Length (cm): 50.80 CORD INFORMATION BABY A No. Cord Vessels: 3 Nuchal Cord : N/A Cord Blood Taken: Yes-For Eval (Mom's Blood Type - or O+) Suction: Mouth; Nose ASSESSMENT BABY A Complications: None Physical Findings at Delivery: Within Normal Limits Infant Respirations: Appears Normal Skin to Skin: Yes Skin to Skin Time (min): 40 Telephone Ad Taker/ALS Called : No Care By: Ena Campa RN Transferred To: Remains with Mother SIGNATURES Signature: with User ID: [email or web address]
--- NOTE | 2016-11-28 06:00 | L&D General Admission ---
General Admit Datetime Report Generated by CPN: 11/28/2016 06:00 INFORMATION Patient Age: 26 (10/08/2016 10:16:QS system process) EDC: 11/20/2016 00:00 (11/21/2016 04:15:Cristina Nascimento RN) EDC per Ultrasound: 11/20/2016 00:00 (11/21/2016 04:15:Cristina Nascimento RN) : 5 (11/21/2016 04:15:Cristina Nascimento RN) Para: 2 (11/21/2016 04:15:Cristina Nascimento RN) Term: 2 (11/21/2016 04:15:Cristina Nascimento RN) Spontaneous Abortions: 2 (11/21/2016 04:15:Cristina Nascimento RN) Livin (11/21/2016 04:15:Cristina Nascimento RN) Cesareans: 0 (11/21/2016 04:15:Cristina Nascimento RN) CARE Primary Funeral Service Manager: [facility] (11/21/2016 04:15:Rosy Valdovinos) Adequate Care: Yes (11/21/2016 04:15:Cristina Azam, RN) Height (in): 67 (11/22/2016 15:30:QS system process) ALLERGIES Medication Allergy: No (11/21/2016 04:15:Rosy Valdovinos) Medication Allergies: No Known Allergies (02/16/2013) (10/08/2016 10:16:QS system process) Latex Allergy: No Latex Allergies (11/21/2016 04:15:Rosy Valdovinos) Food Allergies: none (11/21/2016 04:15:Rosy Valdovinos) Environmental Allergies: none (11/21/2016 04:15:Rosy Valdovinos) COMMUNICATION Primary Language: Tanzanian (11/21/2016 04:15:Rosy Valdovinos) Medical Tx Preferred Language: Tanzanian (11/21/2016 04:15:Rosyabhilash Valdovinos) DEMOGRAPHICS Address: [address] [place] [phone] (10/08/2016 10:16:QS system process) Zipcode: [phone] (10/08/2016 10:16:QS system process) Home (10/08/2016 10:16:QS system process) SSN: [id number] (10/08/2016 10:16:QS system process) Next of Kin Name: JANETH MCMILLAN (10/08/2016 10:16:QS system process) Next of Kin (10/08/2016 10:16:QS system process) Next of Kin Relationship: SPO (10/08/2016 10:16:QS system process) Date of : 1990 (10/08/2016 10:16:QS system process) Marital Status: (10/08/2016 10:16:QS system process) Sex: Female (10/08/2016 10:16:QS system process) Race: (10/08/2016 10:16:QS system process) Ethnicity: Non- or (10/08/2016 10:16:QS system process) Yarsani: Spiritism (10/08/2016 10:16:QS system process) DRUG AND ALCOHOL USE Alcohol: No (11/21/2016 04:15:Rosy Valdovinos) Cigarettes: Never Smoker. [id number] (11/21/2016 04:15:Rosy Valdovinos) Marijuana: No (11/21/2016 04:15:Rosy Valdovinos) Cocaine: No (11/21/2016 04:15:Rosy Valdovinos) Other Illicit Drugs: No (11/21/2016 04:15:Rosy Valdovinos) VACCINE HISTORY Influenza Vaccine: Yes (11/21/2016 04:15:Rosy Valdovinos) Influenza Date: 2016 (11/21/2016 04:15:Rosy Valdvoinos) Tdap Vaccine: Yes (11/21/2016 04:15:Rosy Valdovinos) Tdap Date: 2016 (11/21/2016 04:15:Rosy Valdovinos) Hyster Driver: [facility] (11/21/2016 04:15:Rosy Valdovinos) Feeding Preference: Breast (11/21/2016 04:15:Rosy Valdovinos) Benefit of Breast Feed Discussed: Yes (11/21/2016 04:15:Viry Dickey RN) Circumcision: N/A (11/21/2016 04:15:Rosy Valdovinos) Classes Attended: No (11/21/2016 04:15:Rosy Valdovinos) Tubal Ligation: No (11/21/2016 04:15:Rosy Valdovinos) Tubal Authorization Signed: N/A (11/21/2016 04:15:Rosy Valdovinos) Consent: N/A (11/21/2016 04:15:Rosy Valdovinos) Consent Signed: N/A (11/21/2016 04:15:Rosy Valdovinos) Pain Management Plans: Epidural (11/21/2016 04:15:Rosy Valdovinos) Plans for Labor and Delivery: None (11/21/2016 04:15:Rosy Valdovinos) Support Person: Janeth (11/21/2016 04:15:Rosy Valdovinos) Support Person Relationship: (11/21/2016 04:15:Rosy Valdovinos) Cultural/Spritual Practice: N/A (11/21/2016 04:15:Rosy Valdovinos) Spir/Cult Dietary Needs: N/A (11/21/2016 04:15:Rosy Valdovinos) LIVING SITUATION/DISCHARGE PLAN Living Arrangements: House (11/21/2016 04:15:Rosy Valdovinos) Adequate Access to:: Electric; Heat; Refrigeration; Plumbing/Running water; Phone; Transportation (11/21/2016 04:15:Rosy Valdovinos) WIC Program: Yes (11/21/2016 04:15:Rosy Valdovinos) Discharge Programming Development Project Manager Person: janeth- (11/21/2016 04:15:Rosy Valdovinos) Person to Help after Discharge: janeth- (11/21/2016 04:15:Rosy Valdovinos) Currently Using Commun Resources: Yes (11/21/2016 04:15:Rosy Valdovinos) Specify Current Resource Used: medicaid (11/21/2016 04:15:Rosy Valdovinos) Outside Agency/Procurement Forester: No (11/21/2016 04:15:Rosy Valdovinos) Car Seat for Discharge: Yes (11/21/2016 04:15:Rosy Valdovinos) Adoption Requested: No (11/21/2016 04:15:Rosy Valdovinos) Pt Contact w/ Post : N/A (11/21/2016 04:15:Rosy Valdovinos) LABS Blood Type: O Positive (11/21/2016 04:15:Cristina Nascimento RN) Hemoglobin: 11.1 L (11/22/2016 07:14:QS system process) Hematocrit: 33.0 L (11/22/2016 07:14:QS system process) MCV: 76 L (11/22/2016 07:14:QS system process) Group Beta Strep: negative (11/21/2016 04:15:Viry Dickey RN) RPR/VDRL: Nonreactive (11/21/2016 04:15:Cristina Nascimento RN) HIV Exposure Test: Negative (11/21/2016 04:15:Cristina Nascimento RN) Hepatitis B: Negative (11/21/2016 04:15:Cristina Nascimento RN) Rubella: POSITIVE NEGATIVE IF LESS THAN OR EQUAL TO 9.99 IU/mL POSITIVE IF GREATER THAN OR EQUAL TO 10.0 IU/mL (11/21/2016 05:50:QS system process) Rubella Titer: 41.30 (11/21/2016 05:50:QS system process) Varicella: Non Susceptible (11/21/2016 04:15:Cristina Nascimento RN) OB/PREVIOUS HISTORY Previous Procedures: Ultrasound; NST (11/21/2016 04:15:Rosy Valdovinos) Current Procedures: Ultrasound; NST (11/21/2016 04:15:Rosy Valdovinos) History of Previous : No (11/21/2016 04:15:Rosy Valdovinos) History of Gestational Diabetes: No (11/21/2016 04:15:Rosy Valdovinos) History of PIH: No (11/21/2016 04:15:Rosy Valdovinos) History of Incompetent Cervix: No (11/21/2016 04:15:Rosy Valdovinos) History of Placenta Previa/Abrup: No (11/21/2016 04:15:Rosy Valdovinos) History of Macrosomia: No (11/21/2016 04:15:Rosy Valdovinos) History of IUGR: No (11/21/2016 04:15:Rosy Valdovinos) History of Hemorrhage: No (11/21/2016 04:15:Rosy Valdovinos) History of Loss/Stillborn: No (11/21/2016 04:15:Rosy Valdovinos) History of : No (11/21/2016 04:15:Rosy Valdovinos) History of D (Rh) Sensitization: No (11/21/2016 04:15:Rosy Valdovinos) History Recurrent Loss/Stillborn: No (11/21/2016 04:15:Rosy Valdovinos) History Depression/PP Depression: No (11/21/2016 04:15:Rosy Valdovinos) History of Uterine Anomaly/GAVIOTA: No (11/21/2016 04:15:Rosy Valdovinos) History of Infertility: No (11/21/2016 04:15:Rosy Valdovinos) History of ART Treatment: No (11/21/2016 04:15:Rosy Valdovinos) History of GAVIOTA: No (11/21/2016 04:15:Rosy Valdovinos) MEDICAL HISTORY Med Hx Diabetes: No (11/21/2016 04:15:Rosy Valdovinos) Med Hx Hypertension: No (11/21/2016 04:15:Rosy Valdovinos) Med Hx Heart Disease: No (11/21/2016 04:15:Rosy Valdovinos) Med Hx Autoimmune Disorder: No (11/21/2016 04:15:Rosy Valdovinos) Med Hx Kidney Disease/UTI: No (11/21/2016 04:15:Rosy Valdovinos) Med Hx Neurologic/Epilepsy: No (11/21/2016 04:15:Rosy Valdovinos) Med Hx Psychiatric Disorders: No (11/21/2016 04:15:Rosy Valdovinos) Med Hx Hepatitis/Liver Disease: No (11/21/2016 04:15:Rosy Valdovinos) Med Hx Varicosities/Phlebitis: No (11/21/2016 04:15:Rosy Valdovinos) Med Hx Thyroid Dysfunction: No (11/21/2016 04:15:Rosy Valdovinos) Med Hx Trauma/Violence: No (11/21/2016 04:15:Rosy Valdovinos) Med Hx Blood Transfusion: No (11/21/2016 04:15:Rosy Valdovinos) Med Hx Pulmonary (Asthma,TB): No (11/21/2016 04:15:Rosy Valdovinos) Med Hx Breast: No (11/21/2016 04:15:Rosy Valdovinos) Med Hx SPORTS BETTING MANAGER Surgery: No (11/21/2016 04:15:Rosy Valdovinos) Med Hx Hospitalization/Surgery: No (11/21/2016 04:15:Rosy Valdovinos) Med Hx Anesthetic Complications: No (11/21/2016 04:15:Rosy Valdovinos) Med Hx Abnormal Pap Smear: No (11/21/2016 04:15:Rosy Valdovinos) Other Medical Diseases: No (11/21/2016 04:15:Rosy Valdovinos) Med Hx Significant Family Hx: No (11/21/2016 04:15:Rosy Valdovinos) Details of Med/Surg Hx: benign lump left breast-2009 depresasion-no suicidal thoughts (11/21/2016 04:15:Cristina Nascimento RN) INFECTIOUS HISTORY Inf Hx Gonorrhea: No (11/21/2016 04:15:Rosy Valdovinos) Inf Hx Chlamydia: No (11/21/2016 04:15:Rosy Valdovinos) Inf Hx Syphilis: No (11/21/2016 04:15:Rosy Valdovinos) Inf Hx HIV/AIDS: No (11/21/2016 04:15:Rosy Valdovinos) Inf Hx Human Papilloma Virus: No (11/21/2016 04:15:Rosy Valdovinos) Inf Hx Pt/Partner Genital Herpes: No (11/21/2016 04:15:Rosy Valdovinos) Inf Hx Tuberculosis/Exposure: No (11/21/2016 04:15:Rosy Valdovinos) Inf Hx Hepatitis B,C: No (11/21/2016 04:15:Rosy Valdovinos) Inf Hx Rash or Viral Illness: No (11/21/2016 04:15:Rosy Valdovinos) GENETIC HISTORY Gen Hx Age >=35 at TYRELL: No (11/21/2016 04:15:Rosy Valdovinos) Gen Hx Thalassemia: No (11/21/2016 04:15:Rosy Valdovinos) Gen Hx Congenital Heart Defect: No (11/21/2016 04:15:Rosy Valdovinos) Gen Hx Neural Tube Defect: No (11/21/2016 04:15:Rosy Valdovinos) Gen Hx Down's Syndrome: No (11/21/2016 04:15:Rosy Valdovinos) Gen Hx Jt-Sachs: No (11/21/2016 04:15:Rosy Valdovinos) Gen Hx Otto: No (11/21/2016 04:15:Rosy Valdovinos) Gen Hx Familial Dysautonomia: No (11/21/2016 04:15:Rosy Valdovinos) Gen Hx Sickle Cell Disease/Trait: No (11/21/2016 04:15:Rosy Valdovinos) Gen Hx Hemophilia/Blood Disorder: No (11/21/2016 04:15:Rosy Valdovinos) Gen Hx Muscular Dystrophy: No (11/21/2016 04:15:Rosy Valdovinos) Gen Hx Cystic Fibrosis: No (11/21/2016 04:15:Rosy Valdovinos) Gen Hx [place] Chorea: No (11/21/2016 04:15:Rosy Valdovinos) Gen Hx Mental Retardation/Autism: No (11/21/2016 04:15:Rosy Valdovinos) Gen Hx Tested for Fragile X: No (11/21/2016 04:15:Rosy Valdovinos) Gen Hx Other Inher/Chromosomal: No (11/21/2016 04:15:Rosy Valdovinos) Gen Hx Maternal Metabolic DO: No (11/21/2016 04:15:Rosy Valdovinos) Gen Hx Pt Father or FOB Defect: No (11/21/2016 04:15:Rosy Valdovinos) Gen Hx Other Genetic History: No (11/21/2016 04:15:Rosy Valdovinos) Gen Hx Drugs/Meds since LMP: No (11/21/2016 04:15:Rosy Valdovinos)
== END 2016-11-22 18:02 | disposition home or self-care (01) | DRG 775 ==
LOC: LC 04:17 → LR 04:33 → 2N 06:55
PROVIDERS: ADMIT Obstetrics & Gynecology; ATTEND Obstetrics & Gynecology
PROC: 10E0XZZ Delivery of Products of Conception, External Approach (ICD-10-PCS; principal; 2016-11-21)
PROC: 0HQ9XZZ Repair Perineum Skin, External Approach (ICD-10-PCS; 2016-11-21)
PROC: 10907ZC Drainage of Amniotic Fluid, Therapeutic from Products of Conception, Via Natural or Artificial Opening (ICD-10-PCS; 2016-11-21)
PROC: 4A1HXCZ Monitoring of Products of Conception, Cardiac Rate, External Approach (ICD-10-PCS; 2016-11-21)
DX: O62.3 Precipitate labor (principal); O70.0 First degree perineal laceration during delivery; Z3A.40 40 weeks gestation of pregnancy; Z37.0 Single live birth
CPT/HCPCS: 36415; 80307; 81005; 85025; 85027; 86592; 86762; 86850; 86900; 86901; J2590; J3490